=== PATIENT | female | born 1950 | race Caucasian/White ===

== ENCOUNTER 2018-08-01 13:16 | Outpatient (REF) | payer MEDICARE, BC, SELFPAY ==
[2018-08-01 15:28] LABS: Cholesterol 228 mg/dL (50-200); Glucose 85 mg/dL (70-100); HDL Cholesterol 75 mg/dL (40-60); LDL CHOLESTEROL 146 mg/dL (<100); Triglyceride 56 mg/dL (30-150)
== END 2018-08-01 13:36 ==
LOC: NCHCN 13:16
PROVIDERS: Visit Provider Nurse Practitioner
DX: E03.9 Hypothyroidism, unspecified (principal); Z13.1 Encounter for screening for diabetes mellitus
CPT/HCPCS: 80061; 82947; 83721

== ENCOUNTER 2018-08-28 00:16 | Outpatient (CLI) | payer MEDICARE, BC, SELFPAY ==
--- NOTE | 2018-08-28 11:00 | DI.DEXA_ITS ---
SYMPTOM/DIAGNOSIS: OTHER SPECIFIC DISORDER OF BONE DENSITY AND STRUCTURE, M85.89 DEXA SCAN: Routine examination. A single lateral image of the spine shows no compression deformities. Evaluation of the left hip shows a total T score of -2.4 and a Z score of - 1.0. This is consistent with osteopenia and an increased fracture risk. This compares with a total T score of -2.0 from 2015. Evaluation of the lumbar spine shows a total T score of -0.8 and a Z score of 1.2. This is within normal limits. This compares with a total T score of -0.8 from 2015. IMPRESSION: Osteopenia in the left hip.
--- NOTE | 2018-08-28 14:33 | DI.MAMMO_ITS ---
SYMPTOM/DIAGNOSIS: SCREENING, Z12.39 MAMMOGRAMS: Mammograms were interpreted according to the usual protocol including computer analysis with CAD system, tomosynthesis and C view imaging. The breasts are composed of heterogeneously fibroglandular densities. There is no dominant mass. There are no suspicious calcifications. There has been no significant interval change when compared with previous images. SUMMARY: The breast tissue is radiodense which lowers the sensitivity of the study. As noted above, no dominant mass or suspicious calcification is evident. Follow up surveillance with routine annual screening mammography is recommended. Category 1. Breast density, Category D. MQSA ASSESSMENT OF FINDINGS: Negative. Category 1. Patient will receive a letter notifying them of these results. BI-RADS category D. The breasts are extremely dense, which lowers the sensitivity of mammography.
== END 2018-08-28 00:36 ==
PROVIDERS: PCP Nurse Practitioner; Visit Provider Nurse Practitioner
DX: Z12.31 Encounter for screening mammogram for malignant neoplasm of breast (principal); M85.88 Other specified disorders of bone density and structure, other site
CPT/HCPCS: 77063; 77067; 77080

== ENCOUNTER 2018-11-12 12:20 | Outpatient (REF) | payer MEDICARE, BC, SELFPAY ==
[2018-11-12 22:08] LABS: Iron 87 ug/dL (50-175); Total Iron Binding Capacity 300 ug/dL (250-450); Transferrin Sat 29 % (15-50)
[2018-11-12 22:09] LABS: Abs Immature Grans 0.01 k/cumm (0.0-0.09); Absolute Basophil Count 0.13 k/cumm (0.0-0.2); Absolute Eosinophil Count 0.14 k/cumm (0.0-0.7); Absolute Lymphocyte Count 1.91 k/cumm (1.2-3.4); Absolute Monocyte Count 0.29 k/cumm (0.11-0.7); Absolute Neutrophil Count 3.42 k/cumm (1.2-6.7); Basophils % 2.2; Eosinophils % 2.4; HCT 44.5 % (36.0-46.0); HGB 14.8 g/dL (12.0-15.5); Immature Grans % 0.2; Lymphocytes % 32.4; Mean Corp. HGB Concentration 33.3 g/dL (32.0-36.0); Mean Corpuscular Hemoglobin 29.6 pg (27.0-33.0); Mean Platelet Volume 10.5 fL (8.0-11.0); Monocytes % 4.9; Neutrophils % 57.9; Platelet Count 260 x1000/uL (130-400); RBC Distribution Width 13.3 % (11.7-14.6)
[2018-11-12 22:14] LABS: ALT 21 U/L (12-78); AST 17 U/L (15-37); Alkaline Phosphatase 50 U/L (46-116); Amylase 60 U/L (25-115); Anion Gap 9.5 mmol/L (3-11); BUN 13 mg/dL (7-18); Bilirubin, Total 0.4 mg/dL (0.2-1.0); CO2 28.5 mmol/L (21.0-32.0); CREATININE 0.84 mg/dL (0.55-1.02); Calcium 9.9 mg/dL (8.5-10.1); Chloride 104 mmol/L (98-107); Glucose 88 mg/dL (70-100); Lipase 154 U/L (73-393); Sodium 142 mmol/L (136-145); TSH (W/Ref FT4) 2.27 uIU/mL (0.358-3.74); Total Protein 7.2 g/dL (6.4-8.2)
[2018-11-12 22:29] LABS: Hemoglobin A1C 5.4 % (4.5-6.2)
[2018-11-12 22:39] LABS: Ferritin 45 ng/mL (8-388)
== END 2018-11-12 12:40 ==
LOC: NCHCN 12:20
PROVIDERS: PCP Nurse Practitioner; Visit Provider Nurse Practitioner
DX: E78.5 Hyperlipidemia, unspecified (principal); Z13.1 Encounter for screening for diabetes mellitus; Z83.3 Family history of diabetes mellitus; R11.0 Nausea; R10.9 Unspecified abdominal pain; R00.2 Palpitations; Z13.0 Encounter for screening for diseases of the blood and blood-forming organs and certain disorders involving the immune mechanism; M25.50 Pain in unspecified joint
CPT/HCPCS: 80053; 83690; 82150; 82728; 83036; 83540; 83550; 84443; 85025

== ENCOUNTER 2018-11-17 00:41 | Outpatient (CLI) | payer MEDICARE, BC, SELFPAY ==
--- NOTE | 2018-11-17 10:00 | DI.US_ITS ---
SYMPTOMS/DIAGNOSIS: GENERALIZED ABD PAIN, R10.84 ABDOMINAL ULTRASOUND: Comparison CT scan is 09/23/11. The aorta and IVC are unremarkable. The liver is normal in size. There is increased echogenicity of the liver consistent with hepatic steatosis. No hepatic mass is seen. There are a few echogenicity nonshadowing immobile nodules along the wall of the gallbladder likely reflecting polyps. No definite stones are seen. No gallbladder wall thickening or pericholecystic fluid or sludge is present. The common duct is within normal limits at .5 cm. The pancreas, kidneys and spleen are unremarkable. IMPRESSION: 1. Echogenic liver suggesting hepatic steatosis. 2. Gallbladder polyps. No biliary ductal dilatation.
== END 2018-11-17 01:01 ==
PROVIDERS: PCP Nurse Practitioner; Visit Provider Nurse Practitioner
DX: R10.84 Generalized abdominal pain (principal); K76.0 Fatty (change of) liver, not elsewhere classified; K82.4 Cholesterolosis of gallbladder
CPT/HCPCS: 76700

== ENCOUNTER 2018-11-21 01:22 | Outpatient (CLI) | payer MEDICARE, BC, SELFPAY ==
--- NOTE | 2018-11-24 10:42 | HOLTER_ITS ---
DATE OF DICTATION: November 24, 2018 HOLTER MONITOR REPORT 48-HOUR STUDY Baseline rhythm sinus. Occasional single PAC. Six bursts of SVT, longest 5-beat duration, fastest 142 bpm. No atrial fibri llation. Rare single PVC. No VT. Nocturnal heart rates as low as 50-55 bpm, sinus bradycardia. No symptoms. Average one-minute heart rate 70 bpm, range 53-119 bpm.
[2018-11-24 13:05] LABS: HBs Antibody, Qual Negative; HBs Antibody, Quant <3.1 mIU/mL; Hepatitis B Core Antibody Negative (NEGAT); Hepatitis B surface Ag Negative (NEGAT); Hepatitis C Ab w Rflx HCV PCR Negative (NEGAT)
[2018-12-01 09:28] LABS: Misc Referral (MAYO) See Comments
== END 2018-11-21 01:42 ==
PROVIDERS: PCP Nurse Practitioner; Visit Provider Nurse Practitioner
DX: R00.2 Palpitations (principal); R07.89 Other chest pain; I49.3 Ventricular premature depolarization; I47.1 Supraventricular tachycardia
CPT/HCPCS: 36415; 83516; 86038; 86255; 86704; 86706; 86803; 87340; 93225

== ENCOUNTER 2018-11-23 15:46 | Outpatient (CLI) | payer MEDICARE, BC, SELFPAY | END 2018-11-23 16:06 | PROVIDERS: PCP Nurse Practitioner; Visit Provider Nurse Practitioner | DX: R00.2 Palpitations (principal); R07.89 Other chest pain; I49.3 Ventricular premature depolarization; I47.1 Supraventricular tachycardia | CPT/HCPCS: 93226 ==

== ENCOUNTER 2018-11-24 10:07 | Outpatient (CLI) | payer MEDICARE, BC, SELFPAY | END 2018-11-24 10:27 | PROVIDERS: PCP Nurse Practitioner; Referring Provider Nurse Practitioner; Visit Provider Internal Medicine Interventional Cardiology | DX: R00.2 Palpitations (principal); R07.89 Other chest pain; I49.3 Ventricular premature depolarization; I47.1 Supraventricular tachycardia | CPT/HCPCS: 93227 ==

== ENCOUNTER 2019-07-30 14:31 | Inpatient (IN) | payer MEDICARE, BC, SELFPAY ==
[2019-07-30] VITALS (46 sets, daily range): BP systolic 75–123; BP diastolic 34–92; PULSE 63–134; RESP 12–28; TEMP 36.8–37.4; O2SAT 93–97
--- NOTE | 2019-07-30 15:08 | ED.GENADUL_ITS ---
Discharge Plan Disposition Condition: Improving Discharge Details Chief Complaint: GenMedical Admit Date/Time: 07/30/19 18:34 Admit Provider: Ming Simon Attending Provider: Ming Simon Primary Care Provider: Rere Alcocer ED Provider: Chika Layne Discharge Instructions Activity:: Activity as Tolerated Equipment/Supplies:: No Equipment Needed Diet:: As Tolerated Discharge Orders Discharge Orders: Discharge Order (Routine); Ordered 08/01/19 Ordered By: Beulah Roberts Discharge Data Discharge Date/Time-TO BE ENTERED AT DEPARTURE: 07/30/19 19:55 Medical Decision Making <Aries Ch NP - Last Filed: 08/01/19 16:11> Patient presenting to the emergency department for chief complaint of fever chills and not feeling well. Patient states approximately 10 days ago she started developing a breast abscess that opened and drained. Patient saw the [facility] and was placed on Bactrim which she finished approximately 5 days ago. Patient has continued to have significant amount of drainage from the abscess, surrounding erythema, and has not been feeling well. Patient states that she has had fever chills, body aches. Over the last 24 hours is also developed a rash on her chest and abdomen. Physical exam shows a macular papular rash that is very mild on the abdomen but fairly significant on the back, patient has clear lung sounds, normal cardiac sounds, is not hypotensive, afebrile, non-tachycardic, does have a abscess to the left lower breast with surrounding erythema. Exam is otherwise unremarkable nondiagnostic. Plan to check labs, including wound and blood cultures. Pending results patient given IV fluids. Reassess patient after fluids and states no improvement of mild headache, and does state some stiff neck. Review of labs show no loose leukocytosis and very subtle increase of neutrophils, decrease in lymphocytes, and mild increase of monocytes, CMP is otherwise nondiagnostic, CRP is mildly elevated at 4.53 and ESR is within normal limits at 30. Patient's lactate is within normal range. A fter blood cultures were drawn patient was started on clindamycin. Did discuss with patient risk versus benefit of lumbar puncture given vague complaints of headache and neck pain and subjective fever chills with malaise but at this time we decided to hold off on LP and treat obvious source of infection which is breast abscess. Of consideration also is local positive cases of influenza so plan to do flu swab. Give patient further fluids, Zofran and Toradol to treat other symptoms. Plan to reassess patient after all these treatments along with p.o. challenge to see if patient is agreeable for home discharge otherwise given patient still has draining breast abscess with not feeling well and antibiotic failure I do feel that admission can be considered with continued antibiotics. Patient signed out to DAGOBERTO Goodrich for reassessment and further disposition. <DAGOBERTO Patino - Last Filed: 07/30/19 23:51> Accepted signout of patient pending disposition and reevaluation after Toradol and Zofran provided. Reviewed patient previous work-up and history. Reexamined the patient. Patient does have a draining wound on the left breast with no other obvious palpable mass. Patient with mild skin changes beneath the left breast which may be secondary to drainage recently or dressings. Patient noted to have a rash on her torso anteriorly and posteriorly as well as in her groin bilateral legs including feet. Discussed with patient preference for admission to the hospital versus discharge home. Patient would prefer admission to the hospital for further evaluation. Of note patient has been hypotensive during her evaluation in the emergency room although she did present normotensive. Patient was provided IV fluid 2 L prior to signout, 1 of LR and 1 of normal saline. Patient remained persistently hypotensive. Patient however is noted to be hypertensive has no associated hypotensive symptoms specifically is not dizzy, lightheaded, nauseous or feeling weak. This was discussed with my attending who does recommend additional LR. Patient was also provided Benadryl for the rash which was notable on her lower b ack, torso and legs. After Benadryl patient did have some subsequent improvement in her rash and itching. Spoke with the hospitalist who will accept this patient's admission and would prefer chest x-ray and urinalysis obtained to be sure there is no other source of infection besides the left breast lesion which is draining. Patient reexamined serially throughout her ER stay. Patient did began to develop mild rales in the lung bases therefore IV fluid was discontinued. Patient had very minimal urine output after receiving almost 2-1/2 L of fluid therefore urination was encouraged. Patient was able to produce a small amount of urine. Patient ultimately discussed code to the ICU for further monitoring of her hypotension. Patient was eating and drinking, feeling well when transferred up to the ICU HPI <Aries Ch NP - Last Filed: 08/01/19 16:11> General Mode of arrival: ambulatory . Date/Time Provider Initiated Documentation: 07/30/19 14:39 . Limitations to Documentation: no limitations . Information obtained by: patient and RN notes reviewed . History of Present Illness 69 year old F presents to the emergency department with the chief complaint of Fever, rash, described as moderate, with intensity rated at 6. Quality is described as aching (Generalized body), Patient started experiencing this day(s) (10) and it has been constant. Patient did receive the following treatments prior to arrival, other (Bactrim finished 5 days ago) Related Data Home Medications Medication Instructions Recorded Confirmed trazodone 150 mg PO HS tab-cap NS 03/24/13 07/30/19 ibuprofen [Advil] 600 mg PO QAM PRN 05/30/13 07/30/19 levothyroxine 125 mcg PO QAM 02/23/17 07/30/19 Linzess 145 mcg PO QAM 07/30/19 07/30/19 meclizine 25 mg PO PRN PRN 07/30/19 07/30/19 Lactobacillus acidophilus 1,000 mmu cells PO DAILY #30 cap 08/01/19 clindamycin HCl 300 mg PO Q6H #20 cap 08/01/19 magnesium oxide 400 mg PO DAILY #7 tab 08/01/19 Previous Rx's Medication Instructions Recorded Lactobacillus acidophilus 1,000 mmu cells PO DAILY #30 cap 08/01/19 clindamycin HCl 300 mg PO Q6H #20 cap 08/01/19 magnesium oxide 400 mg PO DAILY #7 tab 08/01/19 Allergies Allergy/AdvReac Type Severity Reaction Status Date / Time sulfamethoxazole AdvReac Intermediate delayed Unverified 07/30/19 19:47 [From Bactrim] rash trimethoprim [From Bactrim] AdvReac Intermediate delayed Unverified 07/30/19 19:47 rash General Stated Complaint: GenMedical MIKE: 3 Review of Systems <Aries Ch NP - Last Filed: 08/01/19 16:11> Constitutional Constitutional: Reports body ache(s), Reports chills, Reports fever(s), Denies headache(s), Reports malaise and Reports weakness Eyes Eyes: Denies change in vision ENT Ears, Nose, Mouth, and Throat: Denies headache(s) Cardiovascular Cardiovascular: Denies chest pain Gastrointestinal Gastrointestinal: Denies abdominal pain, Reports nausea and Reports vomiting Integumentary/Breasts Skin/Breast: Reports pruritus (Bilateral feet), Reports rash (On trunk and lower back) and Reports other (Left breast abscess) Neurologic Neurologic: Denies headache(s) and Reports weakness PFSH <Aries Ch NP - Last Filed: 08/01/19 16:11> Medical History (Updated 08/01/19 @ 12:34 by Beulah Roberts MD) Anal fistula (Acute) Hypotension (Chronic) Hypothyroidism (acquired) (Chronic) Irritable bowel (Chronic) Surgical History History of total abdominal hysterectomy (Acute) Social History Smoking/Tobacco Use Status: Never Alcohol Intake: former Drug use: Never Do you feel safe at home: Yes Do you feel safe in your relationship?: Yes History History 2 Para 1 Hx # Term Pregnancies 1 Multiple births Hx # Pregnancies Ectopic pregnancies AB induced Hx Number of Living Children 1 AB spontaneous 1 Exam <Aries Ch NP - Last Filed: 08/01/19 16:11> Const General: cooperative Nutritional Appearance: average body habitus Orientation: alert, awake and oriented x3 Neck Neck: normal visual inspection, full ROM and no meningeal signs Chest Chest: other (Open 3cm draining abscess with surrounding erythema to left breast) Breast palpation: normal palpation of the breasts and no axillary lymphade nopathy Resp Effort & Inspection: normal respiratory effort and able to speak in complete sentences Auscultation: clear to auscultation bilaterally Cardio Rate: regular rate and not tachycardic Rhythm: regular rhythm Heart Sounds: S1 normal and S2 normal Skin Rashes: rashes noted maculopapular rash diffuse multiple locations arrangement clustered, borders indistinct, color blanching and red, distribution (Mostly on lower lumbar and some abdominal) and surface dry; nontender Neuro General: alert, awake, oriented x3, tone normal, moves all extremities, no meningeal signs, no focal motor deficits and not confused Cognition: normal cognition Speech: speech normal Course <Aries Ch NP - Last Filed: 08/01/19 16:11> Vital Signs Vital signs: Vital Signs Temperature 37.1 C 07/30/19 14:35 Pulse 87 07/30/19 14:35 Respiratory Rate 18 07/30/19 14:35 Blood Pressure 123/92 H 07/30/19 14:35 Pulse Oximetry 97 07/30/19 14:35 Temperature 37.1 C 07/30/19 14:35 Temperature Source Temporal Artery Scan 07/30/19 14:35 Pulse 87 07/30/19 14:35 Respiratory Rate 18 07/30/19 14:39 Respiratory Effort Non-Labored 07/30/19 14:41 Respiratory Depth Normal 07/30/19 14:39 Respiratory Pattern Normal 07/30/19 14:39 Blood Pressure 123/92 H 07/30/19 14:35 Blood Pressure Position Supine 07/30/19 14:35 Pulse Oximetry 97 07/30/19 14:35 Oxygen Delivery Method Room Air 07/30/19 14:35 Oxygen Flow Rate 0 07/30/19 14:35 Pain Level 6 07/30/19 14:35 Lab/Test Results Lab/Test Results: 07/30/19 14:58 Blood Blood Culture - Pending 07/30/19 14:58 Blood Blood Culture - Pending
[2019-07-30] MEDS: Normal Saline 1,000 ML 1000 ML IV (15:20)
[2019-07-30 15:30] LABS: Lactate 0.9 mmol/L (0.6-1.4)
[2019-07-30 15:35] LABS: Abs Immature Grans 0.01 k/cumm (0.0-0.09); Absolute Basophil Count 0.05 k/cumm (0.0-0.2); Absolute Eosinophil Count 0.04 k/cumm (0.0-0.7); Absolute Lymphocyte Count 1.01 k/cumm (1.2-3.4); Absolute Monocyte Count 0.75 k/cumm (0.11-0.7); Absolute Neutrophil Count 6.74 k/cumm (1.2-6.7); Basophils % 0.6; Eosinophils % 0.5; HCT 37.4 % (36.0-46.0); Immature Grans % 0.1; Lymphocytes % 11.7; Mean Corp. HGB Concentration 34.8 g/dL (32.0-36.0); Mean Corpuscular Hemoglobin 29.8 pg (27.0-33.0); Mean Corpuscular Volume 85.8 fL (80-95); Mean Platelet Volume 9.7 fL (8.0-11.0); Monocytes % 8.7; Neutrophils % 78.4; Platelet Count 199 x1000/uL (130-400); RBC 4.36 m/cumm (4.00-5.20); RBC Distribution Width 12.7 % (11.7-14.6)
[2019-07-30 15:50] LABS: AST 13 U/L (15-37); Albumin 3.1 g/dL (3.4-5.0); Alkaline Phosphatase 48 U/L (46-116); Anion Gap 9.7 mmol/L (3-11); BUN 10 mg/dL (7-18); Bilirubin, Total 0.6 mg/dL (0.2-1.0); C-Reactive Protein 4.53 mg/dL (0.0-0.3); CO2 25.3 mmol/L (21.0-32.0); CREATININE 0.87 mg/dL (0.55-1.02); Calcium 8.6 mg/dL (8.5-10.1); Chloride 99 mmol/L (98-107); Glucose 116 mg/dL (70-100); Potassium 3.8 mmol/L (3.5-5.1); Sodium 134 mmol/L (136-145); Total Protein 6.7 g/dL (6.4-8.2)
[2019-07-30 16:03] LABS: ALT 15 U/L (14-59)
[2019-07-30 16:18] LABS: ESR 30 mm/hr (0-30)
[2019-07-30] MEDS: CLINDAMYCIN 900 MG/50 ML BAG 50 MG IVPB (16:21)
[2019-07-30] MEDS: Normal Saline Flush 10 ML SYR IVP (16:26)
[2019-07-30] MEDS: Ketorolac 15 MG/ML VIAL IVP (16:41)
[2019-07-30] MEDS: Ondansetron 4 MG/2 ML VIAL IVP (16:42)
[2019-07-30] MEDS: Lactated Ringers 1,000 ML 1000 ML IV (16:45)
[2019-07-30] MEDS: diphenhydrAMINE 50 MG/ML VIAL IVP (17:31)
[2019-07-30] MEDS: Lactated Ringers 1,000 ML 300 ML IV (18:05)
--- NOTE | 2019-07-30 18:05 | NUR.NOTE ---
Nursing Note: Patients BP has continued to drop into the 70's systolic. Patients answers have become vauge but her orientation has maintained adequate. She is PWD, her speech seems slightly slurred. She only has complaints of leg cramps at this time.
[2019-07-30] MEDS: methylPREDNISolone SUCC 125 MG VIAL (18:17)
--- NOTE | 2019-07-30 18:21 | NUR.NOTE ---
1805: pt placed in trandelenburg due to hypotension Nursing Note:
--- NOTE | 2019-07-30 19:05 | DI.RAD_ITS ---
EXAM: XR PORTABLE CHEST AP INDICATION: hypotension; r/o sepsis. COMPARISON: LEFT SHOULDER COMPLETE from 01/03/2016 TECHNIQUE: 2D digital imaging was performed. FINDINGS: The heart is not enlarged. Lungs appear grossly clear and well expanded. IMPRESSION: No evidence of acute process.
--- NOTE | 2019-07-30 19:07 | SCONE_ITS ---
Date of service: 07/30/19 Time of Service: 19:07 Assessment and Plan Assessment and plan (1) Drug allergy, antibiotic: Status: Acute (2) Left breast abscess: Status: Acute Assessment and plan: draining spontaneously. No surrounding cellulitis cont local wound care wet to dry. abx coverage- clinda. cultures- pd clinically looks good. 20% slough 80% granulation tissue does not require debridement at this time adn continue to treat medically. hypotension was drug reaction adn not sepsis. does need to have is clinical breast exam and f/u US to r/o occult malig in 4-6 wks time. History of Present Illness Narrative: pt seen and examined. D/w Dr. Rai pt BP is doing better today. I think the hypotension and other problems was medicaton reaction and not due to the abscess itself. pt had abscess for a week. It has drained on its own. there is no signif erythema or swelling of the breast. no fever/chills. US was done this am and shows no pockets pt does get regular mamms. She does have a mamm scheduled for later this month. She has no hx of breast abscess or problems. She does have a Hx of infected boils. Complete clinical breast exam not done in light of acute infection. However, this should be done to r/o underlying malig- even w/ neg mamm. Today she feels better. No fever/chills. no n/v. She is hungry. no further rash. Consults Consult date: 07/31/19 Requesting physician: Ming Simon Review of Systems Review of Systems ROS Unobtainable: All systems reviewed & are unremarkable except as noted in HPI and below PFSH Medical History Anal fistula (Acute) Hypothyroidism (acquired) (Acute) Irritable bowel (Chronic) Surgical History History of total abdominal hysterectomy (Acute) Social History Smoking/Tobacco Use Status: Never Alcohol Intake: former Drug use: Never Do you feel safe at home: Yes Do you feel safe in your relationship?: Yes History History 2 Para 1 Hx # Term Pregnancies 1 Multiple births Hx # Pregnancies Ectopic pregnancies AB induced Hx Number of Living Children 1 AB spontaneous 1 Exam Const General: cooperative, healthy appearing, comfortable, no acute distress, well developed and well groomed Nutritional Appearance: average body habitus and well nourished Orientation: alert, awake and oriented x3 HENMT Head: normal to inspection, normocephalic and atraumatic Ears: hearing grossly normal bilaterally and external ears normal General nose exam: external nose normal Face and sinus: normal facial exam and sinuses nontender Mouth: oral mucosae normal, lip normal, tongue normal and moist mucous membranes Teeth and gingiva: dentition normal Eyes General: appearance normal, both eyes and all related structures Conjunctivae: conjunctivae normal Sclera: sclerae normal Pupils: PERRL Neck Neck: normal visual inspection and full ROM Chest Chest: normal inspection of the chest Resp Effort & Inspection: normal respiratory effort, able to speak in complete sentences, no cough, no nasal flaring, not tachypneic and no use of accessory muscles Auscultation: clear to auscultation bilaterally, no rales, no rhonchi and no w heezes Cardio Jugular venous pressure: no JVD Rate: regular rate Rhythm: regular rhythm GI Inspection: normal to inspection, no edema and non-distended Palpation: soft, no masses, nontender and No ascites Auscultation: normal bowel sounds Skin Other: 2cm open draining area in 6oclock position. surrounding tissue is int act. minimal serous drainages. 80% granulation. 20% slough. no further abscesss on US. Neuro General: alert, oriented x3, oriented, gait normal, moves all extremities, no focal motor deficits and CN's II-XI intact bilaterally Cognition: normal cognition Speech: speech normal Gait: normal gait Motor: muscle tone normal throughout Extrem General: normal to inspection, full ROM and no clubbing, cyanosis or edema Psych Appearance: grossly normal and well kempt Mental Status: mental status grossly normal Speech and Movement: speech and movement normal Affect: normal affect Results Last Vital Signs Temp 37.4 C 07/30/19 17:32 Pulse 77 07/30/19 18:40 Resp 15 07/30/19 18:41 BP 90/61 L 07/30/19 18:40 Pulse Ox 97 07/30/19 18:41 Labs Result diagrams: 07/31/19 06:30 07/31/19 06:30 Labs: Laboratory Results - last 24 hr 07/30/19 07/30/19 07/30/19 15:15 15:15 15:15 WBC 8.60 RBC 4.36 Hgb 13.0 Hct 37.4 MCV 85.8 MCH 29.8 MCHC 34.8 RDW 12.7 Plt Count 199 MPV 9.7 Immature Gran % 0.1 Neutrophils % 78.4 Lymphocytes % 11.7 Monocytes % 8.7 Eosinophils % 0.5 Basophils % 0.6 Absolute Neutrophils 6.74 H Absolute Lymphocytes 1.01 L Absolute Monocytes 0.75 H Absolute Eosinophils 0.04 Absolute Basophils 0.05 ESR 30 Sodium 134 L Potassium 3.8 Chloride 99 Carbon Dioxide 25.3 Anion Gap 9.7 BUN 10 Creatinine 0.87 Estimated GFR/1.73 m2 >= 60.00 Glucose 116 H Lactate 0.9 Calcium 8.6 Total Bilirubin 0.6 AST 13 L ALT 15 Alkaline Phosphatase 48 C-Reactive Protein 4.53 H Total Protein 6.7 Albumin 3.1 L
--- NOTE | 2019-07-30 19:12 | DI.VRAD_ITS ---
PROCEDURE INFORMATION: Exam: XR Chest, 1 View Exam date and time: 07/30/2019 7:01 PM Clinical history: 69 years old, female; Other: Hypotension, R/O sepsis TECHNIQUE: Imaging protocol: XR of the chest Views: 1 view. COMPARISON: CR CHEST 2 VIEWS PA,LAT 08/08/2012 5:18 PM FINDINGS: Lungs: Unremarkable. No consolidation. Pleural space: Unremarkable. No pleural effusion. No pneumothorax. Heart/Mediastinum: Unremarkable. No cardiomegaly. Bones/joints: Unremarkable. IMPRESSION: No acute findings. Dictated and Authenticated by: Vane Rojo MD. Ordering:[facility] Alfred Lai MD
[2019-07-30 19:13] LABS: Bilirubin Small (Negative); Blood Negative (Negative); Clarity Sl Cloudy (Clear); Glucose Negative (Negative); Ketones 40 mg/dL (Negative); Leukocyte Esterase Small (Negative); Nitrite Negative (Negative); Specific Gravity 1.025 (1.005-1.025)
[2019-07-30 19:24] LABS: Bacteria Negative HPF (Negative); C & S Indicated? C&S Done As Ordered; Casts Negative LPF (Negative); Crystals Negative HPF (Negative); Epithelial Cells Few HPF (Negative); Mucus Negative (Negative); RBC Negative (0-2); WBC >50 HPF (0-5)
[2019-07-30 19:30] LABS: Procalcitonin 0.1 ng/mL
--- NOTE | 2019-07-30 20:28 | HPE_ITS ---
Date of service: 07/30/19 Time of Service: 20:28 Assessment and Plan Assessment and plan (1) Left breast abscess: Status: Acute Assessment and plan: continue w/ iv clindamycin; apply wet to dry dressin gs for tonight; consult w/ surgery for possible incision and drainage; obtain breast ultrasound in the a.m.; patient was scheduled for her mammogram for next month. this will still need to be done but can await resolution of her infection unless malignancy is suspected on the U.S.; I spoke w/ Dr. Mendenhall who agrees w/ current managment and will see the patient in the a.m. (2) Drug allergy, antibiotic: Status: Acute Assessment and plan: continue w/ benadryl; pepcid also added for additio nal H2 coverage for allergic reaction. Her rash is markedly improved per comparison to ER reports and according to the patient and her . Her itching of the soled of her feet have resolved. History of Present Illness History of Present Illness Chief Complaint: left breast abscess, fever, rash Narrative: 69 yr old female w/ PMH of IBS (constipation), hypothyroidism who developed a boil on her left breast about 10 days ago. Started as tender red indurated area in the left inferior breast and she saw her PCP who put her on Bactrim DS x 5 days. When the redness and tenderness worsened she says that she returned to the [facility] requesting this to be lanced. She completed her course of Bactrim last SaturdayJul 24. On Saturday evening and Saturday (07/28 and 07/29) she developed fever and chills and diaphoresis then yesterday 07/29 developed diffuse erythematous rash over her back which then spread to her arms and legs and was accompanied by urticaria with itching of her soles of her feet. By this time the area under her breast had been opening up and draining foul smelling green purulent material. Upon evaluation in the ER she initially was normotensive but developed hypotension w/ BP 70-80 systolic over diastolic readings in the 40's to 50's but no tachycardia. ER workup included blood and wound cultures and routine labs including CBC, CMP, ESR, CRP and lactate. CBC demonstrated normal total WBC of 8600 but w/ increased PMN of 6740 and elevated ESR of 30 and CRP of 4.53. Her CMP was normal. Procalcitonin is 0.1. Although she had no urinary symptoms, UA demonstrated mild proteinuria of 30 mg/dL and ketones of 40 mg/dL and small leukocyte esterase, w/ >50 WBC/HPF, but negative for bacteria. Her influenza A&B antigen were negative. CXR showed no acute findings. After blood and wound cultures were taken, she was treated w/ clindamycin 900 mg IVP for her breast abscess and her urticaria was treated w/ benadryl 50 mg IVP and solumedrol 125 mg IVP. Despite 2 L of LR she continued to have mild hypotension w/ SBP 80-90. She is admitted to ICU for continued iv fluid support, benadryl and clindamycin for her wound infection. Surgical consu lt and breast ultrasound will be obtained in the a.m. Review of Systems Constitutional Constitutional: Reports as per HPI, Reports chills, Reports excessive sweating, Reports fever(s), Reports headache(s), Reports malaise and Reports poor appetite ENT Ears, Nose, Mouth, and Throat: Reports system reviewed and no additional complaints, except as docu and Reports headache(s) Cardiovascular Cardiovascular: Reports system reviewed and no additional complaints, except as docu Respiratory Respiratory: Reports system reviewed and no additional complaints, except as docu Gastrointestinal Gastrointestinal: Reports system reviewed and no additional complaints, except as docu Genitourinary Genitourinary: Reports system reviewed and no additional complaints, except as docu Musculoskeletal Musculoskeletal: Denies arthralgias and Denies joint swelling Integumentary/Breasts Skin/Breast: Reports as per HPI, Reports breast skin changes (only redness and tenderness under left breast in last 10 days), Reports breast pain (patient denied any antecedent breast pain prior to left breast wound) and Denies breast mass Neurologic Neurologic: Reports headache(s) Endocrine Endocrine: Reports excessive sweating Hematologic/Lymphatic Hematologic/Lymphatic: Reports system reviewed and no additional complaints, except as docu Allergic/Immunologic Allergic/Immunologic: Reports system reviewed and no additional complaints, except as docu PFSH Medical History (Updated 07/30/19 @ 21:37 by Ming Simon) Anal fistula (Acute) Hypothyroidism (acquired) (Acute) Irritable bowel (Chronic) Surgical History (Updated 07/30/19 @ 21:29 by Ming Simon) History of total abdominal hysterectomy (Acute) Social History Smoking/Tobacco Use Status: Never Alcohol Intake: former Drug use: Never Do you feel safe at home: Yes Do you feel safe in your relationship?: Yes History History 2 Para 1 Hx # Term Pregnancies 1 Multiple births Hx # Pregnancies Ectopic pregnancies AB induced Hx Number of Living Children 1 AB spontaneous 1 Meds Home Medications and Allergies Home Medications Medication Instructions Recorded Confirmed Type trazodone 150 mg PO HS tab-cap NS 03/24/13 07/30/19 History ibuprofen [Advil] 600 mg PO QAM PRN 05/30/13 07/30/19 History levothyroxine 125 mcg PO QAM 02/23/17 07/30/19 History linaclotide [Linzess] 145 mcg PO QAM 07/30/19 07/30/19 History meclizine 25 mg PO PRN PRN 07/30/19 07/30/19 History Allergies Allergy/AdvReac Type Severity Reaction Status Date / Time sulfamethoxazole AdvReac Intermediate delayed Unverified 07/30/19 19:47 [From Bactrim] rash trimethoprim [From Bactrim] AdvReac Intermediate delayed Unverified 07/30/19 19:47 rash Exam Const General: cooperative, healthy appearing, comfortable, no acute distress, well developed and well groomed Nutritional Appearance: average body habitus Orientation: alert, awake and oriented x3 Neck Neck: normal visual inspection, full ROM, no lymphadenopathy, trachea midline, supple and no JVD Thyroid: thyroid normal Carotids: normal carotid upstroke Lymphatic: no lymphadenopathy noted Chest Breast inspection: normal inspection of the axillae and abnormal inspection of the breast left lower outer other (open draining wound that is approximately 5 cm around and draining purulent yellow material) Breast palpation: normal palpation of the axillae, no axillary lymphadenopathy and abnormal palpation of the breast left lower outer tenderness and induration Resp Effort & Inspection: normal respiratory effort and able to speak in complete sentences Auscultation: clear to auscultation bilaterally Cardio Jugular venous pressure: no JVD Palpation: normal PMI Rate: regular rate Rhythm: regular rhythm Heart Sounds: S1 normal, S2 normal and normal, physiologic split S2 Pulses: normal peripheral pulses GI Inspection: normal to inspection Palpation: soft Percussion: normal to percussion Auscultation: normal bowel sounds Rectal Exam - female: deferred Skin Rashes: rashes noted macules bilateral posterior back color variegated Wounds: wounds noted ulceration left lower breast size (approx 5 cm), drainage purulent, margins indurated and open Neuro General: alert, awake, oriented x3, moves all extremities and no focal motor deficits Cognition: normal cognition Speech: speech normal Motor: muscle tone normal throughout, strength 5/5 throughout and no movement abnormalities noted Sensory Exam: no sensory deficits noted Extrem General: normal to inspection, full ROM, normal capillary refill, no joint enlargement, no clubbing, cyanosis or edema, no pedal edema and no calf tenderness Psych Appearance: grossly normal Mental Status: mental status grossly normal Speech and Movement: speech and movement normal Mood: congruent mood Affect: normal affect Attitude: cooperative Thought Process: normal Thought Content: normal Judgment: judgment good Results Labs Result diagrams: 07/30/19 15:15 07/30/19 15:15 Labs: Laboratory Results - last 24 hr 07/30/19 07/30/19 07/30/19 15:15 15:15 15:15 WBC 8.60 RBC 4.36 Hgb 13.0 Hct 37.4 MCV 85.8 MCH 29.8 MCHC 34.8 RDW 12.7 Plt Count 199 MPV 9.7 Immature Gran % 0.1 Neutrophils % 78.4 Lymphocytes % 11.7 Monocytes % 8.7 Eosinophils % 0.5 Basophils % 0.6 Absolute Neutrophils 6.74 H Absolute Lymphocytes 1.01 L Absolute Monocytes 0.75 H Absolute Eosinophils 0.04 Absolute Basophils 0.05 ESR 30 Sodium 134 L Potassium 3.8 Chloride 99 Carbon Dioxide 25.3 Anion Gap 9.7 BUN 10 Creatinine 0.87 Estimated GFR/1.73 m2 >= 60.00 Glucose 116 H Lactate 0.9 Calcium 8.6 Total Bilirubin 0.6 AST 13 L ALT 15 Alkaline Phosphatase 48 C-Reactive Protein 4.53 H Total Protein 6.7 Albumin 3.1 L Procalcitonin Urine Color Urine Clarity Urine pH Ur Specific [place] Urine Protein Urine Ketones Urine Blood Urine Nitrite Urine Bilirubin Urine Urobilinogen Ur Leukocyte Esterase Urine RBC Urine WBC Ur Epithelial Cells Urine Crystals Urine Bacteria Urine Casts Urine Mucus Ur Culture Indicated? Urine Glucose 07/30/19 07/30/19 18:45 19:05 WBC RBC Hgb Hct MCV MCH MCHC RDW Plt Count MPV Immature Gran % Neutrophils % Lymphocytes % Monocytes % Eosinophils % Basophils % Absolute Neutrophils Absolute Lymphocytes Absolute Monocytes Absolute Eosinophils Absolute Basophils ESR Sodium Potassium Chloride Carbon Dioxide Anion Gap BUN Creatinine Estimated GFR/1.73 m2 Glucose Lactate Calcium Total Bilirubin AST ALT Alkaline Phosphatase C-Reactive Protein Total Protein Albumin Procalcitonin 0.1 Urine Color Yellow Urine Clarity Sl cloudy Urine pH 6.0 Ur Specific [place] 1.025 Urine Protein 30 H Urine Ketones 40 H Urine Blood Negative Urine Nitrite Negative Urine Bilirubin Small H Urine Urobilinogen 1.0 H Ur Leukocyte Esterase Small H Urine RBC Negative Urine WBC >50 Ur Epithelial Cells Few Urine Crystals Negative Urine Bacteria Negative Urine Casts Negative Urine Mucus Negative Ur Culture Indicated? C&s done as ordered Urine Glucose Negative Last Vital Signs Temp 37.4 C 07/30/19 17:32 Pulse 76 07/30/19 19:35 Resp 24 07/30/19 19:35 BP 91/57 L 07/30/19 19:35 Pulse Ox 94 L 07/30/19 19:35
[2019-07-30] MEDS: FAMOTIDINE 20 MG/50 ML BAG 200 MG IVPB (21:21)
[2019-07-30] MEDS: Melatonin 3 MG TAB 9 MG PO (21:22)
[2019-07-30] MEDS: Enoxaparin 40 MG/0.4 ML SYR SC (21:22)
[2019-07-30] MEDS: Normal Saline 1,000 ML 100 ML IV (21:50)
[2019-07-31] VITALS (38 sets, daily range): BP systolic 82–114; BP diastolic 54–69; PULSE 36–72; RESP 9–35; TEMP 35.6–37.1; O2SAT 95–99
[2019-07-31] MEDS: CLINDAMYCIN 900 MG/50 ML BAG 50 MG IVPB ×4 (00:36→23:39)
[2019-07-31] MEDS: diphenhydrAMINE 50 MG/ML VIAL IVP ×2 (00:36→06:28)
[2019-07-31] MEDS: Normal Saline Flush 10 ML SYR IVP (03:37)
[2019-07-31] MEDS: FAMOTIDINE 20 MG/50 ML BAG 200 MG IVPB ×2 (06:28→21:05)
[2019-07-31] MEDS: Levothyroxine 125 MCG TAB PO (06:28)
[2019-07-31 07:10] LABS: Absolute Basophil Count 0.01 k/cumm (0.0-0.2); Absolute Lymphocyte Count 0.74 k/cumm (1.2-3.4); Absolute Neutrophil Count 2.63 k/cumm (1.2-6.7); Basophils % 0.3; HCT 33.7 % (36.0-46.0); HGB 11.6 g/dL (12.0-15.5); Lymphocytes % 21.3; Mean Corp. HGB Concentration 34.4 g/dL (32.0-36.0); Mean Corpuscular Hemoglobin 29.9 pg (27.0-33.0); Mean Corpuscular Volume 86.9 fL (80-95); Mean Platelet Volume 10.3 fL (8.0-11.0); Monocytes % 2.9; Neutrophils % 75.5; Platelet Count 153 x1000/uL (130-400); RBC 3.88 m/cumm (4.00-5.20); RBC Distribution Width 12.6 % (11.7-14.6); White Blood Cell Count 3.48 k/cumm (4.4-10.8)
[2019-07-31 07:22] LABS: Anion Gap 8.7 mmol/L (3-11); BUN 11 mg/dL (7-18); C-Reactive Protein 3.69 mg/dL (0.0-0.3); CO2 24.3 mmol/L (21.0-32.0); CREATININE 0.71 mg/dL (0.55-1.02); Calcium 8.9 mg/dL (8.5-10.1); Chloride 107 mmol/L (98-107); Glucose 150 mg/dL (70-100); Potassium 4.6 mmol/L (3.5-5.1); Sodium 140 mmol/L (136-145)
--- NOTE | 2019-07-31 08:30 | DI.US_ITS ---
EXAM: US BREAST LT COMPLETE CLINICAL HISTORY: breast abscess. TECHNIQUE: Ultrasound performed using standard protocol. COMPARISON: US ABDOMEN from 11/17/2018 FINDINGS: Ultrasound of the left breast was performed to evaluate the possibility of a breast abscess. Scannin g of the entire breast fails to show an abscess or mass. IMPRESSION: No evidence of breast abscess.
--- NOTE | 2019-07-31 09:26 | INITIAL_ITS ---
- If Service Date Differs Date of service: 07/31/19 Time of Service: 09:26 Care Management Initial Assess REASON FOR HOSPITALIZATION:: Breast abscess; r/o sepsis. PAST MEDICAL HISTORY/PAST SURGICAL HISTORY:: Medical History: Anal fistula, hypothyroidism, and irritable bowel. Surgical History: History of total abdominal hysterectomy. PREVIOUS FUNCTIONAL STATUS/SOCIAL/FAMILY SUPPORTS:: Vick resides in [place] with her Krzysztof. 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 She shares that she and her had plans to fly to [place] to visit her sister over the weekend but now that she is in the hospital, those plans have to be rescheduled. The couple spends a lot of time traveling the country. Vick is independent in the community and manages her own needs. CURRENT FUNCTIONAL STATUS:: Vick is lying in bed when meets with her today. Her , Krzysztof, is present in the room. Vick is pleasant and easily engages in conversation. She expresses her disappointment with having to reschedule her trip to [place]. ADVANCE DIRECTIVES:: On file at [facility]; agent is , Krzysztof Jama. Has patient been provided with information about the portal?: Yes Did the patient sign up for the portal?: Yes CODE STATUS:: Full Code INSURANCE COVERAGE / FINANCIAL ISSUES:: [facility] and Medicare. CURRENT HOME/COMMUNITY SERVICES/EQUIPMENT:: No current services. PRIMARY CARE PHYSICIAN:: Rere Alcocer NP, [facility] POTENTIAL DISCHARGE NEEDS:: Follow-up with primary care physician. PATIENT/FAMILY EDUCATION NEEDS:: Discharge plan, limitations, and follow-up plan of care including ask me 3 and self-management. ANTICIPATED BARRIERS TO DISCHARGE:: None. TRANSPORTATION:: will transport Vick home upon discharge. PLAN:: Vick will be discharged home when medically cleared by provider. Anticipate no additional services needed at time of discharge. will transport patient home.
--- NOTE | 2019-07-31 14:11 | W.PM.PROGNOT ---
Date of Service Date of service: 07/31/19 Time of Service: 14:12 Assessment and Plan Assessment and plan (1) Drug allergy, antibiotic: Status: Acute Assessment and plan: Appears vastly improved/resolving. No further Benadryl, but remains on Famotidine. Also received IV Steroids. Monitor. (2) Left breast abscess: Status: Acute Assessment and plan: No evidence of any remaining infection/abscess to drain, per ultrasound. Infection appears to be draining spontaneously. Given purulence and prior abscess need coverage for MRSA. - Continue antibiotics, but with change towards Clindamycin. If patient tolerates, plan on change to oral formulation tomorrow. - Hypotension may be on the basis of drug reaction and not sepsis - continue IVFs for now, monitor blood cultures closely, and continue monitoring. - Does not require debridement. - Plan on outpatient diagnostic mammogram and repeat ultrasound in 1-2 months. (3) Hypothyroidism (acquired): Status: Acute Assessment and plan: Continue replacement therapy. Unsure of utility for TSH given acute illness - last checked and normal in October 2018. (4) DVT prophylaxis: Status: Acute Assessment and plan: SC Lovenox. Subjective Subjective Interval history since last seen: 69 year old woman with a prior history of multiple abscesses, admitted from [facility] Emergency Department with a likely drug reaction to Bactrim. Mrs. Jama has a past Medical History of Hypothyroidism, constipation predominant IBS, and prior abscesses. She reportedly developed an abscess of the left breast approximately 10 days prior to admission, and was initiated on TMP-SMX by her PCP on 07/24. On the night prior to her admission (07/28 & 07/29) she developed fevers, diaphoresis, and a diffuse erythematous rash over her back, arms, and legs that was accompanied by urticaria. The area under her breast had also been draining purulent appearing material. Evaluation in the ED was noteworthy for hypotension, significant erythematous rash that was nearly resolved by the time of admission, lack of leukocytosis, normal Lactate, normal CMP, but with an elevated CRP of 4.53, and a Procalcitonin level of 0.1. Her Urinalysis showed sterile Pyuria, Rapid flu was negative, and CXR did not show any acute pathology. By this morning Mrs. Jama feels well and certainly improved. Her WBC is low this morning, with CRP that is improved. Her Breast Ultrasound does not show evidence of an abscess or mass, and Urine Culture shows <10,000 of Gram + Haylie. The patient remains hypotensive and is also bradycardic, but reports that this is her norm, especially with the bradycardia. No overnight events reported. She remains afebrile. Exam Narrative Exam Narrative: General: Patient appears comfortable, AAOX3, NAD Skin: Left Breast wound with bandage in place Neck: Supple CV: Regular, nontachycardic, S1S2, No rubs, murmurs, or gallops. Pulmonary: Clear to auscultation bilaterally, no crackles, wheezing, or rhonchi Abdomen: + Bowel Sounds, soft, nontender, nondistended Vascular: No lower extremity edema Psych: Normal mood and affect. Objective Objective Clinical Data: Abnormal lab results 07/30/19 07/30/19 07/30/19 Range/Units 15:15 15:15 19:05 WBC (4.4-10.8) k/cumm RBC (4.00-5.20) m/cumm Hgb (12.0-15.5) g/dL Hct (36.0-46.0) % Absolute Neutrophils 6.74 H (1.2-6.7) k/cumm Absolute Lymphocytes 1.01 L (1.2-3.4) k/cumm Absolute Monocytes 0.75 H (0.11-0.7) k/cumm Sodium 134 L (136-145) mmol/L Glucose 116 H (70-100) mg/dL AST 13 L (15-37) U/L C-Reactive Protein 4.53 H (0.0-0.3) mg/dL Albumin 3.1 L (3.4-5.0) g/dL Urine Protein 30 H (Negative) mg/dL Urine Ketones 40 H (Negative) mg/dL Urine Bilirubin Small H (Negative) Urine Urobilinogen 1.0 H (Up TO 0.2) EU/dL Ur Leukocyte Esterase Small H (Negative) 07/31/19 07/31/19 Range/Units 06:30 06:30 WBC 3.48 L D (4.4-10.8) k/cumm RBC 3.88 L (4.00-5.20) m/cumm Hgb 11.6 L (12.0-15.5) g/dL Hct 33.7 L (36.0-46.0) % Absolute Neutrophils (1.2-6.7) k/cumm Absolute Lymphocytes 0.74 L (1.2-3.4) k/cumm Absolute Monocytes 0.10 L (0.11-0.7) k/cumm Sodium (136-145) mmol/L Glucose 150 H (70-100) mg/dL AST (15-37) U/L C-Reactive Protein 3.69 H (0.0-0.3) mg/dL Albumin (3.4-5.0) g/dL Urine Protein (Negative) mg/dL Urine Ketones (Negative) mg/dL Urine Bilirubin (Negative) Urine Urobilinogen (Up TO 0.2) EU/dL Ur Leukocyte Esterase (Negative) Vital Signs Temperature 35.8 C L 07/31/19 12:18 Temperature Source Tympanic 07/31/19 12:51 Pulse 57 L 07/31/19 12:18 Pulse 56 L 07/31/19 09:40 Respiratory Rate 12 07/31/19 12:18 Respiratory Effort Non-Labored 07/31/19 12:51 Respiratory Depth Normal 07/31/19 12:51 Respiratory Pattern Normal 07/31/19 12:51 Blood Pressure 82/60 L 07/31/19 12:18 Blood Pressure Mean 59 07/30/19 22:09 Blood Pressure Position Supine 07/31/19 12:51 Pulse Oximetry 95 07/31/19 12:18 Oxygen Delivery Method Room Air 07/31/19 12:51 Oxygen Flow Rate 0 07/31/19 12:51 Pain Level 0 07/31/19 12:51 Intake & Output 07/30/19 07/31/19 07/31/19 23:59 11:59 23:59 Intake Total 2745 / 2745 190 / 190 Output Total 700 / 700 350 / 350 Balance 2044 / 2044 -160 / -160 Weight 74 kg 74.5 kg Intake: IV 2265 / 2265 50 / 50 Oral 480 / 480 140 / 140 Output: Urine 700 / 700 350 / 350 Other: Urine Color Yellow Dark Raquel Urine Appearance Clear Clear Urine Odor Normal None Comment s/p hysterectomy. Medium raquel urine. Voided 350cc on commode. No further void since this am. Voiding Methods Bedside Commode Laboratory Results WBC 3.48 k/cumm (4.4-10.8) L D 07/31/19 06:30 RBC 3.88 m/cumm (4.00-5.20) L 07/31/19 06:30 Hgb 11.6 g/dL (12.0-15.5) L 07/31/19 06:30 Hct 33.7 % (36.0-46.0) L 07/31/19 06:30 MCV 86.9 fL (80-95) 07/31/19 06:30 MCH 29.9 pg (27.0-33.0) 07/31/19 06:30 MCHC 34.4 g/dL (32.0-36.0) 07/31/19 06:30 RDW 12.6 % (11.7-14.6) 07/31/19 06:30 Plt Count 153 x1000/uL (130-400) 07/31/19 06:30 MPV 10.3 fL (8.0-11.0) 07/31/19 06:30 Immature Gran % 0.0 07/31/19 06:30 Neutrophils % 75.5 07/31/19 06:30 Lymphocytes % 21.3 07/31/19 06:30 Monocytes % 2.9 07/31/19 06:30 Eosinophils % 0.0 07/31/19 06:30 Basophils % 0.3 07/31/19 06:30 Absolute Neutrophils 2.63 k/cumm (1.2-6.7) 07/31/19 06:30 Absolute Lymphocytes 0.74 k/cumm (1.2-3.4) L 07/31/19 06:30 Absolute Monocytes 0.10 k/cumm (0.11-0.7) L 07/31/19 06:30 Absolute Eosinophils 0.00 k/cumm (0.0-0.7) 07/31/19 06:30 Absolute Basophils 0.01 k/cumm (0.0-0.2) 07/31/19 06:30 ESR 30 mm/hr (0-30) 07/30/19 15:15 Sodium 140 mmol/L (136-145) 07/31/19 06:30 Potassium 4.6 mmol/L (3.5-5.1) D 07/31/19 06:30 Chloride 107 mmol/L (98-107) 07/31/19 06:30 Carbon Dioxide 24.3 mmol/L (21.0-32.0) 07/31/19 06:30 Anion Gap 8.7 mmol/L (3-11) 07/31/19 06:30 BUN 11 mg/dL (7-18) 07/31/19 06:30 Creatinine 0.71 mg/dL (0.55-1.02) 07/31/19 06:30 Estimated GFR/1.73 m2 >= 60.00 (mL/min/1.73m2) 07/31/19 06:30 Glucose 150 mg/dL (70-100) H 07/31/19 06:30 Lactate 0.9 mmol/L (0.6-1.4) 07/30/19 15:15 Calcium 8.9 mg/dL (8.5-10.1) 07/31/19 06:30 Total Bilirubin 0.6 mg/dL (0.2-1.0) 07/30/19 15:15 AST 13 U/L (15-37) L 07/30/19 15:15 ALT 15 U/L (14-59) 07/30/19 15:15 Alkaline Phosphatase 48 U/L (46-116) 07/30/19 15:15 C-Reactive Protein 3.69 mg/dL (0.0-0.3) H 07/31/19 06:30 Total Protein 6.7 g/dL (6.4-8.2) 07/30/19 15:15 Albumin 3.1 g/dL (3.4-5.0) L 07/30/19 15:15 Procalcitonin 0.1 ng/mL 07/30/19 18:45 Urine Color Yellow (Yellow) 07/30/19 19:05 Urine Clarity Sl cloudy (Clear) 07/30/19 19:05 Urine pH 6.0 (5-8) 07/30/19 19:05 Ur Specific [place] 1.025 (1.005-1.025) 07/30/19 19:05 Urine Protein 30 mg/dL (Negative) H 07/30/19 19:05 Urine Ketones 40 mg/dL (Negative) H 07/30/19 19:05 Urine Blood Negative (Negative) 07/30/19 19:05 Urine Nitrite Negative (Negative) 07/30/19 19:05 Urine Bilirubin Small (Negative) H 07/30/19 19:05 Urine Urobilinogen 1.0 EU/dL (Up TO 0.2) H 07/30/19 19:05 Ur Leukocyte Esterase Small (Negative) H 07/30/19 19:05 Urine RBC Negative (0-2) 07/30/19 19:05 Urine WBC >50 HPF (0-5) 07/30/19 19:05 Ur Epithelial Cells Few HPF (Negative) 07/30/19 19:05 Urine Crystals Negative HPF (Negative) 07/30/19 19:05 Urine Bacteria Negative HPF (Negative) 07/30/19 19:05 Urine Casts Negative LPF (Negative) 07/30/19 19:05 Urine Mucus Negative (Negative) 07/30/19 19:05 Ur Culture Indicated? C&s done as ordered 07/30/19 19:05 Urine Glucose Negative mg/dL (Negative) 07/30/19 19:05 Objective Narrative Objective Narrative: Exam(s) a US:US breast LT complete EXAM: US BREAST LT COMPLETE CLINICAL HISTORY: breast abscess. TECHNIQUE: Ultrasound performed using standard protocol. COMPARISON: US ABDOMEN from 11/17/2018 FINDINGS: Ultrasound of the left breast was performed to evaluate the possibility of a breast abscess. Scanning of the entire breast fails to show an abscess or mass. IMPRESSION: No evidence of breast abscess. ------- Exam(s) a RAD:XR portable chest AP EXAM: XR PORTABLE CHEST AP INDICATION: hypotension; r/o sepsis. COMPARISON: LEFT SHOULDER COMPLETE from 01/03/2016 TECHNIQUE: 2D digital imaging was performed. FINDINGS: The heart is not enlarged. Lungs appear grossly clear and well expanded. IMPRESSION: No evidence of acute process.
--- NOTE | 2019-07-31 14:47 | PHARADMIT ---
Admission Pharmacy Clinical Review breast abscess; r/o sepsis Code Status Full Code Current Weight 74.5 kg Renally Cleared and Narrow Therapeutic Index Meds Crcl ~74.5 mL/min using adjusted body weight current meds okay QTc Value / Action Taken QTc 416 BP Control, Fever BP 90/64 afebrile Electrolytes reviewed within normal limits DVT Prophylaxis enoxaparin Opiate Usage / Scheduled Bowel Regimen Ordered no/prn Plt/SCr for Heparin / Enoxaparin plt 153 SCr 0.71 INR for Warfarin n/a H/H stable, WBC/Bands h/h 11.6/33.7 wbc 3.84 Antibiotic appropriateness clindamycin Cultures and Sensitivities blood cultures pending urine culture grew gram+ nacho rapid flu negative abscess culture- no growth @24 hours Surgical ABX d/c within 24 hr n/a DM control / Insulin Dosing BG 150 none Heart Failure (Check EF%) (LATASHA's, B-Block, Diuretics) none IV to PO Switch n/a Home Meds Reviewed yes Home Meds Not Ordered ibuprofen, linaclotide, meclizine, trazodone Comments
[2019-07-31] MEDS: Normal Saline 1,000 ML 100 ML IV (14:54)
[2019-07-31] MEDS: Enoxaparin 40 MG/0.4 ML SYR SC (21:06)
[2019-07-31] MEDS: Melatonin 3 MG TAB 9 MG PO (23:41)
[2019-08-01] VITALS (18 sets, daily range): BP systolic 87–115; BP diastolic 55–74; PULSE 50–86; RESP 13–27; TEMP 36.3–36.8; O2SAT 97–98
[2019-08-01] MEDS: Normal Saline 1,000 ML 100 ML IV (01:40)
[2019-08-01] MEDS: FAMOTIDINE 20 MG/50 ML BAG 50 MG IVPB (06:13)
[2019-08-01] MEDS: Levothyroxine 125 MCG TAB PO (06:13)
[2019-08-01 07:07] LABS: Abs Immature Grans 0.02 k/cumm (0.0-0.09); Absolute Basophil Count 0.03 k/cumm (0.0-0.2); Absolute Eosinophil Count 0.04 k/cumm (0.0-0.7); Absolute Lymphocyte Count 2.13 k/cumm (1.2-3.4); Absolute Monocyte Count 0.38 k/cumm (0.11-0.7); Absolute Neutrophil Count 4.49 k/cumm (1.2-6.7); Basophils % 0.4; Eosinophils % 0.6; HGB 10.7 g/dL (12.0-15.5); Immature Grans % 0.3; Mean Corp. HGB Concentration 33.4 g/dL (32.0-36.0); Mean Corpuscular Hemoglobin 29.4 pg (27.0-33.0); Mean Corpuscular Volume 87.9 fL (80-95); Mean Platelet Volume 10.6 fL (8.0-11.0); Monocytes % 5.4; Neutrophils % 63.3; Platelet Count 191 x1000/uL (130-400); RBC 3.64 m/cumm (4.00-5.20); White Blood Cell Count 7.09 k/cumm (4.4-10.8)
[2019-08-01 07:17] LABS: Anion Gap 9.4 mmol/L (3-11); BUN 12 mg/dL (7-18); C-Reactive Protein 0.97 mg/dL (0.0-0.3); CO2 25.6 mmol/L (21.0-32.0); Calcium 8.2 mg/dL (8.5-10.1); Chloride 109 mmol/L (98-107); Glucose 91 mg/dL (70-100); Magnesium 1.7 mg/dL (1.8-2.4); Potassium 3.8 mmol/L (3.5-5.1); Sodium 144 mmol/L (136-145)
[2019-08-01] MEDS: CLINDAMYCIN 900 MG/50 ML BAG 50 MG IVPB (07:58)
[2019-08-01] MEDS: Acetaminophen 325 MG TAB PO (08:03)
--- NOTE | 2019-08-01 08:20 | W.PM.PROGNOT ---
Date of Service Date of service: 08/01/19 Time of Service: 08:20 Subjective Subjective Interval history since last seen: Wants to go home. Afebrile. BP 102/67 this am, asymptomatic. Objective Objective Clinical Data: Abnormal lab results 08/01/19 08/01/19 Range/Units 06:10 06:10 RBC 3.64 L (4.00-5.20) m/cumm Hgb 10.7 L (12.0-15.5) g/dL Hct 32.0 L (36.0-46.0) % Chloride 109 H (98-107) mmol/L Calcium 8.2 L (8.5-10.1) mg/dL Magnesium 1.7 L (1.8-2.4) mg/dL C-Reactive Protein 0.97 H (0.0-0.3) mg/dL Vital Signs Temperature 36.3 C L 08/01/19 07:12 Temperature Source Temporal Artery Scan 08/01/19 07:12 Pulse 53 L 08/01/19 07:12 Pulse 66 08/01/19 07:12 Respiratory Rate 21 08/01/19 07:12 Respiratory Effort Non-Labored 08/01/19 07:12 Respiratory Depth Normal 08/01/19 07:12 Respiratory Pattern Normal 08/01/19 07:12 Blood Pressure 102/67 08/01/19 07:12 Blood Pressure Mean 76 08/01/19 07:12 Blood Pressure Position Supine 08/01/19 07:12 Pulse Oximetry 97 08/01/19 07:12 Oxygen Delivery Method Room Air 08/01/19 07:12 Oxygen Flow Rate 0 08/01/19 07:12 Pain Level 4 08/01/19 08:03 Intake & Output 07/31/19 07/31/19 08/01/19 11:59 23:59 11:59 Intake Total 190 / 8466.304 1088.667 / 1861.667 828.333 / 828.333 Output Total 350 / 1475 1125 / 1475 450 / 450 Balance -160 / 386.667 546.667 / 386.667 378.333 / 378.333 Weight 74.5 kg 75.1 kg Intake: IV 50 / 1001.667 951.667 / 1001.667 348.333 / 348.333 Oral 140 / 860 720 / 860 480 / 480 Output: Urine 350 / 1475 1125 / 1475 450 / 450 Other: Urine Color Dark Raquel Yellow Yellow Urine Appearance Clear Clear Clear Urine Odor None None None Comment Medium raquel urine. Voided 350cc on commode. No further void since this am. voids freely to bsc w/o s/s infection Voiding Methods Bedside Commode Bedside Commode Bedside Commode Laboratory Results WBC 7.09 k/cumm (4.4-10.8) D 08/01/19 06:10 RBC 3.64 m/cumm (4.00-5.20) L 08/01/19 06:10 Hgb 10.7 g/dL (12.0-15.5) L 08/01/19 06:10 Hct 32.0 % (36.0-46.0) L 08/01/19 06:10 MCV 87.9 fL (80-95) 08/01/19 06:10 MCH 29.4 pg (27.0-33.0) 08/01/19 06:10 MCHC 33.4 g/dL (32.0-36.0) 08/01/19 06:10 RDW 13.0 % (11.7-14.6) 08/01/19 06:10 Plt Count 191 x1000/uL (130-400) 08/01/19 06:10 MPV 10.6 fL (8.0-11.0) 08/01/19 06:10 Immature Gran % 0.3 08/01/19 06:10 Neutrophils % 63.3 08/01/19 06:10 Lymphocytes % 30.0 08/01/19 06:10 Monocytes % 5.4 08/01/19 06:10 Eosinophils % 0.6 08/01/19 06:10 Basophils % 0.4 08/01/19 06:10 Absolute Neutrophils 4.49 k/cumm (1.2-6.7) 08/01/19 06:10 Absolute Lymphocytes 2.13 k/cumm (1.2-3.4) 08/01/19 06:10 Absolute Monocytes 0.38 k/cumm (0.11-0.7) 08/01/19 06:10 Absolute Eosinophils 0.04 k/cumm (0.0-0.7) 08/01/19 06:10 Absolute Basophils 0.03 k/cumm (0.0-0.2) 08/01/19 06:10 ESR 30 mm/hr (0-30) 07/30/19 15:15 Sodium 144 mmol/L (136-145) 08/01/19 06:10 Potassium 3.8 mmol/L (3.5-5.1) 08/01/19 06:10 Chloride 109 mmol/L (98-107) H 08/01/19 06:10 Carbon Dioxide 25.6 mmol/L (21.0-32.0) 08/01/19 06:10 Anion Gap 9.4 mmol/L (3-11) 08/01/19 06:10 BUN 12 mg/dL (7-18) 08/01/19 06:10 Creatinine 0.70 mg/dL (0.55-1.02) 08/01/19 06:10 Estimated GFR/1.73 m2 >= 60.00 (mL/min/1.73m2) 08/01/19 06:10 Glucose 91 mg/dL (70-100) D 08/01/19 06:10 Lactate 0.9 mmol/L (0.6-1.4) 07/30/19 15:15 Calcium 8.2 mg/dL (8.5-10.1) L 08/01/19 06:10 Magnesium 1.7 mg/dL (1.8-2.4) L 08/01/19 06:10 Total Bilirubin 0.6 mg/dL (0.2-1.0) 07/30/19 15:15 AST 13 U/L (15-37) L 07/30/19 15:15 ALT 15 U/L (14-59) 07/30/19 15:15 Alkaline Phosphatase 48 U/L (46-116) 07/30/19 15:15 C-Reactive Protein 0.97 mg/dL (0.0-0.3) H 08/01/19 06:10 Total Protein 6.7 g/dL (6.4-8.2) 07/30/19 15:15 Albumin 3.1 g/dL (3.4-5.0) L 07/30/19 15:15 Procalcitonin 0.1 ng/mL 07/30/19 18:45 Urine Color Yellow (Yellow) 07/30/19 19:05 Urine Clarity Sl cloudy (Clear) 07/30/19 19:05 Urine pH 6.0 (5-8) 07/30/19 19:05 Ur Specific [place] 1.025 (1.005-1.025) 07/30/19 19:05 Urine Protein 30 mg/dL (Negative) H 07/30/19 19:05 Urine Ketones 40 mg/dL (Negative) H 07/30/19 19:05 Urine Blood Negative (Negative) 07/30/19 19:05 Urine Nitrite Negative (Negative) 07/30/19 19:05 Urine Bilirubin Small (Negative) H 07/30/19 19:05 Urine Urobilinogen 1.0 EU/dL (Up TO 0.2) H 07/30/19 19:05 Ur Leukocyte Esterase Small (Negative) H 07/30/19 19:05 Urine RBC Negative (0-2) 07/30/19 19:05 Urine WBC >50 HPF (0-5) 07/30/19 19:05 Ur Epithelial Cells Few HPF (Negative) 07/30/19 19:05 Urine Crystals Negative HPF (Negative) 07/30/19 19:05 Urine Bacteria Negative HPF (Negative) 07/30/19 19:05 Urine Casts Negative LPF (Negative) 07/30/19 19: Urine Mucus Negative (Negative) 07/30/19 19:05 Ur Culture Indicated? C&s done as ordered 07/30/19 19:05 Urine Glucose Negative mg/dL (Negative) 07/30/19 19:05
[2019-08-01] MEDS: MAGNESIUM SULFATE 2 GM/50 ML BAG IVPB (08:25)
--- NOTE | 2019-08-01 09:44 | PDOC.CMDIS ---
LACE Index Scoring Tool - Questions: Length of Stay (in days): 2 Acuity (Admit via E.D.?): Yes E.D. Visits: 1 - Answers: Total Score: 6 Risk of Readmission: Low Risk Care Management Discharge Reason for Hospitalization: Breast abscess; r/o sepsis. Discharge Plan: Vick will be discharged home when medically cleared, no additional services at this time. Vick will follow up with her PCP and plan of care. She will transport home via private vehicle with her . Patient/Family Education Needs: Review of discharge instructions, discuss Ask Me Three.
--- NOTE | 2019-08-01 12:19 | W.PM.DS.N ---
Date of service: 08/01/19 Time of Service: 12:19 DS: Diagnosis Discharge Diagnosis (1) Wound of left breast: Status: Acute Asessment and Plan: infected; wound cultures with staph spp; speciation pending. No abscess per US. (2) Drug allergy, antibiotic: Status: Resolved (3) Dehydration: Status: Acute (4) Hypotension: Status: Chronic (5) Hypothyroidism (acquired): Status: Chronic (6) Irritable bowel: Status: Chronic (7) Hypomagnesemia: Status: Acute Discharge Plan Disposition Patient Disposition: HOME Condition: Improving Discharge Details Chief Complaint: GenMedical Reason For Visit: BREAST ABSCESS; R/O SEPSIS Admit Date/Time: 07/30/19 18:34 Admit Provider: Ming Simon Attending Provider: Ming Simon Primary Care Provider: Rere Alcocer ED Provider: Chika Layne Hospital Course Hospital Course: Ms Jama is a 69 year old female with PMHx of hypothyroidism, IBS, chronic hypotension, insomnia, admitted to [facility] ICU on 07/30/19 under the care of hospitalist service for suspected left breast abscess as well as an allergic reaction to bactrim, which the patient was receiving for above as outpatient. For her suspected left breast abscess, the patient was initiated on IV clindamycin, to which she reponded very well. Her wound culture is positive for staph spp, but final cutlure is not yet available. Blood cultures have been negative. Ultrasound of the breast was obtained and, in fact, ruled out an abscess. No surgical intervention was felt to be needed by our general surgeons who evaluated the patient in consult. She will need a repeat left breast ultrasound in 4-6 weeks and she should keep her already scheduled mammogram appointment (in beginning of August). She should follow up with general surgery and her PCP in 1 week. She is being discharged home with 5 more days of clindamycin, is being instructed in how to do her own wound care prior to discharge, and is recommended to take lactobacilli. Her reaction to bactrim consisted of a systemic rash, nausea, vomiting, all of which improved with steroids she has received in ER, as well as pepcid and benadryl she received under our care. It is important that bactrim is added to her allergy list by her PCP and outpatient pharmacy. Her hypotension is chronic, but did improve with IV hydration. The patient admits to not drinking a lot of water and this is something that we spoke about her working on at home. Her SBP's after IV fluids are in 110's. She is medically stable for discharge home today. The care for patient as well as completion of her discharge paperwork took 45 minutes on the day of discharge. Home Meds and New Rx's Prescriptions: New clindamycin HCl 300 mg capsule 300 mg PO Q6H Qty: 20 RF: 0 Lactobacillus acidophilus Capsule 1,000 mmu cells PO DAILY Qty: 30 RF: 0 magnesium oxide 400 mg (241.3 mg magnesium) tablet 400 mg PO DAILY Qty: 7 RF: 0 Continued trazodone 50 MG tablet 150 mg PO HS RF: 0 ibuprofen [Advil] 200 MG tablet 600 mg PO QAM PRNRF: 0 levothyroxine 125 MCG tablet 125 mcg PO QAM RF: 0 Linzess 145 mcg Capsule 145 mcg PO QAM RF: 0 meclizine 25 mg Tablet 25 mg PO PRN PRNRF: 0 Discharge Instructions Instructions: Clindamycin (By mouth), Probiotic (By mouth), Hypomagnesemia (DC) Additional Instructions: Finish your antibiotics as prescribed. Drink plenty of fluids and measure your blood pressure daily at home. Take your blood pressure log to your PCP when you follow up. Bloodwork in 1 week. Apply dry sterile dressing to your left breast wound daily after cleansing with soap and water. Follow up with your PCP and general surgery in 1 week. Return to the hospital with any fever, bleeding, chest pain, or shortness of breath. Referrals: Jeannette Mendenhall DO [OSTEOPATHIC DOCTOR] - Rere Alcocer [Primary Care Provider] - Activity:: Activity as Tolerated Equipment/Supplies:: No Equipment Needed Diet:: As Tolerated Discharge Orders Discharge Orders: Discharge Order (Routine); Ordered 08/01/19 Ordered By: Beulah Roberts Other Ambulatory Orders: Basic Metabolic Panel (Routine) Timeframe: 1 Week Location: Determined by Patient Ordered By: Beulah Roberts Complete Blood Count w/Diff (Routine) Timeframe: 1 Week Location: Determined by Patient Ordered By: Beulah Roberts Magnesium (Routine) Timeframe: 1 Week Location: Determined by Patient Ordered By: Beulah Roberts DS: Summary Status at Discharge Functional status at discharge: independent ambulation Overall status at discharge: patient is back to baseline Mental Status: mental status grossly normal Speech and Movement: speech and movement normal Mood: congruent mood Affect: normal affect Exam Narrative Exam Narrative: General: very pleasant elderly female, A&Ox3, comfortable HEENT: EOMI, MMM Heart: RRR, no m/r/g Lungs: CTAB GI: abdomen is soft, nontender, nondistended Extremities: no e/c/c BLE's Psych Mental Status: mental status grossly normal Speech and Movement: speech and movement normal Mood: congruent mood Affect: normal affect DS: Data Vitals/I&O Vitals and I&O: Vital Signs Temperature 36.3 C L 08/01/19 07:12 Temperature Source Temporal Artery Scan 08/01/19 07:12 Pulse 70 08/01/19 09:18 Pulse 66 08/01/19 07:12 Respiratory Rate 21 08/01/19 07:12 Respiratory Effort Non-Labored 08/01/19 07:12 Respiratory Depth Normal 08/01/19 07:12 Respiratory Pattern Normal 08/01/19 07:12 Blood Pressure 87/56 L 08/01/19 09:18 Blood Pressure Mean 76 08/01/19 07:12 Blood Pressure Position Supine 08/01/19 07:12 Pulse Oximetry 97 08/01/19 07:12 Oxygen Delivery Method Room Air 08/01/19 07:12 Oxygen Flow Rate 0 08/01/19 07:12 Pain Level 4 08/01/19 08:03 Intake & Output 07/31/19 08/01/19 08/01/19 23:59 11:59 23:59 Intake Total 1671.667 / 3344.251 0357.666 / 1921.666 Output Total 1125 / 1475 600 / 600 Balance 546.667 / 529.288 4001.666 / 1321.666 Weight 75.1 kg Intake: IV 951.667 / 9201.111 0265.666 / 1081.666 Oral 720 / 860 840 / 840 Output: Urine 1125 / 1475 600 / 600 Other: Urine Color Yellow Yellow Urine Appearance Clear Clear Urine Odor None None Comment No further void since this am. voids freely to bsc w/o s/s infection Voiding Methods Bedside Commode Bedside Commode Data Completed and Pending Completed studies during hospitalization [Text1]: CXR 07/30/19: No evidence of acute process. US L breast 07/31/19: No evidence of breast abscess. Labs on day of discharge: Labs from last 24 hours 08/01/19 08/01/19 06:10 06:10 WBC 7.09 D RBC 3.64 L Hgb 10.7 L Hct 32.0 L MCV 87.9 MCH 29.4 MCHC 33.4 RDW 13.0 Plt Count 191 MPV 10.6 Immature Gran % 0.3 Neutrophils % 63.3 Lymphocytes % 30.0 Monocytes % 5.4 Eosinophils % 0.6 Basophils % 0.4 Absolute Neutrophils 4.49 Absolute Lymphocytes 2.13 Absolute Monocytes 0.38 Absolute Eosinophils 0.04 Absolute Basophils 0.03 Sodium 144 Potassium 3.8 Chloride 109 H Carbon Dioxide 25.6 Anion Gap 9.4 BUN 12 Creatinine 0.70 Estimated GFR/1.73 m2 >= 60.00 Glucose 91 D Calcium 8.2 L Magnesium 1.7 L C-Reactive Protein 0.97 H Preliminary micro results at discharge 07/30/19 15:00 Abscess Culture - Preliminary Breast - Left Staphylococcus Species 07/30/19 15:30 Blood Culture - Preliminary Blood NO GROWTH 24 HOURS 07/30/19 15:30 Blood Culture - Preliminary Blood NO GROWTH 24 HOURS PFS Medical History Anal fistula (Acute) Hypothyroidism (acquired) (Acute) Irritable bowel (Chronic) Surgical History History of total abdominal hysterectomy (Acute) Social History Smoking/Tobacco Use Status: Never Alcohol Intake: former Drug use: Never Do you feel safe at home: Yes Do you feel safe in your relationship?: Yes History History 2 Para 1 Hx # Term Pregnancies 1 Multiple births Hx # Pregnancies Ectopic pregnancies AB induced Hx Number of Living Children 1 AB spontaneous 1
== END 2019-08-01 13:15 | disposition home or self-care (01) | DRG 601 ==
LOC: ER 18:05 → ICU 20:12
PROVIDERS: Internal Medicine; Nurse Practitioner Family; Admitting Provider Internal Medicine; Emergency Provider Physician Assistant; PCP Nurse Practitioner; Visit Provider Internal Medicine
DX: N61.1 Abscess of the breast and nipple (principal); B95.7 Other staphylococcus as the cause of diseases classified elsewhere; L27.0 Generalized skin eruption due to drugs and medicaments taken internally; L50.0 Allergic urticaria; R11.2 Nausea with vomiting, unspecified; T36.8X5A Adverse effect of other systemic antibiotics, initial encounter; I95.2 Hypotension due to drugs; E03.9 Hypothyroidism, unspecified; K58.1 Irritable bowel syndrome with constipation
CPT/HCPCS: 36410; 36415; 76642; 80048; 80053; 84145; 85652; 87040; 87077; 87449; 96361; 96365; 99221; 99223; 99232; 99239; 99252; 99285; J1650; 71045; 81003; 81015; 83605; 83735; 85025; 86140; 87070; 87086; 87186; 87205; 99284; J1200; J1885; J2405; J2930

== ENCOUNTER 2019-08-07 11:09 | Outpatient (CLI) | payer MEDICARE, BC, SELFPAY ==
[2019-08-07 12:47] LABS: Abs Immature Grans 0.01 k/cumm (0.0-0.09); Absolute Basophil Count 0.22 k/cumm (0.0-0.2); Absolute Eosinophil Count 0.13 k/cumm (0.0-0.7); Absolute Lymphocyte Count 2.47 k/cumm (1.2-3.4); Absolute Monocyte Count 0.64 k/cumm (0.11-0.7); Absolute Neutrophil Count 3.35 k/cumm (1.2-6.7); Basophils % 3.2; Eosinophils % 1.9; HCT 43.8 % (36.0-46.0); HGB 14.5 g/dL (12.0-15.5); Immature Grans % 0.1; Lymphocytes % 36.2; Mean Corp. HGB Concentration 33.1 g/dL (32.0-36.0); Mean Corpuscular Hemoglobin 28.9 pg (27.0-33.0); Mean Corpuscular Volume 87.4 fL (80-95); Mean Platelet Volume 9.1 fL (8.0-11.0); Monocytes % 9.4; Neutrophils % 49.2; Platelet Count 419 x1000/uL (130-400); RBC 5.01 m/cumm (4.00-5.20); RBC Distribution Width 13.1 % (11.7-14.6); White Blood Cell Count 6.82 k/cumm (4.4-10.8)
[2019-08-07 14:28] LABS: Anion Gap 10.1 mmol/L (3-11); BUN 11 mg/dL (7-18); CO2 26.9 mmol/L (21.0-32.0); CREATININE 0.87 mg/dL (0.55-1.02); Calcium 9.6 mg/dL (8.5-10.1); Chloride 100 mmol/L (98-107); Glucose 96 mg/dL (70-100); Magnesium 2.1 mg/dL (1.8-2.4); Potassium 4.7 mmol/L (3.5-5.1); Sodium 137 mmol/L (136-145)
== END 2019-08-07 11:29 ==
PROVIDERS: PCP Internal Medicine; Visit Provider Internal Medicine
DX: E83.42 Hypomagnesemia (principal); E86.0 Dehydration; N61.1 Abscess of the breast and nipple
CPT/HCPCS: 80048; 83735; 85025

== ENCOUNTER 2019-08-28 10:09 | Outpatient (REF) | payer MEDICARE, BC, SELFPAY | END 2019-08-28 10:29 | LOC: NCHCN 10:09 | PROVIDERS: PCP Internal Medicine; Visit Provider Internal Medicine | DX: R53.83 Other fatigue (principal) | CPT/HCPCS: 82533 ==

== ENCOUNTER → 2019-08-28 13:25 | Outpatient (BNVA) | payer MEDICARE, BC, SELFPAY | PROVIDERS: PCP Internal Medicine; Referring Provider Nurse Practitioner; Visit Provider Physical Therapy Assistant | DX: Z12.11 Encounter for screening for malignant neoplasm of colon (principal) ==

== ENCOUNTER 2019-08-31 01:28 | Outpatient (CLI) | payer MEDICARE, BC, SELFPAY ==
--- NOTE | 2019-08-31 13:30 | DI.MAMMO_ITS ---
EXAM: MG MAMMO SCREENING CLINICAL HISTORY: SCREENING Z12.31 TECHNIQUE: Mammograms were interpreted according to the usual protocol including computer analysis w [email or web address] CAD system, tomosynthesis and C-view imaging. COMPARISON: [id number] FINDINGS: The breasts are composed of extremely dense tissue, which lowers the sensitivity of the mammogram, br east density category D. There are no suspicious masses or suspicious microcalcifications. There is no significant interval change when compared with the previous images. IMPRESSION: Category 1, negative mammogram. Yearly screening mammography is recommended. BI-RADS Cat 1 - Negative Breast Density - Category D - Extremely dense
== END 2019-08-31 01:48 ==
PROVIDERS: PCP Internal Medicine; Visit Provider Nurse Practitioner Family
DX: Z12.31 Encounter for screening mammogram for malignant neoplasm of breast (principal)
CPT/HCPCS: 77063; 77067

== ENCOUNTER 2019-09-07 06:42 | Day surgery (SDC) | payer MEDICARE, BC, SELFPAY ==
--- NOTE | 2019-09-07 06:55 | W.COLOREPORT ---
Date of service: 09/07/19 Time of Service: 07:37 Colonoscopy Report Date of procedure: 09/07/19 Pre-op diagnosis general: Colon Cancer Screening Post-op diagnosis procedure note: other (Transverse polyp, mild diverticulosis, rectal mass) Procedure: Colonoscopy with biopsies Surgeon: Yajaira Singh Anesthesia proc note operative: other (General/ ASA 2/Linette Vega, ROXANA) Estimated blood loss (mL): 5 Pathology: other (Transverse polyp and bx of rectal lesion) Complications: None Disposition: same day Indications: Mrs. Jama is a pleasant 69 year old female seen in the office for a screening colonoscopy. Her last Colonoscopy was in 2008 and was normal. She has no family history of colon cancer. Risks, benefits and complications have been reviewed. Complications include but are not limited to bleeding, pain, perforation, missed small lesion/polyp, sore throat, aspiration and adverse reaction to the medications. Questions were entertained and answered to their satisfaction and they wished to proceed. No guarantees were given or implied. Prep: Miralax/Dulcolax Procedure Start Time: :37 Procedure End Time: 08:03 Retraction Time: 19 minutes Findings: Small <10 mm sessile polyp in the transverse colon Rectal lesion at 10 cm \ Mild diverticulosis Procedure Description: After informed consent was obtained the patient was taken to the procedure room and placed in a left decubitous position. Monitors were applied and a time out was done. The patients name, date of , procedure, allergies to medications and metal in their body was reviewed. The patient was then sedated. Once sedated and comfortable a rectal exam was done. External exam was normal. Internal exam revealed a slight decrease in sphincter tone and no palpable masses. The scope was then introduced and retro-flexed. No internal hemorrhoids were identified. The scope was then advanced to the cecum without difficulty. The TI and appendiceal orifice were identified. The prep was good. The scope was then slowly retracted over 19 minutes back into the rectum. Polyps were removed with cold forceps in the transverse colon. Biopsies were done of a rectal lesion at 10 cm that covered 3/4 of the diameter of the rectum. It was hard when trying to take biopsies. The scope was removed and the patient was woken up and taken back to Same day surgery in stable condition. The patient tolerated the procedure well and there were no immediate complications. Follow up: I am concerned that the lesion is rectal cancer. I will call the patient with the results and then come up with a treatment plan. If this is rectal cancer she will need radiation, CT of Chest/ Abdomen/ Pelvis.
--- NOTE | 2019-09-07 06:58 | W.PM.DSUDISC ---
Discharge Plan Disposition Patient Disposition: HOME Condition: Good Discharge Details Reason For Visit: Colon Cancer Screening Attending Provider: Yajaira Singh Primary Care Provider: Reji Lopez Home Meds and New Rx's Prescriptions: Continued trazodone 50 MG tablet 150 mg PO HS RF: 0 ibuprofen [Advil] 200 MG tablet 600 mg PO QAM PRNRF: 0 levothyroxine 125 MCG tablet 75 mcg PO QAM RF: 0 Linzess 145 mcg Capsule 145 mcg PO QAM RF: 0 meclizine 25 mg Tablet 25 mg PO PRN PRNRF: 0 Lactobacillus acidophilus Capsule 1,000 mmu cells PO DAILY Qty: 30 RF: 0 Discontinued polyethylene glycol 3350 17 gram/dose powder 238 g PO ONCE Qty: 238 RF: 0 bisacodyl [Dulcolax (bisacodyl)] 5 mg tablet,delayed release (DR/EC) 5 mg PO ONCE Qty: 4 RF: 0 Discharge Instructions Instructions: Colonoscopy (DC), Colorectal Polyps (DC) Additional Instructions: Findings: One small polyp Mild diverticulosis Rectal mass- suspicious for cancer Follow up: I will call with the results and then figure out a treatment plan if it is cancer Please call if you develop: fevers >101.5 Nausea or Vomiting Abdominal pain that is not transient DAY SURGERY UNIT POST ENDOSCOPY INSTRUCTIONS 1. Because there will be medication in your system for the next 24 hours, you may feel a little sleepy. Your coordination will be affected. Therefore: a. Do not drive or operate dangerous equipment for 24 hours. b. Do not drink alcohol beverages for 24 hours (not even beer). c. Plan to go home and rest for the day. 2. Generally there are no restrictions on your activity after a day or so has gone by, but you may feel a bit fatigued for a few days. 3 After you arrive home you may have a light meal and return to a normal diet as you can tolerate it without feeling sick to your stomach. 4. After surgery, you may feel pain or discomfort. This should be only transient, but if it persists please contact your doctor. 5. If there are any questions regarding the findings of your procedure, please feel free to contact your doctor. 6. If you are unable to contact your doctor with a problem, contact the hospital at [phone]. 7. Continue all your regular medications unless directed otherwise. I understand the above instructions and have no questions. Signature of Patient or Responsible Adult Escort Date/Time Name of Responsible Adult Escort Signature of Nurse Date/Time Activity:: Activity as Tolerated Diet:: As Tolerated Discharge Orders Discharge Orders: Discharge Order (Routine); Ordered 09/07/19 Ordered By: Yajaira Singh DS: Diagnosis Discharge Diagnosis (1) History of colonoscopy: Status: Chronic (2) Colorectal polyps: Status: Acute (3) Rectal mass: Status: Acute
[2019-09-07 07:05] VITALS: BP 99/73; PULSE 102; RESP 18; TEMP 36.2; O2SAT 97
[2019-09-07] MEDS: Lactated Ringers 1,000 ML 80 ML IV (07:19)
--- NOTE | 2019-09-07 07:50 | BOWEL_PTH ---
PATIENT: Vick Jama LOC: [facility] U#:[id number] AGE/SX: 69/F ROOM: RE09/07/[address]: Yajaira Singh MD : 1950 BED: DIS: 09/07/2019 SPEC #: [id number] RECD: 09/07/19 12:23 STATUS: [facility]AN REQ #: [id number] GRIS: 09/07/19 07:[address]: Yajaira Singh DEPT: Surgical Specimen RECD BY: Nicole Mobley ENTERED: 09/07/19 12:25 SP TYPE: Bowel OTHR DR: Reji Lopez Tissues: 1 - BIOPSY BOWEL 2 - BIOPSY BOWEL Procedures: GROSS AND MICRO LEVEL 4 Comments: [id number]
[2019-09-07 08:45] VITALS: BP 102/73; PULSE 65; RESP 16; TEMP 36.2; O2SAT 98
== END 2019-09-07 09:25 | disposition home or self-care (01) ==
PROVIDERS: PCP Internal Medicine; Visit Provider Surgery
PROC: 0DJD8ZZ Inspection of Lower Intestinal Tract, Via Natural or Artificial Opening Endoscopic (ICD-10-PCS; CPT 45378; principal; 2019-09-07 08:00)
DX: Z12.11 Encounter for screening for malignant neoplasm of colon (principal); K63.5 Polyp of colon; K57.30 Diverticulosis of large intestine without perforation or abscess without bleeding
CPT/HCPCS: 45380; 88305

== ENCOUNTER 2019-10-08 15:22 | Outpatient (REF) | payer MEDICARE, BC, SELFPAY ==
[2019-10-08 21:25] LABS: FREE T4 1.27 ng/dL (0.76-1.46); TSH 1.45 uIU/mL (0.36-3.74)
== END 2019-10-08 15:42 ==
LOC: NCHCN 15:22
PROVIDERS: PCP Internal Medicine; Visit Provider Internal Medicine
DX: E03.9 Hypothyroidism, unspecified (principal); L98.9 Disorder of the skin and subcutaneous tissue, unspecified
CPT/HCPCS: 84439; 84443

== ENCOUNTER 2020-04-14 03:38 | Outpatient (CLI) | payer MEDICARE, BC, SELFPAY ==
--- NOTE | 2020-04-14 09:39 | DI.RAD_ITS ---
EXAM: XR CHEST 2V PA LATERAL CLINICAL HISTORY: SHORTNESS OF BREATH, R06.02, CHEST PAIN INTERMITTENT, R07.89 TECHNIQUE: 2D digital imaging was performed. COMPARISON: CR XR PORTABLE CHEST AP from 07/30/2019 FINDINGS: MEDIASTINUM: Normal. HEART: Normal. PULMONARY VASCULATURE: Normal. LUNGS: Clear. PLEURAL SPACE: No pleural effusion or pneumothorax. BONE:Normal. IMPRESSION: No acute pulmonary findings. DATA REPOSITORY: RADIATION DOSE DELIVERED:
== END 2020-04-14 03:58 ==
PROVIDERS: PCP Internal Medicine
DX: R06.02 Shortness of breath (principal); R07.89 Other chest pain
CPT/HCPCS: 71046

== ENCOUNTER 2020-06-03 18:17 | Inpatient (IN) | payer MEDICARE, BC, SELFPAY ==
[2020-06-03] VITALS (33 sets, daily range): BP systolic 90–114; BP diastolic 58–79; PULSE 63–102; RESP 13–24; TEMP 36.3–36.7; O2SAT 92–99
--- NOTE | 2020-06-03 18:15 | RT.EKG_ITS ---
APPROVED REPORT Exam: Resting ECG Patient Location: E HR:91 bpm ECG Measurements Heart Rate 91 AXIS AR 192 P 48 QRSd 74 QRS 54 QT 341 T 57 QTc [address] depression V4-6, appears new compared to previous EKG.
--- NOTE | 2020-06-03 18:20 | ED.GENADUL_ITS ---
Discharge Plan Disposition Patient Disposition: [facility] INPATIENT Condition: Stable Discharge Details Chief Complaint: Chest Pain Clinical Impression: Chest pain Admit Date/Time: 06/03/20 20:48 Admit Provider: Han Castellon Attending Provider: Han Castellon Primary Care Provider: Reji Lopez ED Provider: Nico Bledsoe Discharge Data Discharge Date/Time-TO BE ENTERED AT DEPARTURE: 06/03/20 21:55 Medical Decision Making <Radha Yi DO - Last Filed: 06/04/20 09:39> 1835 -- 70-year-old female with history of irritable bowel syndrome and hypothyroidism presents for substernal chest pressure, nausea, dizziness and shortness of breath that started 1 hour ago while sitting in her car. EKG notes a rate of 91, sinus with less than [address] depression in V4 through V6 but no acute ST elevation. Vitals within normal limits. She appears mildly anxious. She denies any tearing or ripping sensation so doubt dissection. There is no pleuritic component or DVT/PE risk factors so doubt PE. Consider anxiety, ACS, musculoskeletal chest wall pain, GI etiology. Will obtain a cardiac work-up including chest x-ray and nitro. 1950 -- patient reassessed after 1 nitro and admits to relief of pain. Patient had response of chest pain will plan to admit for chest pain rule out ACS. Case discussed with Dr. Castellon who will come to evaluate patient. He is requesting EKG post nitro at this time. Patient to go to chest x-ray now. Case endorsed Dr. Bledsoe to follow-up on repeat ekg, chest x-ray and to speak with Dr. Castellon. Medical Records Medical records reviewed: Yes I reviewed the patient's medical records. Lab Data Lab results reviewed: Yes I reviewed the patient's lab results. ECG Data Attestation: I personally reviewed and interpreted this ECG (s) as follows: Interpretation: Rate of 91, sinus, less than [address] depression in V3 through V6. No acute ST elevation. MD 182. QRS 74. QTc 418. <Nico Bledsoe MD - Last Filed: 06/03/20 20:40> pt remains pain free and the mild st depressions in v2-v3 have resolved xray unremarkable, Dr. Castellon accepts for admission Imaging Data Radiologic Study: Attestation: I personally reviewed and interpreted this imaging study as follows: Imaging: X-Ray Radiologist's impression: IMPRESSION: No acute findings. ECG Data Attestation: I personally reviewed and interpreted this ECG (s) as follows: Prior ECG tracings: available for review Interpretation: sinus rhythm, st depresions resolved in v2 and v3 on 2nd ekg, normal qtc HPI <Radha Yi DO - Last Filed: 06/04/20 09:39> General Mode of arrival: ambulatory . Date/Time Provider Initiated Documentation: 06/03/20 18:18 . Limitations to Documentation: no limitations . Information obtained by: patient . HPI Narrative: Patient is a 70-year-old female with a history of hypothyroidism, irritable bowel syndrome who presents for chest pain that started while sitting in her car waiting for her takeout food 1 hour ago. Patient states the pain feels pressure-like originally was 6/10 and is now currently 4/10. She states it radiates to her jaw. She denies any aggravating or alleviating factors. She has not taken any medication for symptoms. She does admit to some nausea, shortness of breath and dizziness when this occurred but denies any vomiting, cough or fever. She states she had been feeling well prior to onset of the symptoms. She does admit to 3 similar episodes of chest pain over the past few months all occurring randomly without similar factors. She states she lost her son 2 years ago and this has been a traumatic experience for her which has caused difficulty with sleep for which she takes trazodone at night. She denies any recent travel, recent surgery, leg pain or swelling. Related Data Home Medications Medication Instructions Recorded Confirmed trazodone 150 mg PO HS tab-cap NS 03/24/13 06/03/20 levothyroxine 75 mcg PO QAM 02/23/17 06/03/20 Linzess 290 mcg PO QAM 07/30/19 06/03/20 Allergies Allergy/AdvReac Type Severity Reaction Status Date / Time sulfamethoxazole AdvReac Intermediate delayed Unverified 06/03/20 18:27 [From Bactrim] rash trimethoprim [From Bactrim] AdvReac Intermediate delayed Unverified 06/03/20 18:27 rash General MIKE: 3 Review of Systems <DO Celeste Ferrari Last Filed: 06/04/20 09:39> All systems reviewed & are unremarkable except as noted in HPI and below Constitutional Constitutional: Reports as per HPI, Denies chills and Denies fever(s) Eyes Eyes: Denies blurry vision ENT Ears, Nose, Mouth, and Throat: Reports dizziness, Denies sore throat and Denies throat swelling Cardiovascular Cardiovascular: Reports chest pain and Reports dyspnea Respiratory Respiratory: Denies cough and Reports dyspnea Gastrointestinal Gastrointestinal: Denies abdominal pain, Denies diarrhea and Denies vomiting Genitourinary Genitourinary: Denies hematuria and Denies dysuria Musculoskeletal Musculoskeletal: Denies back pain and Denies numbness Integumentary/Breasts Skin/Breast: Denies lesions and Denies rash Neurologic Neurologic: Reports dizziness, Denies localized weakness and Denies numbness Allergic/Immunologic Allergic/Immunologic: Denies throat swelling PFSH <Radha Yi DO - Last Filed: 06/04/20 09:39> Medical History Anal fistula (Acute) Drug allergy, antibiotic (Resolved) DVT prophylaxis (Inactive) Hypotension (Chronic) Hypothyroidism (acquired) (Chronic) Irritable bowel (Chronic) Surgical History History of colonoscopy (Chronic ~09/07/19) 2009-normal History of total abdominal hysterectomy (Acute) Social History Smoking/Tobacco Use Status: Never Alcohol Intake: former Drug use: Never Substance use type: does not use Do you feel safe at home: Yes Do you feel safe in your relationship?: Yes History History 2 Para 1 Hx # Term Pregnancies 1 Multiple births Hx # Pregnancies Ectopic pregnancies AB induced Hx Number of Living Children 1 AB spontaneous 1 Exam <Radha Yi DO - Last Filed: 06/04/20 09:39> Const General: cooperative, healthy appearing and no acute distress HENMT Head: normal to inspection Face and sinus: normal facial exam Eyes General: appearance normal, both eyes and all related structures EOM: EOM intact bilaterally Neck Neck: normal visual inspection and No submandibular swelling Lymphatic: no lymphadenopathy noted Chest Chest: normal inspection of the chest and tenderness (minimal anterior ) Resp Effort & Inspection: normal respiratory effort and able to speak in complete sentences Auscultation: clear to auscultation bilaterally Cardio Rate: regular rate Rhythm: regular rhythm GI Inspection: normal to inspection Palpation: soft, not firm, not rigid and nontender Auscultation: normal bowel sounds Skin General skin exam: no rashes or lesions noted Neuro General: patient alert, patient awake and patient oriented x3 Cognition: normal cognition Speech: speech normal Motor: muscle tone normal throughout Sensory Exam: no sensory deficits noted Extrem General: normal to inspection, full ROM, capillary refill normal, no calf tenderness bilaterally and no edema Psych Appearance: grossly normal Mental Status: mental status grossly normal Speech and Movement: speech and movement normal Affect: normal affect Sign Out <Radha Yi DO - Last Filed: 06/04/20 09:39> Sign Out Data: Sign Out Comment: Follow-up on labs, repeat troponin and EKG and final disposition. Last updated by Radha Yi DO at 06/03/20 19:43
[2020-06-03 18:49] LABS: Abs Immature Grans 0.01 10^3/uL (0.0-0.06); Absolute Basophil Count 0.14 10^3/uL (0.0-0.2); Absolute Eosinophil Count 0.17 10^3/uL (0.0-0.7); Absolute Lymphocyte Count 3.72 10^3/uL (1.2-3.4); Absolute Monocyte Count 0.62 10^3/uL (0.1-0.8); Absolute Neutrophil Count 4.37 10^3/uL (1.2-6.7); Basophils % 1.6; Eosinophils % 1.9; HCT 45.3 % (36.0-46.0); HGB 14.9 g/dL (11.2-15.7); Immature Grans % 0.1; Lymphocytes % 41.2; MCH 29.1 pg (27.0-33.0); MCHC 32.9 % (32.0-36.0); MCV 88.5 fL (80-95); MPV 9.9 fL (8.0-11.0); Monocytes % 6.9; Neutrophils % 48.3; Nucleated RBC 0 %; Platelet Count 270 10^3/uL (130-400); RBC 5.12 10^6/uL (3.93-5.22); RDW 12.4 % (11.7-14.6); RDW-SD 40.6 fL; WBC 9.03 10^3/uL (4.4-10.8)
[2020-06-03 18:52] LABS: INR 0.9 (0.9-1.1); PTT Activated 26.9 sec (21.0-31.4); Prothrombin Time 9.5 sec (9.3-11.0)
[2020-06-03 19:07] LABS: ALT 16 U/L (14-59); AST 17 U/L (15-37); Albumin 4.1 g/dL (3.4-5.0); Alkaline Phosphatase 47 U/L (46-116); Anion Gap 10.7 mmol/L (3-11); BUN 8 mg/dL (7-18); Bilirubin, Total 0.4 mg/dL (0.2-1.0); CO2 25.3 mmol/L (21.0-32.0); CREATININE 0.88 mg/dL (0.55-1.02); Calcium 9.8 mg/dL (8.5-10.1); Chloride 101 mmol/L (98-107); Glucose 108 mg/dL (74-106); Magnesium 1.9 mg/dL (1.8-2.4); Potassium 3.3 mmol/L (3.5-5.1); Sodium 137 mmol/L (136-145); Total Protein 7.5 g/dL (6.4-8.2)
[2020-06-03] MEDS: nitroGLYcerin 0.4 MG TAB SL (19:28)
[2020-06-03] MEDS: Normal Saline 1,000 ML 1000 ML IV (19:29)
[2020-06-03 19:42] LABS: Troponin I < 0.05 ng/mL (<0.06)
--- NOTE | 2020-06-03 19:55 | NUR.NOTE ---
report given to [facility] Parker
--- NOTE | 2020-06-03 20:00 | RT.EKG_ITS ---
APPROVED REPORT Exam: Resting ECG Patient Location: E HR:69 bpm ECG Measurements Heart Rate 69 AXIS OK 223 P 31 QRSd 72 QRS 30 QT 379 T 29 QTc 405 Conclusion Sinus rhythm...normal P axis, V-rate 60- 99 Prolonged OK interval...OK >220, V-rate 50- 90
--- NOTE | 2020-06-03 20:13 | DI.RAD_ITS ---
EXAM: XR CHEST 2V PA LATERAL CLINICAL HISTORY: chest pain, sob, r/o acute disease TECHNIQUE: 2D digital imaging was performed. COMPARISON: CR XR CHEST 2V PA LATERAL from 04/14/2020 FINDINGS: MEDIASTINUM: Normal. HEART: Normal. PULMONARY VASCULATURE: Normal. LUNGS: Scarring or atelectasis in the left lung base. PLEURAL SPACE: No pleural effusion or pneumothorax. BONE:Within normal limits for the patient's age. OTHER FINDINGS:Normal. IMPRESSION: No acute pulmonary findings. DATA REPOSITORY: RADIATION DOSE DELIVERED:
--- NOTE | 2020-06-03 20:30 | DI.VRAD_ITS ---
PROCEDURE INFORMATION: Exam: XR Chest, 2 Views Exam date and time: 06/03/2020 8:09 PM Age: 70 years old Clinical indication: Other: Chest pain, SOB, R/O acute disease TECHNIQUE: Imaging protocol: XR of the chest Views: 2 views. COMPARISON: CR XR CHEST 2V PA LATERAL 04/14/2020 9:37 AM FINDINGS: Lungs: Scarring and/or subsegmental atelectasis in left lung base. No consolidation. Pleural space: Unremarkable. No pleural effusion. No pneumothorax. Heart/Mediastinum: Unremarkable. No cardiomegaly. Bones/joints: Degenerative changes. IMPRESSION: No acute findings. Dictated and Authenticated by: Andrew Dominguez MD. Ordering:RADHA Garcia MD
--- NOTE | 2020-06-03 20:32 | W.PM.HP.N ---
Date of service: 06/03/20 Time of Service: 20:32 Assessment and Plan Assessment and plan (1) Chest pain: Status: Acute Assessment and plan: Chest pain. I would rate this as good probablilty ACS, new onset angina versus NSTEMI at this point. Will trend troponins, give ASA and, given suspicion here, will put on heparin qtt. If enzymes positive would advise direct to cath; if neg would plan on ETT. History of Present Illness History of Present Illness Chief Complaint: CP Narrative: 70 female reports episode CP this afternoon while sitting in car. Pain substernal (pressure) with radiation to jaw, associated with nausea and lightheadedness. Note that she had similar episode in March, was scheduled to see Cardiology later this month. In ER troponin neg, EKG shows less than [address] depression leads V3-6. Received NTG x1 with resolution of pain and f/u EKG shows normalization of ST segments. Admitted for further eval and management. Review of Systems All systems reviewed & are unremarkable except as noted in HPI and below PFSH Medical History Anal fistula (Acute) Drug allergy, antibiotic (Resolved) DVT prophylaxis (Inactive) Hypotension (Chronic) Hypothyroidism (acquired) (Chronic) Irritable bowel (Chronic) Surgical History History of colonoscopy (Chronic ~09/07/19) 2008-normal History of total abdominal hysterectomy (Acute) Social History Smoking/Tobacco Use Status: Never Alcohol Intake: former Drug use: Never Substance use type: does not use Do you feel safe at home: Yes Do you feel safe in your relationship?: Yes History History 2 Para 1 Hx # Term Pregnancies 1 Multiple births Hx # Pregnancies Ectopic pregnancies AB induced Hx Number of Living Children 1 AB spontaneous 1 Meds Home Medications and Allergies Home Medications Medication Instructions Recorded Confirmed Type trazodone 150 mg PO HS tab-cap NS 03/24/13 06/03/20 History levothyroxine 75 mcg PO QAM 02/23/17 06/03/20 History Linzess 290 mcg PO QAM 07/30/19 06/03/20 History Allergies Allergy/AdvReac Type Severity Reaction Status Date / Time sulfamethoxazole AdvReac Intermediate delayed Unverified 06/03/20 18:27 [From Bactrim] rash trimethoprim [From Bactrim] AdvReac Intermediate delayed Unverified 06/03/20 18:27 rash Exam Narrative Exam Narrative: 103/72, 80, 36.3, 16, 94 % RA. HEENT atraumatic; neck supple w/o JVD; lungs clear; heart RRR w/o MRG; abdomen soft and NT; extremities w/o edema, pulser 2+/=; neuro Ox3e, nonfocal Results Labs Result diagrams: 06/03/20 18:30 06/03/20 18:30 Labs: Laboratory Results - last 24 hr 06/03/20 06/03/20 06/03/20 18:30 18:30 18:30 WBC 9.03 RBC 5.12 Hgb 14.9 Hct 45.3 MCV 88.5 MCH 29.1 MCHC 32.9 RDW 12.4 Plt Count 270 MPV 9.9 Immature Gran % 0.1 Neutrophils % 48.3 Lymphocytes % 41.2 Monocytes % 6.9 Eosinophils % 1.9 Basophils % 1.6 Absolute Neutrophils 4.37 Absolute Lymphocytes 3.72 H Absolute Monocytes 0.62 Absolute Eosinophils 0.17 Absolute Basophils 0.14 PT 9.5 INR 0.9 APTT 26.9 Sodium 137 Potassium 3.3 L Chloride 101 Carbon Dioxide 25.3 Anion Gap 10.7 BUN 8 Creatinine 0.88 Estimated GFR/1.73 m2 >= 60.00 Glucose 108 H Calcium 9.8 Magnesium 1.9 Total Bilirubin 0.4 AST 17 ALT 16 Alkaline Phosphatase 47 Troponin I < 0.05 Total Protein 7.5 Albumin 4.1 Last Vital Signs Temp 36.3 C L 06/03/20 18:24 Pulse 80 06/03/20 20:01 Resp 16 06/03/20 20:01 BP 103/72 06/03/20 20:01 Pulse Ox 94 L 06/03/20 20:01 COVID-19 Screening Have you,or household,traveled outside [place] in last 14 days?: No Had IN PERSON contact w/suspected or confirmed C-19 person: No
[2020-06-03 22:09] LABS: Troponin I < 0.05 ng/mL (<0.06)
[2020-06-03] MEDS: Potassium Chloride 10 MEQ TABCR PO (22:28)
[2020-06-03] MEDS: traZODone 50 MG TAB 150 MG PO (22:28)
[2020-06-03] MEDS: Aspirin 325 MG TAB PO (23:31)
[2020-06-04] VITALS (13 sets, daily range): BP systolic 86–106; BP diastolic 49–70; PULSE 54–94; RESP 12–23; TEMP 36–36.9; O2SAT 95–99
--- NOTE | 2020-06-04 | RT.EKG_ITS ---
APPROVED REPORT Exam: Resting ECG Patient Location: I HR:63 bpm ECG Measurements Heart Rate 63 AXIS NM 181 P 23 QRSd 71 QRS 20 QT 397 T 35 QTc 406 Conclusion Sinus rhythm...normal P axis, V-rate 60- 99
[2020-06-04 04:38] LABS: Potassium 3.8 mmol/L (3.5-5.1); Troponin I < 0.05 ng/mL (<0.06)
[2020-06-04] MEDS: Levothyroxine 75 MCG TAB PO (07:00)
[2020-06-04 07:23] LABS: PTT Activated 95.7 sec (21.0-31.4)
--- NOTE | 2020-06-04 08:28 | W.PM.PROGNOT ---
Date of Service Date of service: 06/04/20 Time of Service: 13:17 Assessment and Plan Assessment and plan (1) Chest pain: Status: Acute Assessment and plan: Question of unstable angina. Discussed with [facility] [place] cardiology. Will d/c heparin gtt, transition to aspirin/statin. Plan for stress test on Saturday. (2) Acute electrocardiogram changes: Status: Acute Assessment and plan: As above. No evidence of ACS by troponin, but onset of chest pain at rest and relief with nitroglycerin are suggestive of underlying cardiac etiology. For stress test on Saturday. (3) Hypotension: Status: Chronic Assessment and plan: check orthostatics. (4) Hypothyroidism (acquired): Status: Chronic Assessment and plan: TSH at goal. Continue levothyroxine 75 mg PO daily. (5) DVT prophylaxis: Status: Acute Assessment and plan: Start enoxaparin (6) Discharge planning issues: Status: Acute Assessment and plan: Full code Ok to transfer out of ICU. Admit to inpatient status. Anticipate discharge home vs transfer to tertiary care facility pending results of the MPI on Saturday. Subjective Subjective Interval history since last seen: No CP overnight, no arrhythmias, SR. States she has had a stress test in the last 2 years - thinks it was at [facility] [place]. [facility] [place] [facility] has no record of this, however. She denies dizziness, chest pain, shortness of breath, palpitations, nausea, but does state that during her symptoms yesterday she had palpitations. BP 90s/50s (her normal). HR 50-60s. [facility] [place] [facility] cardiology: does not need an emergent intervention, but would benefit from a stress test early in the week. Per them, ok to d/c heparin gtt and transition the patient to asa/statin. BB are containdicated with her hypotension/orthostasis. Exam Narrative Exam Narrative: General: Very pleasant middle-aged female, A&Ox3, sitting comfortably in bed HEENT: EOMI, MMM Heart: RRR, no m/r/g Lungs: CTAB Abdomen: soft, nontender, nondistended Extremities: no e/c/c BLE's. +1 pedal pulses B Objective Objective Clinical Data: Abnormal lab results 06/03/20 06/03/20 06/04/20 Range/Units 18:30 18:30 06:15 Absolute Lymphocytes 3.72 H (1.2-3.4) 10^3/uL APTT 95.7 H* D (21.0-31.4) sec Potassium 3.3 L (3.5-5.1) mmol/L Glucose 108 H (74-106) mg/dL Vital Signs Temperature 36.6 C 06/04/20 02:00 Temperature Source Temporal Artery Scan 06/04/20 02:00 Pulse 67 06/04/20 06:18 Pulse 67 06/04/20 06:18 Respiratory Rate 18 06/04/20 06:18 Respiratory Effort Non-Labored 06/04/20 02:00 Respiratory Depth Normal 06/04/20 02:00 Respiratory Pattern Normal 06/04/20 02:00 Blood Pressure 98/57 L 06/04/20 06:18 Blood Pressure Mean 66 06/04/20 06:18 Blood Pressure Position Supine 06/03/20 18:24 Pulse Oximetry 97 06/04/20 06:18 Oxygen Delivery Method Room Air 06/04/20 02:00 Oxygen Flow Rate 0 06/04/20 02:00 Pain Level 0 06/04/20 02:00 Intake & Output 06/03/20 06/03/20 06/04/20 11:59 23:59 11:59 Intake Total 1300 / 1300 71.567 / 71.567 Output Total 200 / 200 Balance 1100 / 1100 71.567 / 71.567 Weight 77.4 kg Intake: IV 1000 / 1000 71.567 / 71.567 Oral 300 / 300 Output: Urine 200 / 200 Other: Urine Color Yellow Urine Appearance Clear Laboratory Results WBC 9.03 10^3/uL (4.4-10.8) 06/03/20 18:30 RBC 5.12 10^6/uL (3.93-5.22) 06/03/20 18:30 Hgb 14.9 g/dL (11.2-15.7) 06/03/20 18:30 Hct 45.3 % (36.0-46.0) 06/03/20 18:30 MCV 88.5 fL (80-95) 06/03/20 18:30 MCH 29.1 pg (27.0-33.0) 06/03/20 18:30 MCHC 32.9 % (32.0-36.0) 06/03/20 18:30 RDW 12.4 % (11.7-14.6) 06/03/20 18:30 Plt Count 270 10^3/uL (130-400) 06/03/20 18:30 MPV 9.9 fL (8.0-11.0) 06/03/20 18:30 Immature Gran % 0.1 06/03/20 18:30 Neutrophils % 48.3 06/03/20 18:30 Lymphocytes % 41.2 06/03/20 18:30 Monocytes % 6.9 06/03/20 18:30 Eosinophils % 1.9 06/03/20 18:30 Basophils % 1.6 06/03/20 18:30 Absolute Neutrophils 4.37 10^3/uL (1.2-6.7) 06/03/20 18:30 Absolute Lymphocytes 3.72 10^3/uL (1.2-3.4) H 06/03/20 18:30 Absolute Monocytes 0.62 10^3/uL (0.1-0.8) 06/03/20 18:30 Absolute Eosinophils 0.17 10^3/uL (0.0-0.7) 06/03/20 18:30 Absolute Basophils 0.14 10^3/uL (0.0-0.2) 06/03/20 18:30 PT 9.5 sec (9.3-11.0) 06/03/20 18:30 INR 0.9 (0.9-1.1) 06/03/20 18:30 APTT 95.7 sec (21.0-31.4) H* D 06/04/20 06:15 Sodium 137 mmol/L (136-145) 06/03/20 18:30 Potassium 3.8 mmol/L (3.5-5.1) 06/04/20 04:10 Chloride 101 mmol/L (98-107) 06/03/20 18:30 Carbon Dioxide 25.3 mmol/L (21.0-32.0) 06/03/20 18:30 Anion Gap 10.7 mmol/L (3-11) 06/03/20 18:30 BUN 8 mg/dL (7-18) 06/03/20 18:30 Creatinine 0.88 mg/dL (0.55-1.02) 06/03/20 18:30 Estimated GFR/1.73 m2 >= 60.00 (mL/min/1.73m2) 06/03/20 18:30 Glucose 108 mg/dL (74-106) H 06/03/20 18:30 Calcium 9.8 mg/dL (8.5-10.1) 06/03/20 18:30 Magnesium 1.9 mg/dL (1.8-2.4) 06/03/20 18:30 Total Bilirubin 0.4 mg/dL (0.2-1.0) 06/03/20 18:30 AST 17 U/L (15-37) 06/03/20 18:30 ALT 16 U/L (14-59) 06/03/20 18:30 Alkaline Phosphatase 47 U/L (46-116) 06/03/20 18:30 Troponin I < 0.05 ng/mL (<0.06) 06/04/20 04:10 Total Protein 7.5 g/dL (6.4-8.2) 06/03/20 18:30 Albumin 4.1 g/dL (3.4-5.0) 06/03/20 18:30
[2020-06-04 09:44] LABS: FREE T4 1.23 ng/dL (0.76-1.46); Magnesium 1.9 mg/dL (1.8-2.4); TSH 1.71 uIU/mL (0.36-3.74)
[2020-06-04 09:56] LABS: Calculated LDL 142 mg/dL (<100); Cholesterol 216 mg/dL (<200); HDL Cholesterol 68 mg/dL (40-60); Triglyceride 32 mg/dL (<150)
--- NOTE | 2020-06-04 10:55 | PDOC.CMIN ---
- If Service Date Differs Date of service: 06/04/20 Time of Service: 11:33 Care Management Initial Assess REASON FOR HOSPITALIZATION:: Chest Pain PAST MEDICAL HISTORY/PAST SURGICAL HISTORY:: Medical History: Anal fistula, hypothyroidism, and irritable bowel. Surgical History: History of total abdominal hysterectomy. PREVIOUS FUNCTIONAL STATUS/SOCIAL/FAMILY SUPPORTS:: Vick resides in [place] with her Krzysztof. 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 She shares that she and her had plans to fly to [place] to visit her sister over the weekend but now that she is in the hospital, those plans have to be rescheduled. The couple spends a lot of time traveling the country. Vick is independent in the community and manages her own needs. ADVANCE DIRECTIVES:: On file at [facility]; agent is , Krzysztof Jama. Has patient been provided with info about the portal/API?: Yes Did the patient sign up for the portal?: Yes (Previously) CODE STATUS:: Full Code INSURANCE COVERAGE / FINANCIAL ISSUES:: [facility] and Medicare CURRENT HOME/COMMUNITY SERVICES/EQUIPMENT:: No current services or equipment. PRIMARY CARE PHYSICIAN:: Reji Lopez POTENTIAL DISCHARGE NEEDS:: EKG, MPI-Stress anticipated for Saturday. [facility] consult, transfer consideration per MD. PATIENT/FAMILY EDUCATION NEEDS:: Review of discharge instructions, discuss [employer] Me [employer]. ANTICIPATED BARRIERS TO DISCHARGE:: None identified. TRANSPORTATION:: Via private vehicle with her , Krzysztof. PLAN:: Vick will discharge home when medically ready per provider. No additional services anticipated at this time. Vick will follow up with her PCP and plan of care as prescribed; including outpatient follow up. Krzysztof, her will transport via private vehicle.
[2020-06-04 12:28] LABS: COVID-19 RT-PCR UVMMC Result Negative (Negative)
[2020-06-04] MEDS: Aspirin E.C. 81 MG TABEC PO (13:26)
[2020-06-04] MEDS: nitroGLYcerin 0.4 MG TAB SL (13:45)
--- NOTE | 2020-06-04 13:45 | RT.EKG_ITS ---
APPROVED REPORT Exam: Resting ECG Patient Location: I HR:79 bpm ECG Measurements Heart Rate 79 AXIS WA 176 P 39 QRSd 80 QRS 11 QT 383 T 40 QTc 438 Conclusion Sinus rhythm...normal P axis, V-rate 60- 99
[2020-06-04 14:38] LABS: Troponin I < 0.05 ng/mL (<0.06)
[2020-06-04 18:43] LABS: Troponin I < 0.05 ng/mL (<0.06)
[2020-06-04] MEDS: Atorvastatin 40 MG TAB PO (20:49)
[2020-06-04] MEDS: traZODone 50 MG TAB 150 MG PO (23:03)
[2020-06-05] VITALS (7 sets, daily range): BP systolic 92–111; BP diastolic 59–75; PULSE 57–80; RESP 17–18; TEMP 36.2–37.5; O2SAT 94–98
[2020-06-05] MEDS: Levothyroxine 75 MCG TAB PO (06:03)
[2020-06-05 08:03] LABS: Anion Gap 6.1 mmol/L (3-11); BUN 9 mg/dL (7-18); CO2 26.9 mmol/L (21.0-32.0); CREATININE 0.71 mg/dL (0.55-1.02); Calcium 9.1 mg/dL (8.5-10.1); Chloride 107 mmol/L (98-107); Glucose 87 mg/dL (74-106); Magnesium 1.9 mg/dL (1.8-2.4); Potassium 3.6 mmol/L (3.5-5.1); Sodium 140 mmol/L (136-145)
[2020-06-05 08:06] LABS: Troponin I < 0.05 ng/mL (<0.06)
[2020-06-05 08:14] LABS: Hemoglobin A1C 5.3 % (3.8-5.6)
--- NOTE | 2020-06-05 08:30 | CMPROGNOTE_ITS ---
Care Management Progress Note S/O: Vick was lying in bed, her at her bedside. She verbalized understanding her treatment plan and possible scenarios per results of MPI- Stress Test-anticipated for tomorrow. She reported being pleased with her care and stay thus far at [facility] and shared no concerns at this time. CM continues to follow. A: 70 year old female admitted to [facility] 06/03/20 for Chest Pain P: Per MPI-Stress test. Anticipate [id number]. If home, Vick will discharge home when medically ready per provider. No additional services anticip ated at this time. Vick will follow up with her PCP and plan of care as prescribed; including outpatient follow up. Krzysztof, her will transport via private vehicle.
--- NOTE | 2020-06-05 08:30 | PDOC.CMPRO ---
Care Management Progress Note S/O: Vick was lying in bed, her at her bedside. She verbalized understanding her treatment plan and possible scenarios per results of MPI-Stress Test-anticipated for tomorrow. She reported being pleased with her care and stay thus far at [facility] and shared no concerns at this time. CM continues to follow. A: 70 year old female admitted to [facility] 06/03/20 for Chest Pain P: Per MPI-Stress test. Anticipate [id number]. If home, Vick will discharge home when medically ready per provider. No additional services anticipated at this time. Vick will follow up with her PCP and plan of care as prescribed; including outpatient follow up. Krzysztof, her will transport via private vehicle.
[2020-06-05] MEDS: Enoxaparin 40 MG/0.4 ML SYR SC (09:24)
[2020-06-05] MEDS: Aspirin E.C. 81 MG TABEC PO (09:24)
--- NOTE | 2020-06-05 09:40 | W.PM.PROGNOT ---
Date of Service Date of service: 06/05/20 Time of Service: 09:40 Assessment and Plan Assessment and plan (1) Chest pain: Status: Acute Assessment and plan: Question of unstable angina. Discussed with [facility] cardiology. Will d/c heparin gtt, transition to aspirin/statin. Plan for stress test on Saturday. (2) Acute electrocardiogram changes: Status: Acute Assessment and plan: As above. No evidence of ACS by troponin, but onset of chest pain at rest and relief with nitroglycerin are suggestive of underlying cardiac etiology. For stress test on Saturday. (3) Hypotension: Status: Chronic Assessment and plan: check orthostatics. (4) Hypothyroidism (acquired): Status: Chronic Assessment and plan: TSH at goal. Continue levothyroxine 75 mg PO daily. (5) DVT prophylaxis: Status: Acute Assessment and plan: Start enoxaparin (6) Discharge planning issues: Status: Acute Assessment and plan: Full code Ok to transfer out of ICU. Admit to inpatient status. Anticipate discharge home vs transfer to tertiary care facility pending results of the MPI on Saturday. discussed with Dr Roberts who is in agreement Subjective Subjective Patient reports: no new complaints, feels better, tolerating liquids well, tolerating a regular diet and voiding w/o difficulty; denies shortness of breath Interval history since last seen: no dizziness or lightheadedness Exam Const General: cooperative, healthy appearing, comfortable and no acute distress Nutritional Appearance: average body habitus Orientation: alert, awake and oriented x3 HENMT Head: normal to inspection, normocephalic and atraumatic Mouth: oral mucosae normal Chest Chest: normal inspection of the chest Resp Effort & Inspection: normal respiratory effort Auscultation: clear to auscultation bilaterally Cardio Rate: regular rate Rhythm: regular rhythm GI Inspection: normal to inspection Palpation: soft Auscultation: normal bowel sounds Skin General skin exam: no rashes or lesions noted Neuro General: patient alert, patient awake and patient oriented x3 Cranial Nerves: CN's II-XI intact bilaterally Cognition: normal cognition Speech: speech normal Gait: normal gait Extrem General: normal to inspection, full ROM and no pedal edema Psych Appearance: grossly normal Mental Status: mental status grossly normal Speech and Movement: speech and movement normal Mood: congruent mood Affect: normal affect Attitude: cooperative Thought Process: normal Thought Content: normal Insight: insight good Judgment: judgment good Objective Objective Clinical Data: Abnormal lab results 06/04/20 Range/Units 06:15 Total Cholesterol 216 H (<200) mg/dL LDL Cholesterol, Calc 142 H (<100) mg/dL Vital Signs Temperature 36.5 C 06/05/20 08:04 Temperature Source Tympanic 06/05/20 08:04 Pulse 65 06/05/20 08:04 Pulse Rhythm Regular 06/05/20 04:36 Pulse 79 06/04/20 14:01 Respiratory Rate 18 06/05/20 08:04 Respiratory Effort 06/04/20 21:31 Respiratory Depth Normal 06/04/20 21:31 Respiratory Pattern Normal 06/04/20 21:31 Blood Pressure 92/59 L 06/05/20 08:04 Blood Pressure Mean 57 06/04/20 14:01 Blood Pressure Position Supine 06/03/20 18:24 Pulse Oximetry 94 L 06/05/20 08:04 Oxygen Delivery Method Room Air 06/05/20 08:04 Oxygen Flow Rate 0 06/05/20 08:04 Pain Level 0 06/05/20 08:04 Intake & Output 06/04/20 06/04/20 06/05/20 11:59 23:59 11:59 Intake Total 371.567 / 1071.567 700 / 1071.567 Output Total 1100 / 1700 600 / 1700 Balance -728.433 / -628.433 100 / -628.433 Weight 76.9 kg Intake: IV 71.567 / 71.567 Oral 300 / 1000 700 / 1000 Output: Urine 1100 / 1700 600 / 1700 Other: Urine Color Yellow Yellow Urine Appearance Clear Clear Urine Odor None None Voiding Methods Bedside Commode Bedside Commode Laboratory Results WBC 9.03 10^3/uL (4.4-10.8) 06/03/20 18:30 RBC 5.12 10^6/uL (3.93-5.22) 06/03/20 18:30 Hgb 14.9 g/dL (11.2-15.7) 06/03/20 18:30 Hct 45.3 % (36.0-46.0) 06/03/20 18:30 MCV 88.5 fL (80-95) 06/03/20 18:30 MCH 29.1 pg (27.0-33.0) 06/03/20 18:30 MCHC 32.9 % (32.0-36.0) 06/03/20 18:30 RDW 12.4 % (11.7-14.6) 06/03/20 18:30 Plt Count 270 10^3/uL (130-400) 06/03/20 18:30 MPV 9.9 fL (8.0-11.0) 06/03/20 18:30 Immature Gran % 0.1 06/03/20 18:30 Neutrophils % 48.3 06/03/20 18:30 Lymphocytes % 41.2 06/03/20 18:30 Monocytes % 6.9 06/03/20 18:30 Eosinophils % 1.9 06/03/20 18:30 Basophils % 1.6 06/03/20 18:30 Absolute Neutrophils 4.37 10^3/uL (1.2-6.7) 06/03/20 18:30 Absolute Lymphocytes 3.72 10^3/uL (1.2-3.4) H 06/03/20 18:30 Absolute Monocytes 0.62 10^3/uL (0.1-0.8) 06/03/20 18:30 Absolute Eosinophils 0.17 10^3/uL (0.0-0.7) 06/03/20 18:30 Absolute Basophils 0.14 10^3/uL (0.0-0.2) 06/03/20 18:30 PT 9.5 sec (9.3-11.0) 06/03/20 18:30 INR 0.9 (0.9-1.1) 06/03/20 18:30 APTT Cancelled 06/04/20 13:30 Sodium 140 mmol/L (136-145) 06/05/20 06:45 Potassium 3.6 mmol/L (3.5-5.1) 06/05/20 06:45 Chloride 107 mmol/L (98-107) 06/05/20 06:45 Carbon Dioxide 26.9 mmol/L (21.0-32.0) 06/05/20 06:45 Anion Gap 6.1 mmol/L (3-11) 06/05/20 06:45 BUN 9 mg/dL (7-18) 06/05/20 06:45 Creatinine 0.71 mg/dL (0.55-1.02) 06/05/20 06:45 Estimated GFR/1.73 m2 >= 60.00 (mL/min/1.73m2) 06/05/20 06:45 Glucose 87 mg/dL (74-106) 06/05/20 06:45 Hemoglobin A1c 5.3 % (3.8-5.6) 06/05/20 06:45 Calcium 9.1 mg/dL (8.5-10.1) 06/05/20 06:45 Magnesium 1.9 mg/dL (1.8-2.4) 06/05/20 06:45 Total Bilirubin 0.4 mg/dL (0.2-1.0) 06/03/20 18:30 AST 17 U/L (15-37) 06/03/20 18:30 ALT 16 U/L (14-59) 06/03/20 18:30 Alkaline Phosphatase 47 U/L (46-116) 06/03/20 18:30 Troponin I < 0.05 ng/mL (<0.06) 06/05/20 06:45 Total Protein 7.5 g/dL (6.4-8.2) 06/03/20 18:30 Albumin 4.1 g/dL (3.4-5.0) 06/03/20 18:30 Triglycerides 32 mg/dL (<150) 06/04/20 06:15 Total Cholesterol 216 mg/dL (<200) H 06/04/20 06:15 LDL Cholesterol, Calc 142 mg/dL (<100) H 06/04/20 06:15 HDL Cholesterol 68 mg/dL (40-60) 06/04/20 06:15 TSH 1.71 uIU/mL (0.36-3.74) 06/04/20 06:15 Free T4 1.23 ng/dL (0.76-1.46) 06/04/20 06:15 COVID-19 PCR Negative (Negative) 06/03/20 21:27 Nasopharyn COVID-19 PCR Not Applicable 06/03/20 21:27 Ref Test Perform Site [facility] lab 06/03/20 21:27
[2020-06-05] MEDS: Atorvastatin 40 MG TAB PO (19:40)
[2020-06-05] MEDS: nitroGLYcerin 0.4 MG TAB SL (22:02)
[2020-06-05] MEDS: traZODone 50 MG TAB 150 MG PO (22:53)
[2020-06-05] MEDS: Normal Saline Flush 10 ML SYR (23:28)
[2020-06-06 03:37] VITALS: BP 91/59; PULSE 62; RESP 16; TEMP 36.7; O2SAT 97
[2020-06-06] MEDS: Levothyroxine 75 MCG TAB PO (06:43)
[2020-06-06 06:59] LABS: Abs Immature Grans 0.01 10^3/uL (0.0-0.06); Absolute Basophil Count 0.09 10^3/uL (0.0-0.2); Absolute Eosinophil Count 0.21 10^3/uL (0.0-0.7); Absolute Lymphocyte Count 2.19 10^3/uL (1.2-3.4); Absolute Neutrophil Count 2.19 10^3/uL (1.2-6.7); Basophils % 1.7; HCT 37.5 % (36.0-46.0); HGB 12.6 g/dL (11.2-15.7); Immature Grans % 0.2; Lymphocytes % 42.2; MCH 29.3 pg (27.0-33.0); MCHC 33.6 % (32.0-36.0); MCV 87.2 fL (80-95); MPV 10.3 fL (8.0-11.0); Monocytes % 9.6; Neutrophils % 42.3; Nucleated RBC 0 %; Platelet Count 199 10^3/uL (130-400); RDW 12.5 % (11.7-14.6); RDW-SD 39.8 fL; WBC 5.19 10^3/uL (4.4-10.8)
[2020-06-06 07:31] VITALS: BP 90/59; PULSE 63; RESP 17; TEMP 36.7; O2SAT 95
[2020-06-06] MEDS: Aspirin E.C. 81 MG TABEC PO (07:44)
[2020-06-06] MEDS: Enoxaparin 40 MG/0.4 ML SYR SC (07:44)
--- NOTE | 2020-06-06 08:00 | DI.NM_ITS ---
APPROVED REPORT Exam: Pharmacologic Patient Location: In-Patient Room/Bed: 207 Stress Nurse: Lakshmi Lindsay RN BMI: 27.78 Baseline Rhythm: Sinus Rhythm Indications: Chest Pain Medical History Medical History: hypotension,, Hyperlipidemia Allergies: bactrim Cardiac Risk Factors: Hyperlipidemia Pretest Chest Pain Characteristics: No chest pain Exercise History: Physically active Lung Sounds: Clear to auscultation Heart Sounds: Regular Stress Test Details Test: Pharmacologic stress testing performed using 0.4 mg of regadenoson per 5 mL given IV over 10 s econds. Nuclear Acquisition: Rest Tc-99m/Stress Tc-99m 1 day Rest Isotope: Tc-99m Sestamibi. Dose: 10.4 Date: 06/06/2020 Injection Time: 1200 Stress Isotope: Tc-99m Sestamibi. Dose: 33.3 Date: 06/06/2020 Injection Time: 1420 HR Resting HR Supine: 63 bpm Max Heart Rate (APMHR): 149 bpm Target HR (85% APMHR): 126 bpm Max HR Achieved: 104 bpm % of APMHR: 69 Recovery HR: 79 bpm HR response to stress: Normal HR response to stress BP Resting BP Supine: 114/70 mmHg Max BP: 114/74 mmHg Recovery BP: 110/68/ mmHg BP response to stress: Normal blood pressure response to stress. ECG Resting ECG: Sinus Rhythm Stress ECG: Sinus Tachycardia ST Change: Normal Maximum ST Deviation: 0.3 mm Arrhythmia: None Recovery ECG: Sinus Rhythm Recovery ST Change: Normal Recovery Arrhythmia: None Clinical Reason for Termination: vs returned to baseline Exercise duration: 06 min00 sec Exercise capacity: 1 METs Stress ECG Conclusion 1. There is a pharmacological stress test. 2. The patient no symptoms suggestive of ischemia 3. The EKG portion of this exam is nondiagnostic. Critical Notification Critical Value: No MPI Conclusion Patient's ejection fraction was 76% with stress. There were no wall motion abnormalities. There was a small, mostly fixed perfusion defect of the lateral wall. This represents an abnormal SPECT stress test. Radiologist Interpretation Radiologist Interpretation by: Keny Mathias MD Interpretation Date/Time: 06/07/2020 08:25:44
--- NOTE | 2020-06-06 08:29 | DI.US_ITS ---
APPROVED REPORT EXAM: Comprehensive 2D, Doppler, and color-flow Echocardiogram Patient Location: In-Patient Room/Bed: [facility] Making Line Worker: Deborah Cerda RDCS (AE) Indications: Unstable angina Other Information Study Quality: Good Conclusion Left Ventricle : The left ventricle is normal size. The left ventricular systolic function is normal. The left ventricular ejection fraction is within the normal range. There is normal left ventricular wall thickness. There is normal LV segmental wall motion. The left ventricular diastolic function is normal. LVEF is 55-60%. Right Ventricle : The right ventricular systolic function is normal. The RVSP is 20 mmHg. Atria : The left atrium size is normal. Right Ventricle : The right ventricle is normal size. Mitral Valve : Mild mitral annular calcification. No evidence of mitral valve stenosis. Trace to mild mitral regurgitation. Great Vessels : Aortic root is mildly dilated. Ascending aorta is not well visualized. IVC is normal in size and collapses >50% with inspiration. Pericardium : Small circumferential pericardial effusion. There is no evidence of tamponade. There is no prior study available for comparison. Wall motion Left Ventricle The left ventricle is normal size. The left ventricular systolic function is normal. The left ventric ular ejection fraction is within the normal range. There is normal left ventricular wall thickness. T here is normal LV segmental wall motion. The left ventricular diastolic function is normal. There is no ventricular septal defect visualized. LVEF is 55-60%. Right Ventricle The right ventricle is normal size. The right ventricular systolic function is normal. The RVSP is 20 mmHg. Atria The left atrium size is normal. The right atrium size is normal. The interatrial septum is intact wit h no evidence for an atrial septal defect. Aortic Valve The Aortic valve is sclerotic. Aortic valve is trileaflet. There is no aortic valvular stenosis. No a ortic regurgitation is present. Mitral Valve Mild mitral annular calcification. No evidence of mitral valve stenosis. Trace to mild mitral regurgi tation. Tricuspid Valve The tricuspid valve is normal in structure. There is no tricuspid valve stenosis. Mild tricuspid regu rgitation. Pulmonic Valve The pulmonary valve is normal in structure. There is no pulmonic valvular stenosis. Mild pulmonic reg urgitation. Great Vessels Aortic root is mildly dilated. Ascending aorta is not well visualized. IVC is normal in size and jenny apses >50% with inspiration. Pericardium Small circumferential pericardial effusion. There is invagination of the right atrium but no evidence of tamponade. 2D Dimensions IVSD d PLAX 0.83 cm F: 0.6-1.0 LV Vol A2C d MOD 51.6 mL LVPW d PLAX 0.85 cm F: 0.6 - 1.0 LV Vol A4C d MOD 67.8 mL LVID d PLAX 4.03 cm F: 3.8 - 5.2 LA vol/ BSA A2C s A-L 14.2 mL/m2 LVDs 2.70 cm F: 2.2 - 3.5 LA vol/ BSA A4C s A-L 18.0 mL/m2 Ao Root d 3.64 cm F: 2.7 - 3.3 LA Vol/ BSA Biplane s A-L 16.7 mL/m2 RA Area A4C 12.79 cm2 LA Area A4C s MOD 14.29 cm2 RA Vol/ BSA A4C s A-L 15.0 mL/m2 LA Area A2C s MOD 12.14 cm2 LV EF Teichholz 61.2 % LV EF A4C MOD 56.8 % LVEF (Kapoor's) 56.88 % F: 54 - 74 LV EF A2C MOD 59.2 % LV Volume 45.67 mL F: 46 - 106 LV EF Biplane MOD 56.9 % LV Volume Index 24.82 mL/m2 F: 29 - 61 SV 33.67 mL LV Vol Biplane MOD 59.2 mL SV Index 18.28 mL/m2 FS 32.35 % M-Mode TAPSE 1.86 cm (M/F) >1.7 LV Diastology MV E' medial 0.074 (>0.07 m/s) E/A Ratio 0.7 LV E/e MED 7.35 (<14) MV E Vmax 0.55 (0.4-1.3 m/s) MV E' lateral 0.047 (>0.1 m/s) MV A Vmax 0.75 (0.4-1.3 m/s) LV E/e LAT 11.65 (<14) MV E/A Ratio 0.71 MV E/E' medial 7.37 MV E/E' lateral 11.67 Aortic Valve LVOT Area 3.74 cm2 AoV Area Vmax 3.06 cm2 LVOT Vmax 0.97 m/s AoV Area/ BSA (Vmax) 1.66 cm2/m2 LVOT Mean Sundeep. 0.60 m/s DYLAN Mean Sundeep. 3.29 cm2 LVOT Peak Grad 3.7 mmHg DYLAN Mean Sundeep. Index 1.79 cm2/m2 LVOT Mean Grad 1.7 mmHg LVOT VTI 0.189 m LVOT Diam s 2.15 cm AoV Vmax 1.18 m/s Velocity Ratio 0.82 AoV Mean Sundeep. 0.68 m/s AoV Peak Grad 5.6 mmHg LVOT SV 70.75 mL AoV Mean Grad 2.3 mmHg AoV VTI 0.201 m AoV Area VTI 3.52 cm2 AoV Area/ BSA (VTI) 1.91 cm/m2 Mitral Valve MV DT 338 (160-240 msec) MV PHT 98 msec MV Area PHT 2.24 cm2 MV VTI 0.231 m MV Area VTI 3.06 (4.0-6.0 cm2) Pulmonary Valve PV Vmax 0.86 (0.5-1.5 m/s) RVOT Peak Gr. 1.31 mmHg PV Peak Grad 3.0 mmHg RVOT Mean Gr. 0.65 mmHg PV Mean Grad 1.3 mmHg RVOT VTI 0.121 m PV VTI 0.444 m RVOT Vmax 0.57 m/s Tricuspid Valve TR Peak Grad 17.8 mmHg TR Vmax 2.11 m/s RA Pressure 3.00 mmHg RVSP (TR) 20.8 mmHg
--- NOTE | 2020-06-06 09:52 | CMPROGNOTE_ITS ---
- If Service Date Differs Date of service: 06/06/20 Time of Service: 09:52 Care Management Progress Note S/O: Vick was sitting up in bed when CM met with her. She was pleasant and agreeable to conversation. Vick shared that she is feeling much better. Her last reported episode of chest pain was last evening about 10 pm, she noted. Vick stated that if her Echocardiogram is negative, that she will likely be discharged home later today. She denied the need for any services at home at this time. A: 70 year old female admitted to [facility] 06/03/20 for Chest Pain P: Vick will be discharged home with no new services. She will follow up with her PCP and discharge plan of care. Vick will transport via private vehicle with her Krzysztof. CM will continue to support patient, family and discharge planning concerns.
[2020-06-06 11:00] VITALS: BP 94/65; PULSE 75; RESP 17; TEMP 37.2; O2SAT 97
[2020-06-06] MEDS: Regadenoson 0.4 MG/5 ML SYR IVP (13:52)
--- NOTE | 2020-06-06 14:45 | W.PM.DS.N ---
Date of service: 06/06/20 Time of Service: 14:55 DS: Diagnosis Discharge Diagnosis (1) Chest pain: Status: Acute (2) Acute electrocardiogram changes: Status: Acute (3) Hypotension: Status: Chronic (4) Hypothyroidism (acquired): Status: Chronic Discharge Plan Disposition Patient Disposition: [facility] Condition: Stable Discharge Details Chief Complaint: Chest Pain Clinical Impression: Chest pain Reason For Visit: CP Admit Date/Time: 06/04/20 13:20 Admit Provider: Han Castellon Attending Provider: Han Castellon Primary Care Provider: Reji Lopez ED Provider: Nico Bledsoe [facility] Course Hospital Course: This is a 70-year-old female patient who reports having chest pain at rest while sitting in her car. She described it as substernal pressure that radiated to her jaw she also reports nausea and lightheadedness. She had one similar episode in March and was seen by cardiology. Her initial work-up in the emergency department showed negative troponin EKG with less than [address] depression in V3 to 6. She received 1 SL nitro with resolution of her pain. Her EKG showed normalization of her ST segments. She was admitted to the medical surgical unit for telemetry monitoring, serial troponins and stress test. Her serial troponins remained negative she remained in normal sinus rhythm on telemetry with no dysrhythmias. She received 2 additional doses of nitroglycerin throughout her hospitalization with immediate relief of her chest discomfort. Both her episodes occurred while at rest and resolved with 1 nitro. Echo showed no wall motion abnormalities and her LVEF is 55-60%. Her stress ECG conclusion showed no symptoms suggestive of ischemia the EKG portion is nondiagnostic the MPI conclusion showed an ejection fraction of 76% with stress no wall motion abnormalities but a small mostly fixed perfusion defect was noted on the lateral wall. Her case was discussed with Dr. Francisco from cardiology who performed the stress test and his recommendation is for transfer to [facility] for further work-up. She was started on heparin and case discussed with Rusty Giron APRN [place] [facility] [place] who accepts patient for transfer under Dr Conde. case discussed with Dr Roberts who is in agreement Home Meds and New Rx's Prescriptions: New atorvastatin [Lipitor] 40 mg Tablet 40 mg PO QPM Qty: 30 RF: 0 aspirin 81 mg Tablet,Delayed Release (Dr/Ec) 81 mg PO DAILY Qty: 0 RF: 0 Continued trazodone 50 MG tablet 150 mg PO HS RF: 0 levothyroxine 125 MCG tablet 75 mcg PO QAM RF: 0 Linzess 145 mcg Capsule 290 mcg PO QAM RF: 0 Discharge Instructions Instructions: Chest Pain (DC) Additional Instructions: ground transport to [facility] [place] drip. cashiers supervisor level, ACLS protocol, cardiac monitoring. Referrals: Reji Lopez MD [Primary Care Provider] - Activity:: Activity as Tolerated Diet:: As Tolerated DS: Summary Status at Discharge Functional status at discharge: independent ambulation Overall status at discharge: patient is not back to baseline Mental Status: mental status grossly normal Speech and Movement: speech and movement normal Mood: congruent mood Affect: normal affect Exam Const General: cooperative, healthy appearing, comfortable and no acute distress Nutritional Appearance: average body habitus Orientation: alert, awake and oriented x3 HENMT Head: normal to inspection, normocephalic and atraumatic Mouth: oral mucosae normal Chest Chest: normal inspection of the chest Resp Effort & Inspection: normal respiratory effort Auscultation: clear to auscultation bilaterally Cardio Rate: regular rate Rhythm: regular rhythm GI Inspection: normal to inspection Palpation: soft Auscultation: normal bowel sounds Skin General skin exam: no rashes or lesions noted Neuro General: patient alert, patient awake and patient oriented x3 Cranial Nerves: CN's II-XI intact bilaterally Cognition: normal cognition Speech: speech normal Gait: normal gait Extrem General: normal to inspection, full ROM and no pedal edema Psych Appearance: grossly normal Mental Status: mental status grossly normal Speech and Movement: speech and movement normal Mood: congruent mood Affect: normal affect Attitude: cooperative Thought Process: normal Thought Content: normal Insight: insight good Judgment: judgment good DS: Data Vitals/I&O Vitals and I&O: Vital Signs Temperature 37.2 C 06/06/20 11:00 Temperature Source Temporal Artery Scan 06/06/20 11:00 Pulse 75 06/06/20 11:00 Pulse Rhythm Regular 06/06/20 09:07 Pulse 79 06/04/20 14:01 Respiratory Rate 17 06/06/20 11:00 Respiratory Effort Non-Labored 06/06/20 09:07 Respiratory Depth Normal 06/06/20 09:07 Respiratory Pattern Normal 06/06/20 09:07 Blood Pressure 94/65 L 06/06/20 11:00 Blood Pressure Mean 57 06/04/20 14:01 Blood Pressure Position Supine 06/03/20 18:24 Pulse Oximetry 97 06/06/20 11:00 Oxygen Delivery Method Room Air 06/06/20 11:00 Oxygen Flow Rate 0 06/06/20 11:00 Pain Level 0 06/06/20 11:00 Intake & Output 06/05/20 06/06/20 06/06/20 23:59 11:59 23:59 Intake Total 600 / 600 Balance 600 / 600 Weight 76.2 kg Intake: Oral 600 / 600 Other: Urine Color Yellow Yellow Comment independant Voiding Methods Toilet Data Completed and Pending Labs on day of discharge: Labs from last 24 hours 06/06/20 06:05 WBC 5.19 RBC 4.30 Hgb 12.6 D Hct 37.5 MCV 87.2 MCH 29.3 MCHC 33.6 RDW 12.5 Plt Count 199 MPV 10.3 Immature Gran % 0.2 Neutrophils % 42.3 Lymphocytes % 42.2 Monocytes % 9.6 Eosinophils % 4.0 Basophils % 1.7 Absolute Neutrophils 2.19 Absolute Lymphocytes 2.19 Absolute Monocytes 0.50 Absolute Eosinophils 0.21 Absolute Basophils 0.09 PFSH Medical History Anal fistula (Acute) Drug allergy, antibiotic (Resolved) DVT prophylaxis (Inactive) Hypotension (Chronic) Hypothyroidism (acquired) (Chronic) Irritable bowel (Chronic) Surgical History History of colonoscopy (Chronic ~09/07/19) 2009-normal History of total abdominal hysterectomy (Acute) Social History Smoking/Tobacco Use Status: Never Alcohol Intake: former Drug use: Never Substance use type: does not use Do you feel safe at home: Yes Do you feel safe in your relationship?: Yes History History 2 Para 1 Hx # Term Pregnancies 1 Multiple births Hx # Pregnancies Ectopic pregnancies AB induced Hx Number of Living Children 1 AB spontaneous 1
[2020-06-06 16:05] VITALS: BP 105/70; PULSE 70; RESP 17; TEMP 36.7; O2SAT 99
[2020-06-06 18:55] VITALS: BP 92/66; PULSE 62; RESP 17; TEMP 36.9; O2SAT 97
[2020-06-06] MEDS: Atorvastatin 40 MG TAB PO (19:51)
[2020-06-06 22:55] VITALS: BP 94/63; PULSE 65; RESP 17; TEMP 36.7; O2SAT 97
[2020-06-06] MEDS: traZODone 50 MG TAB 150 MG PO (23:04)
[2020-06-06 23:31] LABS: PTT Activated 54.4 sec (21.0-31.4)
[2020-06-07 03:58] VITALS: BP 94/67; PULSE 75; RESP 17; TEMP 36.7; O2SAT 97
[2020-06-07] MEDS: Levothyroxine 75 MCG TAB PO (06:12)
[2020-06-07 07:02] LABS: PTT Activated 60.6 sec (21.0-31.4)
[2020-06-07 07:30] VITALS: BP 90/57; PULSE 76; RESP 17; TEMP 36.5; O2SAT 97
[2020-06-07] MEDS: Aspirin E.C. 81 MG TABEC PO (08:18)
[2020-06-07 11:20] VITALS: BP 89/56; PULSE 69; RESP 17; TEMP 36.7; O2SAT 95
[2020-06-07 13:38] VITALS: BP 97/65; PULSE 81; RESP 18; TEMP 36.7; O2SAT 100
--- NOTE | 2020-06-07 14:17 | NUR.NOTE ---
pt report called to [facility]E to nurse Chavis, Awaiting EMS transport Nursing Note:
[2020-06-07 15:12] VITALS: PULSE 77
--- NOTE | 2020-06-07 16:37 | PDOC.CMDIS ---
- If Service Date Differs Date of service: 06/07/20 Time of Service: 16:37 LACE Index Scoring Tool - Questions: Length of Stay (in days): 3 Acuity (Admit via E.D.?): Yes E.D. Visits: 2 - Answers: Total Score: 8 Risk of Readmission: Low Risk Care Management Discharge Reason for Hospitalization: Chest Pain Discharge Plan: Vick will be transfeerred to [facility] for further cardiac workup Patient/Family Education Needs: Expectations, limitations, follow up plan
== END 2020-06-07 14:37 | disposition short-term general hospital (02) | DRG 313 ==
LOC: ER 21:31 → ICU 22:11 → MS 06-04 20:14
PROVIDERS: Internal Medicine; Nurse Practitioner Acute Care; Physician Assistant; Admitting Provider General Practice; Emergency Provider Emergency Medicine; PCP Internal Medicine; Visit Provider General Practice
DX: R07.89 Other chest pain (principal); E03.9 Hypothyroidism, unspecified; I95.89 Other hypotension; K58.9 Irritable bowel syndrome, unspecified; Z88.1 Allergy status to other antibiotic agents; R94.31 Abnormal electrocardiogram [ECG] [EKG]
CPT/HCPCS: 36415; 78452; 80048; 80053; 80061; 93005; 93016; 93018; 93306; 96360; 99222; 99233; 99239; 99285; J1650; U0003; 71046; 83036; 83735; 84132; 84439; 84443; 84484; 85025; 85610; 85730; 93010; 93017; J2785

== ENCOUNTER 2020-09-20 12:53 | Outpatient (REF) | payer MEDICARE, BC, SELFPAY ==
[2020-09-20 23:18] LABS: Calculated LDL 92 mg/dL (<100); Cholesterol 185 mg/dL (<200); HDL Cholesterol 84 mg/dL (40-60); Triglyceride 47 mg/dL (<150)
== END 2020-09-20 13:13 ==
LOC: NCHCN 12:53
PROVIDERS: PCP Internal Medicine; Visit Provider Internal Medicine
DX: E78.5 Hyperlipidemia, unspecified (principal)
CPT/HCPCS: 80061

== ENCOUNTER 2020-10-31 02:19 | Outpatient (CLI) | payer MEDICARE, BC, SELFPAY ==
--- NOTE | 2020-10-31 12:52 | DI.MAMMO_ITS ---
EXAM: MG MAMMO SCREENING CLINICAL HISTORY: SCREENING,Z12.39. TECHNIQUE: Bilateral full field digital CC and MLO mammographic images were obtained with 3D tomosyn thesis and utilizing computer aided detection (CAD). COMPARISON: Prior mammograms dating back to 2012, the most recent being August 2019. Breast ultra sound performed July 2019 was reviewed. It was apparently a negative breast ultrasound. FINDINGS: Fibroglandular pattern is again dense, this decreasing the sensitivity of the mammogram for finding i n underlying lesions. There are no CAD designations. There are no new obvious spiculated masses nor malignant appearing microcalcification groups. There is no significant architectural distortion nor skin thickening-retraction. IMPRESSION: Dense bilateral fibroglandular tissue. No obvious radiographic evidence of malignancy. BI-RADS Category 2 - Benign Findings Breast Density - Category C - Heterogeneously dense Breast density Category C or D implies that the patient has dense breast tissue. Dense breast tissue can make it harder to find cancer on a mammogram. Dense breast tissue is also associated with an incr eased risk of breast cancer. This information about the result of the mammogram report was provided to the patient to raise their awareness. Use this report when you speak with the patient about their risks for breast cancer, which includes their family history. At that time, you may recommend additional screening tests (Ultrasoun d or MRI) as these tests may add significant information. A negative radiographic report should not delay biopsy if a dominant or clinically suspicious mass is present. Up to ten percent of cancers are not identified on mammography. A negative report may reinforce clinical impression. Adenosis and dense breasts may obscure an underlying neoplasm. False positive reports average 6 to 10%. Patient will receive a letter notifying them of these results.
== END 2020-10-31 02:39 ==
PROVIDERS: PCP Internal Medicine; Visit Provider Internal Medicine
DX: Z12.31 Encounter for screening mammogram for malignant neoplasm of breast (principal)
CPT/HCPCS: 77063; 77067

== ENCOUNTER 2021-07-18 14:07 | Outpatient (REF) | payer MEDICARE, BC, SELFPAY ==
[2021-07-18 22:14] LABS: FREE T4 1.21 ng/dL (0.76-1.46); TSH 1.69 uIU/mL (0.36-3.74)
== END 2021-07-18 14:08 | disposition home or self-care (01) ==
LOC: NCHCN 14:07
PROVIDERS: PCP Internal Medicine; Visit Provider Internal Medicine
DX: E03.9 Hypothyroidism, unspecified (principal)
CPT/HCPCS: 84439; 84443

== ENCOUNTER 2021-07-20 00:25 | Outpatient (CLI) | payer MEDICARE, BC, SELFPAY ==
--- NOTE | 2021-07-20 | DI.DEXA_ITS ---
Exam(s) XR DEXA BONE DENSITY W/WO SAMIR EXAM: XR DEXA BONE DENSITY W/WO SAMIR CLINICAL HISTORY: DISORDER OB BONE DENSITY, M85.88 TECHNIQUE: Routine DEXA evaluation of the lumbar spine, hip, or forearm. COMPARISON: Prior DEXA scan performed August 2018 FINDINGS: Performed on a [id number] unit. Lateral image: No compression fracture evident. Lumbar Spine total T-score: -0.8. Prior 2018 was similar score, -0.8. Hip total T-score:-2.3. Prior 2018 reading was -2.4. Independent reading at the level of the femoral neck yields at T-score of -2.4. Forearm total T-score: -3.6 IMPRESSION: Bone mineral density measures in the osteoporosis range. Fracture risk is high. Note: Any spine fracture indicates 5x risk for subsequent spine fracture and 2x risk for subsequent h ip fracture. World Health Organization criteria for BMD interpretation classify patients: Normal...... T- Score at or above -1.0 Osteopenic... T- Score between -1.0 and -2.5 Osteoporosis... T-Score at or below -2.5
--- NOTE | 2021-07-20 14:00 | DI.US_ITS ---
APPROVED REPORT EXAM: Comprehensive 2D, Doppler, and color-flow Echocardiogram Patient Location: Out-Patient Revenue Investigator: Deborah Cerda RDCS (AE) Indications: Aortic root dilation Other Information Study Quality: Good Conclusion Normal left ventricular wall thickness and chamber size. Estimated ejection fraction is 60%. Wall m otion is normal Normal right ventricular size and systolic function Both atria are normal in size Trileaflet sclerotic aortic valve without stenosis or regurgitation Mildly thickened mitral leaflets. Trace regurgitation Normal tricuspid valve with mild regurgitation. Estimated right ventricular systolic pressure is nor mal Mildly dilated aortic root and ascending aorta Compared to study from 2020, no significant change Wall motion Left Ventricle The left ventricle is normal size. The left ventricular systolic function is normal. The left ventric ular ejection fraction is within the normal range. There is normal left ventricular wall thickness. T here is normal LV segmental wall motion. There is no ventricular septal defect visualized. LVEF is 59 %. Right Ventricle The right ventricle is normal size. The right ventricular systolic function is normal. The RVSP is 18 .6 mmHg. Atria The left atrium size is normal. The right atrium size is normal. The interatrial septum is intact wit h no evidence for an atrial septal defect. Aortic Valve The Aortic valve is sclerotic. Aortic valve is trileaflet. There is no aortic valvular stenosis. No a ortic regurgitation is present. Mitral Valve Mitral valve leaflets are mildly thickened. No evidence of mitral valve stenosis. Trace mitral regurg itation. Tricuspid Valve The tricuspid valve is normal in structure. There is no tricuspid valve stenosis. Trace tricuspid reg urgitation. Pulmonic Valve The pulmonary valve is normal in structure. There is no pulmonic valvular stenosis. Trace pulmonic re gurgitation. Great Vessels Aortic root is mildly dilated. 3.57 cm The ascending aorta is mildly dilated.size.3.39 cm Aortic arch is normal in caliber. IVC is normal in size and collapses >50% with inspiration. Pericardium There is no significant pericardial effusion. 2D Dimensions IVSD d PLAX 0.79 cm F: 0.6-1.0 LV Vol A2C d MOD 79.0 mL LVPW d PLAX 0.77 cm F: 0.6 - 1.0 LV Vol A4C d MOD 77.0 mL LVID d PLAX 4.19 cm F: 3.8 - 5.2 LA vol/ BSA A2C s A-L 22.2 mL/m2 LVDs 2.95 cm F: 2.2 - 3.5 LA vol/ BSA A4C s A-L 19.9 mL/m2 Ao Root d 3.57 cm F: 2.7 - 3.3 LA Vol/ BSA Biplane s A-L 22.3 mL/m2 RA Area A4C 10.48 cm2 LA Area A4C s MOD 15.89 cm2 RA Vol/ BSA A4C s A-L 10.3 mL/m2 LA Area A2C s MOD 15.79 cm2 Ao Asc Diam d 3.39 cm F: 2.3 - 3.1 LV EF A4C MOD 59.7 % LV EF Teichholz 56.1 % LV EF A2C MOD 58.7 % LVEF (Kapoor's) 59.59 % F: 54 - 74 LV EF Biplane MOD 59.6 % LV Volume 60.78 mL F: 46 - 106 SV 46.91 mL LV Volume Index 33.21 mL/m2 F: 29 - 61 SV Index 25.54 mL/m2 LV Vol Biplane MOD 78.7 mL FS 28.95 % M-Mode TAPSE 1.40 cm (M/F) >1.7 LV Diastology MV E' medial 0.054 (>0.07 m/s) E/A Ratio 0.7 LV E/e MED 9.95 (<14) MV E Vmax 0.54 (0.4-1.3 m/s) MV E' lateral 0.045 (>0.1 m/s) MV A Vmax 0.80 (0.4-1.3 m/s) LV E/e LAT 11.85 (<14) MV E/A Ratio 0.65 MV E/E' medial 9.98 MV E/E' lateral 11.87 Aortic Valve LVOT Area 3.36 cm2 AoV Area Vmax 2.45 cm2 LVOT Vmax 0.74 m/s AoV Area/ BSA (Vmax) 1.34 cm2/m2 LVOT Mean Sundeep. 0.47 m/s DYLAN Mean Sundeep. 2.23 cm2 LVOT Peak Grad 2.2 mmHg DYLAN Mean Sundeep. Index 1.21 cm2/m2 LVOT Mean Grad 1.0 mmHg LVOT VTI 0.147 m LVOT Diam s 2.05 cm AoV Vmax 1.01 m/s Velocity Ratio 0.73 AoV Mean Sundeep. 0.70 m/s AoV Peak Grad 4.1 mmHg LVOT SV 49.54 mL AoV Mean Grad 2.2 mmHg AoV VTI 0.169 m AoV Area VTI 2.93 cm2 AoV Area/ BSA (VTI) 1.60 cm/m2 Mitral Valve MV DT 296 (160-240 msec) MR Vmax 4.40 m/s MV PHT 86 msec MR VTI 1.491 m MV Area PHT 2.57 cm2 MR Peak Grad 77.4 mmHg MV VTI 0.302 m MR Mean Grad 67.3 mmHg MV Area VTI 1.64 (4.0-6.0 cm2) Pulmonary Valve PV Vmax 0.63 (0.5-1.5 m/s) RVOT Peak Gr. 0.77 mmHg PV Peak Grad 1.6 mmHg RVOT Mean Gr. 0.45 mmHg PV Mean Grad 0.9 mmHg RVOT VTI 0.096 m PV VTI 0.121 m RVOT Vmax 0.44 m/s Tricuspid Valve TR Peak Grad 15.6 mmHg TR Vmax 1.98 m/s RA Pressure 3.00 mmHg RVSP (TR) 18.6 mmHg
== END 2021-07-20 00:45 ==
PROVIDERS: PCP Internal Medicine; Visit Provider Internal Medicine
DX: M85.88 Other specified disorders of bone density and structure, other site (principal); I77.812 Thoracoabdominal aortic ectasia; M81.8 Other osteoporosis without current pathological fracture; I36.1 Nonrheumatic tricuspid (valve) insufficiency
CPT/HCPCS: 77080; 93306

== ENCOUNTER 2021-11-28 21:43 | Outpatient (REF) | payer MEDICARE, SELFPAY ==
[2021-11-28 20:29] LABS: Abs Immature Grans 0.01 10^3/uL (0.0-0.06); Absolute Basophil Count 0.12 10^3/uL (0.0-0.2); Absolute Lymphocyte Count 1.95 10^3/uL (1.2-3.4); Absolute Monocyte Count 0.37 10^3/uL (0.1-0.8); Absolute Neutrophil Count 3.19 10^3/uL (1.2-6.7); Basophils % 2.1; Eosinophils % 3.4; HCT 43.3 % (36.0-46.0); HGB 14.2 g/dL (11.2-15.7); Immature Grans % 0.2; Lymphocytes % 33.4; MCH 29.5 pg (27.0-33.0); MCHC 32.8 % (32.0-36.0); MCV 89.8 fL (80-95); MPV 10.9 fL (8.0-11.0); Monocytes % 6.3; Neutrophils % 54.6; Nucleated RBC 0 %; Platelet Count 254 10^3/uL (130-400); RBC 4.82 10^6/uL (3.93-5.22); RDW 12.7 % (11.7-14.6); RDW-SD 41.8 fL; WBC 5.84 10^3/uL (4.4-10.8)
[2021-11-28 21:25] LABS: Iron 104 ug/dL (50-170); Total Iron Binding Capacity 311 ug/dL (250-450); Transferrin Sat 33 % (15-50)
[2021-11-28 22:33] LABS: ALT 29 U/L (14-59); AST 20 U/L (15-37); Albumin 3.7 g/dL (3.4-5.0); Alkaline Phosphatase 66 U/L (46-116); Anion Gap 7.7 mmol/L (3-11); BUN 12 mg/dL (7-18); Bilirubin, Total 0.5 mg/dL (0.2-1.0); CO2 27.3 mmol/L (21.0-32.0); CREATININE 0.8 mg/dL (0.55-1.02); Calcium 9.5 mg/dL (8.5-10.1); Chloride 105 mmol/L (98-107); Ferritin 24 ng/mL (8-252); Glucose 94 mg/dL (74-106); Magnesium 1.8 mg/dL (1.8-2.4); Potassium 4.2 mmol/L (3.5-5.1); Sodium 140 mmol/L (136-145); TSH (W/Ref FT4) 2.33 uIU/mL (0.36-3.74); Total Protein 6.6 g/dL (6.4-8.2); Vitamin B12 407 pg/mL (193-986)
== END 2021-11-28 21:44 | disposition home or self-care (01) ==
LOC: NCHCN 21:43
PROVIDERS: PCP Internal Medicine; Visit Provider Nurse Practitioner Family
DX: R51.9 Headache, unspecified (principal); R53.83 Other fatigue; R42 Dizziness and giddiness; Z13.0 Encounter for screening for diseases of the blood and blood-forming organs and certain disorders involving the immune mechanism
CPT/HCPCS: 80053; 82607; 82728; 83540; 83550; 83735; 84443; 85025

== ENCOUNTER → 2022-01-29 14:04 | Outpatient (CLI) | payer MEDICARE, SELFPAY ==
--- NOTE | 2022-01-29 13:19 | DI.RAD_ITS ---
Exam(s) XR ANKLE RT COMPLETE EXAM: XR ANKLE RT COMPLETE CLINICAL HISTORY: RT ANKLE PAIN M25.571. TECHNIQUE: 2D digital imaging was performed. COMPARISON: No exams were available for comparison FINDINGS: Four views There is no evidence of fracture of the malleoli n or widening of mortise. Talar dome appears unrema rkable. However, there is a nondisplaced transverse fracture of base of the 5th metatarsal. Calcifications are noted posteriorly at the insertional aspect the Achilles on the posterior calcaneu s. There is also a moderate size inferior calcaneal spur noted. There is no osseous tarsal coalition. IMPRESSION: There is a nondisplaced transverse fracture at the base of the 5th metatarsal. Sent as stat read DATA REPOSITORY: RADIATION DOSE DELIVERED:
== END ==
PROVIDERS: PCP Internal Medicine; Visit Provider Family Medicine
DX: M25.571 Pain in right ankle and joints of right foot (principal); S92.354A Nondisplaced fracture of fifth metatarsal bone, right foot, initial encounter for closed fracture; M77.31 Calcaneal spur, right foot
CPT/HCPCS: 73610

== ENCOUNTER 2022-02-12 13:23 | Outpatient (CLI) | payer MEDICARE, SELFPAY ==
--- NOTE | 2022-02-12 11:00 | DI.RAD_ITS ---
Exam(s) XR FOOT RT COMPLETE EXAM: XR FOOT RT COMPLETE INDICATION: right foot fracture. COMPARISON: CR XR ANKLE RT COMPLETE from 01/29/2022 TECHNIQUE: 2D digital imaging was performed. Three views. FINDINGS: There has been no change in the alignment of the nondisplaced fracture at the base of the 5th metatar kortney. No new abnormalities. DATA REPOSITORY: RADIATION DOSE DELIVERED:
== END 2022-02-12 13:24 | disposition home or self-care (01) ==
LOC: DIORS 13:23
PROVIDERS: PCP Internal Medicine; Referring Provider Internal Medicine; Visit Provider Physician Assistant
DX: S92.351A Displaced fracture of fifth metatarsal bone, right foot, initial encounter for closed fracture; X58.XXXA Exposure to other specified factors, initial encounter
CPT/HCPCS: 99214; 73630

== ENCOUNTER 2022-03-12 15:10 | Outpatient (CLI) | payer MEDICARE, SELFPAY ==
--- NOTE | 2022-03-12 14:45 | DI.RAD_ITS ---
Exam(s) XR FOOT RT COMPLETE EXAM: XR FOOT RT COMPLETE CLINICAL HISTORY: f/u 5th metatarsal fracture, R foot. TECHNIQUE: 2D digital imaging was performed of the right foot. Three images were obtained. AP, obl ique and lateral views were obtained. COMPARISON: CR XR FOOT RT COMPLETE from 02/12/2022 FINDINGS: BONES: There is no change in alignment of the nondisplaced fracture of the right 5th metatarsal. No new fracture is seen. No bony destructive lesion is seen. JOINTS: No dislocation present. SOFT TISSUE: Normal. IMPRESSION: Stable right 5th metatarsal fracture. DATA REPOSITORY: RADIATION DOSE DELIVERED:
== END 2022-03-12 15:11 | disposition home or self-care (01) ==
LOC: DIORS 15:10
PROVIDERS: PCP Internal Medicine; Referring Provider Internal Medicine; Visit Provider Student in an Organized Health Care Education/Training Program
DX: S92.353A Displaced fracture of fifth metatarsal bone, unspecified foot, initial encounter for closed fracture (principal); X58.XXXA Exposure to other specified factors, initial encounter
CPT/HCPCS: 99212; 73630

== ENCOUNTER 2022-04-23 11:43 | Outpatient (CLI) | payer MEDICARE, SELFPAY ==
--- NOTE | 2022-04-23 10:45 | DI.RAD_ITS ---
Exam(s) XR FOOT RT COMPLETE EXAM: XR FOOT RT COMPLETE CLINICAL HISTORY: f/u fracture. TECHNIQUE: 2D digital imaging was performed. COMPARISON: CR XR FOOT RT COMPLETE from 03/12/2022 FINDINGS: 3 views There has been further healing of the fracture site at the base of the 5th metatarsal. Fracture line still visible but barely so, when compared to the 03/12/2022 study. No new additional fractures. No diastasis of the Lali ana joint. Bone density is age-appropriate. Large inferior calcaneal spur is again noted as is calcification at the Achilles insertion on the po sterior aspect of the calcaneus. IMPRESSION: Further healing at the nondisplaced transverse fracture site at the base of the 5th metatarsal. DATA REPOSITORY: RADIATION DOSE DELIVERED:
--- OUTSIDE RECORDS SUMMARY | 2022-04-23 11:45 | XMS_ITS | Encounter Summary ---
:1950 Author Organization [facility] [place] [address] Care Team Providers Name Role Phone Reji Lopez MD Primary Care Provider Encounter Details Date Type Department Care Team Description 02/01/2021 TH Visit Cardiology at [facility] Roger Cyr MD Palpitations (TeleHealth) [facility]ly [facility] [place] [address] CARDIOLOGY DEPT [phone] [place] [address] (Wo rk) Social History Tobacco Use Types Packs/Day Years Used Date Never Smoker Smokeless Tobacco: Never Used Alcohol Use Standard Drinks/Week Comments Never 0 (1 standard drink = 0.6 oz pure alcoho l) Alcohol Habits Answer Date Recorded How often do you have a drink containing alcohol? Never 10/19/2019 How many drinks containing alcohol do you have on a typical Not asked day when you are drinking? How often do you have six or more drinks on one occasion? No t asked Comment: Not asked Sex Assigned at Date Recorded Not on file documented as of this encounter Progress Notes Rogre Cyr MD - 02/01/2021 2:40 PM EDT HPI: Vick Jama is a 70 y.o. year old coming for evaluation of palpitations and chest pain. Shee also has chronic back pain and is seen in the pain clinic for this. No recent testing. Has a history ofpvc's. She wants to have her arrhythmia evaluated. She notes occasional chest pain and indigestion. She notes depression and anxiety. 48 hour holter monitors have been negative for arrhythmia. She notes one episode (not on monitor), reminiscent of SVT. She has no typical chest pain. She notes some trouble with breathing. But she is able to walk 3 miles. PMHX Patient Active Problem List Diagnosis Code ??? Lower back pain M54.5 ??? 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 Left lumbar radiculitis M54.16 ??? Chest pain R07.9 ??? Palpitations R00.2 ??? Unstable angina I20.0 MEDS: Current Outpatient Medications on File Prior to Visit Medication Sig Dispense Refill ??? pantoprazole EC (Protonix) 20 mg Tablet, Delayed Release (E.C.) TAKE 1 TABLET BY MOUTH DAILY ??? atorvastatin (Lipitor) 20 mg Tablet Take 1 tablet by mouth every evening. 90 tablet 3 ??? aspirin EC 81 mg Tablet, Delayed Release (E.C.) Take 1 tablet by mouth daily. 30 tablet 3 ??? linaclotide (LINZESS) 145 mcg Capsule Take 290 mcg by mouth daily. ??? levothyroxine (SYNTHROID) 75 mcg Tablet Take 75 mcg by mouth daily. 0 ??? traZODone (DESYREL) 100 mg Tablet Take 150 mg by mouth nightly. 0 No current facility-administered medications on file prior to visit. reviewed [facility] Social History Socioeconomic History ??? Marital status: Spouse name: Not on file ??? Number of children: Not on file ??? Years of education: Not on file ??? Highest education level: Not on file Occupational History ??? Not on file Tobacco Use ??? Smoking status: Never Smoker ??? Smokeless tobacco: Never Used Substance and Sexual Activity ??? Alcohol use: Never ??? Drug use: Never ??? Sexual activity: Not on file Other Topics Concern ??? Not on file Social History Narrative ??? Not on file Social Determinants of Health Financial Resource Strain: ??? Difficulty of Paying Living Expenses: Food Insecurity: ??? Worried About Running Out of Food in the Last Year: ??? Ran Out of Food in the Last Year: Transportation Needs: ??? Lack of Transportation (Medical): ??? Lack of Transportation (Non-Medical): Physical Activity: ??? Days of Exercise per Week: ??? Minutes of Exercise per Session: Stress: ??? Feeling of Stress : Social Connections: ??? Frequency of Communication with Friends and Family: ??? Frequency of Social Gatherings with Friends and Family: ??? Attends [employer] Services: ??? Active Member of Clubs or Organizations: ??? Attends Club or Organization Meetings: ??? Marital Status: Intimate Partner Violence: ??? Fear of Current or Ex-Partner: ??? Emotionally Abused: ??? Physically Abused: ??? Sexually Abused: FAMHX Family History Problem Relation Age of Onset ??? Diabetes Mother ??? Diabetes Father ROS Negative for blood in stool or urine. No fevers or chills. No recent syncope. Otherwise all other systems were reviewed and found to be negative. Physical Examination No data found. LABS: Labs reviewed by myself No results found for this or any previous visit (from the past 24 hour(s)). Assessement and Plan: 70 year old female with chest pain and palpitations. 1. Palpitations -- resolved, doing well. 2. Follow up as needed. documented in this encounter Plan of Treatment Not on filedocumented as of this encounter Visit Diagnoses Diagnosis Palpitations documented in this encounter Care Teams School Supervisor Relationship Specialty Start Date End Date Reji Lopez MD PCP - General Internal Medicine 08/05/19 [address] [place] [address] documented as of this encounter
--- OUTSIDE RECORDS SUMMARY | 2022-04-23 11:45 | XMS_ITS | Clinical Summary ---
:1950 Author Organization [facility] [place] [address] Care Team Providers Name Role Phone Reji Lopez MD Primary Care Provider Allergies Active Allergy Reactions Severity Noted Date Comments Sulfamethoxazole-Trimethoprim 08/05/2019 Sulfa (Sulfonamide Antibiotics) 9 Medications Medication Sig Dispensed Refills Start Date End Date Status traZODone (DESYREL) 100 Take 150 mg by 0 07/10/2017 Active mg Tablet mouth nightly. levothyroxine Take 75 mcg by 0 10/15/2018 Active (SYNTHROID) 75 mcg mouth daily. Tablet linaclotide (LINZESS) Take 290 mcg by 0 Active 145 mcg Capsule mouth daily. atorvastatin (Lipitor) Take 1 tablet by 90 tablet 3 06/08/2020 Active 20 mg Tablet mouth every evening. aspirin EC 81 mg Tablet, Take 1 tablet by 30 tablet 3 06/09/20 20 Active Delayed Release (E.C.) mouth daily. pantoprazole EC TAKE 1 TABLET BY 0 11/08/2020 Active (Protonix) 20 mg Tablet, MOUTH DAILY Delayed Release (E.C.) Active Problems Problem Noted Date Unstable angina 06/07/2020 Overview: Only mild non-obstructive coronary disea se. Chest pain 12/01/2018 Palpitations 12/01/2018 Left lumbar radiculitis 01/08/2014 Lumbosacral spondylosis without myelopathy 02/18/2012 Lower back pain 02/14/2012 DJD (degenerative joint disease) of lumbar spine 02/13 Family History Medical History Relation Comments Diabetes Father Diabetes Mother Relation Status Comments Father (Age 69) Mother Alive Social History Tobacco Use Types Packs/Day Years [...] Assigned at Date Recorded Not on file Last Filed Vital Signs Vital Sign Reading Time Taken Comments Blood Pressure 101/59 06/08/2020 11:52 AM EDT Pulse 57 06/08/2020 11:52 AM EDT Temperature 36.4 ??C (97.5 ??F) 06/08/2020 11:52 AM EDT Respiratory Rate 14 06/08/2020 11:52 AM EDT Oxygen Saturation 100% 06/08/2020 11:52 AM EDT Inhaled Oxygen Concentration - - Weight 74.8 kg (164 lb 14.5 oz) 06/08/2020 9:55 AM EDT Height 165.1 cm (5' 5) 06/07/2020 4:03 PM EDT Body Mass Index 27.44 06/07/2020 4:03 PM EDT Plan of Treatment Health Maintenance Due Date Last Done Comments Covid-19 Vaccine (#1) 1954 Hepatitis C Screening 1967 Tdap adult 1968 Tetanus vaccine 1968 Breast Cancer Share Decision Needed 1989 Colonoscopy 1994 Breast Cancer screening 1999 Zoster vaccine (1 of 2) 1999 Bone Density Scan 2014 Pneumoccocal Vaccine: 65+ (1 of 1 - PPSV23) 2014 Influenza (Flu) vaccine (1 of 1 - Influenza standard 06/28/2021 series) Insurance Payer Benefit Plan / Subscriber ID Effective Phone Address T ype Group Dates MEDICARE MEDICARE PART [id number] 2014-Prese [phone] [place] [address] [place] [id number] 2018-Prese [address] [place] [address] [place] [address] Advance Directives Documents on File Type Date Recorded Patient Male Model Explanati on Advance Directives and Living 06/10/2020 11:50 AM Will Latest Code Status on File Code Status Date Activated Date Inactivated Comments Attempt Cardiopulmonary Resuscitation - 06/07/2020 4:45 PM 020 6:05 PM Inpatient Code Status decision made by: Patient Care Teams Route Sales Person Relationship Specialty Start Date End Date Reji Lopez MD PCP - General Internal Medicine 08/05/19 [address] [place] [address]
--- OUTSIDE RECORDS SUMMARY | 2022-04-23 11:45 | XMS_ITS | Encounter Summary ---
:1950 [place] [address] Care Team Providers Name Role Phone Reji Lopez MD Primary Care Provider Reason for Visit Auth/Cert Specialty Diagnoses / Procedures Referred By Contact Refer red To Contact Diagnoses Failed Stress Test Procedures EMERGENCY IPI Referral ID Status Reason Start Date Expiration Date Visits Requ ested Visits Authorized [id number] 1 1 Encounter Details Date Type Department Care Team Description 06/08/2020 Surgery Practicing Md Anesthesiologist Roger Hung , CARDIAC CATHETERIZATION [facility] [place] [address] CARDIOLOGY [phone] [place], [place] [address] (Wo rk) Social History Tobacco Use Types [...] on file documented as of this encounter Last Filed Vital Signs Vital Sign Reading Time Taken Comments Blood Pressure 103/66 06/08/2020 9:55 AM EDT Pulse 68 06/08/2020 9:55 AM EDT Temperature 36.8 ??C (98.2 ??F) 06/08/2020 8:40 AM EDT Respiratory Rate 15 06/08/2020 8:40 AM EDT Oxygen Saturation 99% 06/08/2020 9:55 AM EDT Inhaled Oxygen Concentration - - Weight 74.8 kg (164 lb 14.5 oz) 06/08/2020 9:55 AM EDT Height 165.1 cm (5' 5) 06/07/2020 4:03 PM EDT Body Mass Index 27.44 06/07/2020 4:03 PM EDT documented in this encounter Discharge Summaries Fausto Cuenca MD - 06/08/2020 3:30 PM EDT Discharge Summary Patient Name: Vick Jama Patient Age: 70 y.o. Language: [place] Race: White Ethnicity: Not nor Admit date: 06/07/2020 Discharge date and time: 06/08/2020 3:30 PM Attending Physician: No att. providers found Discharge Physician: Leonila De Paz MD Follow-up Recommendations for Providers: -Ms. Jama was admitted to the cardiology service for workup of chest pain. Cardiac catheterization revealed mild non-obstructive coronary disease. -Please follow up to ensure resolution of symptoms. Inpatient Provider Contact Information: For questions regarding this document or issues relating to this hospitalization on the Cardiology Service, please contact your inpatient physician through the [facility] [employer] [facility] [employer] . Issues after hours and on weekends will be handled by the Ca on-call. Discharge Diagnoses (Hospital Problems) and Secondary Diagnoses (Chronic Problems): Active Hospital Problems Diagnosis ??? Unstable angina Resolved Hospital Problems No resolved problems to display. Active Non-Hospital Problems Diagnosis ??? Chest pain ??? Palpitations ??? Left lumbar radiculitis ??? Lumbosacral spondylosis without myelopathy ??? Lower back pain ??? DJD (degenerative joint disease) of lumbar spine Operations/Major Procedures: Operations: Procedure(s): CARDIAC CATHETERIZATION 06/08/2020 History of Presentation (Per Admission H&P): Saturday evening, patient was in her car when she had the sudden onset of chest pressure, jaw pain, shortness of breath. She endorses palpitations but no diaphoresis or nausea. The following evening she had another similar episode so presented to [facility]. There she was found to have negative trops and EKG had <1mm depressions in V3-6. She received 1 SL NTG with resolution of her pain and normalization of her EKG. Echo with EF 55-60% and no WMAs. She underwent nuclear stress test which was significant for a small, mostly fixed perfusion defect on the lateral wall. ?? OSH Labs: Total Cholesterol: 216 LDL: 142 WBC: 9.03 RBC: 5.12 Hgb: 14.9 Hct: 45% PT: 9.5 INR: 0.9 ?? Na: 140 K: 3.6 Cl: 3.6 BUN: 9 Cr: 0.71 A1C: 5.3 Ca: 9.1 Ma.9 Tot bili: 0.4 AST: 17 ALT: 16 Alk phos: 47 Trop I: <0.05 Alb: 4.1 TSH: 1.71 COVID: Neg Hospital Course: #Chest Pain, likely non-cardiac in etiology #False Positive Stress Test On admission heparin drip was discontinued due to low clinical suspicion for plaque rupture. Patientwas continued on aspirin 81 mg daily and atorvastatin. TTE 06/08 was significant for EF 64% with no WMAs. Patient was taken to the petroleum refinery laborer on 06/08, and found to have mild, non-obstructive CAD. She was discharged on baby aspirin and atorvastatin 20 mg daily and was recommended to follow up with her PCP. Consider alternative causes of chest pain. Vital Signs at Discharge: BP: 101/59, Heart Rate: 57, Temp: 36.4 ??C (97.5 ??F), Resp: 14, BMI (Calculated): 27.62 Height: 165.1 cm (5' 5) (06/07/20 1603) Weight: 74.8 kg (164 lb 14.5 oz) (06/08/20 0955) Functional and Cognitive Status: baseline Important Studies and Lab Data: Labs: Last 3 wbc, hgb, hct plt Recent Labs 06/08/20 0407 06/07/20 1702 WBC 6.2 5.9 HGB 13.2 13.8 HCT 39.0 41.4 PLATELET 194 204 Last 3 Lytes Recent Labs 06/08/20 0407 06/07/20 1702 NA 141 141 K 4.2 3.7 CL 103 104 CO2 26 27 BUN 13 11 CREATININE 0.68* 0.67* Last 3 LFTs Recent Labs 06/07/20 1702 AST 12 ALT 10 ALKPHOS 45 BILITOT 0.6 BILIDIR 0.1 Last Ca, Mg, Phos Recent Labs 06/08/20 040 CALCIUM 9.6 PHOS 3.8 MAGNESIUM 0.78 Last 3 Coags Recent Labs 06/07/20 170 PT 12.0 INR 1.0 PTT 92* Last 3 ProBNP, Trop, CK No results for input(s): CK, TROPONINT, PROBNP in the last 168 hours. Last 3 TFT Recent Labs 06/07/20 170 TSH 1.87 Last 3 Lipids Recent Labs 06/08/20 0407 CHLPL 171 HDL 67 LDLDIRECT 106 TRIG 58 Last 3 HgbA1C Recent Labs 06/08/20 0407 HA1C 5.0 Last CRP, SEDRATENo results for input(s): CRP, SEDRATE in the last 7068 hours. Studies: TTE 06/08: 1. The left ventricular chamber size, wall thickness and systolic function are normal. The quantitative left ventricular ejection fraction by biplane Kapoor's method is 64%. There are no left ventricular segmental wall motion abnormalities. 2. Right ventricular chamber size, wall thickness, and systolic function are within normal limits. 3. The left and right atria are normal in size. 4. There is no significant valvular disease. 5. There is mild dilatation of the aortic root (3.9 cm) and ascending aorta (3.9 cm). 6. There is no prior study available for comparison. Pending Studies and Lab Data: none Discharge Conditions/Prognosis: stable Discharge to: home Updated Allergies/ADRs: Allergies Allergen Reactions ??? Bactrim [Sulfamethoxazole-Trimethoprim] ??? Sulfa (Sulfonamide Antibiotics) Immunizations Given this Hospitalization: There is no immunization history on file for this patient. Discharge Medications: Your Medications New Medications Dose Details aspirin EC 81 mg Tbec Take 1 tablet by mouth daily. 81 mg Quantity: 30 tablet Refills: 3 atorvastatin 20 mg Tab Commonly known as: Lipitor Take 1 tablet by mouth every evening. 20 mg Quantity: 90 tablet Refills: 3 Continued medications, unchanged Dose Details Acidophilus Cap Take 30 mg by mouth daily. After meal Generic drug: lactobacillus 30 mg Refills: 0 levothyroxine 75 mcg Tab Commonly known as: Synthroid Take 75 mcg by mouth daily. 75 mcg Refills: 0 linaclotide 145 mcg Cap Commonly known as: Linzess Take 145 mcg by mouth daily. 145 mcg Refills: 0 traZODone 100 mg Tab Commonly known as: Desyrel Take 150 mg by mouth nightly. 150 mg Refills: 0 STOPPED Medications ibuprofen 200 mg Tab Commonly known as: Advil;Motrin Smoking Status at Discharge: Social History Tobacco Use Smoking Status Never Smoker Smokeless Tobacco Never Used Instructions Given to Patient at Discharge: Patient Instructions Instructions on Discharge to Home Why you were hospitalized - You were hospitalized for chest pain. You received a cardiac catheterization which did not show any significant blockages to account for your pain. There was some mild coronary artery disease, so we recommend you take a baby aspirin daily and a statin. Call your doctor or seek medical attention if you develop the following - chest pain, shortness of breath, feeling dizzy upon standing, passing out, diarrhea, constipation lasting longer than 2 days, fevers (temperature over 100.3), chills, abdominal pain, vomiting, difficulty or discomfort when urinating, bloody or black bowel movements, or any other acute or concerning symptom. Activity level - No restrictions Diet - No change in previous diet Driving - As before hospitalization Shower/Bath - Permitted Wound Care - None Home Oxygen therapy - Not necessary Your Discharge Medication List Your Medications New Medications Dose Details aspirin EC 81 mg Tbec Take 1 tablet by mouth daily. Start taking on: June 09, 2020 81 mg Quantity: 30 tablet Refills: 3 atorvastatin 20 mg Tab Commonly known as: Lipitor Take 1 tablet by mouth every evening. 20 mg Quantity: 90 tablet Refills: 3 Continued medications, unchanged Dose Details Acidophilus Cap Take 30 mg by mouth daily. After meal Generic drug: lactobacillus 30 mg Refills: 0 levothyroxine 75 mcg Tab Commonly known as: Synthroid Take 75 mcg by mouth daily. 75 mcg Refills: 0 linaclotide 145 mcg Cap Commonly known as: Linzess Take 145 mcg by mouth daily. 145 mcg Refills: 0 traZODone 100 mg Tab Commonly known as: Desyrel Take 150 mg by mouth nightly. 150 mg Refills: 0 STOPPED Medications ibuprofen 200 mg Tab Commonly known as: Advil;Motrin Follow-up: Future Appointments Date Time Provider Department Center 06/15/2020 10:00 AM Roger Cyr MD [facility]A [facility] Your Inpatient Medical Team at [facility] Name(s) of your inpatient provider(s): Landscape Architecture Professor: Fausto Cuenca MD Tariff Counsel: Esteban Juárez MD Internal Medicine Residents: Leonila De Paz MD & Michelle Alcaraz MD Your Primary Care Provider: Reji Lopez MD [phone] For questions regarding this document or issues relating to this hospitalization on the Medical Service, please contact your inpatient physician through the [facility] [employer] . Issues after hours and on weekends will be handled by the Hospitalist staff on-call. General Instructions None Discharge References/Attachments Coronary Angiogram: Post-op ([place]) documented in this encounter Discharge Instructions Patient InstructionsGrLeonila seaman MD - 06/08/2020 2:51 PM EDT Instructions on Discharge to Home Why you were hospitalized - You were hospitalized for chest pain. You received a cardiac catheterization which did not show any significant blockages to account for your pain. There was some mild coronary artery disease, so we recommend you take a baby aspirin daily and a statin. Call your doctor or seek medical attention if you develop the following - chest pain, shortness of breath, feeling dizzy upon standing, passing out, diarrhea, constipation lasting longer than 2 days, fevers (temperature over 100.3), chills, abdominal pain, vomiting, difficulty or discomfort when urinating, bloody or black bowel movements, or any other acute or concerning symptom. Activity level - No restrictions Diet - No change in previous diet Driving - As before hospitalization Shower/Bath - Permitted Wound Care - None Home Oxygen therapy - Not necessary Your Discharge Medication List Your Medications New Medications Dose Details aspirin EC 81 mg Tbec Take 1 tablet by mouth daily. Start taking on: June 09, 2020 81 mg Quantity: 30 tablet Refills: 3 atorvastatin 20 mg Tab Commonly known as: Lipitor Take 1 tablet by mouth every evening. 20 mg Quantity: 90 tablet Refills: 3 Continued medications, unchanged Dose Details Acidophilus Cap Take 30 mg by mouth daily. After meal Generic drug: lactobacillus 30 mg Refills: 0 levothyroxine 75 mcg Tab Commonly known as: Synthroid Take 75 mcg by mouth daily. 75 mcg Refills: 0 linaclotide 145 mcg Cap Commonly known as: Linzess Take 145 mcg by mouth daily. 145 mcg Refills: 0 traZODone 100 mg Tab Commonly known as: Desyrel Take 150 mg by mouth nightly. 150 mg Refills: 0 STOPPED Medications ibuprofen 200 mg Tab Commonly known as: Advil;Motrin Follow-up: Future Appointments Date Time Provider Department Center 06/15/2020 10:00 AM Roger Cyr MD [facility] C[facility] 4A [facility] Your Inpatient Medical Team at [facility] Name(s) of your inpatient provider(s): Landscape Architecture Professor: Fausto Cuenca MD Tariff Counsel: Esteban Juárez MD Internal Medicine Residents: Leonila De Paz MD & Michelle Alcaraz MD Your Primary Care Provider: Reji Lopez MD [phone] For questions regarding this document or issues relating to this hospitalization on the Medical Service, please contact your inpatient physician through the [facility] [employer] . Issues after hours and on weekends will be handled by the Hospitalist staff on-call. AttachmentsThe following attachments cannot be sent through Care Everywhere. Coronary Angiogram: Post-op ([place])documented in this encounter Medications at Time of Discharge Medication Sig Dispensed Refills Start Date End Date atorvastatin (Lipitor) 20 Take 1 tablet by 90 tablet 3 05/28 mg Tablet mouth every evening. aspirin EC 81 mg Tablet, Take 1 tablet by 30 tablet 3 06/09 Delayed Release (E.C.) mouth daily. linaclotide (LINZESS) 145 Take 290 mcg by 0 mcg Capsule mouth daily. levothyroxine (SYNTHROID) Take 75 mcg by 0 2017 75 mcg Tablet mouth daily. traZODone (DESYREL) 100 mg Take 150 mg by 0 07/10 Tablet mouth nightly. ACIDOPHILUS Capsule Take 30 mg by mouth 0 019 01/25/2021 daily. After meal documented as of this encounter Progress Notes Ivone Piper RN - 06/08/2020 3:22 PM EDT Pt A&O. VSS. No CP or SOB. No other complaints of pain or discomfort. D/c education performed. Rradial cath site, TR band removed, no signs of bleeding or hematoma. IV and Tele D/c. to wheel patient out. Home with out services. Fausto Cuenca MD - 06/08/2020 8:18 AM EDT Inpatient Cardiology Progress Note Patient Name: Vick Jama Date of Admission: 06/07/2020 ( Hospital Day 1 day ) Service: S1 ID: Vick Jama is a 70 y.o. female with a history of spinal stenosis, hypothyroidism presents in transfer from [facility] to [facility] with chest pain 2/2 unstable angina. Active Problems: Unstable angina 24 hr events: - Admitted yesterday - Getting Echocardiogram during interview - Denied chest pain, shortness of breath, no acute complaints this morning ROS: Denies CP, SOB, palpitations, PND, Orthopnea, dizziness/LH, LE swelling or pain, n/v, abd pain. Telemetry: sinus bradycardia rates 48-83, rare PACs Meds: Continuous Infusions: Scheduled Meds: ??? magnesium sulfate 2 g Intravenous Once ??? sodium chloride 0.9 % (flush) 5 mL Intravenous BID ??? levothyroxine 75 mcg Oral QAM ??? atorvastatin 80 mg Oral QPM ??? metoprolol tartrate 12.5 mg Oral Q12H TIM ??? enoxaparin 40 mg Subcutaneous Nightly ??? aspirin EC 81 mg Oral Daily PRN Meds:.sodium chloride 0.9 % (flush), lidocaine, nitroGLYcerin, traZODone Physical Exam: Last value Range last 24 hrs Temperature Temp: 36.9 ??C (98.4 ??F) Temp: [36.9 ??C (98.4 ??F)-37.4 ??C (99.3 ??F)] Heart Rate Heart Rate: 60 Heart Rate: [60-71] Blood Pressure BP: 101/60 BP: (100-139)/(49-66) Respiratory Rate Resp: 16 Resp: [16] SpO2 SpO2: 97 % SpO2: [97 %-100 %] Intake/Output Summary (Last 24 hours) at 06/08/2020 0818 Last data filed at 06/08/2020 0436 Gross per 24 hour Intake 480 ml Output 1200 ml Net -720 ml cumulative I/O's since admission: Patient Vitals for the past 168 hrs: Weight 06/08/20 0436 74.8 kg (164 lb 14.5 oz) 06/07/20 1603 75.3 kg (166 lb 0.1 oz) Admit wt: 75.3 kg Gen: Well appearing. No acute distress. HEENT: Mucous membranes moist. EOMI CV: Normal rate and regular rhythm. Normal S1 and S2. No murmurs, rubs, or gallops. Pulm: Normal respiratory effort. Clear to auscultation bilaterally. No wheezes, rhonchi, or crackles. Abd: Soft, nontender, nondistended. Ext: No cyanosis or edema. Skin: Warm & well perfused. No rashes or lesions. Neuro: Alert & oriented. CN and motor function grossly intact. Labs Recent Labs 06/08/20 04006/07/20 170 WBC 6.2 5.9 HGB 13.2 13.8 HCT 39.0 41.4 PLATELET 194 204 Recent Labs 06/08/20 0407 06/07/20 1702 NA 141 141 K 4.2 3.7 CL 103 104 CO2 26 27 BUN 13 11 CREATININE 0.68* 0.67* Recent Labs 06/07/20 1702 AST 12 ALT 10 ALKPHOS 45 BILITOT 0.6 BILIDIR 0.1 Recent Labs 06/08/20 04006/07/20 1702 CALCIUM 9.6 9.9 MAGNESIUM 0.78 0.77 PHOS 3.8 3.1 Recent Labs 06/07/20 170 INR 1.0 PT 12.0 PTT 92* No results for input(s): CK, TROPONINT in the last 168 hours. No results for input(s): POCGLU in the last 168 hours. Imaging/Studies: TTE 06/08 SUMMARY: ?? 1. The left ventricular chamber size, wall thickness and systolic function are normal. The quantitative left ventricular ejection fraction by biplane Kapoor's method is 64%. There are no left ventricular segmental wall motion abnormalities. 2. Right ventricular chamber size, wall thickness, and systolic function are within normal limits. 3. The left and right atria are normal in size. 4. There is no significant valvular disease. 5. There is mild dilatation of the aortic root (3.9 cm) and ascending aorta (3.9 cm). 6. There is no prior study available for comparison. Cardiac Catheterization: 06/08: Final results pending Artery Lesion Intervention LM LAD LCx RCA Assessment: 70 y.o. female with PMH spinal stenosis, hypothyroidism presents in transfer from [facility] to [facility] with chest pain after positive stress test for cardiac catheterization. ?? Final result of cardiac cath pending. Patient started on metoprolol, aspirin, atorvastatin for unstable angina. Metoprolol had to be held this morning for systolic bp < 90. May discontinue metoprolol pending cardiac cath results. ?? Plan: #Angina #Positive stress test -Continue aspirin 81 mg daily -Atorvastatin 80 mg nightly -Metoprolol 12.5 mg BID -Hold off on plavix and heparin for now -F/u cardiac cath results ?? #Chronic meds -Continue home levothyroxine -Continue home trazodone-- if more ectopy will discontinue ?? #Routine Diet: Cardiac DVT ppx: lovenox Dispo: ICCU Code Status: FULL CODE - code status: Attempt Cardiopulmonary Resuscitation - Inpatient Michelle Alcaraz MD, PGY-1 06/08/2020 Cardiology S2 Team Pager [phone] CARDIOLOGY ATTENDING NOTE Please see my H&P dated 06/07/2020 for the addendum. Fausto Cuenca MD, MPH, RPVI, FACC Rachel Hurley RN - 06/07/2020 4:13 PM EDT Vick arrived to around 1600. Tele placed, vitals as documented. Heparin infusing upon arrival. Denies pain and SOB. Team notified of Vick's arrival, in to interview her. documented in this encounter H&P Notes Fausto Cuenca MD - 06/07/2020 4:00 PM EDT Inpatient Cardiology- Admission Note Problem List: There are no hospital problems to display for this patient. Active Non-Hospital Problems Diagnosis ??? Chest pain ??? Palpitations ??? Left lumbar radiculitis ??? Lumbosacral spondylosis without myelopathy ??? Lower back pain ??? DJD (degenerative joint disease) of lumbar spine ID: 70 y.o. Female with PMH spinal stenosis, hypothyroidism presents in transfer from [facility] to [facility] with chest pain. History of Present Illness: Saturday evening, patient was in her car when she had the sudden onset of chest pressure, jaw pain, shortness of breath. She endorses palpitations but no diaphoresis or nausea. The following evening she had another similar episode so presented to [facility]. There she was found to have negative trops and EKG had <1mm depressions in V3-6. She received 1 SL NTG with resolution of her pain and normalization of her EKG. Echo with EF 55-60% and no WMAs. She underwent nuclear stress test which was significant for a small, mostly fixed perfusion defect on the lateral wall. OSH Labs: Total Cholesterol: 216 LDL: 142 WBC: 9.03 RBC: 5.12 Hgb: 14.9 Hct: 45% PT: 9.5 INR: 0.9 Na: 140 K: 3.6 Cl: 3.6 BUN: 9 Cr: 0.71 A1C: 5.3 Ca: 9.1 Ma.9 Tot bili: 0.4 AST: 17 ALT: 16 Alk phos: 47 Trop I: <0.05 Alb: 4.1 TSH: 1.71 COVID: Neg Review of Systems: Review of Systems Respiratory: Positive for shortness of breath. Cardiovascular: Positive for chest pain and palpitations. Gastrointestinal: Negative for nausea and vomiting. Neurological: Positive for dizziness and light-headedness. Negative for headaches. Past Medical and Surgical History: Past Medical History: Diagnosis Date ??? Anxiety ??? Arthritis ??? Dysrhythmia, cardiac ??? Tennis elbow Past Surgical History: Procedure Laterality Date ??? ABDOMEN SURGERY indigo-rectal abscess ??? HYSTERECTOMY ??? PRO SIGMOIDOSCOPY, DIAGNOSTIC N/A 10/19/2019 FLEXIBLE SIGMOIDOSCOPY performed by Jesse Al MD at [facility] ??? PRO UNLISTED PX RECTUM N/A 10/19/2019 LOWER EUS- ENDOSCOPIC ULTRASOUND performed by Jesse Al MD at [facility] Prior To Admission Medications: Medications Prior to Admission Medication Sig Dispense Refill Last Dose ??? ACIDOPHILUS Capsule Take 30 mg by mouth daily. After meal 0 ??? linaclotide (LINZESS) 145 mcg Capsule Take 145 mcg by mouth daily. ??? levothyroxine (SYNTHROID) 75 mcg Tablet Take 75 mcg by mouth daily. 0 ??? traZODone (DESYREL) 100 mg Tablet Take 150 mg by mouth nightly. 0 ??? ibuprofen (ADVIL;MOTRIN) 200 mg tablet Take 400-600 mg by mouth every 6 hours as needed. Allergies: Allergies Allergen Reactions ??? Bactrim [Sulfamethoxazole-Trimethoprim] ??? Sulfa (Sulfonamide Antibiotics) Family History: Family History Problem Relation Age of Onset ??? Diabetes Mother ??? Diabetes Father Social History and Habits: Social History Socioeconomic History ??? Marital status: Spouse name: Not on file ??? Number of children: Not on file ??? Years of education: Not on file ??? Highest education level: Not on file Occupational History ??? Not on file Social Needs ??? Financial resource strain: Not on file ??? Food insecurity Worry: Not on file Inability: Not on file ??? Transportation needs Medical: Not on file Non-medical: Not on file Tobacco Use ??? Smoking status: Never Smoker ??? Smokeless tobacco: Never Used Substance and Sexual Activity ??? Alcohol use: Never Frequency: Never ??? Drug use: Never ??? Sexual activity: Not on file Lifestyle ??? Physical activity Days per week: Not on file Minutes per session: Not on file ??? Stress: Not on file Relationships ??? Social connections Talks on phone: Not on file Gets together: Not on file Attends congregational service: Not on file Active member of club or organization: Not on file Attends meetings of clubs or organizations: Not on file Relationship status: Not on file ??? Intimate partner violence Fear of current or ex partner: Not on file Emotionally abused: Not on file Physically abused: Not on file Forced sexual activity: Not on file Other Topics Concern ??? Not on file Social History Narrative ??? Not on file Immunizations: There is no immunization history on file for this patient. Physical Exam: Last Set of Vitals and range of vitals over past 24 hours: Last value Range last 24 hrs Temperature Temp: -- Heart Rate Heart Rate: -- Blood Pressure BP: ()/() Respiratory Rate Resp: -- SpO2 SpO2: -- There is no height or weight on file to calculate BMI. Gen: Well appearing. No acute distress. HEENT: Normocephalic, atraumatic. Sclera non-icteric. Oropharynx clear with no exudate. Mucous membranes moist. CV: Normal rate and regular rhythm. Normal S1 and S2. No murmurs, rubs, or gallops. Pulm: Normal respiratory effort. Clear to auscultation bilaterally. No wheezes, rhonchi, or crackles. Abd: Soft, nontender, nondistended. Ext: No cyanosis or edema. Msk: No joint swelling. Skin: Warm & well perfused. No rashes or lesions. Neuro: Alert & oriented. CN and motor function grossly intact. Psych: normal affect and thought content, good judgement and reasoning, no abnormal behavior during exam Laboratory (Last 24 Hours): No results found for this or any previous visit (from the past 24 hour(s)). Radiology: none Other Studies: EKG - pending Echocardiogram - pending Assessment: 70 y.o. Female with PMH spinal stenosis, hypothyroidism presents in transfer from [facility] to [facility] with chest pain. Given positive stress test, will plan for cath tomorrow. Patient is currently asymptomatic and hemodynamically stable so will hold off on heparin drip for now. Plan: #Angina #Positive stress test -Continue aspirin 81 mg daily -Atorvastatin 80 mg nightly -Metoprolol 12.5 mg BID -Hold off on plavix and heparin for now -Cath tomorrow #Chronic meds -Continue home levothyroxine -Continue home trazodone-- if more ectopy will discontinue #Routine Diet: Cardiac DVT ppx: lovenox Dispo: Admit to cardiology Code Status: FULL CODE Leonila De Paz MD Internal Medicine PGY2 Cardiology S2 #[id number] 06/07/2020 CARDIOLOGY ATTENDING NOTE Patient: Vick Jama Date of Service: 06/08/2020 Date of Admission: 06/07/2020 Length of Stay Hospital Day 1 day Please see the above note by Dr. De Paz for details. I have interviewed and examined the patient independently and I concur with the assessment and plan. The case was discussed on cardiology rounds and we reviewed the plan of care with the team and patient. Mrs. Jama is a 70 year old woman with no known coronary disease who presented to outside hospital with chest pressure at rest a/w SOB. She reports LOPEZ in the past year. She ruled out for ACS. Underwent MPI, which per report, showed small fixed perfusion defect in lateral wall. TTE with normal LVEF w/o WMA/ She underwent coronary angiography today, which showed no evidence of obstructive CAD. Plan for discharge today. Rest per Dr. De Paz. 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 Source of Information: patient Introduced self/reviewed role; services accepted. Reason for Hospitalization: chest pain. Past Medical History: Diagnosis Date ??? Anxiety ??? Arthritis ??? Dysrhythmia, cardiac ??? Tennis elbow Hospitalizations Within the Past 30 Days: none Anticipated Length Of Stay (If known): 1-2 days Current Decision-Making Capacity: patient is A and O x 3 Advance Care Planning: none on file, she has at home and will bring it in. Current Coping/Education/Information Needs: denies needs. Current Functional Ability: independent Functional Status Prior to Admission: independent Home Environment: Live in a 2 story home with 1 set of 12 stairs. Social & Family Supports/Community Resources: her spouse Behavioral Health History: denies Substance Use/Abuse: denies Health/Prescription Coverage: Primary Insurance: MEDICARE Secondary Insurance: [employer] [place] Prescription Coverage: yes [facility]acy[facility] Primary Care Provider: Reji Lopez MD [phone] Patient/Caregiver Goals of Treatment: to return home Potential Needs for Transition of Care: Rehab/SNF: na Home Health: n/a DME: none Dialysis: n/a Community Resources: n/a Transportation: her Anticipated Barriers to Discharge/Special Considerations: none Assessment: Plan: cath today if negative discharge home. No current needs, patient is independant A member of the Care Management team will continue to monitor progress, follow for continuity of care and assist with transition of care planning. Alessandro Kellogg RN Pager: [phone] Plan of Care - Eb Anders RN - 06/08/2020 5:41 AM EDT Problem: Patient Care Overview Goal: Plan of Care Review 06/07/20172906/07/201999 Coping/Psychosocial Plan Of Care Reviewed With -- patient;spouse Plan of Care Review Progress progress towards functional goals is fair -- Goal: Fall Prevention-Safe Patient Handling 06/07/20172906/07/20199906/08/20 0400 Restraint Interventions Safety Promotion/Fall Prevention -- -- safety round/check completed Activity Activity Type -- activity adjusted per tolerance -- Activity Assistance Provided -- assistance, stand-by -- Assistive Device Utilized -- none -- Positioning Body Position -- -- independent Daily Care Interventions Self-Care Promotion independence encouraged;BADL personal objects within reach;BADL personal routines maintained -- -- Subramanian Fall Risk History of Falling -- 0 -- Secondary Diagnosis -- 15 -- Ambulatory Aids -- 0 -- Intravenous Therapy/Heparin/Saline Lock -- 20 -- Gait/Transferring -- 0 -- Mental Status -- 0 -- Score -- 35 -- OTHER Subramanian Fall Risk -- Med -- Goal: Infection Control 06/07/201999 Coping Strategies Supportive Measures active listening utilized;relaxation techniques promoted;self-care encouraged;self-reflection promoted;self-responsibility promoted;verbalization of feelings encouraged Safety Interventions Isolation Precautions standard precautions maintained Infection Prevention single patient room provided OUTCOME EVALUATION NOTE: OUTCOME SUMMARY: Pt. Is A/O x 4. SB - SR on tele with rates in the 50's to 90's. No complaints throughout the night. Ambulated to bathroom. Rested comfortably between care. PLAN MOVING FORWARD: Echo and Cath INDIVIDUALIZED FALL PREVENTION INTERVENTIONS: Patient-specific fall risk factors per assessment: [current deficits]: Bradycardia Assistance [level of assistance required for transfers and ambulation]: Independent Supervision [direct monitoring required during toileting and ADLs]: Independent Surveillance [continuous indirect monitoring]: Call lopez within reach, rounding, telemetry CPG GOAL OUTCOME EVALUATION: Plan of Care - Rachel Hurley RN - 06/07/2020 5:33 PM EDT Problem: Patient Care Overview Goal: Plan of Care Review Outcome: Ongoing (Interventions Implemented as Appropriate) 06/07/201729 Coping/Psychosocial Plan Of Care Reviewed With patient;spouse Plan of Care Review Progress progress towards functional goals is fair OUTCOME EVALUATION NOTE: OUTCOME SUMMARY: Vcik arrived to this afternoon. Heparin gtt stopped per team. Vick denies CP or SOB. Krzysztof at bedside. Labs obtained. SR on tele, see tele report. PLAN MOVING FORWARD: NPO at midnight for possible cath. Needs TTE. INDIVIDUALIZED FALL PREVENTION INTERVENTIONS: Patient-specific fall risk factors per assessment: [current deficits]: Unfamiliar environment. Assistance [level of assistance required for transfers and ambulation]: SBA Supervision [direct monitoring required during toileting and ADLs]: Arms reach. Surveillance [continuous indirect monitoring]: Telemetry. Patient-specific fall prevention interventions for sensory deficits provided, if applicable: Call lopez in reach, room near RN station, door open, purposeful rounding, nonskid socks when OOB. CPG GOAL OUTCOME EVALUATION: Goal: Fall Prevention-Safe Patient Handling Outcome: Ongoing (Interventions Implemented as Appropriate) 06/07/20 1730 Restraint Interventions Safety Promotion/Fall Prevention activity supervised;fall prevention program maintained;nonskid shoes/slippers when out of bed;safety round/check completed Activity Activity Type activity adjusted per tolerance Activity Assistance Provided assistance, stand-by Assistive Device Utilized none Positioning Body Position independent Daily Care Interventions Self-Care Promotion independence encouraged;BADL personal objects within reach;BADL personal routines maintained Subramanian Fall Risk History of Falling 0 Secondary Diagnosis 15 Ambulatory Aids 0 Intravenous Therapy/Heparin/Saline Lock 20 Gait/Transferring 0 Mental Status 0 Score 35 OTHER Subramanian Fall Risk Med Goal: Infection Control Outcome: Ongoing (Interventions Implemented as Appropriate) 06/07/20 1603 06/07/20 173 Coping Strategies Supportive Measures -- active listening utilized;positive reinforcement provided;self-care encouraged;verbalization of feelings encouraged Safety Interventions Isolation Precautions standard precautions maintained -- Infection Prevention environmental surveillance performed -- Goal: Discharge Needs Assessment Outcome: Ongoing (Interventions Implemented as Appropriate) 06/07/20 1730 Discharge Needs Assessment Concerns To Be Addressed no discharge needs identified Readmission Within The Last 30 Days no previous admission in last 30 days Discharge Disposition still a patient Current Health Anticipated Changes Related to Illness none Living Environment Transportation Available family or friend will provide Goal: Interdisciplinary Rounds/Family Conf Outcome: Ongoing (Interventions Implemented as Appropriate) 06/07/20 1730 Interdisciplinary Rounds/Family Conf Participants case aide;family;nursing;patient;physician documented in this encounter Plan of Treatment Not on filedocumented as of this encounter Procedures Procedure Name Priority Date/Time Associated Comments Diagnosis CARDIAC CATHETERIZATION Routine 06/08/2020 10:32 Results for this AM EDT procedure are i n the results section. ECHOCARDIOGRAM COMPLETE Routine 06/08/2020 8:40 Other chest pa in Results for this AM EDT procedure are i n the results section. BMP W/FASTING GLUCOSE Routine 06/08/2020 4:07 Res ults for this AM EDT procedure are i n the results section. HEMOGRAM Routine 06/08/2020 4:07 Results for this AM EDT procedure are i n the results section. DIFFERENTIAL, AUTOMATED Routine 06/08/2020 4:07 R esults for this AM EDT procedure are i n the results section. HC CBC,PLT & AUTO DIFF Routine 06/08/2020 4:07 AM EDT TRIGLYCERIDE Routine 06/08/2020 4:07 Results for this AM EDT procedure are i n the results section. HC PHOSPHORUS, SERUM Routine 06/08/2020 4:07 Resu lts for this AM EDT procedure are i n the results section. HC MAGNESIUM, SERUM Routine 06/08/2020 4:07 Resul ts for this AM EDT procedure are i n the results section. LDL CHOLESTEROL, DIRECT Routine 06/08/2020 4:07 R esults for this AM EDT procedure are i n the results section. HC LIPID PROFILE Routine 06/08/2020 4:07 Results for this AM EDT procedure are i n the results section. HC VENIPUNCTURE Routine 06/08/2020 4:07 Results f or this AM EDT procedure are i n the results section. RAPID COVID-19 PCR Routine 06/07/2020 7:24 Result s for this ([facility]) PM EDT procedure are in the results section. EKG 12-LEAD Routine 06/07/2020 6:17 Other chest pain Results for this PM EDT procedure are i n the results section. HEMOGRAM Routine 06/07/2020 5:02 Results for this PM EDT procedure are i n the results section. DIFFERENTIAL, AUTOMATED Routine 06/07/2020 5:02 R esults for this PM EDT procedure are i n the results section. HC PARTIAL Routine 06/07/2020 5:02 Results for this THROMBOPLASTIN TIME PM EDT procedur e are in the results section. HC PROTHROMBIN TIME Routine 06/07/2020 5:02 Resul ts for this PM EDT procedure are i n the results section. HC VENIPUNCTURE Routine 06/07/2020 5:02 PM EDT HC THYROID STIMULATING Routine 06/07/2020 5:02 Re sults for this HORMONE, SERUM PM EDT procedure are in the results section. HC PHOSPHORUS, SERUM Routine 06/07/2020 5:02 Resu lts for this PM EDT procedure are i n the results section. HC MAGNESIUM, SERUM Routine 06/07/2020 5:02 Resul ts for this PM EDT procedure are i n the results section. HEPATIC FUNCTION PANEL Routine 06/07/2020 5:02 Re sults for this PM EDT procedure are i n the results section. BASIC METABOLIC PANEL Routine 06/07/2020 5:02 Res ults for this (NON-FASTING) PM EDT procedure are in the results section. documented in this encounter Results CARDIAC CATHETERIZATION (06/08/2020 10:32 AM EDT) Specimen (Source) Anatomical Location Collection Method / Collectio n Time Received Time / Laterality Volume Narrative CARDIOMAC SYSTEM - 06/09/2020 7:59 AM ED T ?[facility] ? Cardiac Cathete rization/Intervention Report ? Patient Name: Vick Jama. ? Procedure Date: 06/08/2020 ? A #: [id number] ? Primary Physician: Roger José ? Case #: [id number] ? File Name: [id number] ? Catheterization Order Number: [id number] ? [facility] ? Final Report [place], [place] ? Patient Name: ? Vick Dupree vimal ?ID#: ?[id number] ? : ?1950 ? Procedure Date: ? June 08, 2020 ?Case #: ? [id number] ? Room: ? 5 ? Case Physician: ? Roger montoya, M.D. ? Start: ?10:10 ?Fellow: ? Erickson celis, M.D. ?Admission: ??06/07/2020 ?Eleuterio Avery M.D. ? Referring ? Rafaela T Danielle ston ? Physicians: ?Reji Lopez M.D. ? Procedures: ?* Coronary Angiography ?* Left Heart Catheterization ? History ?Vick Jama is a 70 year old woman. The patient's smoking status is ?Never. The patient also has hyp ercholesterolemia. Prior to the initiation ?of this procedure, the patient was designated as ASA Class II. The CSHA ?clinical frailty scale is 2: We ll. ? Diagnostic Tests: ?Prior Coronary Angiography: ? LV ejection fraction wit hin 6 months is 64%. ?Electrocardiography: ? EKG was assessed by ECG. EKG was Normal. ?Stress or Imaging Studies: ? A stress test with SPECT imaging was performed on 06/06/2020 and was ? Positive with Unavailabl e results. ?Medications Prior to Procedure: ? Aspirin, Beta Mayo an d Statin. ? Indications for Diagnostic Cath: ?The priority of the diagnostic procedure was Urgent. 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 Chest pain ?symptom assessment was: Typical Angina. ? Technique: ?A 6 SLFr sheath was inserted in the right radial artery utilizing the ?Seldinger technique. The left c oronary artery was injected utilizing a ?5Fr TIG 4.0 catheter. A TIG 4.0 catheter was used to inject the right ?coronary artery. Left ventricul ar pressure was performed with a 5Fr TIG ?4.0 catheter. 4,000 units of he mary were administered. A total of 100cc ?of Omnipaque were opened, 42cc of Omnipaque were administered and 58cc of ?Omnipaque were wasted. Radiatio n: Fluoro time was 3.2 minutes, dose area ?product was 24,082 mGYcm2 and a ir kerma was 491 mGY. See the case log for ?additional details. ?The patient received the follow ing medications prior to and during the ?procedure: ? Unfractionated Heparin. ? Hemodynamics: ?Left Heart Pressures ? Resting: ? Syst D iast ? EDP ?a ?v ? m ?Ao 79 ?50 ?64 ?LV 90 ?7 ?Comments: ??LV pullback: ??LV 9 1, EDP 7. ??Ao 89/51 (69). ? Coronary Angiography: ?Dominance: Right ?Left Main ? The left main was normal , free of disease. ?Left Anterior Descending ? There was a 20% calcifie d single discrete stenosis of the mid ? segment of the left ante rior descending artery (LAD). ?Left Circumflex ?Right Coronary Artery ? The right coronary arter y (RCA) was normal, free of disease. ? There was mild diffuse ( <=25% stenosis) disease of the mid segment ? of the right coronary ar saida (RCA). ? Vascular Access: ?Vascular Access Management: ? Mechanical Compression o f the right radial artery access site was ? performed. ? Conclusions: ?* Nonobstructive coronary arter y disease ? Complications/Events: ?The patient had no complication s during these procedures. ?The attending physician was presen t for the entire procedure. ?Dr. Roger José M.D. was pre sent during the moderate sedation ?intraservice time as documented by the sedation nurse. ??Case time = 00:12. ?Dr. Roger José M.D. perform ed the coronary angiography and left ?heart catheterization. ? Roger S Estefanía, M.D. ? Electronically Signed by: Roger Munoz in, M.D. ? Report Finalized: 06/09/2020 ??07:52 ? Procedure Note Roger José MD - 06/09/2020Format ting of this note might be different from the original. [facility] Cardiac Catheterization/Intervention Re port Patient Name: Vick Jama Procedure Date: 06/08/2020 A #: [id number] Primary Physician: Roger José Case #: [id number] File Name: [id number] Catheterization Order Number: [id number] [facility] Final Report [place], [place] Patient Name: Vick Jama ID#: [id number] : 1950 Procedure Date: June 08, 2020 Case #: Room: 5 Case Physician: Roger José M.D. S tart: 10:10 Fellow: Erickson Phillip M.D. Admission: 06/07/2020 Eleuterio Avery M.D. Referring Rafaela Betancur Physicians: Reji Lopez M.D. Procedures: * Coronary Angiography * Left Heart Catheterization History Vick Jama is a 70 year old woma n. The patient's smoking status is Never. The patient also has hypercholes terolemia. Prior to the initiation of this procedure, the patient was devora gnated as ASA Class II. The CS clinical frailty scale is 2: Well. Diagnostic Tests: Prior Coronary Angiography: LV ejection fraction within 6 months is 64%. Electrocardiography: EKG was assessed by ECG. EKG was Normal . Stress or Imaging Studies: A stress test with SPECT imaging was pe rformed on 06/06/2020 and was Positive with Unavailable results. Medications Prior to Procedure: Aspirin, Beta Mayo and Statin. Indications for Diagnostic Cath: The priority of the diagnostic procedur e was Urgent. 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 Chest pain symptom assessment was: Typical Angina. Technique: A 6 SLFr sheath was inserted in the [facility] radial artery utilizing the Seldinger technique. The left coronary artery was injected utilizing a 5Fr TIG 4.0 catheter. A TIG 4.0 cathete r was used to inject the right coronary artery. Left ventricular press ure was performed with a 5Fr TIG 4.0 catheter. 4,000 units of heparin we re administered. A total of 100cc of Omnipaque were opened, 42cc of Omnip aque were administered and 58cc of Omnipaque were wasted. Radiation: Fluor o time was 3.2 minutes, dose area product was 24,082 mGYcm2 and air kerma was 491 mGY. See the case log for additional details. The patient received the following medi cations prior to and during the procedure: Unfractionated Heparin. Hemodynamics: Left Heart Pressures Resting: Syst Diast EDP a v m Ao 79 50 64 LV 90 7 Comments: LV pullback: LV 91, EDP 7. Ao 89/51 (69). Coronary Angiography: Dominance: Right Left Main The left main was normal, free of disea se. Left Anterior Descending There was a 20% calcified single discre te stenosis of the mid segment of the left anterior descending artery (LAD). Left Circumflex Right Coronary Artery The right coronary artery (RCA) was nor mal, free of disease. There was mild diffuse (<=25% stenosis) disease of the mid segment of the right coronary artery (RCA). Vascular Access: Vascular Access Management: Mechanical Compression of the right rad ial artery access site was performed. Conclusions: * Nonobstructive coronary artery diseas e Complications/Events: The patient had no complications during these procedures. The attending physician was present for the entire procedure. Dr. Roger S Estefanía, M.D. was present during the moderate sedation intraservice time as documented by the sedation nurse. Case time = 00:12. Dr. Roger José M.D. performed th e coronary angiography and left heart catheterization. Roger José M.D. Electronically Signed by: Roger soriano M.D. Report Finalized: 06/09/2020 07:52 Roger José MD CARDIAC CATH ORDERABLES Performing Organization Address City/State/ZIP Code Phon e Number CARDIOMAC SYSTEM ECHOCARDIOGRAM COMPLETE (06/08/2020 8:40 AM EDT) Specimen (Source) Anatomical Location Collection Method / Collectio n Time Received Time / Laterality Volume 06/08/2020 Narrative HEARTLAB SYSTEM - 06/08/2020 8:58 AM EDT Procedure: ?Transthoracic Echocardiogram Patient: ?SINAI Raymundo ?(Age): 1950(70y) Med Rec#: ? [id number] ?Sex: ?F ? Site Loc: ? [facility] [place] ?Ht / Wt: ??165(cm)/75(kg) Pt. Loc: ?Adult Floor ? BSA: ?1.82 Study Date: ?? 06/08/2020 ?Pt. Type: Inpatient Tape: ? Referring: RAFAELA BETANCUR T Reading: Han Vega ([id number]) Proofer Apprentice: Josh Pinto KATHY Interpreting Fellow: Ziyad Roy ([id number]) Diagnosis: *Other chest pain (R07.89) BP: ? 101/60 SUMMARY: 1. The left ventricular chamber size, wa ll thickness and systolic function are normal. ??The quantitative left ventricular ejection fraction by biplane Kapoor's method is 64%. ??There are no left ventricular segmental wall motion abnorm alities. 2. Right ventricular chamber size, wall thickness, and systolic function are within normal limits. 3. The left and right atria are normal i n size. 4. There is no significant valvular dise ase. 5. There is mild dilatation of the aorti c root (3.9 cm) and ascending aorta (3.9 cm). 6. There is no prior study available for comparison. Findings ? : Left Ventricle: ? The left ventricul ar chamber size is normal. ?Left ventricular wall thickness is normal. ?No ventricular septal defect is vi sualized. ?There is normal global left ventri cular systolic function. ?The quantitative left ventricular ejection fraction by biplane Kapoor's method is 64%. ?There are no left ventricular segm ental wall motion abnormalities. ?Left sided filling pressure could not be assessed by Doppler. Left Atrium: ? The left atrium is no rmal in size.23 ml/m2 Right Ventricle: ? Right ventricular chamber size, wall thickness, and systolic function are within normal limi ts. ?Pulmonary artery hypertension coul d not be assessed due to inadequate tricuspid regurgitation jet. Right Atrium: ? The right atrium rafi ears normal. Aortic Valve: ? The aortic valve is trileaflet. The leaflets are thin with normal excursion. There is no aorti c stenosis or regurgitation present. Mitral Valve: ? The mitral valve rafi ears normal in structure and function. ?There is posterior mitral annular calcification. ?There is trace mitral regurgitatio n present. Tricuspid Valve: ? The tricuspid ajay ve appears normal in structure and function. ?There is trace tricuspid regurgita tion present. Pulmonic Valve: ? The pulmonic valve is not well visualized. ?There is trace pulmonic regurgitat ion present. Pericardium: ? The pericardium appea rs normal and there is no evidence of a pericardial effusion. Aorta: ? There is mild dilatation of the aortic root.3.9 cm ?There is mild dilatation of the as cending aorta.3.9 cm Pulmonary Artery: ? The main pulmona ry artery appears normal. Venous: ? The inferior vena cava rafi ears normal in size. ?There is a greater than 50% respir atory change in the inferior vena cava dimension. Misc: ? See remainder of report for additional findings. ?Two-dimensional echo, spectral Dop pler and color Doppler performed. Chambers 2D ?Value ?Units (Range) ? IVSd (2D) ? 0.88 ? cm ? LVPWd (2D) ?0.92 ? cm ? IVS:LVPW ratio (2D) 0.96 ? ratio ? RWT (2D) ?0.44 ? ratio ? RWT PW (2D) ? 0.45 ? ratio ? LVIDd (2D) ?4.07 ? cm ? LVIDs (2D) ?2.57 ? cm ? LVIDd (2D) index ?2.23 ? cm/m2 ? LVIDs (2D) index ?1.41 ? cm/m2 ? LV FS (2D) ?36.86 ?% ? EF Teichholz (2D) ?? 67.22 ?% ? Ao root diameter (2D3.9 ?cm (2.1 - 3.6) ? Ascending Ao ?3.9 ?cm (2 - 3.5) ? Volumes/Mass ?Value ?Units (Range) ? LA Area 4 CH ?15 ? cm2 (<21) ? RA AREA 4CH ? 15 ? cm2 ? LA ESV BP (MOD) inde23.03 ? ml/m2 ? LV ESV SP 4CH (MOD) 25 ? ml ? LV ESV SP 2CH (MOD) 26 ? ml ? LV EDV BP ? 69 ? ml ? LV ESV BP ? 25 ? ml ? LV EDV BP index ? 37.84 ?ml/m2 ? LV ESV BP index ? 13.71 ?ml/m2 ? BP EF (MOD) ? 63.77 ?% ? LV mass (2D) ?112.88 ? g ? LV mass (2D) index ??61.9 ? g/m2 ? Diastolic/Systolic Function ?Value ?Units (Range) ? MV E-wave Vmax ?0.63 ? m/sec ? MV deceleration [id number] ?msec ? MV A-wave Vmax ?0.67 ? m/sec ? MV E:A ratio ?0.94 ? ratio ? LV septal e' Vmax ?? 0.06 ? m/sec ? LV lateral e' Vmax ??0.07 ? m/sec ? LV average e' Vmax ??0.06 ? m/sec ? LV E:e' septal ratio11.18 ? ratio ? LV E:e' lateral rati9.04 ? ratio ? LV average E:e' rati10 ? ratio ? Tricuspid Valve ?Value ?Units (Range) ? RAP ? 3 ?mmHg ? Wall Motion: Segment Name ?Rest ? Base-Anteroseptal ?? Normal ? Base-Anterior ? Normal ? Base-Anterolateral ??Normal ? Base-Posterolateral Normal ? Base-Inferior ? Normal ? Base-Inferoseptal ?? Normal ? Mid-Anteroseptal ?Normal ? Mid-Anterior ?Normal ? Mid-Anterolateral ?? Normal ? Mid-Posterolateral ??Normal ? Mid-Inferior ?Normal ? Mid-Inferoseptal ?Normal ? [place]-Septal ? Normal ? [place]-Anterior ? Normal ? [place]-Lateral ?Normal ? [place]-Inferior ? Normal ? [place]-Tip ?Normal ? This report has been electronically sign ed by: _ Han Vega MD ? 06/08/2020 08: 57:31 Images reviewed and interpretation verif ied [facility] Cardiac [facility]trasound [facility] Procedure Note Han Vega MD - 06/08/2020Formatti ng of this note might be different from the original. Procedure: Transthoracic Echocardiogram Patient: SINAI Raymundo (Age): 03/1950(70y) Med Rec#: [id number] Sex: F [place] [facility] [place]t / Wt: 165(cm)/75(kg) Pt. Loc: Adult Floor BSA: 1.82 Study Date: 06/08/2020 Pt. Type: Inpatie nt Tape: Referring: RAFAELA BETANCUR T Reading: Han Vega ([id number]) Proofer Apprentice: Josh Pinto [facility] Interpreting Fellow: Ziyad Roy ([id number]) Diagnosis: *Other chest pain (R07.89) BP: 101/60 SUMMARY: 1. The left ventricular chamber size, wa ll thickness and systolic function are normal. The quantitative le ft ventricular ejection fraction by biplane Kapoor's method is 64%. There are no left ventricular segmental wall motion abnorm alities. 2. Right ventricular chamber size, wall thickness, and systolic function are within normal limits. 3. The left and right atria are normal i n size. 4. There is no significant valvular dise ase. 5. There is mild dilatation of the aorti c root (3.9 cm) and ascending aorta (3.9 cm). 6. There is no prior study available for comparison. Findings : Left Ventricle: The left ventricular jose mber size is normal. Left ventricular wall thickness is norm al. No ventricular septal defect is visuali zed. There is normal global left ventricular systolic function. The quantitative left ventricular eject ion fraction by biplane Kapoor's method is 64%. There are no left ventricular segmental wall motion abnormalities. Left sided filling pressure could not b e assessed by Doppler. Left Atrium: The left atrium is normal i n size.23 ml/m2 Right Ventricle: Right ventricular chamb er size, wall thickness, and systolic function are within normal limi ts. Pulmonary artery hypertension could not be assessed due to inadequate tricuspid regurgitation jet. Right Atrium: The right atrium appears n ormal. Aortic Valve: The aortic valve is trilea flet. The leaflets are thin with normal excursion. There is no aorti c stenosis or regurgitation present. Mitral Valve: The mitral valve appears n ormal in structure and function. There is posterior mitral annular calci fication. There is trace mitral regurgitation pre sent. Tricuspid Valve: The tricuspid valve rafi ears normal in structure and function. There is trace tricuspid regurgitation present. Pulmonic Valve: The pulmonic valve is no t well visualized. There is trace pulmonic regurgitation p resent. Pericardium: The pericardium appears nor mal and there is no evidence of a pericardial effusion. Aorta: There is mild dilatation of the a ortic root.3.9 cm There is mild dilatation of the ascendi ng aorta.3.9 cm Pulmonary Artery: The main pulmonary art abhinav appears normal. Venous: The inferior vena cava appears n ormal in size. There is a greater than 50% respiratory change in the inferior vena cava dimension. Misc: See remainder of report for additi onal findings. Two-dimensional echo, spectral Doppler and color Doppler performed. Chambers 2D Value Units (Range) IVSd (2D) 0.88 cm LVPWd (2D) 0.92 cm IVS:LVPW ratio (2D) 0.96 ratio RWT (2D) 0.44 ratio RWT PW (2D) 0.45 ratio LVIDd (2D) 4.07 cm LVIDs (2D) 2.57 cm LVIDd (2D) index 2.23 cm/m2 LVIDs (2D) index 1.41 cm/m2 LV FS (2D) 36.86 % EF Teichholz (2D) 67.22 % Ao root diameter (2D3.9 cm (2.1 - 3.6) Ascending Ao 3.9 cm (2 - 3.5) Volumes/Mass Value Units (Range) LA Area 4 CH 15 cm2 (<21) RA AREA 4CH 15 cm2 LA ESV BP (MOD) inde23.03 ml/m2 LV ESV SP 4CH (MOD) 25 ml LV ESV SP 2CH (MOD) 26 ml LV EDV BP 69 ml LV ESV BP 25 ml LV EDV BP index 37.84 ml/m2 LV ESV BP index 13.71 ml/m2 BP EF (MOD) 63.77 % LV mass (2D) 112.88 g LV mass (2D) index 61.9 g/m2 Diastolic/Systolic Function Value Units (Range) MV E-wave Vmax 0.63 m/sec MV deceleration [id number] msec MV A-wave Vmax 0.67 m/sec MV E:A ratio 0.94 ratio LV septal e' Vmax 0.06 m/sec LV lateral e' Vmax 0.07 m/sec LV average e' Vmax 0.06 m/sec LV E:e' septal ratio11.18 ratio LV E:e' lateral rati9.04 ratio LV average E:e' rati10 ratio Tricuspid Valve Value Units (Range) RAP 3 mmHg Wall Motion: Segment Name Rest Base-Anteroseptal Normal Base-Anterior Normal Base-Anterolateral Normal Base-Posterolateral Normal Base-Inferior Normal Base-Inferoseptal Normal Mid-Anteroseptal Normal Mid-Anterior Normal Mid-Anterolateral Normal Mid-Posterolateral Normal Mid-Inferior Normal Mid-Inferoseptal Normal [place]-Septal Normal [place]-Anterior Normal [place]-Lateral Normal [place]-Inferior Normal [place]-Tip Normal This report has been electronically sign ed by: _ Han Vega MD 06/08/2020 08:57:31 Images reviewed and interpretation [facility] Cardiac Ultrasound Laboratory Fausto Cuenca MD ECHO ORDERABLES Performing Organization Address City/State/ZIP Code Phon e Number [facility]ART[facility] (ABNORMAL) BMP w/fasting Glucose (06/08/2020 4:07 AM EDT) P athologist Signature Glucose 94 65 - 99 [facility] Fasting mg/dL [facility] Comment: ?Fasting* Glucose Interpretive C riteria Normal ?65-99 mg/dL Impaired Fasting glucose ?100-125 mg/dL Consistent with Diabetes Mellitus ? >or= 126 mg/dL *Fasting is defined as no caloric intake for at least 8 hours In the absence of unequivocal hypergly cemia a plasma glucose value of >or= 126 mg/dL should be repeated on a subseq uent day. Diagnosis and Classification of Diabetes Mellitus, Position Statement from the [place] [employer]. ??Diabete s Care, Volume 33, Supplement 1, Oct 2009 BUN 13 8 - 18 mg/dL [facility] Creatinine 0.68 (L) 0.70 - 1.20 mg/dL [facility] Sodium 141 135 - 145 mmol/L [facility] Potassium 4.2 3.5 - 5.0 mmol/L [facility] Comment: Please note: ??Patients with WBC >100,00 0 may have falsely elevated Potassium levels. ??For accurate Potassium quantif ication in these patients send serum separator tube (gold top) for subsequent determinations. ??Contact the Clinical Chemistry Laboratory if there are any qu estions. Chloride 103 98 - 107 mmol/L [facility] CO2 26 22 - 31 mmol/L [facility] Anion Gap 12 5 - 15 mmol/L [facility] Calcium 9.6 8.5 - 10.5 mg/dL [facility] Estimated GFR 88 >=60 mL/min/1.73 m?? [facility] Comment: The eGFR was calculated using the CKD-EP I equation. As with all creatinine based estimates of kidney function, eGFR values calculated with the CKD-EPI equation are not accurate in patients wi th acute kidney failure, extremes of body mass or the acutely ill. [email or web address] eGFR 102 >=60 mL/min/1.73 m?? [facility] Comment: The eGFR was calculated using the CKD-EP I equation. As with all creatinine based estimates of kidney function, eGFR values calculated with the CKD-EPI equation are not accurate in patients wi th acute kidney failure, extremes of body mass or the acutely ill. [email or web address] Specimen Anatomical Collection Method Collection Time Receive d Time (Source) Location / / Volume Laterality Blood specimen 06/08/2020 4:07 AM 020 4:13 (specimen) EDT AM EDT Resulting Agency Comment Spec In Lab Michelle Alcaraz MD CHEMISTRY ORDERABLES Performing Organization Address City/State/[place] [address] Differential, Automated (06/08/2020 4:07 AM EDT) P athologist Signature Neutrophils % 47.0 % [facility] Neutr Abs (ANC) 2.92 1.70 - [facility] 6.10 [facility] x10(3)/[facility] LABORATORY Lymphocytes % 37.7 % [facility] Lymphocytes Abs 2.3 0.9 - 3.2 [facility] x10(3)/[facility] LABORATORY Monocytes % 9.0 % [facility] Monocyte Abs 0.6 0.3 - 0.9 [facility] x10(3)/[facility] LABORATORY Eosinophils % 4.5 % [facility] Eosinophils Abs 0.3 0.0 - 0.4 [facility] x10(3)/[facility] LABORATORY Basophils % 1.6 % [facility] Basophils Abs 0.1 0.0 - 0.1 [facility] JUNITO x10(3)/[facility] LABORATORY Immature Gran % 0.20 % [facility] Comment: Immature granulocytes(IG's)percentage an d absolute count will include metamyelocytes, myelocytes, and promyelo cytes. Blood smears from CBCs yielding IG's will be scanned manually for concor dance. If this scan disagrees with the automated IG or if promyelocytes are not ed, a manual differential will be performed. Yamila Gran Abs 0.01 0.00 - 0.04 x10(3)/[facility] MAR Y [facility]ORY Specimen Anatomical Collection Method Collection Time Receive d Time (Source) Location / / Volume Laterality Blood specimen 06/08/2020 4:07 AM 020 4:13 (specimen) EDT AM EDT Resulting Agency Comment Spec In Lab Michelle Alcaraz MD HEMATOLOGY ORDERABLES Performing Organization Address City/State/[place] [address] Hemogram (06/08/2020 4:07 AM EDT) P athologist Signature WBC 6.2 4.0 - 9.5 [facility] x10(3)/[facility] LABORATORY RBC 4.45 4.00 - [place] [facility] 5.21 [facility] x10(6)/[facility] Hemoglobin 13.2 11.7 - [facility] 15.5 gm/dL [facility] Hematocrit 39.0 35.7 - [facility] JUNITO 45.8 % [facility] MCV 87.6 82.6 - [facility] 94.4 [facility] LABORATORY MCH 29.7 27.1 - [facility] 32.0 pg [facility] MCHC 33.8 31.7 - [facility]O 35.0 gm/dL [facility] Platelets 194 145 - 357 [facility] x10(3)/[facility] RDWSD 39.8 37.0 - [place] 46.0 [facility] RDWCV 12.5 11.5 - [facility] JUNITO 14.1 % [facility] MPV 9.9 7.6 - 12.9 [facility] LABORATORY nRBC % Auto 0.0 % [facility] nRBC Abs Auto 0.000 0.000 - [facility] 0.000 [facility] x10(3)/[facility] LABORATORY Specimen Anatomical Collection Method Collection Time Receive d Time (Source) Location / / Volume Laterality Blood specimen 06/08/2020 4:07 AM 020 4:13 (specimen) EDT AM EDT Resulting Agency Comment Spec In Lab Michelle Alcaraz MD HEMATOLOGY ORDERABLES Performing Organization Address City/State/ZIP Code Phon e Number [address] Phosphorus (06/08/2020 4:07 AM EDT) P athologist Signature Phosphorus 3.8 2.5 - 4.5 [facility] mg/dL [facility] Specimen Anatomical Collection Method Collection Time Receive d Time (Source) Location / / Volume Laterality Blood specimen 06/08/2020 4:07 AM 020 4:13 (specimen) EDT AM EDT Resulting Agency Comment Spec In Lab Fausto Cuenca MD CHEMISTRY ORDERABLES Performing Organization Address City/State/ZIP Code Phon e Number [address] Magnesium (06/08/2020 4:07 AM EDT) P athologist Signature Magnesium 0.78 0.69 - 1.07 [facility] mmol/L [facility] Specimen Anatomical Collection Method Collection Time Receive d Time (Source) Location / / Volume Laterality Blood specimen 06/08/2020 4:07 AM 020 4:13 (specimen) EDT AM EDT Resulting Agency Comment Spec In Lab Fausto Cuenca MD CHEMISTRY ORDERABLES Performing Organization Address City/State/ZIP Code Phon e Number [address] Triglyceride (06/08/2020 4:07 AM EDT) P athologist Signature Triglycerides 58 mg/dL [facility] Comment: Average Risk/Lower Risk: <150 mg/dL Borderline High Risk: 150-199 mg/dL High Risk: 200-499 mg/dL Very High Risk: >oz=252 mg/dL Specimen Anatomical Collection Method Collection Time Receive d Time (Source) Location / / Volume Laterality Blood specimen 06/08/2020 4:07 AM 020 4:13 (specimen) EDT AM EDT Resulting Agency Comment Spec In Lab Fausto Cuenca MD CHEMISTRY ORDERABLES Performing Organization Address City/State/[place] [address] HDL/Cholesterol Profile (06/08/2020 4:07 AM EDT) athologist Signature Chol, Total 171 mg/dL [facility] Comment: Lower Risk: <200 mg/dL Average Risk: 200-239 mg/dL Higher Risk: >jk=085 mg/dL HDL 67 mg/dL [facility] Comment: Males: ?? Higher Risk: <40 mg/dL Females: ?? HIgher Risk: <50 mg/dL Chol/HDL Ratio 2.6 ratio [facility] Chol/HDL Interpretation See Note [facility] Comment: Lipid management should be guided by a p atient? s ASCVD risk, goals and preferences. ACC/AHA Guidelines recommend high intens ity statin if clinical ASCVD or LDL greater than or equal to 190 mg/dL. [email or web address] Measure LDL if Total Cholesterol minus H DL Cholesterol is greater than 220 mg/dL. Adults aged 40-75 with LDL 70-189 mg/dL should have their 10 year ASCVD risk estimated with the ACC/AHA ASCVD risk es timator http://tools.acc.org/WEVEC-Yggh-Mrmzfxid r/ Statin should be discussed if risk great er than or equal to 7.5% in non-diabetics. With diabetes, moderate i ntensity statin is recommended if risk less than 7.5%, high intensity if risk g reater than or equal to 7.5%. Annual lipid monitoring on statins is no t necessary. Lifestyle modification is a critical com ponent of ASCVD risk reduction. Specimen Anatomical Collection Method Collection Time Receive d Time (Source) Location / / Volume Laterality Blood specimen 06/08/2020 4:07 AM 020 4:13 (specimen) EDT AM EDT Resulting Agency Comment Spec In Lab Fausto Cuenca MD CHEMISTRY ORDERABLES Performing Organization Address City/[facility]/ZIP Code Phon e Number [address] LDL Cholesterol, Direct (06/08/2020 4:07 AM EDT) athologist Signature LDL Chol 106 mg/dL [facility] LABORATORY Comment: Lowest Risk: <100 mg/dL Lower Risk: 100-129 mg/dL Borderline High Risk: 130-159 mg/dL High Risk: 160-189 mg/dL Very High Risk: >yk=981 mg/dL Specimen Anatomical Collection Method Collection Time Receive d Time (Source) Location / / Volume Laterality Blood specimen 06/08/2020 4:07 AM 020 4:13 (specimen) EDT AM EDT Resulting Agency Comment Spec In Lab Fausto Cuenca MD CHEMISTRY ORDERABLES Performing Organization Address City/[facility]/ZIP Code Phon e Number [address] Hemoglobin A1c (06/08/2020 4:07 AM EDT) athologist Signature Hemoglobin A1C 5.0 4.3 - 5.6 [facility] Comment: Reference Range: 4.3 - 5.6% 5.7 - 6.4% - Increased Risk of Developin g Diabetes Mellitus >= 6.5% - Consistent with diagnosis of D iabetes Mellitus In the absence of hyperglycemia (i.e. pl asma glucose > 200 mg/dL) or classic symptoms of hyperglycemia a repeat measu rement of HbA1c should be performed on a separate sample to confirm the diagnos is. Diagnosis and Classification of Diabetes Mellitus, Diabetes Care 2013; 36: Suppl. 1, S67-74 Est Avg Gluc See note mg/dL [facility] Comment: Estimated Average Glucose not appropriat e for patients over 70 years of age. eAG equivalents for HbA1c percentages: HbA1c(%) ?eAG(mg/dL) 6.0 ?126 6.5 ?140 7.0 ?154 7.5 ?169 8.0 ?183 8.5 ?197 9.0 ?212 9.5 ?226 10.0 ? 240 Limitations: The eAG calculation has not been validated on women, individuals below 18 years old and above 70 years old, and individuals with hemoglobinopathies. Additional resources are available on [facility] ADA website. Kayden PEREZ, Elena J, Aristeo R, et al. ??Tr anslating the A1C assay into estimated average glucose values. ??Diabetes Care 2008:31(8):8045-5917. Specimen Anatomical Collection Method Collection Time Receive d Time (Source) Location / / Volume Laterality Blood specimen 06/08/2020 4:07 AM 020 4:13 (specimen) EDT AM EDT Resulting Agency Comment Spec In Lab Fausto Cuenca MD CHEMISTRY ORDERABLES Performing Organization Address City/State/ZIP Code [place] [address] COVID-19 PCR (06/07/2020 7:24 PM EDT) [facility] Method Time Signature SARS-CoV-2 Not Detected Not Detected [facility] RNA PCR [facility] Comment: This result should be interpreted in com bination with the clinical observations, patient history and epidem iological information. For testing of asymptomatic individuals, assay performa nce characteristics and clinical utility have not been evaluated. Testing for SARS-CoV-2 (Severe acute respiratory syndrome coronavirus 2, form erly known as 2019 novel coronavirus or 2019-nCoV) to aid in the diagnosis of CO VID-19 is performed using the @Paya COVID-19 Direct Assay by HerBabyShowervincent cisneros as authorized by the FDA issued Emergency Use Authorization (EUA). This assay is intended for In-vitro Diagnostic (IVD) use with nasopharyngeal swabs collected from individuals meeting the CDC criteria for testing. assay is performed based on the instructions for use and additional guid ance provided by the FDA. Testing is performed in the Microbiology Laboratory within the Department of Pathology and Laboratory Medicine at [facility], certified under the Clinical Laboratory Improvement Amendmen ts of 1988 (CLIA), 42 U.S.C. section 263a, to perform high complexity tests. Assay performance has been verified according to clinical laboratory regulat ory requirements. Test results are provided above. A resul t of Not Detected indicates that the viral RNA target is not present but does not preclude SARS-CoV-2 infection. False negative results may occur if a sp ecimen is improperly collected, transported or handled; if amplification inhibitors are present; or if inadequate numbers of viral particles ar e present in the specimen. A result of Detected suggests a current or recent infection and the patient is presumed to be infected. Positive and negative pr edictive values for this test are highly dependent on disease prevalence. A result of Invalid indicates the inability to conclusively determine the presence or absence of SARS-CoV-2 RNA in the sample which can be due to a vari ety of factors. Recollection is recommended in the case of an invalid re sult. CDC COVID-19 criteria for testing on hum an specimens and clinical management guidance information are available at [facility] CDC Coronavirus Disease 2019 (COVID-19) webpage under Information fo r Healthcare Professionals (https://www.cdc.gov/coronavirus/2019-nc ov/hcp/index.html). SARS-CoV-2 Source [employer] [facility] Specimen (Source) Anatomical Collection Method Collection Time Re ceived Time Location / / Volume Laterality Nasopharyngeal swab 06/07/2020 7:24 06/07 (specimen) PM EDT 9:33 PM EDT Comment: Symptoms->Surveillance Resulting Agency Comment Spec In Lab Fausto Cuenca MD MICROBIOLOGY - GENERAL ORDER CHRISTINA Performing Organization Address City/State/[place] [address] EKG 12 Lead (06/07/2020 6:17 PM EDT) Component Value Ref Range Test Analysis Performed Pathologis t Method Time At Signature Ventricular rate 65 BPM MUSE SYSTEM Atrial Rate 65 BPM MUSE SYSTEM P-R Interval 180 ms MUSE SYSTEM QRS Duration 80 ms MUSE SYSTEM Q-T Interval 400 ms MUSE SYSTEM QTC Calculated 416 ms MUSE SYSTEM (Bezet) Calculated P Bolton 15 degrees MUSE SYSTEM Calculated R Bolton 33 degrees MUSE SYSTEM Calculated T Bolton 37 degrees MUSE SYSTEM INTERPRETATION Normal sinus rhythm MUSE SYSTEM Normal ECG When compared with ECG of 02-DEC-2018 15:58, No significant change was found Confirmed by MD Meenakshi, Miles ([id number]) on 06/08/2020 8:20:00 AM Specimen Anatomical Collection Method Collection Time Receive d Time (Source) Location / / Volume Laterality 06/07/2020 6:17 PM 0 8:20 EDT AM EDT Fausto Cuenca MD ECG ORDERABLES Performing Organization Address City/State/ZIP Code Phon e Number MUSE SYSTEM Differential, Automated (06/07/2020 5:02 PM EDT) P athologist Signature Neutrophils % 55.1 % [facility] Neutr Abs (ANC) 3.23 1.70 - [facility] 6.10 [facility] x10(3)[facility] LABORATORY Lymphocytes % 32.6 % [facility] Lymphocytes Abs 1.9 0.9 - 3.2 [facility] x10(3)/[facility] LABORATORY Monocytes % 7.0 % [facility] Monocyte Abs 0.4 0.3 - 0.9 [facility] x10(3)/[facility] LABORATORY Eosinophils % 3.6 % [facility] Eosinophils Abs 0.2 0.0 - 0.4 [facility] x10(3)/[facility] LABORATORY Basophils % 1.5 % [facility] Basophils Abs 0.1 0.0 - 0.1 [facility] x10(3)/[facility] LABORATORY Immature Gran % 0.20 % [facility] Comment: Immature granulocytes(IG's)percentage an d absolute count will include metamyelocytes, myelocytes, and promyelo cytes. Blood smears from CBCs yielding IG's will be scanned manually for conchector sandoval. If this scan disagrees with the automated IG or if promyelocytes are not ed, a manual differential will be performed. Yamila Gran Abs 0.01 0.00 - 0.04 x10(3)/[facility] MAR Y [facility] LABORATORY Specimen Anatomical Collection Method Collection Time Receive d Time (Source) Location / / Volume Laterality Blood specimen 06/07/2020 5:02 PM 020 5:11 (specimen) EDT PM EDT Resulting Agency Comment Spec In Lab Michelle Alcaraz MD HEMATOLOGY ORDERABLES Performing Organization Address City/State/[place] [address] Hemogram (06/07/2020 5:02 PM EDT) P athologist Signature WBC 5.9 4.0 - 9.5 [facility] x10(3)/[facility] LABORATORY RBC 4.62 4.00 - [facility] 5.21 [facility] x10(6)/[facility] LABORATORY Hemoglobin 13.8 11.7 - [facility] 15.5 gm/dL [facility] Hematocrit 41.4 35.7 - [facility] % [facility] MCV 89.6 82.6 - [facility] 94[facility]4 [facility] LABORATORY MCH 29.9 27.1 - [facility] 32.0 pg [facility] MCHC 33.3 31.7 - [facility] 35.0 gm/dL [facility] Platelets 204 145 - 357 [facility] x10(3)/[facility] LABORATORY RDWSD 41.2 37.0 - [facility] 46.0 [facility] LABORATORY RDWCV 12.6 11.5 - [facility] 14.1 % [facility] MPV 10.0 7.6 - 12.9 [facility] LABORATORY nRBC % Auto 0.0 % [facility] nRBC Abs Auto 0.000 0.000 - [facility] 0.000 [facility] x10(3)/[facility] LABORATORY Specimen Anatomical Collection Method Collection Time Receive d Time (Source) Location / / Volume Laterality Blood specimen 06/07/2020 5:02 PM 020 5:11 (specimen) EDT PM EDT Resulting Agency Comment Spec In Lab Michelle Alcaraz MD HEMATOLOGY ORDERABLES Performing Organization Address City/[facility]/[place] [address] (ABNORMAL) APTT (06/07/2020 5:02 PM EDT) athologist Signature PTT 92 (H) 25 - 37 sec [facility] Comment: The PTT is NOT appropriate for heparin m onitoring. Use the Anti-Xa level for heparin monitoring (HEP UFH) or LMWH mon itoring (HEP LMW). A PTT less than 37 seconds generally indicates adequate hem ostasis. Specimen Anatomical Collection Method Collection Time Receive d Time (Source) Location / / Volume Laterality Blood specimen 06/07/2020 5:02 PM 020 5:11 (specimen) EDT PM EDT Resulting Agency Comment Spec In Lab Fausto Cuenca MD HEMATOLOGY ORDERABLES Performing Organization Address City/[facility]/[place] [address] Prothrombin Time (06/07/2020 5:02 PM EDT) P athologist Signature PT 12.0 9.4 - 12.5 [facility] LABORATORY INR 1.0 [facility] LABORATORY Comment: An INR <2.0 indicates adequate procoagul ant activity for hemostasis in most patients without underlying bleeding dis orders, though the INR may not adequately reflect hemostatic capacity i n patients with liver disease and synthetic impairment. The recommended ta rget INR range for therapeutic anticoagulation is 2.0 ? 3.0 for most applications, though lower and higher ranges may be appropriate depending on c linical circumstances. Specimen Anatomical Collection Method Collection Time Receive d Time (Source) Location / / Volume Laterality Blood specimen 06/07/2020 5:02 PM 020 5:11 (specimen) EDT PM EDT Resulting Agency Comment Spec In Lab Fausto Cuenca MD HEMATOLOGY ORDERABLES Performing Organization Address City/State/[place] [address] Hepatic Function Panel (06/07/2020 5:02 PM EDT) athologist Signature Total Protein 6.6 6.1 - 8.0 [facility] gm/dL [facility] Albumin 4.1 3.2 - 5.2 [facility] gm/dL [facility] AST 12 0 - 30 D[facility] J[facility]O unit/L [facility] ALT 10 0 - 30 DARLENE JUNITO unit/L [facility] Alk Phos 45 35 - 105 [facility] JUNITO unit/L [facility] Total 0.6 0.2 - 1.3 [facility] [employer] Bilirubin mg/dL [facility] Bili, Direct 0.1 0.0 - 0.3 [facility] JUNITO mg/dL [facility] Specimen Anatomical Collection Method Collection Time Receive d Time (Source) Location / / Volume Laterality Blood specimen 06/07/2020 5:02 PM 020 5:11 (specimen) EDT PM EDT Resulting Agency Comment Spec In Lab Fausto Cuenca MD CHEMISTRY ORDERABLES Performing Organization Address City/State/ZIP Code Phon e Number [address] TSH (06/07/2020 5:02 PM EDT) athologist Signature TSH 1.87 0.27 - 4.20 DARLENE BENITEZJUNITO mcIU/mL [facility] Specimen Anatomical Collection Method Collection Time Receive d Time (Source) Location / / Volume Laterality Blood specimen 06/07/2020 5:02 PM 020 5:11 (specimen) EDT PM EDT Resulting Agency Comment Spec In Lab Fausto Cuenca MD CHEMISTRY ORDERABLES Performing Organization Address City/State/ZIP Code Phon e Number [address] Phosphorus (06/07/2020 5:02 PM EDT) athologist Signature Phosphorus 3.1 2.5 - 4.5 DARLENE JUNITO mg/dL [facility] Specimen Anatomical Collection Method Collection Time Receive d Time (Source) Location / / Volume Laterality Blood specimen 06/07/2020 5:02 PM 020 5:11 (specimen) EDT PM EDT Resulting Agency Comment Spec In Lab Fausto Cuenca MD CHEMISTRY ORDERABLES Performing Organization Address City/State/ZIP Code Phon e Number [address] Magnesium (06/07/2020 5:02 PM EDT) athologist Signature Magnesium 0.77 0.69 - 1.07 [facility] mmol/L [facility] Specimen Anatomical Collection Method Collection Time Receive d Time (Source) Location / / Volume Laterality Blood specimen 06/07/2020 5:02 PM 020 5:11 (specimen) EDT PM EDT Resulting Agency Comment Spec In Lab Fausto Cuenca MD CHEMISTRY ORDERABLES Performing Organization Address City/[facility]/[place] [address] (ABNORMAL) Basic Metabolic Panel (non-fasting) (06/07/2020 5:02 PM EDT) athologist Signature Glucose Lvl 99 65 - 199 [facility] mg/dL [facility] Comment: Diabetes: >=200 mg/dL plus symp toms BUN 11 8 - 18 mg/dL [facility] Creatinine 0.67 (L) 0.70 - 1.20 mg/dL [facility]OR[facility] Sodium 141 135 - 145 mmol/L [facility]OR[facility]ORY Potassium 3.7 3.5 - 5.0 mmol/L [facility] Comment: Please note: ??Patients with WBC >100,00 0 may have falsely elevated Potassium levels. ??For accurate Potassium quantif ication in these patients send serum separator tube (gold top) for subsequent determinations. ??Contact the Clinical Chemistry Laboratory if there are any qu estions. Chloride 104 98 - 107 mmol/L [facility] CO2 27 22 - 31 mmol/L [facility] Anion Gap 10 5 - 15 mmol/L [facility]OR[facility]ORY Calcium 9.9 8.5 - 10.5 mg/dL [facility] LABOR[facility]ORY Estimated GFR 88 >=60 mL/min/1.73 m?? [facility] Comment: The eGFR was calculated using the CKD-EP I equation. As with all creatinine based estimates of kidney function, eGFR values calculated with the CKD-EPI equation are not accurate in patients wi th acute kidney failure, extremes of body mass or the acutely ill. http://bidu.com.br/[facility] eGFR 102 >=60 mL/min/1.73 m?? [facility] Comment: The eGFR was calculated using the CKD-EP I equation. As with all creatinine based estimates of kidney function, eGFR values calculated with the CKD-EPI equation are not accurate in patients wi th acute kidney failure, extremes of body mass or the acutely ill. [email or web address]/[email or web address] Specimen Anatomical Collection Method Collection Time Receive d Time (Source) Location / / Volume Laterality Blood specimen 06/07/2020 5:02 PM 020 5:11 (specimen) EDT PM EDT Resulting Agency Comment Spec In Lab Fausto Cuenca MD CHEMISTRY ORDERABLES Performing Organization Address City/State/[place] [address] documented in this encounter Visit Diagnoses Not on filedocumented in this encounter Admitting Diagnoses Diagnosis Unstable angina Intermediate coronary syndrome documented in this encounter Administered Medications Inactive Administered Medications - up to 3 most recent administrations Medication Order MAR Action Action Date Dose Rate Site aspirin EC tablet 81 mg Given 06/08/2020 8:44 AM EDT 81 mg 81 mg, Oral, DAILY, First dose on Sat06/07/20 at 1900, Until Discontinued, Routine Given 06/07/2020 6:20 PM EDT 81 mg atorvastatin (Lipitor) tablet 20 mg 20 mg, Oral, EVERY EVENING, First dose ( after last modification) on Sat06/08/20 at 1700, Until Discontinued, Routine atorvastatin (Lipitor) tablet 80 mg Given 06/07/2020 5:15 PM EDT 80 mg 80 mg, Oral, EVERY EVENING, First dose on Sat06/07/20 at 1745, Until Discontinued, Routine enoxaparin (LOVENOX) injection 40 mg Given 06/07/2020 8:23 PM EDT 40 mg 40 mg, Subcutaneous, NIGHTLY, First dose on Sat06/07/20 at 2100, Until Discontinued, Routine fentaNYL 50 mcg/mL multi-dose injection Given 06/08/2020 10:02 AM EDT 25 mcg ONCE PRN, Starting on Sat06/08/20 at 1002, Until Sat06/08/20 at 1028, Intra-Operative (Intra-Procedure), Routine heparin (porcine) 1,000 unit/mL Given 06/08/2020 10:15 AM EDT 4, 000 Units Right Arm injection ONCE PRN, Starting on Sat06/08/20 at 1015, Until Sat06/08/20 at 1028, Cath (Intra-Procedure), Routine iohexoL (OMNIPAQUE) 350 mg/mL solution Given 06/08/2020 10:26 AM EDT 42 mLs ONCE PRN, Starting on Sat06/08/20 at 1026, Until Sat06/08/20 at 1028, Cath (Intra-Procedure), Routine levothyroxine (Synthroid) tablet 75 mcg Given 06/08/2020 5:37 AM EDT 75 mcg 75 mcg, Oral, EVERY MORNING, First dose on Sat06/08/20 at 0600, Until Discontinued, Routine lidocaine (XYLOCAINE) 10 mg/mL (1 %) Given 06/08/2020 10:06 AM E DT 3 mLs Right Arm injection ONCE PRN, Starting on Sat06/08/20 at 1006, Until Sat06/08/20 at 1028, Cath (Intra-Procedure), Routine magnesium sulfate 2 g in sterile water New Bag 06/08/2020 8:44 AM EDT 2 g 25 mL/hr 50 mL 2 g, Intravenous, ONCE, 1 dose, On Sat06/08/20 at 0700, Administer over 120 Minutes metoprolol tartrate (Lopressor) tablet 12.5 Given 05/28 8:22 PM EDT 12.5 mg mg 12.5 mg, Oral, EVERY 12 HOURS SCHEDULED, First dose on Sat06/07/20 at 2100, Until Discontinued, Hold for HR < 60 Hold for SBP < 90, Routine midazolam (PF) (VERSED) multi-dose Given 06/08/2020 10:02 AM EDT 1 mg Right Arm injection ONCE PRN, Starting on Sat06/08/20 at 1002, Until Sat06/08/20 at 1028, Cath (Intra-Procedure), Routine nitroGLYcerin (Nitrostat) disintegrating tablet 0.4 mg 0.4 mg, Sublingual, EVERY 5 MIN PRN, Starting on Sat at 1039, Until Sat06/08/20 at 1805, Chest pain, May repeat every 5 minutes for a total of three doses. Notify provider if chest pain not reliev ed with nitroglycerin. Do not administer nitroglycerin if the patient has received or taken ghassan sphodiesterase (PDE-5) inhibitors such as sildenafil, tadalafil or vardenafil within the last 24 to 72 hours., Recovery (Recovery-Hospital Unit), Routine nitroGLYcerin 100 mcg/mL intracoronary Given 06/08/2020 10:11 AM EDT 75 mcg dilution ONCE PRN, Starting on Sat06/08/20 at 1011, Until Sat06/08/20 at 1028, Cath (Intra-Procedure), Routine sodium chloride 0.9 % (flush) flush 5 mL Given 06/08/2020 8:44 AM EDT 5 mLs 5 mL, Intravenous, 2 TIMES DAILY, First dose on Sat06/07/20 at 2100, Until Discontinued, Routine Given 06/07/2020 9:00 PM EDT 5 mLs sodium chloride 0.9% infusion Continued Bag 06/08/2020 11:00 AM 200 mL/hr 200 mL/hr 200 mL/hr, Intravenous, EDT CONTINUOUS, Starting on Sat06/08/20 at 1100, Until Sat06/08/20 at 1359, Recovery (Recovery-Hospital Unit) traZODone (Desyrel) tablet 150 mg Given 06/07/2020 10:54 PM EDT 150 mg 150 mg, Oral, NIGHTLY PRN, Starting on Sat06/07/20 at 1649, Until Sat06/08/20 at 1805, Sleep, Routine verapamiL (ISOPTIN) injection Given 06/08/2020 10:11 AM EDT 1 mg ONCE PRN, Starting on Sat06/08/20 at 1011, Until Sat06/08/20 at 1028, Administer over 2 Minutes, Cath (Intra-Procedure) documented in this encounter Active and Recently Administered Medications Times are shown in EDT. Scheduled Medication Order 06/06/2020 06/07/2020 06/08/2020 aspirin EC tablet 81 mg 1820 (Given - Provider: Rachel Hurley, DOT) 0844 (Given - Provider: Ivone Piper, DOT)0953 ([facility] Hold - Provider: Admin Adt - Reason: Transfer to a Procedural area)1201 ([facility] Unhold - Provider: Admin Adt) 81 mg, Oral, DAILY, First dose on 09/16 at 1900, Until Discontinued, Routine atorvastatin (Lipitor) tablet 20 mg 20 mg, Oral, EVERY EVENING, First dose ( after last modification) on Sat06/08/20 at 1700, Until Discontinued, Routine atorvastatin (Lipitor) tablet 80 mg (CANCELED) 1715 (Given - Provider: Rachel Hurley RN) 0953 ([facility] Hold - Provider: Admin Adt - R matti: Transfer to a Procedural area)1201 ([facility] Unhold - Provider: Admin Adt) 80 mg, Oral, EVERY EVENING, First dose o n Sat06/07/20 at 1745, Until Discontinued, Routine enoxaparin (LOVENOX) injection 40 mg 202 3 (Given - Provider: Eb Anders RN) 0953 ([facility] Hold - Provider: Admin Adt - R matti: Transfer to a Procedural area)1201 ([facility] Unhold - Provider: Admin Adt) 40 mg, Subcutaneous, NIGHTLY, First dose on Sat06/07/20 at 2100, Until Discontinued, Routine levothyroxine (Synthroid) tablet 75 mcg 0537 (Given - Provider: Eb Anders RN)0953 ([facility] Hold - Provider: Admin Adt - Reason: Transfer to a Procedural area)1201 ([facility] Unhold - Provider: Admin Adt) 75 mcg, Oral, EVERY MORNING, First dose on Sat06/08/20 at 0600, Until Discontinued, Routine magnesium sulfate 2 g in sterile water 50 mL (COMPLETED) 0844 (New Bag - Provider: Ivone Piper, DOT)1044 (Stopped - Provider: Ivone Piper, DOT) 2 g, Intravenous, ONCE, 1 dose, 06/08 at 0700, Administer over 120 Minutes metoprolol tartrate (Lopressor) tablet 12.5 mg (CANCELED) 2021 (Given - Provider: Eb Anders RN) 0900 (Not Given - Provider: Ivone etienne RN - Reason: Order parameters not met)0953 ([facility] Hold - Provider: Admin Adt - Reason: Transfer to a Procedural area)1048 ([facility] Unhold - Provider: Leonila De Paz MD) 12.5 mg, Oral, EVERY 12 HOURS SCHEDULED, First dose on Sat06/07/20 at 2100, Until Discontinued, Hold for HR < 60 Hold for SBP < 90, Routine sodium chloride 0.9 % (flush) flush 5 mL 2100 (Given - Provider: Eb Anders RN) 0844 (Given - Provider: Ivone Piper, DOT)0953 ([facility] Hold - Provider: Admin Adt - Reason: Transfer to a Procedural area)1201 ([facility] Unhold - Provider: Admin Adt) 5 mL, Intravenous, 2 TIMES DAILY, First dose on Sat06/07/20 at 2100, Until Discontinued, Routine Continuous Medication Order 06/06/2020 06/07/2020 06/08/2020 sodium chloride 0.9% infusion 11 (Continued Bag - Provider: Ivone Piper RN) 200 mL/hr, at 200 mL/hr, Intravenous, CO NTINUOUS, Starting Sat06/08/20 at 1100, Until Sat06/08/20 at 1359, Recovery (Recovery-Hospital Unit) PRN Medication Order 06/06/2020 06/07/2020 06/08/2020 fentaNYL 50 mcg/mL multi-dose injection (CANCELED) 1002 (Given - Provider: Nico Arambula RN) ONCE PRN, Starting Sat06/08/20 at 1002, Until Sat06/08/20 at 1028, Intra- Operative (Intra-Procedure), Routine heparin (porcine) 1,000 unit/mL injection (CANCELED) 1015 (Given - Provider: Nico Arambula RN) ONCE PRN, Starting Sat06/08/20 at 1015, Until Sat06/08/20 at 1028, Cath (Intra- Procedure), Routine iohexoL (OMNIPAQUE) 350 mg/mL solution (CANCELED) 1026 (Given - Provider: Roger José MD) ONCE PRN, Starting Sat06/08/20 at 1026, Until Sat06/08/20 at 1028, Cath (Intra- Procedure), Routine lidocaine (XYLOCAINE) 10 mg/mL (1 %) injection (CANCELED) 1006 (Given - Provider: Roger José MD) ONCE PRN, Starting Sat06/08/20 at 1006, Until Sat06/08/20 at 1028, Cath (Intra- Procedure), Routine midazolam (PF) (VERSED) multi-dose injection (CANCELED) 1002 (Given - Provider: Nico Arambula RN) ONCE PRN, Starting Sat06/08/20 at 1002, Until Sat06/08/20 at 1028, Cath (Intra- Procedure), Routine nitroGLYcerin (Nitrostat) disintegrating tablet 0.4 mg 0.4 mg, Sublingual, EVERY 5 MIN PRN, Sta rting Sat06/08/20 at 1039, Until Sat06/08/20 at 1805, Chest pain, May repeat every 5 minutes for a total of three doses. Notify provider if chest pain not relieve d with nitroglycerin. Do not administer nitroglycerin if the patient has received or taken phosphodiesterase (PDE-5) inhibitors such as sildenafil, tadalafil or vardenafil within the last 24 to 72 hours., Recovery (Recovery- Hospital Unit), Routine nitroGLYcerin 100 mcg/mL intracoronary dilution (CANCELED) 1011 (Given - Provider: Roger José MD) ONCE PRN, Starting Sat06/08/20 at 1011, Until Sat06/08/20 at 1028, Cath (Intra- Procedure), Routine sodium chloride 0.9 % (flush) flush 5-20 mL 0953 ([facility] Hold - Provider: Admin Adt - Reason: Transfer to a Procedural area)1201 ([facility] Unhold - Provider: Admin Adt) 5-20 mL, Intravenous, EVERY 1 MIN PRN, S tarting Sat06/07/20 at 1649, Until Sat06/08/20 at 1805, flush, Flush pertains to all indwelling lines. Flush per protocol found in the job aid using the link provided on this medication record., Routine traZODone (Desyrel) tablet 150 mg 2254 (Given - Provider: Eb Anders RN) 0953 ([facility] Hold - Provider: Admin Adt - Reason: Transfer to a Procedural area)1201 ([facility] Unhold - Provider: Admin Adt) 150 mg, Oral, NIGHTLY PRN, Starting Sat06/07/20 at 1649, Until Sat06/08/20 at 1805, Sleep, Routine verapamiL (ISOPTIN) injection (CANCELED) 1011 (Given - Provider: Roger José MD) ONCE PRN, Starting Sat06/08/20 at 1011, Until Sat06/08/20 at 1028, Administer over 2 Minutes, Cath (Intra-Procedure) documented in this encounter Care Teams Substation Operator Automatic Relationship Specialty Start Date End Date Reji Lopez MD PCP - General Internal Medicine 08/05/19 [address] [place] [address] documented as of this encounter
--- OUTSIDE RECORDS SUMMARY | 2022-04-23 11:45 | XMS_ITS | Encounter Summary ---
:1950 Author Organization [facility] [place] [address] Care Team Providers Name Role Phone Reji Lopez MD Primary Care Provider Encounter Details Date Type Department Care Team Description 01/24/2021 Telephone Cardiology at [facility] [place] [address] Social History Tobacco Use Types Packs/Day Years [...] on file documented as of this encounter Miscellaneous Notes Telephone Encounter - Olive Delaney LNA - 01/25/2021 9:57 AM EDT I spoke with Ms. Jama regarding her upcoming Visit with Dr. Cyr. She stated she will obtain a current WT & BP the day of the Visit. No recent hospitalizations/ED Visits. No recent Covid exposure/sickness. All medications and allergies have been completed by me today. *She has had both Covid Vaccinations, 2nd was completed on 01/20/21. documented in this encounter Plan of Treatment Not on filedocumented as of this encounter Visit Diagnoses Not on filedocumented in this encounter Care Teams Hearing Impaired Itinerant Teacher Relationship Specialty Start Date End Date Reji Lopez MD PCP - General Internal Medicine 08/05/19 [address] [place] [address] documented as of this encounter
--- OUTSIDE RECORDS SUMMARY | 2022-04-23 11:46 | XMS_ITS | Encounter Summary ---
:1950 Author Organization [facility] [place] [address] Care Team Providers Name Role Phone Taty River MD Primary Care Provider Encounter Details Date Type Department Care Team Description 06/20/2017 Hospital Encounter [place] [facility] [place] Kiley Landers Lumbar spondylosis [address] [place] [address] Dr Clancy, EVERARDO [facility] [id number] [place] [phone] [place] [address] Social History Tobacco Use Types Packs/Day Years Used Date Never Smoker Smokeless Tobacco: Never Used Alcohol Habits Answer Date Recorded How often [...] on file documented as of this encounter Medications at Time of Discharge Medication Sig Dispensed Refills Start Date End Date gabapentin (NEURONTIN) TAKE 1 TABLET BY MOUTH 0 0 05/29/2017 07/25/2017 300 mg Capsule NIGHTLY FOR 1 WEEK THEN 1 TABLET TWICE GUZMAN... (REFER TO PRESCRIPTION NOTES). levothyroxine Take 50 mcg by mouth 0 0 12/02/2018 (SYNTHROID) 50 mcg daily. Tablet traZODone (DESYREL) 50 Take 50 mg by mouth 0 08/15/2017 mg tablet nightly. 2 nightly ibuprofen Take 400-600 mg by 0 2019 (ADVIL;MOTRIN) 200 mg mouth every 6 hours as tablet needed. documented as of this encounter Plan of Treatment Not on filedocumented as of this encounter Procedures Procedure Name Priority Date/Time Associated Diagnosis Comme nts XR LUMBAR SPINE 2 Routine 06/20/2017 10:47 AM Lumbar spondylos is Results for this OR 3 VIEWS EDT procedure are i n the results section. documented in this encounter Results XR Lumbar Spine 2 Or 3 Views (Generic) (06/20/2017 10:47 AM EDT) Anatomical Region Laterality Modality L-spine N/A Digital Radiography Specimen (Source) Anatomical Location Collection Method / Collectio n Time Received Time / Laterality Volume Impressions 06/20/2017 10:50 AM EDT Degenerative disc disease and degenerative facet arthropathy L to 3 through L4-5, most pronounced at L2-3. Scoliosis convex right centered at L2-3. No evidence for fracture or acute injury Narrative 06/20/2017 10:50 AM EDT EXAMINATION: XR LUMBAR SPINE 2 OR 3 VIEWS (GENERIC) CLINICAL HISTORY: Chronic low back pain, worsening TECHNIQUE: Lumbar spine 2 views COMPARISON: MRI 01/01/2012 FINDINGS: Standing AP and lateral views of the lum bar spine were obtained. There is a moderate scoliosis of the lumbar spine c onvex to the right centered at L2-3. There is asymmetric disc space narrowing L2-3, L3-4, L4-5 consistent with degenerative disc disease. There are fac et joint sclerotic degenerative changes on the left side at L to 3 and L3-4. Ped icles do appear intact with no focal osteolytic or blastic changes noted. Emory tebral body heights are maintained, no fracture is seen. The lower thoracic emory tebra also appear intact. Sacroiliac joints are symmetrical and unremarkable on the AP view. A considerable amount stool seen through out the large bowel Procedure Note Lino Foster MD - 06/20/2017Format ting of this note might be different from the original. EXAMINATION: XR LUMBAR SPINE 2 OR 3 VIEW S (GENERIC) CLINICAL HISTORY: Chronic low back pain, worsening TECHNIQUE: Lumbar spine 2 views COMPARISON: MRI 01/01/2012 FINDINGS: Standing AP and lateral views of the lum bar spine were obtained. There is a moderate scoliosis of the lumbar spine c onvex to the right centered at L2-3. There is asymmetric disc space narrowing L2-3, L3-4, L4-5 consistent with degenerative disc disease. There are fac et joint sclerotic degenerative changes on the left side at L to 3 and L3-4. Ped icles do appear intact with no focal osteolytic or blastic changes noted. Emory tebral body heights are maintained, no fracture is seen. The lower thoracic emory tebra also appear intact. Sacroiliac joints are symmetrical and unremarkable on the AP view. A considerable amount stool seen through out the large bowel IMPRESSION Degenerative disc disease and degenerati ve facet arthropathy L to 3 through L4-5, most pronounced at L2-3. Scoliosis convex right centered at L2-3. 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
--- OUTSIDE RECORDS SUMMARY | 2022-04-23 11:46 | XMS_ITS | Encounter Summary ---
:1950 Author Organization [facility] [place] [address] Care Team Providers Name Role Phone Rere Alcocer APRN Primary Care Provider [phone] Encounter Details Date Type Department Care Team Description 12/01/2018 Orders Only Cardiology at [facility] Roger Cyr, Chest pain, [facility] unspecified type Drive [facility] (Primary Dx) [place] [address] [place] [address] Social History Tobacco Use Types Packs/Day Years [...] on file documented as of this encounter Plan of Treatment Not on filedocumented as of this encounter Results EKG 12 Lead (12/02/2018 3:58 PM EST) [facility] Method Time Signature Ventricular rate 66 BPM MUSE SYSTEM Atrial Rate 66 BPM MUSE SYSTEM P-R Interval 162 ms MUSE SYSTEM QRS Duration 80 ms MUSE SYSTEM Q-T Interval 398 ms MUSE SYSTEM QTC Calculated 417 ms MUSE SYSTEM (Bezet) Calculated P [place] 37 degrees MUSE SYSTEM Calculated R [place] 46 degrees MUSE SYSTEM Calculated T [place] 61 degrees MUSE SYSTEM INTERPRETATION Normal sinus rhythm MUSE SYSTEM Normal ECG No previous ECGs available Confirmed by MD Jaleel, Wander Gramajo ([id number]) on 12/04/2018 8: 30:48 AM Specimen Anatomical Collection Method Collection Time Receive d Time (Source) Location / / Volume Laterality 12/02/2018 3:58 PM 8:30 EST AM EST Roger Cyr MD ECG ORDERABLES Performing Organization Address City/State/ZIP Code Phon e Number MUSE SYSTEM documented in this encounter Visit Diagnoses Diagnosis Chest pain, unspecified type - Primary documented in this encounter Care Teams Director Of Business Services Relationship Specialty Start Date End Date Rere Alcocer APRN PCP - General Family Medicine 11/13/18 07/08/19 [address] [place] [address] documented as of this encounter
--- OUTSIDE RECORDS SUMMARY | 2022-04-23 11:46 | XMS_ITS | Encounter Summary ---
:1950 Author Organization [facility] [place] [address] Care Team Providers Name Role Phone Reji Lopez MD Primary Care Provider Reason for Visit Reason Comments Backache Encounter Details Date Type Department Care Team Description 04/23/2012 Procedure visit [facility] Management [place] [facility] [place] [facility] ([facility]inoza) [place], [place] [facility] [id number] [address] [phone] Social History Tobacco Use Types Packs/Day Years Used Date Never Smoker Alcohol Habits Answer Date Recorded How often [...] Sign Reading Time Taken Comments Blood Pressure 129/72 04/23/2012 11:16 AM EDT Pulse 37 04/23/2012 11:16 AM EDT Temperature - - Respiratory Rate 16 04/23/2012 11:16 AM EDT Oxygen Saturation 98% 04/23/2012 11:16 AM EDT Inhaled Oxygen Concentration - - Weight 82.6 kg (182 lb) 04/23/2012 10:59 AM EDT Height 165.1 cm (5' 5) 04/23/2012 10:59 AM EDT Body Mass Index 30.29 04/23/2012 10:59 AM EDT documented in this encounter Patient Instructions Patient InstructionsBlanca Guardado LPN - 04/23/2012 11:07 AM EDT Pain Management Center Discharge Instructions: You were seen by Dr. Coby Manuel MD who performed transforaminal injection. [x] You may resume your normal activities: tomorrow. You may shower today. DO NOT tub bathe, use whirlpools, hot tubs or pool therapy for 2 days. Remove Band-Aid(s) later today/tomorrow. Do not drive until tomorrow. Use caution walking/climbing stairs as you may be unsteady on your feet. You may use your usual medications, including pain medications, as directed, unless otherwise instructed. You may use an ice pack as needed for the first 24 hours, on for 20 minutes then off for 20 minutes.Do not apply heat today. Attempt to empty your bladder 4-6 hours after your procedure. You received the following medications: Depo-Medrol 60 mg, Lidocaine and Omnipaque (contrast dye). During regular business hours, please phone the Pain Management Center at for appointments or with any questions or if the following or other troubling symptoms develop: 1) Prolonged dizziness or weakness (more than 1 day). 2) Localized swelling, redness or drainage at the injection site(s). 3) Temperature of 101 degrees that lasts for more than 4 hours. After 5 PM or on weekends, call and ask for Pain Clinic provider on-call. If you are unable to reach the Pain Management Center and have a complication, please call your Primary Care Provider or proceed to your local emergency department. Blanca Guardado LPN Special instructions documented in this encounter Progress Notes Blanca Guardado LPN - 04/23/2012 11:01 AM EDT Pre-Procedure Screening Questions: 1. Status: No 2. 3. Patient states they have a livery car driver to transport after procedure? Yes 4. Patient taking antibiotics at present? No 5. NPO per Pain Management Center protocol? No 6. 7. Patient diabetic: No __ borderline (not treated with medications) __ managed with oral medications __ managed with injected medications 8. Patient routinely taking anticoagulants ? No Date stopped Current INR Patient Vital Signs documented in Doc Flowsheets associated with this encounter. Patient Discharge Instructions were reviewed with patient and copy provided to patient. documented in this encounter Procedure Notes Coby Manuel MD - 04/23/2012 11:25 AM EDTAssociated Order(s): TRANSFORAMINAL INJECTION Pre-Procedure Diagnose(s): Lumbosacral spondylosis without myelopathy LUMBAR / SACRAL TRANSFORAMINAL INJECTION Date of Service: 04/23/2012 Patient: Vick Jama Provider: COBY MANUEL MD Vick Jama has been referred to the Pain Management Center for a transforaminal nerve root blockand steroid injection. COMMENTS: The pt had good relief from the previous MIKE for her LBP and LLE pain. Ms. Jama was interviewed and the medical record reviewed. There were no medical, pharmacologic,radiographic or other structural contraindications to attempting fluoroscopically guided transforaminal nerve root block and epidural steroid injection. Risks and expected side effects as well as potential benefit of the procedure were reviewed withMs. Jama , and her voiced concerns addressed. The printed consent form was signed and witnessed. Standard time-out procedure was performed. Ms. Jama was placed in the prone position on the fluoroscopy table and automated blood pressurecuff and pulse oximeter applied. Fluoroscopy was utilized to identify the left neural foramen between L3 and L4 . A skin scar was made for the needle insertion site. A Chlorhexadine prep was carried out, and sterile drapes were applied. Local anesthesia was achieved in the skin and subcutaneous tissues. A 22 gauge curved tip spinal needle was then inserted, advanced with fluoroscopic guidance into the neural foramen, confirmed on the lateral view. After negative aspiration, 1 ml of Omnipaque 240 was injected confirming position in A/P and lateral views. This showed a good spread of dye transforaminally into the epidural space. There was no vascular update with contrast injection under continuous fluoroscopy. 60 mg of Depo-Medrol was injected, followed by 1 ml of 1% Xylocaineflush for the nerve root block, as well. There was no unusual discomfort expressed by Ms. Jama . The needle was withdrawn. The patient tolerated the procedure well. A Band-Aid was applied. Ms. Jama's vital signs were stable throughout the procedure and were as recorded in nursing records. If given, dosages of intravenous drugs for anxiolysis and analgesia were documented in nursing records. Follow up plans and appointments were discussed with Ms. Jama. Post procedure instruction was given as documented in nursing records and she was discharged in the care of an identified livery car driver. COMMENTS: She will f/u prn. I gave her a prescription for hydrocodone 5/500 # 30 for her upcoming trip in case of emergency. CC: REJI LOPEZ MD @PCPADD@ documented in this encounter Miscellaneous Notes Miscellaneous - Tereso, Rn Psychiatric - 04/29/2012 7:23 PM EDT documented in this encounter Plan of Treatment Not on filedocumented as of this encounter Procedures Procedure Name Priority Date/Time Associated Comments Diagnosis TRANSFORAMINAL Routine 04/23/2012 11:25 Lumbosacral Results f or this INJECTION AM EDT spondylosis without procedur e are in myelopathy the results section. documented in this encounter Results TRANSFORAMINAL INJECTION (04/23/2012 11:25 AM EDT) Narrative Coby Manuel MD - 04/23/2012 11:25 A M EDT LUMBAR / SACRAL TRANSFORAMINAL INJECTION Date of Service: ??04/23/2012 Patient: ??Vick Jama ?? [id number] Provider: ??MD Vick PARIS ??has been referred to [facility] for a transforaminal nerve root block and ster oid injection. ?? COMMENTS: The pt had good relief from th e previous MIKE for her LBP and LLE pain. Ms. Jama was interviewed and the dc dical record reviewed. ??There were no medical, pharmacologic, radiographic or other structural contraindications to attempting fluorosc opically guided transforaminal nerve root block and epidural steroid in jection. ??Risks and expected side effects as well as potential benefit of the procedure were reviewed withMs. Jama , and her voiced pooja rns addressed. ??The printed consent form was signed and witnessed. ? ?Standard time-out procedure was performed. Ms. Jama was placed in the prone po sition on the fluoroscopy table and automated blood pressure cuff and pu lse oximeter applied. ??Fluoroscopy was utilized to identify the left neural foramen between L3 and L4 . ??A s kin scar was made for the needle insertion site. ??A Chlorhexadine prep w as carried out, and sterile drapes were applied. ??Local anesthesia was ach ieved in the skin and subcutaneous tissues. ??A 22 gauge curved tip spinal needle was then inserted, advanced with fluoroscopic guidance into the neur al foramen, confirmed on the lateral view. ??After negative aspiratio n, 1 ml of Omnipaque 240 was injected confirming position in A/P and lateral views. ??This showed a good spread of dye transforaminally into the epidural space. ??There was no vascular update with contrast injection under continuous fluoroscopy. 60 mg of Depo-Medrol was injected, followed by 1 ml of 1% Xylocaine flush for the nerve root block, as well. ??There w as no unusual discomfort expressed by Ms. Jama . ??The needle was with drawn. The patient tolerated the procedure well. ??A Band-Aid was applied . Ms. Jama's vital signs were stable throughout the procedure and were as recorded in nursing records. ??If giv en, dosages of intravenous drugs for anxiolysis and analgesia were docume nted in nursing records. Follow up plans and appointments were di scussed with Ms. Jama. ??Post procedure instruction was given as docum ented in nursing records and she was discharged in the care of an identif ied livery car driver. COMMENTS: She will f/u prn. I gave her a prescription for hydrocodone 5/500 # 30 for her upcoming trip in case of emergency. CC: REJI LOPEZ MD @PCPADD@ Procedure Note Coby Manuel MD - 04/23/2012 11:25 A M EDT LUMBAR / SACRAL TRANSFORAMINAL INJECTION Date of Service: 04/23/2012 Patient: Vick Jama Provider: COBY AMNUEL MD Vick Jama has been referred to the Pain Management Center for a transforaminal nerve root block and steroid injection. COMMENTS: The pt had good relief from th e previous MIKE for her LBP and LLE pain. Ms. Jama was interviewed and the dc dical record reviewed. There were no medical, pharmacologic, radiographic or other structural contraindications to attempting fluoroscopically guided transforaminal nerve root block and epidural steroid in jection. Risks and expected side effects as well as potential benefit of the procedure were reviewed withMs. Jama , and her voiced concerns addressed. The printed consent form was signed and witnessed. S tandard time-out procedure was performed. Ms. Jama was placed in the prone po sition on the fluoroscopy table and automated blood pressure cuff and pulse oximeter applied. Fluoroscopy was utilized to identify the left neural foramen between L3 and L4 . A ski n scar was made for the needle insertion site. A Chlorhexadine prep was carried out, and sterile drapes were applied. Local anesthesia was achieved in the skin and subcutaneous tissues. A 22 gauge curved tip spinal ne edle was then inserted, advanced with fluoroscopic guidance into the neural foramen, confirmed on the lateral view. After negative aspiration, 1 ml of Omnipaque 240 was injected confirming position in A/P and lateral views. This showed a good spread of dye transforaminally into the epidural space. There was no vascular update with contrast injection under continuous fluoroscopy. 60 mg of Depo-Medrol was injected, followed by 1 ml of 1% Xylocaine flush for the nerve root block, as well. There was no unusual discomfort expressed by Ms. Jama . The needle was withdrawn. The patient tolerated the procedure well. A Band-Aid was applied. Ms. Whiteheads vital signs were stable throughout the procedure and were as recorded in nursing records. If given, dosages of intravenous drugs for anxiolysis and analgesia were documented in nursing records. Follow up plans and appointments were di scussed with Ms. Dupreeard. Post procedure instruction was given as documented in nursing records and she was discharged in the care of an identified livery car driver. COMMENTS: She will f/u prn. I gave her a prescription for hydrocodone 5/500 # 30 for her upcoming trip in case of emergency. CC: REJI LOPEZ MD @PCPADD@ Coby Manuel MD PROCEDURE/MINOR SURGICAL ORD ERABLES documented in this encounter Visit Diagnoses Diagnosis Lumbosacral spondylosis without myelopat hy - Primary documented in this encounter Administered Medications Inactive Administered Medications - up to 3 most recent administrations Medication Order MAR Action Action Date Dose Rate Site iohexol (OMNIPAQUE) injection 1 mL Given 04/23/2012 11:15 AM EDT 1 mL 1 mL, Epidural, ONCE, 1 dose, On Sat04/23/12 at 1115, Wasted 49 ml, Routine methylPREDNISolone acetate (depo-MEDROL) Given 04/23/2012 11:15 AM EDT 60 mg injection 40 mg 40 mg, Intramuscular, ONCE, 1 dose, On Sat04/23/12 at 1115, Routine documented in this encounter Care Teams Business Strategist Relationship Specialty Start Date End Date Reji Lopez MD PCP - General 01/14/12 11/16/13 [address] [place] [address] documented as of this encounter
--- OUTSIDE RECORDS SUMMARY | 2022-04-23 11:46 | XMS_ITS | Encounter Summary ---
:1950 Author Organization [facility] [place] [address] Care Team Providers Name Role Phone Reji Lopez MD Primary Care Provider Reason for Referral Diagnostic Test (Routine) - Closed Specialty Diagnoses / Procedures Referred By Contact Refer red To Contact Radiology Diagnoses Chronic bilateral low back pain with left-sided sciatica Left lumbar radiculitis Lumbosacral spondylosis without myelopathy Kati Crouch APRN [facility] Rad Mri Procedures MRI Lumbar Spine wo Contrast (Generic) [facility] [address] [place], [place] [id number] [place] [id number] Referral ID Status Reason Start Date Expiration Date Visits V isits Requested Authorized [id number] Closed Specialty 08/05/2019 10/03/2019 1 1 Service Requested Reason for Visit Diagnostic Test (Routine) - Closed Specialty Diagnoses / Procedures Referred By Contact Refer red To Contact Radiology Diagnoses Chronic bilateral low back pain with left-sided sciatica Left lumbar radiculitis Lumbosacral spondylosis without myelopathy Kati Crouch APRN [facility] Rad Mri Procedures MRI Lumbar Spine wo Contrast (Generic) 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 levothyroxine (SYNTHROID) Take 75 mcg by 0 2017 75 mcg Tablet mouth daily. traZODone (DESYREL) 100 mg Take 150 mg by 0 07/10 Tablet mouth nightly. clindamycin (CLEOCIN) 300 Take 300 mg by 0 201810/19/2019 mg Capsule mouth every 6 hours. ACIDOPHILUS Capsule Take 30 mg by 0 08/01/2019 mouth daily. After meal magnesium oxide (MAG-OX) Take 400 mg by 0 019 10/19/2019 400 mg (241.3 mg magnesium) mouth daily. Tablet ibuprofen (ADVIL;MOTRIN) Take 400-600 mg by 0 06/08/2020 200 mg tablet mouth every 6 hours as needed. documented as of this encounter Plan of Treatment Not on filedocumented as of this encounter Procedures Procedure Name Priority Date/Time Associated Diagnosis Comme nts MRI LUMBAR SPINE Routine 08/12/2019 7:33 AM Chronic bilateral Results for this WITHOUT CONTRAST EDT low back pain with proce dure are in left-sided sciat ica the results Left lumbar section. radiculitis Lumbosacral spondylosis without myelopathy documented in this encounter Results MRI Lumbar Spine wo Contrast (Generic) (08/12/2019 7:33 AM EDT) Anatomical Region Laterality Modality L-spine Magnetic Resonance Specimen (Source) Anatomical Location Collection Method / Collectio n Time Received Time / Laterality Volume Impressions 08/12/2019 9:20 AM EDT Multilevel lumbar spine degenerative changes. Foraminal narrowing is most pronounced at L3-L4 as above. Compared t o the previous study of 2011, the degenerative changes have progressed. Comment: The Following Findings Are So C ommon In People Without Low Back Pain That While We Report Their Presence, The y Must Be Interpreted With Caution And In Context Of The Clinical Situation (Re eliseo- Mitch Et Al, Spine 2001). Findings: (Prevalence In Patients Withou t Low Back Pain), Disc Degeneration (Decreased T2 Signal, Height Loss, Bulge ) (91%), Disc T2-Signal Loss (83%), Disc Height Loss (56%), Disc Bulge (64%), Dis c Protrusion (32%), Annular Fissure (38%). Thank you for letting us participate in the care of this patient. For questions regarding this report, please contact e number below. ? Narrative 08/12/2019 9:20 AM EDT EXAMINATION: MRI LUMBAR SPINE WO CONTRAST (GENERIC) CLINICAL HISTORY: Low back pain for more than 6 months with left lower extremity radicular symptoms TECHNIQUE: MRI of the lumbar spine performed withou t intravenous contrast administration. COMPARISON: Plain films 06/20/2017, MR 01/01/2012 FINDINGS: Levoconvex rotatory curvature is centere d at L2-L3. Irregular osseous lesion in the S2 segment on the left is unchanged and probably represents abnormality. There is no focal, aggressive appearing marrow lesion. The normal appearing conus terminates at L2. Visualized retro peritoneal structures are unremarkable. Findings at specific levels: L1-L2: There is mild disc bulging and fa cet arthropathy with mild bilateral foraminal narrowing. Mild overall centra l canal narrowing. Findings are similar to the previous study. L2-L3: There is loss of disc height with endplate irregularity, worse on the left than on the right. Disc bulge, endp late osteophyte, and facet arthropathy contribute to moderate left and mild rig ht foraminal narrowing. There is narrowing of the subarticular recess, wo rse on the left on the right with disc degenerative contacting the traversing l eft L3 root. Mild to moderate overall central canal narrowing. Compared to the previous study, the degenerative changes at this level of progress. L3-L4: There is loss of disc height, wor se on the left than on the right with endplate irregularity. Disc bulge with s uperimposed left protrusion, endplate S to I, and facet arthropathy produce barbara re left and mild to moderate right foraminal narrowing. There is moderate c entral canal stenosis with narrowing of the bilateral subarticular recess. Mayank red to the previous study, findings have progressed. L4-L5: Disc bulge, redundancy of ligamen jailyn flavum, and facet arthropathy produce mild to moderate central canal n arrowing. There is moderate to severe right and mild left foraminal narrowing. Findings are similar to the prior study. L5-S1: Is bilateral facet arthropathy wi th facet effusions. Facet arthropathy contribute to moderate right foraminal n arrowing. Mild overall central canal narrowing. Procedure Note Kristopher Lee MD - 08/12/2019Format ting of this note might be different from the original. EXAMINATION: MRI LUMBAR SPINE WO CONTRAS T (GENERIC) CLINICAL HISTORY: Low back pain for more than 6 months with left lower extremity radicular symptoms TECHNIQUE: MRI of the lumbar spine performed withou t intravenous contrast administration. COMPARISON: Plain films 06/20/2017, MR 01/01/2012 FINDINGS: Levoconvex rotatory curvature is centere d at L2-L3. Irregular osseous lesion in the S2 segment on the left is unchanged and probably represents abnormality. There is no focal, aggressive appearing marrow lesion. The normal appearing conus terminates at L2. Visualized retro peritoneal structures are unremarkable. Findings at specific levels: L1-L2: There is mild disc bulging and fa cet arthropathy with mild bilateral foraminal narrowing. Mild overall centra l canal narrowing. Findings are similar to the previous study. L2-L3: There is loss of disc height with endplate irregularity, worse on the left than on the right. Disc bulge, endp late osteophyte, and facet arthropathy contribute to moderate left and mild rig ht foraminal narrowing. There is narrowing of the subarticular recess, wo rse on the left on the right with disc degenerative contacting the traversing l eft L3 root. Mild to moderate overall central canal narrowing. Compared to the previous study, the degenerative changes at this level of progress. L3-L4: There is loss of disc height, wor se on the left than on the right with endplate irregularity. Disc bulge with s uperimposed left protrusion, endplate S to I, and facet arthropathy produce barbara re left and mild to moderate right foraminal narrowing. There is moderate c entral canal stenosis with narrowing of the bilateral subarticular recess. Mayank red to the previous study, findings have progressed. L4-L5: Disc bulge, redundancy of ligamen jailyn flavum, and facet arthropathy produce mild to moderate central canal n arrowing. There is moderate to severe right and mild left foraminal narrowing. Findings are similar to the prior study. L5-S1: Is bilateral facet arthropathy wi th facet effusions. Facet arthropathy contribute to moderate right foraminal n arrowing. Mild overall central canal narrowing. IMPRESSION Multilevel lumbar spine degenerative jose nges. Foraminal narrowing is most pronounced at L3-L4 as above. Compared t o the previous study of 2011, the degenerative changes have progressed. Comment: The Following Findings Are So C ommon In People Without Low Back Pain That While We Report Their Presence, The y Must Be Interpreted With Caution And In Context Of The Clinical Situation (Re eliseo- Mitch Et Al, Spine 2001). Findings: (Prevalence In Patients Withou t Low Back Pain), Disc Degeneration (Decreased T2 Signal, Height Loss, Bulge ) (91%), Disc T2-Signal Loss (83%), Disc Height Loss (56%), Disc Bulge (64%), Dis c Protrusion (32%), Annular Fissure (38%). Thank you for letting us participate in the care of this patient. For questions regarding this report, please contact e number below. Electronically signed by: ROHAN Steven Replaced By [facility] ([phone]), at 08/12/2019 9:20 AM Kati Crouch EXCHANGE ENGINEER IMG MRI ORDERABLES documented in this encounter Visit Diagnoses Diagnosis Chronic bilateral low back pain with lef t-sided sciatica Left lumbar radiculitis Thoracic or lumbosacral neuritis or radi culitis, unspecified Lumbosacral spondylosis without myelopat hy documented in this encounter Care Teams Train Examiner Relationship Specialty Start Date End Date Reji Lopez MD PCP - General Internal Medicine 08/05/[address] [place] [phone] documented as of this encounter
--- OUTSIDE RECORDS SUMMARY | 2022-04-23 11:46 | XMS_ITS | Encounter Summary ---
:1950 [place] [address] Care Team Providers Name Role Phone Taty River MD Primary Care Provider Reason for Visit Reason Onset Date Comments Pre Procedure Call 09/13/2017 Encounter Details Date Type Department Care Team Description 09/13/2017 Telephone Pain Management at Herminia Martinez [place] [address] Social History Tobacco Use Types Packs/Day [...] this encounter Miscellaneous Notes Telephone Encounter - Herminia Martinez RN - 09/13/2017 2:52 PM EST Vick Jama :1950 Contact made with patient: I spoke to Ms. Jama at 2:52 PM regarding her upcoming Bilateral lumbar radiofrequency scheduledon 09/17/17 (date) scheduled at 0730 (time) with Dr. Jesús Matthews MD. Medication and Allergy reconciliation: 1. Changes were made in the telephone encounter per patient; marked as reviewed, and closed. 2. Patient confirmed no IVP dye allergy. 3. Have you had any steroid injections anywhere in your body within the last two weeks? no Arrival time: The patient was instructed to arrive at 0700 (30 minutes prior to procedure start time - 60 minutes prior for RF patients with a pacemaker) on 09/17/17 (date of procedure). Tar And Ammonia Pump Operator: The patient was reminded that they need to have a route relief driver accompany them to her procedure who will remain onsite. Antibiotics/Skin assessment/Illness symptoms/Pain level assessment : 1. The patient confirmed that she is not taking antibiotics at this time. 2. The patient confirmed that she does not have any rashes, blisters, or skin breakdown on their body. 3. The patient confirmed that she does not have any active infections. 4. The patient confirmed that she does not have any symptoms of illness: fever, chills, cold, flu, nausea, vomiting. 5. The patient confirmed that she isstill experiencing significant pain. (Significant pain is defined as interfering with performing ADL.) Pain and Anti-anxiety Medications: 1. Nerve Block Procedure Patients: Patient was instructed NOT to take their pain medications on the day of the procedure and anti-anxiety medications are part of their daily medication regiment; they can and should continue taking that medication. 2. All Other Procedure Patients: The patient was instructed that if they take daily pain or anti-anxiety medications, they can and should continue taking on the day of the procedure. Does patient have history of any diagnosed bleeding disorders: No Anticoagulants: No NPO instructions NOT given to patient. Patient prefers to decline IV anxiolysis. Implant: Patient has pacemaker/defibrillator: No Prior to checking in at [employer] [facility] [employer], please be sure to empty your bladder. Patient confirmed understanding that if they do not follow the above their instructions, their procedure is likely to be cancelled. Herminia Martinez RN documented in this encounter Plan of Treatment Not on filedocumented as of this encounter Visit Diagnoses Not on filedocumented in this encounter Care Teams Ob Nurse Relationship Specialty Start Date End Date Taty River MD PCP - General 11/17/13 11/12/[address] [place] [id number] documented as of this encounter
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
--- OUTSIDE RECORDS SUMMARY | 2022-04-23 11:46 | XMS_ITS | Encounter Summary ---
:1950 Author Organization [facility] [place] [address] Care Team Providers Name Role Phone Reji Lopez MD Primary Care Provider Encounter Details Date Type Department Care Team Description 10/07/2019 Telephone Gastroenterology at [facility] [place] [address] Social History Tobacco Use Types Packs/Day Years [...] this encounter Miscellaneous Notes Telephone Encounter - Nikole Salcedo - 10/07/2019 12:51 PM EST Vick Jama [id number] Diagnosis: Flex Sig 1. Have you ever had a Flex Sig before? [] YES [x] NO If Yes, Date of Last Flex sig: If yes, did you have any problems with the procedure? [] YES [x] NO Explain: What type of sedation was used: 2. Do you take any Blood Thinners? [] YES [x] NO If Yes, type: 3. Do you have a Pacemaker or Defibrillator device? [] YES [x] NO If Yes send [facility] message to [facility] ENDO DEVICE CHECK 4. Are you a diabetic? [] YES [x] NO If yes, controlled by meds or diet? 5. Do you have any Allergies to Eggs, Latex or Medications? [x] YES [] NO If Yes, what:___SEE ED 6. Do you take any Oral Iron Supplements (Including multi vitamins)? [] YES [x] NO 7. Do you have a history of three or more abdominal surgeries? [] YES [x] NO 8. Have you had a problem with sedation or anesthesia? [] YES [x] NO 9. Do you have a c-pap machine or oxygen tank? [] C-PAP [] Oxygen [x] NO 10. Do you take prescription narcotic pain medications? [] YES [x] NO 11. You must have a responsible green party stay at the facility during your procedure and drive you home? [x] YES 12. Is there any other information you would like to give us to aid in scheduling? Height: 5'5 24.8___ Age:69 y.o. documented in this encounter Plan of Treatment Not on filedocumented as of this encounter Visit Diagnoses Not on filedocumented in this encounter Care Teams Photographic Restorer Relationship Specialty Start Date End Date Reji Lopez MD PCP - General Internal Medicine 08/05/19 [address] [place] [address] documented as of this encounter
--- OUTSIDE RECORDS SUMMARY | 2022-04-23 11:46 | XMS_ITS | Encounter Summary ---
:1950 [place] [address] Care Team Providers Name Role Phone Reji Lopez MD Primary Care Provider Reason for Visit Auth/Cert Specialty Diagnoses / Procedures Referred By Contact Refer red To Contact Diagnoses Left lower extremity radicular pain Procedures PRO DSTR PARAVERTEBRAL FCT JNT NRVES LUMBAR OR SACRAL SINGLE PRO DSTR PARAVERTEBRAL FCT JNT NRVES LUMBAR OR SACRAL ADDL RADIOFREQUENCY ABLATION,SINGLE FACET JOINT,LUMBAR (WRVU 3.78) RADIOFREQUENCY ABLATION,EACH ADD'L FACET JOINT,L UMBAR/SACRAL (WRVU 1.16) Referral ID Status Reason Start Date Expiration Date Visits Requ ested Visits Authorized [id number] 1 1 Encounter Details Date Type Department Care Team Description 09/28/2019 Ancillary Procedure Pain Management Ken Hallman, Pain [facility] [address] [place] [address] [place] [address] [phone] (Wo rk) Social History Tobacco Use Types [...] Name Priority Date/Time Associated Diagnosis Comme nts FILM LIBRARY Routine 09/28/2019 3:44 PM Pain Results f or this STORAGE ONLY PAIN EST procedure are in CLINIC [facility] the results section. documented in this encounter Results Film Library- Storage Only pain Clinic [facility] (09/28/2019 3:44 PM EST) Specimen (Source) Anatomical Location Collection Method / Collectio n Time Received Time / Laterality Volume Narrative RAD - 09/28/2019 3:44 PM EST See PACS for result report. Alexus Smith MD [facility] FILM LIBRARY ORDERABLES Performing Organization Address City/State/ZIP Code Phon e Number [place], [place] documented in this encounter Visit Diagnoses Diagnosis Pain Generalized pain documented in this encounter Care Teams Functional Consultant Relationship Specialty Start Date End Date Reji Lopez MD PCP - General Internal Medicine 08/05/19 [address] [place] [address] documented as of this encounter
--- OUTSIDE RECORDS SUMMARY | 2022-04-23 11:46 | XMS_ITS | Encounter Summary ---
:1950 [place] [address] Care Team Providers Name Role Phone Taty River MD Primary Care Provider Reason for Referral Surgical (Routine) - Specialty Diagnoses / Procedures Referred By Contact Refer red To Contact Diagnoses Spondylosis of lumbar region without myelopathy or radiculopathy Jeanie Middleton, DO Procedures RADIOFREQUENCY-LUMBAR/SACRAL [facility] [place] [address] Referral ID Status Reason Start Date Expiration Date Visits V isits Requested Authorized [id number] Consult, 09/17/2017 09/17/2018 1 1 Test & Treat Reason for Visit Reason Comments Back Pain Surgical (Routine) - Closed Specialty Diagnoses / Procedures Referred By Contact Refer red To Contact Pain Management Diagnoses Bilateral RFA (NPO) Taty River MD Vrooman, Bruce M, MD Procedures PRO DSTR PARAVERTEBRAL FCT JNT NRVES LUMBAR OR SACRAL SINGLE PRO DSTR PARAVERTEBRAL FCT JNT NRVES LUMBAR OR SACRAL ADDL PRO DSTR PARAVERTEBRAL FCT JNT NRVES LUMBAR OR SACRAL ADDL PROCEDURE [address] [place] [address] [place] [address] Phone: Fax: Referral ID Status Reason Start Date Expiration Date Visits Requ ested Visits Authorized [id number] Closed 09/17/2017 09/17/2018 1 1 Encounter Details Date Type Department Care Team Description 09/17/2017 Procedure visit Pain Management at [facility] of lumbar [facility] MD [place] region without [facility] myelopath y or [address] chavis (Primary [place], [place] PAIN MANAGEMENT Dx) [id number] [place], [place] [phone] Social History Tobacco Use Types Packs/Day Years [...] Sign Reading Time Taken Comments Blood Pressure 105/74 09/17/2017 8:00 AM EST Pulse 64 09/17/2017 8:00 AM EST Temperature - - Respiratory Rate 16 09/17/2017 8:00 AM EST Oxygen Saturation 97% 09/17/2017 8:00 AM EST Inhaled Oxygen Concentration - - Weight 64.9 kg (143 lb) 09/17/2017 7:31 AM EST Height 165.1 cm (5' 5) 09/17/2017 7:31 AM EST Body Mass Index 23.8 09/17/2017 7:31 AM EST documented in this encounter Patient Instructions Patient InstructionsBlanca Guardado LPN - 09/17/2017 7:30 AM EST [facility] Discharge Instructions: You were seen by Dr. Jesús Matthews MD and Jeanie Middleton DO who performed Batr. lumbar radiofrequency. It is normal that the injection site will be sore for up to 48 hours. You may also experience mild stiffness in the joint near the injection site. [x] You may resume your normal activities: [...] your procedure. You received the following medications: Lidocaine and Bupivacaine. During regular business hours, please phone the Pain Management Center at with any questions or if the following [...] encounter Progress Notes Blanca Guardado LPN - 09/17/2017 7:30 AM EST Pre-Procedure Screening Questions: 1. Status: No 2. 3. Patient states they have a driver starting gate to transport after procedure? Yes 4. Patient [...] with patient and copy provided to patient. Jesús Matthews MD - 09/17/2017 7:30 AM EST I have seen and examined the patient and reviewed the fellow's above history and I agree with the details as written. I was the attending physician supervising the fellow in the above care and I was present with the fellow for the entire procedure. Jesús Matthews MD, MS Floor Representative of Anesthesiology [facility] [employer] [address] [phone] / [facility] documented in this encounter Procedure Notes Jeanie Middleton DO - 09/17/2017 7:30 AM ESTAssociated Order(s): RADIOFREQUENCY-LUMBAR/SACRAL Procedure(s): RADIOFREQUENCY-LUMBAR/SACRAL Pre-Procedure Diagnose(s): Spondylosis of lumbar region without myelopathy or radiculopathy LUMBAR/SACRAL MEDIAL BRANCH RADIOFREQUENCY Date of Service: 09/17/2017 Patient: Vick Jama Provider: Jeanie Middleton DO Vick Jama has been referred to the Pain Management Center for radiofrequency treatment of chronic axial back pain. Ms. Jama has had long standing back pain which is facet joint generated and which has been refractory to other therapies. Local anesthetic medial branch blocks resulted in Ms. Jama reporting a significant reduction of the usual axial component of pain for at least the duration of the local anesthetic effect. COMMENTS: Patient received excellent relief from lumbar medial branch blocks. Ms. Jama was interviewed and the medical record reviewed. There were no medical, pharmacologic,radiographic or other structural contraindications to attempting fluoroscopically guided radiofrequency treatment. Risks and expected side effects as well as potential benefit of the procedure were reviewed with Ms. Jama, and she voiced concerns addressed. The printed consent form was signed and witnessed. Standard time-out procedure was performed. Ms. Jama was placed in the prone position on the fluoroscopy table and automated blood pressurecuff and pulse oximeter applied. The skin entry points for approaching the anatomic target points ofthe segmental medial branches of bilaterally L3, L4 and L5-DR were identified with fluoroscopy and marked. Following thorough Chlorhexadine preparation of the skin and draping and 1% lidocaine infiltration of the skin entry points and subcutaneous tissues, a single 10 cm 18 guage curved needle with a 10mm active tip radiofrequency cannula was placed under fluoroscopic guidance along or across the anatomic course of each respective segmental medial branch. Each placement was stimulated at 2Hz withoutany evidence of distal myotomal stimulation. Prior to ablation, 1 cc of 2% lidocaine was injected ateach level. At each placement a continuous mode radiofrequency treatment was done at 80 degrees C for 90 secs and then rotated 180degrees and then repeated. Once the radiofrequency treatment was completed, 1 cc of 0.25% bupivacaine was injected at each level. This radiofrequency treatment should result in the denervation of the bilaterally L4-L5 and L5-S1. Atotal of 4 facets were expected to be denervated from today's treatment. Ms. Jama'howard vital signs were stable throughout the procedure and were as recorded in the docflowsheet by the nursing staff. If given, dosages of intravenous drugs for anxiolysis and analgesia were documented in the Medication Administration Record (MAR). Follow up plans and appointments were discussed with Vick Hernandeztchard. Post procedure instruction was given as documented in the nursing documentation and having met discharge criteria, she was discharged from the Pain Management Center. COMMENTS: No complications. Jeanie Middleton DO [facility] Pain Medicine Fellow CC: Taty River MD [address] [place] [phone] documented in this encounter Plan of Treatment Not on filedocumented as of this encounter Procedures Procedure Name Priority Date/Time Associated Diagnosis Comme nts RADIOFREQUENCY-LUM Routine 09/17/2017 8:50 AM Spondylosis of l umbar Results for this BAR/SACRAL EST region without procedure are in myelopathy or the results radiculopathy section. documented in this encounter Results RADIOFREQUENCY-LUMBAR/SACRAL (09/17/2017 8:50 AM EST) Narrative Jeanie Middleton DO - 09/17/2017 8:5 0 AM EST Jeanie Middleton, DO ? 09/17/2017 ??8:50 AM LUMBAR/SACRAL MEDIAL BRANCH RADIOFREQUEN CY Date of Service: ??09/17/2017 Patient: ??Vick Jama ?? MRN: ??[id number] Provider: ??Jeanie Middleton, DO Vick Jama has been referred to [facility] for radiofrequency treatment of chronic axial back pain. ??Ms. Jama has had long standing back shanelle n which is facet joint generated and which has been refractory to other therapies. ?? Local anesthetic medial branch blocks re sulted in Ms. Jama reporting a significant reduction of the usual axial component of pain for at least the duration of the lo isabela anesthetic effect. ?? COMMENTS: Patient received excellent rel ief from lumbar medial branch blocks. Ms. Jama was interviewed and the il dical record reviewed. ?? There were no medical, pharmacologic, ra diographic or other structural contraindications to attempti ng fluoroscopically guided radiofrequency treatment. ??Risks and expected side effects as well as potential benefit of the proc edure were reviewed with Ms. Jama, and she voiced concerns a ddressed. ??The printed consent form was signed and witnessed. ? ?Standard time-out procedure was performed. Ms. Jama was placed in the prone po sition on the fluoroscopy table and automated blood pressure cuff and pulse oximeter applied. ??The skin entry points for rafi roaching the anatomic target points of the segmental medial br anches of bilaterally L3, L4 and L5-DR were identified with ??fluo roscopy and marked. ?? Following thorough Chlorhexadine prepara tion of the skin and draping and 1% lidocaine infiltration of the skin entry points and subcutaneous tissues, a single 10 cm 18 guage curved needle with a 10mm active tip radiofrequency ca nnula was placed under fluoroscopic guidance along or across [facility] anatomic course of each respective segmental medial branch. ??Ea ch placement was stimulated at 2Hz ??without any evidence of distal myotomal stimulation. ??Prior to ablation, 1 cc o f 2% lidocaine was injected at each level. ??At each placem ent a continuous mode radiofrequency treatment was done at 80 degrees C for 90 secs and then rotated 180degrees and then repeate d. ??Once the radiofrequency treatment was completed, 1 cc of 0.25% bupivacaine was injected at each level. This radiofrequency treatment should res ult in the denervation of the bilaterally L4-L5 and L5-S1. ??A tot al of 4 facets were expected to be denervated from today's t reatment. Ms. Jama's vital signs were stable throughout the procedure and were as recorded in the docflowsheet by the nursing staff. ?? If given, dosages of intravenous drugs f or anxiolysis and analgesia were documented in the Medicat ion Administration Record (MAR). Follow up plans and appointments were di scussed with Vick Jama. ??Post procedure instruction was given as documented in the nursing documentation and having met discharge criteria, she was discharged from the Pain Management Center. COMMENTS: No complications. Jeanie Middleton DO [facility] Pain Medicine Fellow CC: Taty River MD [address] [place] [address] Jesús Matthews MD PROCEDURE/MINOR SURGICAL ORD ERABLES documented in this encounter Visit Diagnoses Diagnosis Spondylosis of lumbar region without mye lopathy or radiculopathy - Primary Lumbosacral spondylosis without myelopat hy documented in this encounter Administered Medications Inactive Administered Medications - up to 3 most recent administrations Medication Order MAR Action Action Date Dose Rate Site BUpivacaine (PF) (MARCAINE) 0.25 % Given 09/17/2017 8:30 AM EST 15 mg (2.5 mg/mL) injection 15 mg 15 mg, Subcutaneous, ONCE, 1 dose, On Sat09/17/17 at 0915, Routine lidocaine (XYLOCAINE) 20 mg/mL (2 %) Given 09/17/2017 8:30 AM ES T 120 mg injection 120 mg 120 mg (6 mL), Subcutaneous, ONCE, 1 dose, On Sat09/17/17 at 0915, Routine documented in this encounter Care Teams Operating Room Orderly Relationship Specialty Start Date End Date Taty River MD PCP - General 11/17/13 11/12/18 [address] [place], [place] [id number] documented as of this encounter
--- OUTSIDE RECORDS SUMMARY | 2022-04-23 11:46 | XMS_ITS | Encounter Summary ---
:1950 Author Organization [facility] [place] [address] Care Team Providers Name Role Phone Reji [...] Expiration Date Visits Requ ested Visits Authorized [id number] 1 1 Encounter Details Date Type Department Care Team Description 09/28/2019 Surgery Pain Management [facility] JOINT,LUMBAR (WRVU 3.78) [facility] [place] [address] [place] [address] [phone] (Wo rk) Social History Tobacco Use Types [...] Sign Reading Time Taken Comments Blood Pressure 103/73 09/28/2019 1:50 PM EST Pulse - - Temperature - - Respiratory Rate - - Oxygen Saturation 98% 09/28/2019 1:50 PM EST Inhaled Oxygen Concentration - - Weight - - Height - - Body Mass Index - - documented in this encounter Discharge Instructions Discharge InstructionsElina Rawls RN - 09/28/2019 2:14 PM EST Pain Management [facility] Discharge Instructions: You were seen today by Surgeon(s): Alexus Smith MD Kim, Jung H, MD The following was performed: Procedure(s) (LRB): RADIOFREQUENCY ABLATION,SINGLE FACET JOINT,LUMBAR (WRVU 3.78) (Bilateral) RADIOFREQUENCY ABLATION,EACH ADD'L FACET JOINT,LUMBAR/SACRAL (WRVU 1.16) (Bilateral) It is normal that the injection site will be sore for up to 48 hours. [x] You may also experience mild stiffness in the joint near the injection site. You may resume your normal activities: tomorrow. [...] for 20 minutes.Do not apply heat today. [x] You received medication through an intravenous line to lessen the anxiety/pain of your procedure. DO NOT operate heavy or dangerous equipment/tools, or sign important papers today. Attempt to empty your bladder 4-6 hours after your procedure. You received the following medications: Medications Given During Procedure Date/Time Order Dose Route Action 09/28/2019 1400 BUpivacaine (PF) (MARCAINE) 0.5 % (5 mg/mL) injection 13 mL Other Given 09/28/2019 1400 lidocaine (PF) (XYLOCAINE) 10 mg/mL (1 %) injection 13 mL Subcutaneous Given 09/28/2019 1326 midazolam (PF) (VERSED) injection 1 mg Intravenous Given During regular business hours, please phone the [...] or proceed to your local emergency department. Elina Rawls RN documented in this encounter Medications at Time of [...] as needed. documented as of this encounter H&P Notes Te Oropeza MD - 09/28/2019 12:56 PM EST Patient Name: Vick Jama Patient Age: 69 y.o. Birthdate: 1950 Admit date: 09/28/2019 Attending Physician: Alexus Smith MD PREPROCEDURE HISTORY AND PHYSICAL Date of Visit: September 28, 2019 Chief Complaint: LOCATION: across the lower back. HPI: Subjective Vick Jama is a 69 y.o. female who presents today for PROCEDURE: Bilateral L3,4,5 RFA . The history is obtained from the patient, and I have reviewed medical records provided by the referring physician and located in the electronic medical record to fill in gaps in the patient's recollection of events, treatments and outcomes. The patient denies any recent NSAID or anticoagulation. PAIN LEVEL AT REST 4/10 PAST MEDICAL HISTORY: Past Medical History: Diagnosis Date ??? Anxiety ??? Arthritis ??? Dysrhythmia, cardiac ??? Tennis elbow PAST SURGICAL HISTORY: Past Surgical History: Procedure Laterality Date ??? ABDOMEN SURGERY indigo-rectal abscess ??? HYSTERECTOMY ALLERGIES: Bactrim [sulfamethoxazole-trimethoprim] and Sulfa (sulfonamide antibiotics) MEDICATIONS: No current facility-administered medications on file prior to encounter. Current Outpatient Medications on File Prior to Encounter Medication Sig Dispense Refill ??? clindamycin (CLEOCIN) 300 mg Capsule Take 300 mg by mouth every 6 hours. 0 ??? ACIDOPHILUS Capsule Take 30 mg by mouth daily. After meal 0 ??? magnesium oxide (MAG-OX) 400 mg (241.3 mg magnesium) Tablet Take 400 mg by mouth daily. 0 ??? linaclotide (LINZESS) 145 mcg Capsule Take 145 mcg by mouth daily. ??? levothyroxine (SYNTHROID) 75 mcg Tablet Take 75 mcg by mouth daily. 0 ??? traZODone (DESYREL) 100 mg Tablet Take 150 mg by mouth nightly. 0 ??? ibuprofen (ADVIL;MOTRIN) 200 mg tablet Take 400-600 mg by mouth every 6 hours as needed. FAMILY HISTORY: Family History Problem Relation Age of Onset ??? Diabetes Mother ??? Diabetes Father SOCIAL HISTORY: Social History Socioeconomic History ??? Marital status: [...] file Gets together: Not on file Attends yazdanism service: Not on file Active member of [...] Social History Narrative ??? Not on file ROS: Pt denies recent fever, chills, infection, wounds, hospitalizations, ED visits, use of antibiotics. Otherwise, as described above. PHYSICAL EXAM: There were no vitals taken for this visit. Physical Exam Constitutional: He is oriented to person, place, and time. He appears well- developed and well-nourished. No distress. HENT: Head: Normocephalic and atraumatic. Pulmonary/Chest: Effort normal. Neurological: He is alert and oriented to person, place, and time. No cranial nerve deficit. Skin: Skin is warm and dry. No rash noted. He is not diaphoretic. Psychiatric: He has a normal mood and affect. His behavior is normal. RADIOLOGIC DATA: MRI reviewed LABS/DX RESULTS: Labs reviewed and no new labs pertinent to today's procedure ASSESSMENT: Assessment 1. Lumbosacral spondylosis without myelopathy PLAN: Proceed with Bilateral L3,4,5 RFA Te Oropeza M.D. Pain Management Fellow [address] [phone] / [facility] documented in this encounter Miscellaneous Notes Op Note - Alexus Smith MD - 09/28/2019 2:08 PM EST Pain Management Operative Note Patient Name: Vick Jama : [id number] MR#: [id number] Case Date: 09/28/2019 Surgeon: Surgeon(s) and Role: * Alexus Smith MD - Primary Present on Admission: ??? Lumbosacral spondylosis without myelopathy Postoperative diagnosis: same Procedure(s) (LRB): RADIOFREQUENCY ABLATION,SINGLE FACET JOINT,LUMBAR (WRVU 3.78) (Bilateral) RADIOFREQUENCY ABLATION,EACH ADD'L FACET JOINT,LUMBAR/SACRAL (WRVU 1.16) (Bilateral) PROCEDURE NOTE: Conventional Radiofrequency Neurolysis of Lumbar Medial Branch Nerves bilateral L-3,L-4 and L-5. (L4-L5 and L5-S1 ) Chief Complaint: back pain Diagnosis: 1. Lumbosacral spondylosis without myelopathy Preoperative Note Medial branch block testing results: Date: 09/01/19 Bupivacaine 0.5% Results: 90 % reduction in pain. Change in function: improved Significant improvement in provocative testing documented. Combined amount of pain relief was less than 6 weeks from both medial branch blocks. Vick Jama has been referred to the Pain Management Center for Conventional Radiofrequency Neurolysis of Medial Branch Nerve Blocks bilateral L-3, L-4 and L-5. (L4-L5 and L5-S1) Ms. Jama has had long standing back pain thought to be facet joint generated and which has beenrefractory to other therapies. Ms. Jama was interviewed and the medical record reviewed. There were no medical, pharmacologic,radiographic or other structural contraindications to attempting fluoroscopically guided interventional pain procedure. Risks and expected side effects as well as potential benefit of the procedure were reviewed with Ms. Jama, and her voiced concerns were addressed. (The procedure, risks, and benefits of Lumbar Medial Branch Nerve Radiofrequency Neurolysis were reviewed with the patient, including but not limited to: nerve injury, allergic reaction, infection, possible transient numbness from spread of local anesthesia to nerve roots, post radiofrequency neuritis. It was also discussed that itmay take up to 8 weeks for the full effect of the procedure. The patient appeared to understand, questions were answered and the patient agreed to proceed. ) The printed consent form was signed and witnessed. Standard time-out procedure was performed. Vick Jama was greeted by the nurse who verified patients name and . Patient was then takento the fluoroscopy suite. TECHNIQUE: After informed written consent was obtained, the patient was placed in the prone position. The lumbar spine was prepped with chloraprep and draped. Sterile technique was used, vital signs were monitored, time out was done and the bilateral side was marked. Cap, glove, mask were worn. The skin and subcutaneous structure were anesthetized with l , Lidocaine 1% mixed 50:50 with 0.5% Bupivacaine to a total volume of 5 ml at each level. Medial Branch Nerves bilateral L-3 and L-4. In the bilaterally AP view with steep caudad tilt, 18 g, 10 cm, radiofrequency cannulae with 10 mm curved active tip were advanced to the junction of the L-4 and L-5 transverse processes and superior articulating processes. AP and lateral views were obtained. The needle tip was outside of the neural foramen. Motor (2 Hz) testing were performed. The patient had no motor response. ([employer], RF generator) Lidocaine 1% mixed 50:50 with 0.5% Bupivacaine 0.5 ml was administered at each level after negative aspiration. The patient then received Heat RF 80 degrees for 90 seconds at each level without symptoms. L5 Dorsal ramus bilateral In AP view 18 g, 10 cm, , radiofrequency cannula with 10mm curved active tip was advanced to the junction of the sacral ala and superior articulating. AP and lateral views were obtained. The needle tip was outside of the neural foramen. Motor (2 Hz) testing were performed. The patient had no motor response. Lidocaine 1% mixed 50:50 with 0.5% Bupivacaine 0.5 ml was administered at each level after negative aspiration. The patient then received Heat RF 80 degrees for 90 seconds at each level without symptoms. For all of the above placements, the needle tip was withdrawn slightly, the curve placed in the opposite direction of original placement and readvanced. Oblique, AP and lateral views were obtained. Theneedle tip was outside of the neural foramen. Motor testing was repeated at 2 Hz and there was no motor response. The patient then received heat RF, 80 degrees for 90 seconds. OUTCOME: The patient tolerated the procedure well and had stable vital signs. Follow up plans and appointments were discussed with Vick Jama. The patient was observed in the pain clinic and thendischarged after having met discharge criteria to the care of a lift driver. The patient received written instructions as documented in nursing records. This radiofrequency treatment should result in the denervation of thebilateral L4-L5 and L5-S1 facetjoint levels?? A total of 4 facets were expected to be denervated from today's treatment. Preprocedure pain level: 10 COMMENTS: Repeat prn if symptoms similar in quality, no new neurologic symptoms and it has been greater than 6months since previous radiofrequency procedure. The patient received midazolam 1 mg IV. Te Oropeza MD Pain Fellow I was the attending physician supervising the fellow or resident in the above care and I was presentwith the resident for the entire procedure. Alexus Smith MD [facility]est[facility] Pain [facility] [address] [phone] / [facility] CC: Reji Lopez MD @[email or web address]@ documented in this encounter Plan of Treatment Not on filedocumented as of this encounter Visit Diagnoses Diagnosis Lumbosacral spondylosis without myelopat hy Left lumbar radiculitis Thoracic or lumbosacral neuritis or radi culitis, unspecified documented in this encounter Administered Medications Inactive Administered Medications - up to 3 most recent administrations Medication Order MAR Action Action Date Dose Rate Site BUpivacaine (PF) (MARCAINE) 0.5 % Given 09/28/2019 2:00 PM EST 1 3 mLs (5 mg/mL) injection ONCE PRN, Starting on Sat09/28/19 at 1400, Until Sat09/28/19 at 1621, Intra-Operative (Intra-Procedure), Routine lidocaine (PF) (XYLOCAINE) 10 mg/mL (1 %) Given 09/28/2019 2:00 PM EST 13 mLs injection ONCE PRN, Starting on Sat09/28/19 at 1400, Until Sat09/28/19 at 1621, Intra-Operative (Intra-Procedure), Routine midazolam (PF) (VERSED) injection Given 09/28/2019 1:26 PM EST 1 mg ONCE PRN, Starting on Sat09/28/19 at 1326, Until Sat09/28/19 at 1621, Intra-Operative (Intra-Procedure), Routine documented in this encounter Active and Recently Administered Medications Times are shown in EST. PRN Medication Order 09/26/2019 09/27/2019 09/28/2019 BUpivacaine (PF) (MARCAINE) 0.5 % (5 mg/mL) injection (CANCELED) 1400 (Given - Provider: Te Oropeza MD) ONCE PRN, Starting Sat09/28/19 at 1400, Until Sat09/28/19 at 1621, Intra- Operative (Intra-Procedure), Routine lidocaine (PF) (XYLOCAINE) 10 mg/mL (1 %) injection (CANCELED) 1400 (Given - Provider: Te Oropeza MD) ONCE PRN, Starting Sat09/28/19 at 1400, Until Sat09/28/19 at 1621, Intra- Operative (Intra-Procedure), Routine midazolam (PF) (VERSED) injection (CANCELED) 1326 (Given - Provider: Elina Rawls RN) ONCE PRN, Starting Sat09/28/19 at 1326, Until Sat09/28/19 at 1621, Intra- Operative (Intra-Procedure), Routine documented in this encounter Care Teams Certified Coding Specialist Relationship Specialty Start Date End Date Reji Lopez MD PCP - General Internal Medicine 08/05/19 [address] [place] [address] documented as of this encounter
--- OUTSIDE RECORDS SUMMARY | 2022-04-23 11:46 | XMS_ITS | Encounter Summary ---
:1950 Author Organization [facility] [place] [address] Care Team Providers Name Role Phone Taty River MD Primary Care Provider Reason for Visit Reason Comments Back Pain lower back Surgical (Routine) - Closed Specialty Diagnoses / Procedures Referred By Contact Refer red To Contact Pain Management Diagnoses Bilateral LMBB Taty River MD Vrooman, Bruce M, MD Procedures PRO INJ, PARAVERTEBRAL FACET JT W/IMAGE GUID, LUMBAR/SACRAL, SINGLE LEVEL PRO INJ, PARAVERTEBRAL FACET JT, W/IMAGE GUID, LUMBAR/SACRAL, SECOND LEVEL PRO INJ PARAVERTEBRAL FACET JT W/IMAGE GUID, LUMBAR/SACRAL, 3RD OR ADDL LEVEL [address] [facility] [address] [place] [address] [place] [address] Phone: Fax: Referral ID Status Reason Start Date Expiration Date Visits Requ ested Visits Authorized [id number] Closed 08/15/2017 08/15/2018 1 1 Encounter Details Date Type Department Care Team Description 08/19/2017 Procedure [facility] MD spondylosis without [facility] myelopath y ([facility] [address]) [place], [place]IN [place] [address] [place] [address] [phone] Social History Tobacco Use Types Packs/Day Years [...] Sign Reading Time Taken Comments Blood Pressure 118/63 08/19/2017 4:52 PM EDT Pulse 75 08/19/2017 4:52 PM EDT Temperature - - Respiratory Rate - - Oxygen Saturation 98% 08/19/2017 4:52 PM EDT Inhaled Oxygen Concentration - - Weight 65.3 kg (144 lb) 08/19/2017 4:30 PM EDT Height 165.1 cm (5' 5) 08/19/2017 4:30 PM EDT Body Mass Index 23.96 08/19/2017 4:30 PM EDT documented in this encounter Patient Instructions Patient InstructionsGaMikaela albarado RN - 08/19/2017 4:15 PM EDT Pain Management Center Discharge Instructions: You were seen by Dr. Jesús Matthews MD and Que Boo MD who performed Bilateral lumbar medial branch block. It is normal that the injection site will be sore for up to 48 hours. You may also experience mild stiffness in the joint near the injection site. [x] You may resume your normal activities: today. You may shower today. DO NOT tub [...] your procedure. You received the following medications: Lidocaine. During regular business hours, please phone the [...] or proceed to your local emergency department. Salty Simental RN. Special instructions Pain Management Center Post -Procedure Pain Log Patient: Vick Jama [id number] It is important for you to keep track of your pain after your procedure that took place 08/19/2017. This information will help your Provider to determine how to help reduce your pain. Today you had a procedure for pain in your lower back Your pain level before the procedure in this area was 7 /10. Your pain level immediately after your procedure was 0 /10. Time Pain Score # Comments % of pain relief 1 hour 6:00 2 hours 7:00 3 hours 8:00 4 hours 9:00 Please call the nurse in the Pain Management Center a day or two after your procedureand report the information above. She will assess your response to the procedure, and will recommendappropriate follow-up. documented in this encounter Progress Notes Mikaela Simental RN - 08/19/2017 4:15 PM EDT Pre-Procedure Screening Questions: 1. Status: No 2. Patient states they have a driver lifter of sanitation truck to transport after procedure? Yes 3. Patient taking antibiotics at present? No 4. NPO per Pain Management Center protocol? No 5. Patient diabetic: No Patient routinely taking anticoagulants ? No Patient Vital Signs documented in Doc Flowsheets associated with this encounter. Patient Discharge Instructions were reviewed with patient and copy provided to patient. documented in this encounter Procedure Notes Jesús Matthews MD - 08/19/2017 4:15 PM EDTAssociated Order(s): NERVE BLOCK - LUMBOSACRAL Procedure(s): NERVE BLOCK - LUMBOSACRAL Pre-Procedure Diagnose(s): Lumbosacral spondylosis without myelopathy PROCEDURE NOTE LUMBAR MEDIAL BRANCH DIAGNOSTIC BLOCKS Date of Service: 08/19/2017 Patient: Vick Jama Referring Physician: Taty River Md [address] [place] [id number] Diagnosis: 1. Lumbosacral spondylosis without myelopathy Pre-procedure Note History and Exam: Patient demonstrates today moderate to severe non- radicular back pain without neurologic deficit aggravated by hyperextension Yes Back pain greater than leg pain Yes Patient today has tenderness over the suspected joint(s) Yes History of post-traumatic injury No Hypertrophic arthropathy Yes Back pain associated with suspected motion segment instability or Hypermobility or pseudoarthrosis No Pre-testing pain score (VAS): 7 Previous medial branch block testing?: Yes She obtained 100% relief for 5 hours from her bilateral L3, L4, and DR L5 Medial Branch Blocks Today's Operative Note Vick Jmaa was greeted by the nurse who verified the patients name and . Patient was then taken to the fluoroscopy suite. Ms. Jama was interviewed and the medical record was reviewed. There were no medical contraindications to performing the bilateral lumbar medial branch nerve blocks. I first had a talk with the patient and discussed the potential risks, benefits, side effects, and alternatives of this procedure including but not limited to increased pain from the procedure, no pain relief, nerve damage, infection, and bleeding. she comprehended my conversation and accepts the risks and understands the goals of this diagnostic procedure. All questions and concerns from the patient were addressed. After I was comfortable that the patient was fully informed about this procedure, the printed consent form was signed. Standard time-out procedure was performed Ms. Jama was placed in the prone position on the fluoroscopy table and automated blood pressurecuff and pulse oximeter were applied. The anatomic target points of the segmental medial branches ofbilaterally L3, L4 and L5-DR were identified with fluoroscopy. Following thorough Chlorhexadine preparation of the skin and draping, a 25 gauge 3.5 spinal needle was placed under fluoroscopic guidancedown on to the target point for each respective segmental medial branch. Position was confirmed in A/P, oblique and lateral views. At each level we injected 0.5ml of Lidocaine 2%. Ms. Jama's vital signs were stable throughout the procedure and were as recorded in the docflowsheet by the nursing staff. Postoperatively, today patient demonstrates the following changes with hyperextension and with tenderness over the suspected joint(s). Provacative testing using the Obnilla's facet loading test Right side Left side Directly before the block VAS (0-10) = 7 VAS (0-10) = 7 5 minutes after the block VAS (0-10) = 0 VAS (0-10) = 0 Percentage relief obtained with this diagnostic block 100% 100% Any improved physical functioning directly after the blocks? Yes Next, she was asked to recordher percent pain relief and any changes in provocative maneuvers for the next 4 hours. She will report this information at the next business day to one of our nurses. Based on the medial branches blocked today, if the patient meets insurance criteria for radiofrequency, the treatment should result in the denervation of the bilaterally L4-L5 and L5-S1 facet joint nerves. We would expect to denervate a total of 4 facets during the radiofrequency ablation. Discharge plan: She will call back with her 0-4 hour post-procedure pain scores and she will schedule for bilateral lumbar L3-5 RFA procedure once pain relief meets insurance criteria. Que Boo Pain Fellow I was the attending physician supervising the resident in the above care and I was present with the resident for the entire procedure. Jesús Matthews MD, MS Clinical Information Tech of Anesthesiology [address] [phone] / [facility] CC: Taty River MD [address] [place] [address] documented in this encounter Plan of Treatment Not on filedocumented as of this encounter Procedures Procedure Name Priority Date/Time Associated Diagnosis Comme nts NERVE BLOCK - Routine 08/22/2017 8:17 AM Lumbosacral Results for this LUMBOSACRAL EDT spondylosis without procedur e are in myelopathy the results section. documented in this encounter Results NERVE BLOCK - LUMBOSACRAL (08/22/2017 8:17 AM EDT) Narrative Jesús Matthews MD - 08/22/2017 8:17 A M EDT Jesús Matthews MD ? 08/22/2017 ??8:17 AM PROCEDURE NOTE LUMBAR MEDIAL BRANCH DIAGNOSTIC BLOCKS Date of Service: 08/19/2017 Patient: ??Vick Jama ?? Referring Physician: Taty River Md [address] [place] [address] Diagnosis: 1. Lumbosacral spondylosis without myelo lory ?? Pre-procedure Note History and Exam: Patient demonstrates today moderate to s evere non- radicular back pain without neurologic deficit aggravat ed by hyperextension ??Yes Back pain greater than leg pain ??Yes Patient today has tenderness over the keating spected joint(s) Yes History of post-traumatic injury ??No Hypertrophic arthropathy Yes Back pain associated with suspected tara on segment instability or Hypermobility or pseudoarthrosis No Pre-testing pain score (VAS): 7 Previous medial branch block testing?: Y es ??She obtained 100% relief for 5 hours from her bilateral L3 , L4, and DR L5 Medial Branch Blocks Today's Operative Note Vick Jama was greeted by the nurs e who verified the patients name and . ??Patient was the n taken to the fluoroscopy suite. Ms. Jama was interviewed and the hi dical record was reviewed. ??There were no medical contra indications to performing the bilateral lumbar medial branch nerve blocks. I first had a talk with the patient and discussed the potential risks, benefits, side effects, and alter natives of this procedure including but not limited to increased p ain from the procedure, no pain relief, nerve damage, infection, and bleeding. ??she comprehended my conversation and accepts the risks and understands the goals of this diagnostic procedure. All questions and concerns from the patient were addre ssed. After I was comfortable that the patient was fully i nformed about this procedure, the printed consent form was signed. ??Standard time-out procedure was performed Ms. Jama was placed in the prone po sition on the fluoroscopy table and automated blood pressure cuff and pulse oximeter were applied. The anatomic target points of t he segmental medial branches of bilaterally L3, L4 and L5-DR were identified with fluoroscopy. Following thorough Chlorhex adine preparation of the skin and draping, a 25 gauge 3.5 spinal needle was placed under fluoroscopic guidance down on to the tar get point for each respective segmental medial branch. ??Po sition was confirmed in A/P, oblique and lateral views. At each level we injected 0.5ml of Lidocaine 2%. Ms. Jama'howard vital signs were stable throughout the procedure and were as recorded in the docflowsheet by the nursing staff. Postoperatively, today patient demonstra liberty the following changes with hyperextension and with tenderness over the suspected joint(s). Provacative testing using the Bonilla's fac et loading test Right side Left side Directly before the block ??VAS (0-10) = 7 VAS (0-10) = 7 5 minutes after the block VAS (0-10) = 0 VAS (0-10) = 0 Percentage relief obtained with this adelfo gnostic block 100% 100% Any improved physical functioning direct ly after the blocks? Yes Next, she was asked to recordher percent pain relief and any changes in provocative maneuvers for the next 4 hours. She will report this information at the next day to one of our nurses. Based on the medial branches blocked topey[place] reyes, if the patient meets insurance criteria for radiofrequency, t he treatment should result in the denervation of the bilater ally L4-L5 and L5-S1 facet joint nerves. We would expect to denervate a total of 4 facets during the radiofrequency ablation. Discharge plan: She will call back with her 0-4 hour post-procedure pain scores and she will schedule for bilateral lumbar L3-5 RFA procedure once pain reli ef meets insurance criteria. Que Boo Pain Fellow I was the attending physician supervisin g the resident in the above care and I was present with the re sident for the entire procedure. Jesús Matthews MD, MS Clinical Information Tech of Anesthes iology [employer] [address] [phone] / Fax: [facility]org CC: Taty River MD [address] [place] [address] Jesús Matthews MD NEUROLOGY ORDERABLES documented in this encounter Visit Diagnoses Diagnosis Lumbosacral spondylosis without myelopat hy - Primary documented in this encounter Administered Medications Inactive Administered Medications - up to 3 most recent administrations Medication Order MAR Action Action Date Dose Rate Site lidocaine (XYLOCAINE) 20 mg/mL (2 Given 08/19/2017 4:45 PM EDT 6 0 mg %) injection 60 mg 60 mg, Subcutaneous, ONCE, 1 dose, On 08/19/17 at 1645, Routine documented in this encounter Care Teams Hand Drawer In Helper Relationship Specialty Start Date End Date Taty River MD PCP - General 11/17/13 11/12/18 [address] [place] [address] documented as of this encounter
--- OUTSIDE RECORDS SUMMARY | 2022-04-23 11:46 | XMS_ITS | Encounter Summary ---
:1950 [place] [address] Care Team Providers Name Role Phone Reji Lopez MD Primary Care Provider Encounter Details Date Type Department Care Team Description 02/18/2012 Orders Only Pain Management at [facility] Gregory Manuel MD [facility] [place] [address] PAIN CLINIC [phone] [place] [address] (Wo rk) Social History Tobacco Use Types [...] Associated Diagnosis Comme nts FILM LIBRARY Routine 02/18/2012 3:05 PM Results f or this STORAGE ONLY PAIN EDT procedure are in CLINIC C ARM the results section. documented in this encounter Results FILM LIBRARY-STORAGE ONLY PAIN CLINIC C-ARM (02/18/2012 3:05 PM EDT) Specimen (Source) Anatomical Collection Method Collection Time Re ceived Time Location / / Volume Laterality 02/18/2012 3:05 PM EDT Narrative [facility] - 04/23/2014 1:29 AM EDT This is a non-reportable exam. Procedure Note Kyle Jaramillo - 04/23/2014Formatting of t his note might be different from the original. This is a non-reportable exam. Gregory Manuel MD [facility] FILM LIBRARY ORDERABLES Performing Organization Address City/State/ZIP Code Phon e Number [facility] [address] [facility] [place] [address] documented in this encounter Visit Diagnoses Not on filedocumented in this encounter Care Teams Spread Cutter Relationship Specialty Start Date End Date Reji Lopez MD PCP - General 01/14/12 11/16/13 [address] [place] [address] documented as of this encounter
--- OUTSIDE RECORDS SUMMARY | 2022-04-23 11:46 | XMS_ITS | Encounter Summary ---
:1950 Author Organization [facility] [place] [address] Care Team Providers Name Role Phone Reji Lopez MD Primary Care Provider Reason for Visit Reason Comments Backache Encounter Details Date Type Department Care Team Description 02/18/2012 Procedure visit Pain Management at Coby Manuel Lu mbosacral [facility] spondylosis without [facility] myelopath y ([facility] [address]) [place], [place] PAIN CLINIC [address] [address] [phone] Social History Tobacco Use Types Packs/Day Years [...] Sign Reading Time Taken Comments Blood Pressure 107/37 02/18/2012 3:23 PM EDT Pulse 39 02/18/2012 3:23 PM EDT Temperature - - Respiratory Rate 16 02/18/2012 3:23 PM EDT Oxygen Saturation 99% 02/18/2012 3:23 PM EDT Inhaled Oxygen Concentration - - Weight 82.6 kg (182 lb) 02/18/2012 3:08 PM EDT Height 165.1 cm (5' 5) 02/18/2012 3:08 PM EDT Body Mass Index 30.29 02/18/2012 3:08 PM EDT documented in this encounter Patient Instructions Patient InstructionsBlanca Guardado LPN - 02/18/2012 3:20 PM EDT Pain Management Center Discharge Instructions: You were seen by Dr. Coby Manuel MD who performed lumbar epidural steroid injection. [x] You may resume your normal [...] procedure. You received the following medications: Depo-Medrol 120 mg, Lidocaine and Omnipaque (contrast dye). During [...] encounter Progress Notes Blanca Guardado LPN - 02/18/2012 3:10 PM EDT Pre-Procedure Screening Questions: 1. Status: No 2. 3. Patient states they have a otr hazmat company driver to transport after procedure? Yes 4. [...] encounter Procedure Notes Coby Manuel MD - 02/18/2012 3:34 PM EDTAssociated Order(s): TRANSFORAMINAL INJECTION Pre-Procedure Diagnose(s): Lumbosacral spondylosis without myelopathy LUMBAR / SACRAL TRANSFORAMINAL INJECTION Date of Service: 02/18/2012 Patient: Vick Jama Provider: COBY MANUEL MD Vick Jama has been referred to the Pain Management Center for a transforaminal nerve root blockand steroid injection. COMMENTS: The pt has a Left L3 foraminal stenosis and symptoms in that distribution. Ms. Jama was interviewed and the medical [...] discharged in the care of an identified otr hazmat company driver. COMMENTS: She will f/u prn. CC: REJI LOPEZ MD @PCPADD@ documented in this encounter Miscellaneous Notes Miscellaneous - Tereso, Kraft Digester Operator - 02/21/2012 7:02 PM EDT documented in this encounter Plan of Treatment Not on filedocumented as of this encounter Procedures Procedure Name Priority Date/Time Associated Comments Diagnosis TRANSFORAMINAL Routine 02/18/2012 3:36 Lumbosacral Results fo r this INJECTION PM EDT spondylosis without procedur e are in myelopathy the results section. documented in this encounter Results TRANSFORAMINAL INJECTION (02/18/2012 3:36 PM EDT) Narrative Coby Manuel MD - 02/18/2012 3:36 PM EDT LUMBAR / SACRAL TRANSFORAMINAL INJECTION Date of Service: ??02/18/2012 Patient: ??Vick Jama ?? [id number] Provider: ??MD Vick PARIS ??has been referred to [facility] for a transforaminal nerve root block and ster oid injection. ?? COMMENTS: The pt has a Left L3 foraminal stenosis and symptoms in that distribution. Ms. Jama was interviewed and the tn dical record reviewed. ??There were no medical, [...] in the care of an identif ied otr hazmat company driver. COMMENTS: She will f/u prn. CC: REJI LOPEZ MD @PCPADD@ Procedure Note Coby Manuel MD - 02/18/2012 3:34 PM EDT LUMBAR / SACRAL TRANSFORAMINAL INJECTION Date of Service: 02/18/2012 Patient: Vick Jama Provider: COBY MANUEL MD Vick Jama has been referred to the Pain Management Center for a transforaminal nerve root block and steroid injection. COMMENTS: The pt has a Left L3 foraminal stenosis and symptoms in that distribution. Ms. Jama was interviewed and the tn dical record reviewed. There were no medical, [...] appointments were di scussed with Ms. Jama. Post procedure instruction was given as documented in nursing records and she was discharged in the care of an identified otr hazmat company driver. COMMENTS: She will f/u prn. CC: REJI LOPEZ MD @PCPADD@ Coby Manuel MD PROCEDURE/MINOR SURGICAL ORD ERABLES documented in this encounter Visit Diagnoses Diagnosis Lumbosacral spondylosis without myelopat hy - Primary documented in this encounter Administered Medications Inactive Administered Medications - up to 3 most recent administrations Medication Order MAR Action Action Date Dose Rate Site iohexol (OMNIPAQUE) injection 50 mL Given 02/18/2012 3:35 PM EDT 1 mL 50 mL, Intravenous, ONCE PRN, 1 dose, Starting on Sat02/18/12 at 1530, Until Sat02/18/12 at 1535, Per Protocol, Routine methylPREDNISolone acetate (depo-MEDROL) Given 02/18/2012 4:00 P M EDT 60 mg injection 40 mg 40 mg, Intramuscular, ONCE, 1 dose, On Sat02/18/12 at 1600, Routine documented in this encounter Care Teams Ergonomics Technician Relationship Specialty Start Date End Date Reji Lopez MD PCP - General 01/14/12 11/16/13 [address] [place] [address] documented as of this encounter
--- OUTSIDE RECORDS SUMMARY | 2022-04-23 11:46 | XMS_ITS | Encounter Summary ---
:1950 Author Organization [facility] [address] Care Team Providers Name Role Phone Taty River MD Primary Care Provider Reason for Visit Reason Comments Back Pain Surgical (Routine) - Closed Specialty Diagnoses / Procedures Referred By Contact Refer red To Contact Pain Management Diagnoses Spondylosis without myelopathy or radiculopathy, lumbar region bilateral L4-5, 5-S1 (L3, 4, 5) LMBB Taty River MD Vrooman, Bruce M, MD Procedures PRO INJ, PARAVERTEBRAL FACET JT W/IMAGE GUID, LUMBAR/SACRAL, SINGLE LEVEL PRO INJ, PARAVERTEBRAL FACET JT, W/IMAGE GUID, LUMBAR/SACRAL, SECOND LEVEL PRO INJ PARAVERTEBRAL FACET JT W/IMAGE GUID, LUMBAR/SACRAL, 3RD OR ADDL LEVEL [address] [facility] [address] [place] [address] [place] [address] Phone: Fax: Referral ID Status Reason Start Date Expiration Date Visits Requ ested Visits Authorized [id number] Closed 07/25/2017 07/25/2018 1 1 Encounter Details Date Type Department Care Team Description 07/25/2017 Procedure visit Pain Management at Jesús Matthews L umbosacral [facility]ondyl[facility] without [facility] myelopath y (Primary [facility] Dx) [place], [place] PAIN [place]NAGEMENT [address] [place] [address] [phone] Social History Tobacco Use Types Packs/Day Years [...] Sign Reading Time Taken Comments Blood Pressure 108/78 07/25/2017 8:59 AM EDT Pulse 55 07/25/2017 8:59 AM EDT Temperature - - Respiratory Rate 16 07/25/2017 8:59 AM EDT Oxygen Saturation 98% 07/25/2017 8:59 AM EDT Inhaled Oxygen Concentration - - Weight 68 kg (150 lb) 07/25/2017 8:44 AM EDT Height 165.1 cm (5' 5) 07/25/2017 8:44 AM EDT Body Mass Index 24.96 07/25/2017 8:44 AM EDT documented in this encounter Patient Instructions Patient InstructionsJoBalnca pretty, EQUIPMENT MANAGER - 07/25/2017 8:45 AM EDT Pain Management Center Discharge Instructions: You were seen by Dr. Jesús Matthews MD who performed Bart. lumbar medial branch block. It is normal [...] emergency department. Blanca Guardado LPN Special instructions Pain Management Center Post -Procedure Pain Log Patient: Vick Jama [id number] It is important for you to keep track of your pain after your procedure that took place 07/25/2017. This information will help your Provider to determine how to help reduce your pain. Today you had a procedure for pain in your Back. Your pain level before the procedure in this area was 5/10. Your pain level immediately after your procedure was 0 /10. Time Pain Score Comments %% 1 hour 10:15 2 hours 11:15 3 hours 12:15 4 hours 1:15 Please call the nurse in the Pain Management Center a day or two after your procedureand report the information above. She will assess your response to the procedure, and will recommendappropriate follow-up. documented in this encounter Progress Notes Blanca Guardado LPN - 07/25/2017 8:45 AM EDT Pre-Procedure Screening Questions: 1. Status: No 2. 3. Patient states they have a helper/driver to transport after procedure? Yes 4. Patient [...] patient. documented in this encounter Procedure Notes Mitch Wilcox MD - 07/25/2017 8:45 AM EDTAssociated Order(s): NERVE BLOCK - LUMBOSACRAL Procedure(s): NERVE BLOCK - LUMBOSACRAL Pre-Procedure Diagnose(s): Lumbosacral spondylosis without myelopathy Post-Procedure Diagnose(s): Lumbosacral spondylosis without myelopathy PROCEDURE NOTE LUMBAR MEDIAL BRANCH DIAGNOSTIC BLOCKS Date of Service: 07/25/2017 Patient: Vick Jama Referring Physician: [place] [address] Diagnosis: 1. Lumbosacral spondylosis without myelopathy Pre-procedure Note History and Exam: Patient demonstrates today moderate to severe non- radicular back pain without neurologic deficit aggravated by hyperextension Yes Back pain greater than leg pain Yes Patient today has tenderness over the suspected joint(s) Yes History of post-traumatic injury Yes Hypertrophic arthropathy Yes Back pain associated with suspected motion segment instability or Hypermobility or pseudoarthrosis No Pre-testing pain score (VAS): Previous medial branch block testing?: No Today's Operative Note Vick Jama was greeted by the nurse who verified the patients name and . Patient was then taken to the fluoroscopy suite. Ms. Jama was interviewed and the medical record was reviewed. There were no medical contraindications to performing lumbar medial branch nerve blocks. I first [...] target points of the segmental medial branches ofbilateral L3, L4, L5 were identified with fluoroscopy. Following thorough Chlorhexadine preparation of the skin and draping, a 25 gauge 3.5 spinal needle was placed under fluoroscopic guidance down onto the target point for each respective segmental medial branch.Position was confirmed in A/P, oblique and lateral views. At each level we injected 0.5ml of Bupivacaine 0.5%. Ms. Jama's vital signs were stable throughout the procedure and were as recorded in the docflowsheet by the nursing staff. Postoperatively, today patient demonstrates the following changes with hyperextension and with tenderness over the suspected joint(s). Provacative testing using the Bonilla's facet loading test Right side Left side Directly before the block 5 5 5 minutes after the block 0 0 Percentage relief obtained with this diagnostic block 100% 100% Any improved physical functioning directly after the blocks? she reports no pain on forward flexion at the waist as well as arching of the lumbar spine with rotation right and left. Next, she was asked to recordher percent pain relief and any changes in provocative maneuvers for the next 4 hours. She will report this information at the next business day to one of our nurses. Based on the bilateral L3, L4, L5 medial branches blocked today, if the patient meets insurance criteria we will proceed with radiofrequency denervation of the bilateral L3, L4, L5 facet joint nerves. We would expect to denervate a total of 2 facets bilaterally during the radiofrequency ablation. Discharge plan:: She will call back with her 0-4 hour post-procedure pain scores. MITCH WILCOX MD CA-2 Resident Department of Anesthesiology I have seen and examined the patient and reviewed the fellow's above history and I agree with the details as written. I was the attending physician supervising the resident in the above care and I was present with the fellow for the entire procedure. Jesús Matthews MD, MS Compound Coating Machine Offbearer of Anesthesiology [facility] [address] [phone] / [facility] CC: Taty River MD [address] [place] [phone] documented in this encounter Plan of Treatment Not on filedocumented as of this encounter Procedures Procedure Name Priority Date/Time Associated Diagnosis Comme nts NERVE BLOCK - Routine 07/25/2017 2:16 PM Lumbosacral Results for this LUMBOSACRAL EDT spondylosis without procedur e are in myelopathy the results section. documented in this encounter Results NERVE BLOCK - LUMBOSACRAL (07/25/2017 2:16 PM EDT) Narrative Jesús Matthews MD - 07/25/2017 2:16 P M EDT Jesús Matthews MD ? 07/25/2017 ??2:16 PM PROCEDURE NOTE LUMBAR MEDIAL BRANCH DIAGNOSTIC BLOCKS Date of Service: 07/25/2017 Patient: ??Vick Jama ?? Referring Physician: Taty River Md [address] [place] [address] Diagnosis: 1. Lumbosacral spondylosis without myelo lory ?? Pre-procedure Note History and Exam: Patient demonstrates today moderate to s evere non- radicular back pain without neurologic deficit aggravat ed by hyperextension ??Yes Back pain greater than leg pain ??Yes Patient today has tenderness over the keating spected joint(s) Yes History of post-traumatic injury ??Yes Hypertrophic arthropathy Yes Back pain associated with suspected tara on segment instability or Hypermobility or pseudoarthrosis No Pre-testing pain score (VAS): ?? Previous medial branch block testing?: N o Today's Operative Note Vick Jama was greeted by the nurs e who verified the patients name and . ??Patient was the n taken to the fluoroscopy suite. Ms. Jama was interviewed and the ny dical record was reviewed. ??There were no medical contra indications to performing lumbar medial branch nerve blocks. I first [...] of t he segmental medial branches of bilateral L3, L4, L5 were id entified with fluoroscopy. Following thorough Chlorhex adine preparation of the skin and draping, a 25 gauge 3.5 spinal needle was placed under fluoroscopic guidance down on to the tar get point for each respective segmental medial branch.Posit ion was confirmed in A/P, oblique and lateral views. At each level we injected 0.5ml of Bupivacaine 0.5%. Ms. Jama's vital signs were stable throughout the procedure and were as recorded in the docflowsheet by the nursing staff. Postoperatively, today patient demonstra liberty the following changes with hyperextension and with tenderness over the suspected joint(s). Provacative testing using the Bonilla's fac et loading test Right side Left side Directly before the block ??5 ??5 5 minutes after the block ??0 ??0 Percentage relief obtained with this adelfo gnostic block ??100% 100% Any improved physical functioning direct ly after the blocks? she reports no pain on forward flexion at th e waist as well as arching of the lumbar spine with rotatio n right and left. Next, she was asked to recordher percent pain relief and any changes in provocative maneuvers for the next 4 hours. She will report this information at the next day to one of our nurses. Based on the bilateral L3, L4, L5 ??medi al branches blocked today, if the patient meets insurance criteria we will proceed with radiofrequency denervation of the bilate ral L3, L4, L5 ??facet joint nerves. We would expect to denervate a total of 2 facets bilaterally during the radiofrequency ablation. Discharge plan:: She will call back with her 0-4 hour post-procedure pain scores. MITCH WILCOX MD CA-2 Resident Department of Anesthesiolo gy I have seen and examined the patient and reviewed the fellow's above history and I agree with the [facility] as written. ?? I was the attending physician supervising the resident in the above care and I was present with the fellow f or the entire procedure. Jesús Matthews MD, MS Compound Coating Machine Offbearer of Anesthesiology [facility] [address] [phone] / Fax: [facility] CC: Taty River MD [address] [place] [address] Jesús Matthews MD NEUROLOGY ORDERABLES documented in this encounter Visit Diagnoses Diagnosis Lumbosacral spondylosis without myelopat hy - Primary documented in this encounter Administered Medications Inactive Administered Medications - up to 3 most recent administrations Medication Order MAR Action Action Date Dose Rate Site BUpivacaine (PF) (MARCAINE) 0.5 % Given 07/25/2017 9:00 AM EDT 1 5 mg (5 mg/mL) injection 50 mg 50 mg (10 mL), Subcutaneous, ONCE, 1 dose, On Rosa 07/25/17 at 0900, Wasted 20ml, Routine documented in this encounter Care Teams Calculus Teacher Relationship Specialty Start Date End Date Taty River MD PCP - General 11/17/13 11/12/18 [address] [place], [place] [id number] documented as of this encounter
--- OUTSIDE RECORDS SUMMARY | 2022-04-23 11:46 | XMS_ITS | Encounter Summary ---
:1950 Author Organization [facility] [place] [address] Care Team Providers Name Role Phone Reji Lopez MD Primary Care Provider Encounter Details Date Type Department Care Team Description 02/13/2012 Office Visit Physical Therapy at Elton Marvin PT PHYSICAL MEDICINE & REHABILITAT DJD (degenerative joint disease) of lumb ar spine; [facility] Reji Lopez MD [address] [place], [place] [id number] [place] [id number] Social History Tobacco Use Types Packs/Day Years [...] documented as of this encounter Progress Notes Andrew Marvin PT - 02/14/2012 2:39 PM EDT PHYSICAL THERAPY INITIAL EXAMINATION Date of Exam/First Treatment: 02/13/2012 Date of onset: chronic with recent worsening Referring Provider: Reji Lopez Diagnosis: 1. DJD (degenerative joint disease) of lumbar spine (721.3K) 2. Lower back pain (724.2U) Medicare Certification period: 02/13/2012 - 04/12/12 CURRENT HISTORY: Vick Jama is a 61 y.o. female referred to physical therapy for treatment of back pain. Patient reports a long history of lower back pain with recent worsening of the pain earlier this year. She has great difficulty with walking and standing and is now greatly limiting her activities to avoid the pain. 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 Cause: no known injury Pain: best 10; worst /10; to the left thigh aggravating factors: walking for 10 minutes and standing for 5 minutes relieving factors: sitting for short periods of time denies numbness and tingling Radiology: outside hospital MRI performed on 01/01/12, refer to scan doc for details, multi-level degenerative changes with canal and foraminal stenosis. 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 Functional Limitations: walking, standing CLINICAL FINDINGS: Posture: Lordosis decreased Gait: minimal deviation Range of motion: Range of motion (%) lumbar flexion 100% extension 75% SB right 75% SB left 75% rotation right 75% rotation left 75% hip (degrees) flexion 125 abduction 40 IR/ER 30/70 Repeated Movements: Repeated flexion in standing: deferred at this time symptoms Repeated extension in standing: deferred at this time symptoms Strength ( /5) Hip flexion (L2) Knee Ext (L3) Knee Flexion (S2) Ankle DF (L4) Hallux Ext (L5) Ankle Ev. (L5) Ankle PF (S1) Right 4+ 4+ 4+ 4+ 4+ 4+ 4+ Left 4+ 4+ 4+ 4+ 4+ 4+ 4+ Patient is able to: Heel Walk: yes Toe Walk: yes Single Leg Squat: RIGHT: yes LEFT: yes Single Leg Heel Raise: RIGHT: yes LEFT: yes Flexibility: decreased: iliopsoas Special Tests: Slump not performed SLR - Prone instability test not performed FRANCOIS - SI compression - SI distraction - Sacral thrust - Thigh thrust - Mookie - Andrew + Lumbar spring + Joint mobility: segmental mobility at lumbar spine: Hypomobile; segmental mobility at the thoracic spine: Hypomobile Palpation: Tenderness with palpation at left lumbar paraspinals, gluteals Sensation: Touch: normal Reflexes: Right Left Patella 2/4 1/4 Achilles 2/4 2/4 Oswestry: 26/50 correlating to a 46 % disability per self report secondary to back pain. CLINICAL EVALUATION AND DIAGNOSIS: These findings are consistent with low back pain associated with lumbar spinal stenosis. Expect with skilled physical therapy interventions patient will be able to return to prior level of function. GOALS: Therapy Short Term Goals (3 weeks) 1. Patient to be indep with home exercise program. 2. Decrease pain 4/10 or less with most activities 3. Independent in TENS unit application INITIAL TREATMENT INCLUDED: Examination and instruction in a home exercise program (refer to chart copy or to scan doc in chart review for details), patient education regarding physical therapy plan of care, anatomy and diagnosis. Therex included single knee to chest, lower trunk rotation, pelvic tilt, and pelvic tilt with marching. Instruction and application of TENS unit on the left lumbosacral region. PLAN: Frequency and duration: prn Treatment plan: Joint mobilization, Therapeutic exercise, Patient/Family education, Body Mechanics, Posture and HomeExercise Program Total Treatment time: 45 min Total Timed Coded Treatment: 15 min The plan has been discussed with the patient and Vick Jama has agreed with the planned treatment. ANDREW MARVIN, PT documented in this encounter Plan of Treatment Not on filedocumented as of this encounter Visit Diagnoses Diagnosis DJD (degenerative joint disease) of lumb ar spine Lumbosacral spondylosis without myelopat hy Lower back pain Lumbago documented in this encounter Care Teams Helium Arc Welder Relationship Specialty Start Date End Date Reji Lopez MD PCP - General 01/14/12 11/16/13 [address] [place] [address] documented as of this encounter
--- OUTSIDE RECORDS SUMMARY | 2022-04-23 11:46 | XMS_ITS | Encounter Summary ---
:1950 Author Organization [facility] [place] [address] Care Team Providers Name Role Phone Taty River MD Primary Care Provider Encounter Details Date Type Department Care Team Description 08/20/2017 Telephone Pain Management [place] [address] Social History Tobacco Use Types Packs/Day [...] this encounter Miscellaneous Notes Telephone Encounter - Marcelle Quinteros RN - 08/20/2017 11:08 AM EDT Pain Management Center Post-Procedure Phone Note Patient: Vick Jama [id number] Post-procedure phone call from patient to report her response to the lumbar medial branch block procedure performed on 08/19/17 in the Pain Management Center by Jesús Matthews MD. This is patient's : second medial branch block Patient reports that after the procedure she experienced: _x_ Patient reported post-block numeric pain scale: 0 /10 (average pain since procedure) _x_ Post-procedure pain has been reduced by 95%. (> 80% Medicare/MVP/Medicaid) _x_ Pain relief: complete If pain is reduced, it lasted: Yes 4 hours or greater Based on the information provided above and after discussion with the patient, the following actionswill be taken: _x_ Patient meets criteria for radiofrequency treatment and would like to proceed with a bilateral lumbar spine at L3, L4 and L5-DR Radiofrequency procedure with Jesús Matthews MD. Patient on anticoagulant medication: No Patient has pacemaker/defibrillator: No Patient has an appointment on 09/17/17 for Bilateral RF with Dr. Matthews. Patient has the appropriate phone number and understands that she may contact the Pain Management Center at any time with questions or concerns. Marcelle Quinteros RN documented in this encounter Plan of Treatment Not on filedocumented as of this encounter Visit Diagnoses Not on filedocumented in this encounter Care Teams Farm Field Manager Relationship Specialty Start Date End Date Taty River MD PCP - General 11/17/13 11/12/18 [address] [place] [address] documented as of this encounter
--- OUTSIDE RECORDS SUMMARY | 2022-04-23 11:46 | XMS_ITS | Encounter Summary ---
:1950 Author Organization [facility] [place] [address] Care Team Providers Name Role Phone Taty River MD Primary Care Provider Encounter Details Date Type Department Care Team Description 01/07/2014 Telephone Pain Management at [place], [place] [address] Social History Tobacco Use Types Packs/Day Years [...] this encounter Miscellaneous Notes Telephone Encounter - Blanca Fitch RN - 01/07/2014 11:58 AM EDT Vick Jama :1950 Message left: I left a message on answering machine Ms. Jama at 11:58 AM regarding his upcoming Left transforaminal injection with Dr. Gregory Manuel MD. Message included the followin. Patient instructed to arrive at 1300 (30 minutes prior to procedure start time) on 01/08/14 (date of procedure) with their food mobile driver. 2. Following instructions left in the message: - Bring Updated list of medications including dosage and reason for taking. - Call the Pain Clinic Nurse at for: ~Procedure instructions. ~If you are taking antibiotics. ~If you have any signs or symptoms of infection, cold or flu. ~If you have any skin breakdown (rashes, cysts, or abscess.) ~If you are taking anticoagulants / blood thinners (Plavix, Pletal, Lovenox, Coumadin, etc). ~If you had any steroid injections anywhere in your body within the last two weeks? Blanca Fitch RN documented in this encounter Plan of Treatment Not on filedocumented as of this encounter Visit Diagnoses Not on filedocumented in this encounter Care Teams Campground Caretaker Relationship Specialty Start Date End Date Taty River MD PCP - General 11/17/13 11/12/18 [address] [place] [address] documented as of this encounter
--- OUTSIDE RECORDS SUMMARY | 2022-04-23 11:46 | XMS_ITS | Encounter Summary ---
:1950 [place] [address] Care Team Providers Name Role Phone Reji Lopez MD Primary Care Provider Encounter Details Date Type Department Care Team Description 04/23/2012 Orders Only Pain Management at [facility] Gregory Manuel MD [facility] [place] [address] PAIN CLINIC [phone] [place] [address] (Wo rk) Social History Tobacco Use Types [...] Associated Diagnosis Comme nts FILM LIBRARY Routine 04/23/2012 10:30 AM Results for this STORAGE ONLY PAIN EDT procedure are in CLINIC C ARM the results section. documented in this encounter Results FILM LIBRARY-STORAGE ONLY PAIN CLINIC C-ARM (04/23/2012 10:30 AM EDT) Specimen (Source) Anatomical Collection Method Collection Time Re ceived Time Location / / Volume Laterality 04/23/2012 10:30 AM EDT Narrative [facility] - 04/23/2014 1:29 AM EDT This is a non-reportable exam. Procedure Note Kyle Jaramillo - 04/23/2014Formatting of t his note might be different from the original. This is a non-reportable exam. Gregory Manuel MD [facility] FILM LIBRARY ORDERABLES Performing Organization Address City/State/ZIP Code Phon e Number [facility] [address] [facility] [place] [address] documented in this encounter Visit Diagnoses Not on filedocumented in this encounter Care Teams Slag Production Worker Relationship Specialty Start Date End Date Reji Lopez MD PCP - General 01/14/12 11/16/13 [address] [place] [address] documented as of this encounter
--- OUTSIDE RECORDS SUMMARY | 2022-04-23 11:46 | XMS_ITS | Encounter Summary ---
:1950 Author Organization [facility] [place] [address] Care Team Providers Name Role Phone Reji Lopez MD Primary Care Provider Reason for Visit Reason Comments Back Pain Encounter Details Date Type Department Care Team Description 04/14/2013 Procedure visit Pain Management at [facility] diculopathy (Primary [facility]) [facility] [id number] [place], [place] [phone] [facility] Social History Tobacco Use Types Packs/Day Years [...] Sign Reading Time Taken Comments Blood Pressure 130/72 04/14/2013 1:57 PM EDT Pulse 43 04/14/2013 1:57 PM EDT Temperature - - Respiratory Rate - - Oxygen Saturation 100% 04/14/2013 1:57 PM EDT Inhaled Oxygen Concentration - - Weight 82.1 kg (181 lb) 04/14/2013 1:46 PM EDT Height 167.6 cm (5' 6) 04/14/2013 1:46 PM EDT Body Mass Index 29.21 04/14/2013 1:46 PM EDT documented in this encounter Patient Instructions Patient InstructionsAloBlanca patel RN - 04/14/2013 1:54 PM EDT Pain Management Center Discharge Instructions: [...] for 20 minutes.Do not apply heat today. y. Attempt to empty your bladder 4-6 hours after your procedure. You received the following medications: Depo-Medrol 40 mg, Lidocaine and Omnipaque (contrast dye). During [...] proceed to your local emergency department. Blanca Fitch RN Special instructions documented in this encounter Progress Notes Blanca Fitch RN - 04/14/2013 1:47 PM EDT Pre-Procedure Screening Questions: 1. Status: No 2. 3. Patient states they have a experienced truck driver to transport after procedure? Yes 4. [...] patient. documented in this encounter Procedure Notes Teressa Vera MD - 04/14/2013 1:44 PM EDTAssociated Order(s): TRANSFORAMINAL INJECTION Procedure(s): TRANSFORAMINAL INJECTION Pre-Procedure Diagnose(s): Radiculopathy LUMBAR / SACRAL TRANSFORAMINAL INJECTION Date of Service: 04/14/2013 Patient: Vick Jama Provider: TERESSA VERA MD Vick Jama has been referred to the [facility] for a transforaminal nerve root block and steroid injection. COMMENTS: Pain in lower back down left leg. Pain scale 5/10. Ms. Jama was interviewed and the medical [...] mg of Depo-Medrol was injected, followed by 0.5 ml of 1% Xylocaine flush for the [...] discharged in the care of an identified experienced truck driver. COMMENTS: Patient tolerated procedure well. Will follow-up prn. Teressa Vera MD Fellow, Pain Medicine Pager [phone] I was the attending physician supervising the resident in the above care and I was present with the resident for the entire procedure. COBY MANUEL MD CC: REJI LOPEZ MD documented in this encounter Plan of Treatment Not on filedocumented as of this encounter Procedures Procedure Name Priority Date/Time Associated Diagnosis Comme nts TRANSFORAMINAL Routine 04/17/2013 1:50 Radiculopathy Results f or this INJECTION AM EDT procedure are i n the results section. documented in this encounter Results TRANSFORAMINAL INJECTION (04/17/2013 1:50 AM EDT) Narrative [facility]y Manuel MD - 04/17/2013 1:50 AM EDT [facility]y [facility] MD ? 04/17/2013 ??1:50 AM LUMBAR / SACRAL TRANSFORAMINAL INJECTION Date of Service: ??04/14/2013 Patient: ??Vick Jama ?? MRN: ??[id number] Provider: ??TERESSA VERA MD Vick Jama ??has been referred to the [facility] for a transforaminal nerve root block an d steroid injection. ?? COMMENTS: Pain in lower back down left l eg. ??Pain scale 5/10. Ms. Jama was interviewed and the ut dical record reviewed. ?? There were no medical, pharmacologic, ra diographic or other structural contraindications to attempti ng fluoroscopically guided transforaminal nerve root block a nd epidural steroid injection. ??Risks and expected side eff ects as well as potential benefit of the procedure were reviewed w ithMs. Jama , and her voiced concerns addressed. ??The [facility] consent form was signed and witnessed. ??Standard time-ou t procedure was performed. Ms. Jama was placed in the prone po sition on the fluoroscopy table and automated blood pressure cuff and pulse oximeter applied. ??Fluoroscopy was utilized to i dentify the left neural foramen between L3 and L4 . ??A s kin scar was made for the needle insertion site. ??A Chlorhexadine prep was carried out, and sterile drapes were applied. ??Local ane sthesia was achieved in the skin and subcutaneous tissues. ??A 2 2 gauge curved tip spinal needle was then inserted, advanced with fluoroscopic guidance into the neural foramen, confirmed on th e lateral view. ??After negative aspiration, 1 ml of Omnipaque 2 40 was injected confirming position in A/P and lateral v iews. ??This showed a good spread of dye transforaminally into the epidural space. ??There was no vascular update with contrast inj ection under continuous fluoroscopy. 60 mg of Depo-Medrol was in jected, followed by 0.5 ml of 1% Xylocaine flush for the nerve r oot block, as well. ?? There was no unusual discomfort expresse d by Ms. Jama . ??The needle was withdrawn. The patient tolera darrius the procedure well. ?? A Band-Aid was applied. Ms. Jama's vital signs were stable throughout the procedure and were as recorded in nursing records. ??If given, dosages of intravenous drugs for anxiolysis and duong lgesia were documented in nursing records. Follow up plans and appointments were di scussed with Ms. Jama. ??Post procedure instruction was given as documented in nursing records and she was discharged i n the care of an identified experienced truck driver. COMMENTS: Patient tolerated procedure we ll. ??Will follow-up prn. Teressa Vera MD Fellow, Pain Medicine Pager [phone] I was the attending physician supervisin g the resident in the above care and I was present with the re sident for the entire procedure. COBY MANUEL MD CC: REJI LOPEZ MD Procedure Note Teressa Vera MD - 04/14/2013 1:44 PM EDT LUMBAR / SACRAL TRANSFORAMINAL INJECTION Date of Service: 04/14/2013 Patient: Vick Jama 8 Provider: TERESSA VERA MD Vick Jama has been referred to [facility] for a transforaminal nerve root block and steroid injection. COMMENTS: Pain in lower back down left l eg. Pain scale 5/10. Ms. Jama was interviewed and the ut dical record reviewed. There were no medical, [...] mg of Depo-Medrol was injected, followed by 0.5 ml of 1% Xylocaine flush for the [...] discharged in the care of an identified experienced truck driver. COMMENTS: Patient tolerated procedure we ll. Will follow-up prn. Teressa Vera MD Fellow, Pain Medicine Pager [phone] I was the attending physician supervisin g the resident in the above care and I was present with the resident for the entire procedure. COBY MANUEL MD CC: REJI LOPEZ MD [facility]y Manuel MD PROCEDURE/MINOR SURGICAL ORD ERABLES documented in this encounter Visit Diagnoses Diagnosis Radiculopathy - Primary Neuralgia, neuritis, and radiculitis, un specified documented in this encounter Administered Medications Inactive Administered Medications - up to 3 most recent administrations Medication Order MAR Action Action Date Dose Rate Site iohexol (OMNIPAQUE) injection 1 mL Given 04/14/2013 2:00 PM EDT 1 mL 1 mL, Epidural, ONCE, 1 dose, On Sat04/14/13 at 1400, Wasted 49 ml, Routine methylPREDNISolone acetate (depo-MEDROL) Given 04/14/2013 2:00 P M EDT 60 mg injection 60 mg 60 mg, Epidural, ONCE, 1 dose, On Sat04/14/13 at 1400, Routine documented in this encounter Care Teams Chicken 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
--- OUTSIDE RECORDS SUMMARY | 2022-04-23 11:46 | XMS_ITS | Encounter Summary ---
:1950 Author Organization [facility] [place] [address] Care Team Providers Name Role Phone Taty River MD Primary Care Provider Reason for Visit Reason Onset Date Comments Pre Procedure Call 08/15/2017 Encounter Details Date Type Department Care Team Description 08/15/2017 Telephone [facility] Management at [facility] [place] [phone] Social History Tobacco Use Types Packs/Day [...] Telephone Encounter - [facility] - 08/15/2017 1:29 PM EDT Vick Jama :1950 Contact made with patient: I spoke to Ms. Jama at 1:29 PM regarding her upcoming Bilateral lumbar medial branch block scheduled on 08/19/2017 scheduled at 4:15PM with Dr. Jesús Matthews MD. Medication and Allergy reconciliation: 1. Changes were made in the telephone encounter per patient; marked as reviewed, and closed. 2. Patient confirmed no IVP dye allergy. 3. Have you had any steroid injections anywhere in your body within the last two weeks? no Arrival time: The patient was instructed to arrive at 3:45PM on 08/19/2017. Sales Promotion Officer: The patient was reminded that they need to have a city driver accompany them to her procedure who [...] vomiting. 5. The patient confirmed that she is still experiencing significant pain. Pain and Anti-anxiety Medications: 1. Nerve Block [...] any diagnosed bleeding disorders: No Anticoagulants: No NSAIDs: Does the patient take Aspirin/ASA? No Does the patient take an NSAID? Yes The patient confirmed that she discontinued taking ibuprofen (Motrin) on 08/18/2017. Implant: Patient has pacemaker/defibrillator: No Prior to checking in at [employer], please be sure to empty your bladder. Patient confirmed understanding that if they do not follow the above their instructions, their procedure is likely to be cancelled. MIKO Zendejas documented in this encounter Plan of Treatment Not on filedocumented as of this encounter Visit Diagnoses Not on filedocumented in this encounter Care Teams Ore Dryer Relationship Specialty Start Date End Date Taty River MD PCP - General 11/17/13 11/12/18 [address] [place] [address] documented as of this encounter
--- OUTSIDE RECORDS SUMMARY | 2022-04-23 11:46 | XMS_ITS | Encounter Summary ---
:1950 Author Organization [facility] [place] [address] Care Team Providers Name Role Phone Reji Lopez MD Primary Care Provider Reason for Visit Auth/Cert Specialty Diagnoses / Procedures Referred By Contact Refer red To Contact Diagnoses Rectal lesion Flex Sig Sedation: Per Questionnaire TImeframe: within 6 Weeks -- C. Indication: reassessment and possible resection of rectal lesion @10c m This procedure should be p erformed with: Advanced Endoscopist (Brandon Al or Greyson) Procedures PRO SIGMOIDOSCOPY, DIAGNOSTIC FLEXIBLE SIGMOIDOSCOPY Referral ID Status Reason Start Date Expiration Date Visits Requ ested Visits Authorized [id number] 1 1 Encounter Details Date Type Department Care Team Description 10/19/2019 Surgery Gastroenterology at [facility] Jesse Al, FLEXIBLE SIGMOIDOSCOPY [facility] [place] [address] [facility] [phone] [facility] [place], [place] [address] Social History Tobacco Use Types Packs/Day Years [...] Sign Reading Time Taken Comments Blood Pressure 95/60 10/19/2019 8:30 AM EST Pulse 64 10/19/2019 8:30 AM EST Temperature 36.4 ??C (97.5 ??F) 10/19/2019 7:20 AM EST Respiratory Rate 14 10/19/2019 8:30 AM EST Oxygen Saturation 98% 10/19/2019 8:30 AM EST Inhaled Oxygen Concentration - - Weight - - Height - - Body Mass Index - - documented in this encounter Discharge Instructions Discharge InstructionsTrudi Shipley RN - 10/19/2019 8:57 AM EST Colonoscopy What to expect after the procedure You may feel a little more gassy or bloated than usual. This is normal. You should expect the return of normal bowel function in the 2 to 3 days. Activity Because of the sedation that you received your judgement and reaction time are effected ?? Go home and rest quietly for the remainder of the day. You may resume your normal activities tomorrow. ?? Change from one position to the next slowly. You may lose your balance unexpectedly ?? Be careful on stairs, as you may be unsteady on your feet FOR THE NEXT 24 HRS ?? DO NOT DRIVE OR OPERATE ANY MACHINERY ?? DO NOT DRINK ALCOHOLIC BEVERAGES ?? DO NOT SIGN LEGAL DOCUMENTS ?? If you are a smoker: DO NOT SMOKE WHILE YOU ARE ALONE Diet ?? Start by eating small portions of foods that ordinarily will not upset your stomach . Avoid gas producing foods for the next few days ?? Be gentle with what you choose to start with ?? Drink plenty of fluids ( unless your doctor has told you not to). IV SITE-- slight redness, or tenderness is normal. You can use warm compresses if you become concerned. If the tenderness +/or redness increases or foul drainage and a red streak occurs, please contact your PCP immediately When shoud you call for help? Call 911 anytime you think you may need emergency care. For example If you pass out ( loss of consciousness) If you pass maroon or bloody stools If you have severe belly pain Call your doctor now or seek immediate medical care If your stools are black and tarlike If your stools have streaks of blood, but you did not have a biopsy or any polyps removed If you have belly pain, or your belly is swollen and firm If you vomit If you have a fever If you are very dizzy Watch closely for changes in your health, and be sure to contact your doctor if you have any problems Your doctor will let you know when you will need your next colonoscopy. The results of your test andyour risk for colorectal cancer will help your doctor decide how often you need to be checked. Saturday-Saturday Same Day Endo [phone]-8p Otherwise contact [phone] and ask to speak to the miner helper satellite television installer Follow up care is a hess part of your treatment and safety. Be sure to make and go to all appointments, and call your doctor if you are having problems. Discharge instructions reviewed with patient who expresses understanding Patient InstructionsGoJesse chand MD - 10/19/2019 9:02 AM EST Please see Recommendations in the Provation procedure report which is documented in the procedural note in [facility]. documented in this encounter Medications at Time of Discharge Medication Sig Dispensed Refills Start Date End Date linaclotide (LINZESS) 145 Take 290 mcg by 0 mcg Capsule mouth daily. levothyroxine (SYNTHROID) Take 75 mcg by 0 2017 75 mcg Tablet mouth daily. traZODone (DESYREL) 100 mg Take 150 mg by 0 07/10 Tablet mouth nightly. ACIDOPHILUS Capsule Take 30 mg by 0 08/01/2019 mouth daily. After meal ibuprofen (ADVIL;MOTRIN) Take 400-600 mg by 0 06/08/2020 200 mg tablet mouth every 6 hours as needed. documented as of this encounter H&P Notes Alonso Cardenas PA - 10/19/2019 7:30 AM EST Patient Name: Vick Jama Patient Age: 69 y.o. Birthdate: 1950 Admit date: 10/19/2019 Attending Physician: Jesse Al MD Gastroenterology and Hepatology Pre-Procedure History and Physical Exam Procedure: Flexible sigmoidoscopy Indication: Rectal lesion on colonoscopy 09/07/19 @ [facility] Patient Active Problem List Diagnosis Code ??? Lower back pain M54.5 ??? 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 Left lumbar radiculitis M54.16 ??? Chest pain R07.9 ??? Palpitations R00.2 EXAM: HEENT: Airway examined, oropharynx clear Mallampati Score: II (soft palate, uvula, fauces visible) LUNGS: Clear to auscultation HEART: Regular rate and rhythm, normal S1, S2 ABDOMEN: Normal bowel sounds, soft, non tender, non distended, A/P Proceed with the planned endoscopic procedure. ASA 2 - Patient with mild systemic disease with no functional limitations Sedation Plan: moderate (conscious sedation) Risks and benefits of the procedure explained to the patient. Consent signed. DAGOBERTO Murillo-C Section of Gastroenterology [place] [address] documented in this encounter Miscellaneous Notes Op Note - Jesse Al MD - 10/19/2019 9:02 AM EST [facility] Operative Note Patient Name: Vick Jama : [id number] MR#: [id number] Case Date: 10/19/2019 Surgeon: Surgeon(s) and Role: * Jesse Al MD - Primary Preoperative diagnosis: Flex Sig Sedation: Per Questionnaire TImeframe: within 6 Weeks -- C. Indication: reassessment and possible resection of rectal lesion @10cm This procedure should be performed with: Advanced Endoscopist (Brandon Al or Greyson) Postoperative diagnosis: * No post-op diagnosis entered * Procedure(s) (LRB): FLEXIBLE SIGMOIDOSCOPY (N/A) LOWER EUS- ENDOSCOPIC ULTRASOUND (N/A) Full procedure note is documented under the Procedure section of [facility]. documented in this encounter Plan of Treatment Not on filedocumented as of this encounter Procedures Procedure Name Priority Date/Time Associated Diagnosis Comme nts SPECIMEN TO PATHOLOGY Routine 10/19/2019 8:49 Res ults for this AM EST procedure are i n the results section. SURGICAL PATHOLOGY Routine 10/19/2019 8:31 Result s for this REPORT AM EST procedure are i n the results section. LOWER EUS- ENDOSCOPIC 10/19/2019 8:06 Flex Sig ULTRASOUND AM EST Sedation: Per Questionnaire TImeframe: within 6 Weeks -- C. Indication: reassessment and possible resection of rectal lesion @10cm This procedure should be performed with: Advanced Endoscopist (Brandon Al or Greyson) FLEXIBLE 10/19/2019 8:06 Flex Sig SIGMOIDOSCOPY AM EST Sedation: Per Questionnaire TImeframe: within 6 Weeks -- C. Indication: reassessment and possible resection of rectal lesion @10cm This procedure should be performed with: Advanced Endoscopist (Brandon Al or Greyson) LOWER EUS-ENDOSCOPIC Routine 10/19/2019 7:30 Resu lts for this ULTRASOUND AM EST procedure are i n the results section. documented in this encounter Results Specimen to Pathology (10/19/2019 8:49 AM EST) Specimen Anatomical Collection Method Collection Time Receive d Time (Source) Location / / Volume Laterality AP Specimen 10/19/2019 8:49 AM 9 8:49 EST AM EST Narrative [facility] - 10/19/2019 8:49 AM EST Specimen requisition ordered. ??Separate Pathology report to follow Jesse Al MD PATHOLOGY/CYTOLOGY ORDERABLE S Performing Organization Address City/State/[place] [address] Surgical Pathology Report (10/19/2019 8:31 AM EST) Component Value Ref Test Analysis Performed At [facility] gist Range Method Time Signature Surgical [id number] ? Location: 4T; EA11; A [facility] Report The signing pathologist has (i) examined the relevant preparation(s) for the [facility] specimen(s) and (ii) rendered or confirmed the diagnosis(es) . HOSPITAL LABORATORY . ?Surgic al Pathology DIAGNOSIS Mid rectum, biopsy: Fragments of rectal mucosa w ith ulceration, fibrinopurulent exudate and fibrosis. No malignancy and dysplasia are seen. Electronically signed by: ??Kali JACOBS, Cindy Verified: ??10/20/2019 ?Pathologist Performed at: ??-[facility] Dept. of Pathology, [place], [place] CLINICAL INFORMATION Specimen Submitted: A - Mid rectum Clinical History and Diagnosis: Rectal ulcer rule out neoplasm rule out mucosal prolapse SPECIMEN PROCESSING A - Labeled/Fixative: Mid rectum, formalin. Quantity/Size: Multiple, ranging 0.1-0.2 cm. Tissue Description: Soft, pink-red tissues. Sections/Processing: Submitted en toto ??in 1 cassette labeled A1. ??MLL Specimen (Source) Anatomical Collection Method Collection Time Re ceived Time Location / / Volume Laterality 10/19/2019 8:31 AM EST Jesse Al MD PATHOLOGY/CYTOLOGY ORDERABLE S Performing Organization Address City/State/[place] [address] LOWER EUS-ENDOSCOPIC ULTRASOUND (10/19/2019 7:30 AM EST) [facility] gist Method Time Signature LOWER EUS [facility] Endoscopy Procedure Date: 10/19/2019 7:30 AM ? Patient Name: Vick Jama ? Date of : 1950 ? Age: 69 ? Order #: [id number] ? Instrument Name: [id number] ? Procedure: ? Lower EUS Indications: ? Abnormal wall thickening found in t he ? rectum on flex sig/colonoscop y Providers: ? Jesse Al MD, Ning Paul, ? Rajinder Fisher MD: ?Reji Lopez MD, Marge ? Singh Medicines: ? Fentanyl 150 micrograms IV, Midazo owens ? 4 mg IV Complications: ? No immediate complications. Procedure: ? Pre-Anesthesia Assessment: ? - Prior to the procedure, a H istory ? and Physical was performed, a nd ? patient medications, allergie s and ? sensitivities were reviewed. The ? patient's tolerance of previo us ? anesthesia was reviewed. ? - The risks and benefits of t he ? procedure and the sedation op tions ? and risks were discussed with the ? patient. All questions were a nswered ? and informed consent was obta ined. ? - ASA Grade Assessment: II - A ? patient with mild systemic di sease. ? The procedure, indications, b enefits, ? risks and alternatives were e xplained ? to the patient. Specifically ? discussed were potential ? complications including, but not ? limited to, bleeding, perfora tion, ? infection, missing a cancer, and ? adverse medication reactions. The ? Colonoscope was inserted in t he anus ? and under direct visualizatio n, ? advanced to the splenic flexu re for ? ultrasound. Careful inspectio n was ? made as the scope was withdra wn. The ? procedure, indications, benef its, ? risks and alternatives were e xplained ? to the patient. Specifically ? discussed were potential ? complications including, but not ? limited to, bleeding, perfora tion, ? infection, missing a cancer, and ? adverse medication reactions. The ? patient tolerated the procedu re well. ? The quality of the bowel prep aration ? was fair. ? Findings: ? The perianal and digital rectal examinations were ? normal. ? There is a focal area of luminal narrowing with ? associated mucosal changes including relatively pale ? mucosa with a 2 cm area of superficial ulceration in ? mid rectum at 10-12 cm (see images). Biopsies were ? taken with a cold forceps for histology. ? Normal retroflexion in distal rectum. ? EUS exam: ? At the area of focal luminal narrowing and mucosal ? changes there is relative circumferential thickening ? of the muscularis propria but no evidence for focal ? mass or extrinsic process. ? The exam was otherwise unremarkable. ? Endoscopic Finding : ? Multiple diverticula were found in the sigmoid colon. ? Moderate Sedation: ? I was present during the intraservice time as ? documented by the sedation RN. Impression: ?- Diverticulosis in the sigmoid co paulina. ? - Focal circumferential lumin al ? narrowing and mucosal changes in mid ? rectum associated with mild r elative ? thickening of the muscularis propria ? by EUS but without evidence f or ? intrinsic or extrinsic mass. The ? findings may represent mucosa l ? prolapse change. Biopsies bettina en. Recommendation: ?- Await path results. ? - If benign, would favor muco kortney ? prolapse and can defer additi onal ? imaging as EUS was otherwise ? unremarkable and she is asymp tomatic. ? Attending Participation: ? I personally performed the entire procedure. ? Jesse Al MD 10/19/2019 9:15:40 AM This report has been signed electronically. Number of Addenda: 0 Note Initiated On: 10/19/2019 7:30 AM Specimen (Source) Anatomical Collection Method Collection Time Re ceived Time Location / / Volume Laterality 10/19/2019 7:30 AM EST Reji Lopez MD GENERAL SURGICAL ORDERABLES Performing Organization Address City/State/ZIP Code Phon e Number [employer] documented in this encounter Visit Diagnoses Not on filedocumented in this encounter Administered Medications Inactive Administered Medications - up to 3 most recent administrations Medication Order MAR Action Action Date Dose Rate Site fentaNYL 50 mcg/mL multi-dose Given 10/19/2019 8:24 AM EST 50 mc g injection ONCE PRN, Starting on Sat10/19/19 at 0816, Until Sat10/19/19 at 1200, Intra-Operative (Intra-Procedure), Routine Given 10/19/2019 8:19 AM EST 50 mcg Given 10/19/2019 8:16 AM EST 50 mcg lactated ringers infusion New Bag 10/19/2019 7:45 AM EST 100 mL/hr 100 mL/hr 100 mL/hr, Intravenous, CONTINUOUS, Starting on Sat10/19/19 at 0745, Until Sat10/19/19 at 0933, Endoscopy (Day of Procedure) midazolam (PF) (VERSED) multi-dose injec tion Given 10/19/2019 8:46 AM EST 1 mg ONCE PRN, Starting on Sat10/19/19 at 0816, Until Sat10/19/19 at 1200, Intra-Operative (Intra-Procedure), Routine Given 10/19/2019 8:22 AM EST 1 mg Given 10/19/2019 8:19 AM EST 1 mg documented in this encounter Active and Recently Administered Medications Times are shown in EST. Continuous Medication Order 10/17/2019 10/18/2019 10/19/2019 lactated ringers infusion (CANCELED) 0745 (New Bag - Provider: Frances Sandhu RN) 100 mL/hr, at 100 mL/hr, Intravenous, CO NTINUOUS, Starting Sat10/19/19 at 0745, Until Sat10/19/19 at 0933, Endo (Day of Procedure) PRN Medication Order 10/17/2019 10/18/2019 10/19/2019 fentaNYL 50 mcg/mL multi-dose injection (CANCELED) 0816 (Given - Provider: Ning Paul RN)0819 (Given - Provider: Ning Paul RN)0824 (Given - Provider: Ning Paul RN) ONCE PRN, Starting Sat10/19/19 at 0816, Until Sat10/19/19 at 1200, Intra- Operative (Intra-Procedure), Routine midazolam (PF) (VERSED) multi-dose injection (CANCELED) 0816 (Given - Provider: Ning Paul RN)0819 (Given - Provider: Ning Paul RN)0822 (Given - Provider: Ning Paul RN)0846 (Given - Provider: Ning Paul RN) ONCE PRN, Starting Sat10/19/19 at 0816, Until Sat10/19/19 at 1200, Intra- Operative (Intra-Procedure), Routine documented in this encounter Care Teams Smog Technician Relationship Specialty Start Date End Date Reji Lopez MD PCP - General Internal Medicine 08/05/19 [address] [place] [address] documented as of this encounter
--- OUTSIDE RECORDS SUMMARY | 2022-04-23 11:46 | XMS_ITS | Encounter Summary ---
:1950 Author Organization [facility] [place] [address] Care Team Providers Name Role Phone Taty River MD Primary Care Provider Reason for Referral Physical Therapy (Routine) - Closed Specialty Diagnoses / Procedures Referred By Contact Refer red To Contact Physical Therapy Diagnoses Lumbar spondylosis Kiley Landers, [facility] Spine Pt [employer] [place] [address] [place] [address] Phone: Referral ID Status Reason Start Date Expiration Date Visits V isits Requested Authorized [id number] Closed Evaluate and 06/20/2017 06/20/2018 1 1 Treat Reason for Visit Reason Comments Pain Management Back Pain Consultation (Routine) - Closed Specialty Diagnoses / Procedures Referred By Contact Refer red To Contact Pain Management Diagnoses spinal stenosis lumbar Taty River MD [facility] [address] [place] [address] [place] [address] Phone: Fax: Referral ID Status Reason Start Date Expiration Date Visits V isits Requested Authorized [id number] Closed Consult, 05/22/2017 05/22/2018 1 1 Test & Treat Connection [facility] Encounter Details Date Type Department Care Team Description 06/20/2017 Office Visit Pain Management at Kiley Landers, [place] bar spondylosis [place] [facility] [address] [address] [place] [address] [phone] (Wo rk) Social History Tobacco Use Types [...] Sign Reading Time Taken Comments Blood Pressure 114/73 06/20/2017 9:10 AM EDT Pulse 61 06/20/2017 9:10 AM EDT Temperature - - Respiratory Rate - - Oxygen Saturation 99% 06/20/2017 9:10 AM EDT Inhaled Oxygen Concentration - - Weight 69.9 kg (154 lb) 06/20/2017 9:10 AM EDT Height 165.1 cm (5' 5) 06/20/2017 9:10 AM EDT Body Mass Index 25.63 06/20/2017 9:10 AM EDT documented in this encounter Patient Instructions Patient InstructionsKiley Landers APRN - 06/20/2017 9:30 AM EDT Consider trying turmeric (95% curcumin + black pepper) tablets- anti- inflammatory properties. documented in this encounter Progress Notes Kiley Landers APRN - 06/20/2017 9:30 AM EDT [facility] [place] [address] Phone: PAIN MANAGEMENT FOLLOW UP DATE OF VISIT 06/20/2017 Patient Vick Jama 1950 REFERRING PROVIDER Taty River MD [address] [place] [address] PRIMARY CARE PROVIDER Taty River MD CHIEF COMPLAINT: Vick Jama is a 67 y.o. female with low back pain, who is seen in consultation at the request of Dr. River for evaluation, recommendations, and management. The history is obtained from the patient, and I have reviewed medical records, provided by the referring physician and located in the [facility] medical record, to fill in gaps in the patient's recollection of events, treatments, and outcomes. HPI Ms. Jama has low back pain. She has a history of left lower extremity pain/radiculopathy, for which she has had multiple left L3-4 TFESI in our clinic in the past (last was in 2014). However,her left lower extremity pain has improved since starting gabapentin 3 weeks ago. She presents todayto discuss her back pain, which is persistent and worsening. It limits her activities, although she is committed to continue walking 2 miles/day. She has been struggling with depression, and will be seeing a counselor- the depression was present prior to her starting gabapentin. Pain Assessment: - Constant aching in the bilateral low back, no radiation - No numbness, tingling, no weakness - No saddle anesthesia - Aggravated by: sitting, prolonged walking and standing - Alleviated by: elevating her legs, inversion table - Average pain in past week: 3-8/10 depending on activities FUNCTIONAL /SOCIAL Lives with: Work: retired Interference with activities/ADL: able to care for self Exercise/activities: walks 2 miles/day CURRENT THERAPIES: - Ibuprofen 600mg bid- relief - Gabapentin 300mg tid-- relieved left leg pain - Inversion table PAST THERAPIES: - Left L3-4 TFESI, 11/09/14, 01/08/14, 04/14/13 MEDICATIONS The [place] Prescription Monitoring Program was checked and no concerns were identified. Medications 06/20/17 0914 Medication Sig Taking? gabapentin (NEURONTIN) 300 mg Capsule TAKE 1 TABLET BY MOUTH NIGHTLY FOR 1 WEEK THEN 1 TABLET TWICE GUZMAN... (REFER TO PRESCRIPTION NOTES). Yes levothyroxine (SYNTHROID) 50 mcg Tablet Take 50 mcg by mouth daily. Yes traZODone (DESYREL) 50 mg tablet Take 50 mg by mouth nightly. 2 nightly Yes ibuprofen (ADVIL;MOTRIN) 200 mg tablet Take 400-600 mg by mouth every 6 hours as needed. Yes ADVERSE DRUG REACTIONS Allergies as of 06/20/2017 ??? (No Known Allergies) REVIEW OF SYSTEMS Constitutional: denies fever, chills, + weight gain, + fatigue HEENT: denies headaches, blurry vision/vision changes, difficulty hearing Cardiac: + chest pain (had total work up years ago, has an arrhythmia), denies palpitations, denies lower extremity edema Lungs: denies shortness of breath, wheezing, cough GI: + constipation (bowel movements about once/week, takes laxatives), denies nausea or vomiting, black or bloody stool, loss of control of bowel : denies frequency, urgency, hesitation, or incontinence Neuro: denies changes in attention or orientation; + dizziness when standing too quickly, denies tremors Muscloskeletal: denies joint swelling, use of ambulatory aide, falls Skin: denies open sores or rashes, pruritis Psychological/Mood: very, very depressed- going to be seeing a therapist soon; occasional suicidalideations, but I am not going to do it Sleep: very well, takes trazadone RISK ASSESSMENT Smoking: no Alcohol (present/past): no, denies history Illegal/prescription drug misuse (present/past): no, denies history 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 Anxiety ??? Arthritis ??? Dysrhythmia, cardiac ??? Tennis elbow SURGICAL HISTORY Past Surgical History: Procedure Laterality Date ??? ABDOMEN SURGERY indigo-rectal abscess ??? HYSTERECTOMY FAMILY HISTORY Family History Problem Relation Age of Onset ??? Diabetes Mother ??? Diabetes Father PHYSICAL EXAMINATION Body mass index is 25.63 kg/(m^2). BP 114/73 Pulse 61 Ht 165.1 cm (5' 5) Wt 69.9 kg (154 lb) SpO2 99% BMI 25.63 kg/m2 Appearance/ Behavior Well groomed, good eye contact, relaxed, cooperative, normal speech, no acute distress. Appropriate, pleasant mood. seen alone. Eyes Pupils round and equal, extraoccular movements intact. No conjunctival injection or excessive tearing. Sclera non-icteric. ENT Hearing grossly intact Lungs Clear to auscultation bilaterally, non-labored. Cardiovascular Rate and rhythm regular without murmur. Skin No rash, asymmetric hair loss, bruises, scars, swelling, or masses noted. Vascular warm to touch, + 2 pulses in bilateral upper and lower extremities, no edema Focused Musckuloskeletal/Neurological Inspection: Gait: Steady, nonantalgic Assistive device: No Heel, toe, tandem walk: Able to stand on heel and toes, mild difficulty with tandem walk Stands with level hips and normal alignment, no excessive curvature/scoliosis No skin breakdown, no scar Palpation: Tender to palpation in axial low lumbar spine and bilateral paraspinous muscles Range of Motion/Facet Loading: Mildly limited range of motion with lumbar spine flexion and extension Kemps/facet loading: Positive bilaterally Straight leg raise: Tip bilaterally Motor Strength: Segment?? Muscle?? Action?? Left?? Right?? L2?? Iliopsoas?? Hip flexion ?? 5?? 5?? L3?? Quadriceps?? Knee extension?? 5?? 5?? L4?? Tibialis anterior?? Dorsiflexion?? 5?? 5?? L5?? Extensor hallucis?? Great toe extension?? 5?? 5?? S1?? Gastrocnemius?? Plantar flexion?? 5?? 5? Reflexes: Reflex?? Left?? Right?? Patellar?? Unable to elicit 2+ Achilles 2+?? 2+?? Babinski downgoing?? downgoing?? Clonus negative negative Vicente negative negative ?? Sensory: No sensory deficits noted in bilateral lower extremity dermatomes RADIOGRAPHIC STUDIES Lumbar MRI 01/01/12 There are degenerative changes of the facets. At L4-5, there is loss of signal of the disc. There patricio diffuse disc bulge. There is degenerative changes of the facets and hypertrophy of the ligamentum flavum causing moderate central spinal canal stenosis. There is moderately severe left and mild rightneural foraminal stenosis. At L3-4, there is degenerative endplate signal changes. There is a diffuse disc bulge eccentric to the left. There are degenerative changes of the facets and hypertrophy of the ligamentum flavum causing mild to moderate central spinal canal stenosis. There is mild right and moderately severe left neuroforaminal stenosis. There does appear to be a left lateral disc herniation present at this level. At L2-3, there is a loss of signal of the disc and a diffuse disc bulge eccentric to the left. There are degenerative changes of the facets. No central spinal canal stenosis is present. No focal disc herniation is seen. There is mild left neural foraminal stenosis. At L1-2, there is a diffuse disc bulge. No central canal stenosis or focal disc herniation is seen. No neural foraminal stenosis is present. Impression: Multilevel degenerative changes in the lumbar spine. Degenerative changes resulting in central spinal canal stenosis at L3-4 and L4-5 and multilevel neural foraminal stenosis. Findings appear most marked on the left at L2-3 and L3-4. ASSESSMENT Ms. Jama has chronic low back pain consistent with lumbar spondylosis, and improved left lower extremity radicular pain disease since starting gabapentin). Fortunately, she is concerning findings on physical exam for myelopathy, radiculopathy, or cauda equina. She does have positive Kemps/facet loading on physical exam, consistent with facet mediated joint pain. Her MRI in 2012 confirms this. Her pain is interfering with her activity level and mood. She does report occasional suicidal ideations, but states, I would never do it. I could never do that to my kids. She denies active suicidality at this time. PLAN/RECOMMENDATIONS 1. Lumbar x-ray ordered, as her last imaging was in 2011- to assess progress of facet arthropathy. 2. I recommend diagnostic lumbar facet blocks using the medial branch block technique at the bilaterally L4-L5 and L5-S1 facet joint levels (L3, 4, 5). Ms. Jama exhibits mechanical low back pain and no obvious radicular signs or symptoms and she has no history of spinal fusion at these facet levels. She exhibits pathology on MRI consistent with the facet joints as being the major low back pain generator. If these diagnostic blocks are successful at temporarily blocking at least 80% of her pain,I will recommend that we proceed on with radiofrequency ablation at the same medial branches. If insignificant relief is achieved with this block, we will investigate other causes of her current pain. Ms. Jama and I discussed all of this at length using anatomical models. All significant risks, benefits, indications, and alternatives were discussed with the patient. She does consent to proceed fo rward with this this treatment plan. 3. Referral placed for [facility] physical therapy. We discussed that this would help her learn stretches and postural changes that may improve her pain. 4. Discussed consideration of trying duloxetine, but she would like to hold off on adding additionalmedications at this time. Follow up as needed. Vick Jama had the opportunity to ask questions and indicated that all questions were answeredto her satisfaction. I spent 30 minutes of this 45 minute visit in coordination of care and counseling the patient regarding spinal stenosis/facet arthropathy, treatment options, conservative treatments. Thank you for this referral, Taty River MD [address] [place] [address]. Kiley Landers, MSN, EXCAVATOR OPERATOR-BC, [employer]ET[employer] MA[employer]GER Nurse Practitioner [facility] documented in this encounter Plan of Treatment Scheduled Referrals Name Type Priority Associated Diagnoses Order S chedule Referral to Outpatient Referral Routine Lumbar spondylosis Or dered: Physical Therapy 06/20/2017 documented as of this encounter Results XR Lumbar Spine 2 [...] for fracture or acute injury Kiley Landers [employer]GER IMG DX ORDERABLES documented in this encounter Visit Diagnoses Diagnosis Lumbar spondylosis Lumbosacral spondylosis without myelopat hy Lumbar spondylosis Lumbosacral spondylosis without myelopat hy documented in this encounter Care Teams Gas Tender Relationship Specialty Start Date End Date Taty River MD PCP - General 11/17/13 11/12/18 [address] [place] [address] documented as of this encounter
--- OUTSIDE RECORDS SUMMARY | 2022-04-23 11:46 | XMS_ITS | Encounter Summary ---
:1950 Author Organization [place] [address] Care Team Providers Name Role Phone Reji [...] Expiration Date Visits Requ ested Visits Authorized [id number] 1 1 Encounter Details Date Type Department Care Team Description 10/19/2019 Hospital Encounter Gastroenterology at [facility] Jesse Al, [facility] [place] [address] [facility] [phone] CENTER GASTROENTEROLOGY DEPT. [place], [place] [address] Social History Tobacco Use Types [...] Sign Reading Time Taken Comments Blood Pressure 100/82 10/19/2019 9:20 AM EST Pulse 65 10/19/2019 8:45 AM EST Temperature 36.4 ??C (97.5 ??F) 10/19/2019 7:20 AM EST Respiratory Rate 16 10/19/2019 8:56 AM EST Oxygen Saturation 100% 10/19/2019 9:30 AM EST Inhaled Oxygen Concentration - - [...] to be checked. Saturday-Saturday Same Day Endo [phone] [id number] Otherwise contact [phone] and ask to speak to the fryline attendant internal controls specialist Follow up care is a hess part [...] Indication: Rectal lesion on colonoscopy 09/07/19 @ [facility] Patient Active Problem List Diagnosis Code ??? [...] DAGOBERTO Murillo-C Section of Gastroenterology [place] [address] documented in this encounter Miscellaneous Notes Op Note - Jesse Al MD - 10/19/2019 9:02 AM EST [facility] Operative Note Patient Name: Vick Jama : [id number] MR#: [id number] Case Date: 10/19/2019 Surgeon: Surgeon(s) and Role: [...] is documented under the Procedure section of [facility]. documented in this encounter Plan of Treatment [...] AM 9 8:49 EST AM EST Narrative [facility] - 10/19/2019 8:49 AM EST Specimen requisition ordered. ??Separate Pathology report to follow Jesse Al MD PATHOLOGY/CYTOLOGY ORDERABLE S Performing Organization Address City/State/[place] [address] Surgical Pathology Report (10/19/2019 8:31 AM EST) Component Value Ref Test Analysis Performed At [facility] gist Range Method Time Signature Surgical [id number] ? Location: 4T; EA11; A [facility] Report The signing pathologist has (i) examined the relevant preparation(s) for the [facility]IAL specimen(s) and (ii) rendered or confirmed the diagnosis(es) . HOSPITAL LABORATORY . ?Surgic al Pathology DIAGNOSIS Mid rectum, biopsy: Fragments of rectal mucosa w ith ulceration, fibrinopurulent exudate and fibrosis. No malignancy and dysplasia are seen. Electronically signed by: ??Kali JACOBS, Cindy Verified: ??10/20/2019 ?Pathologist Performed at: ??-[facility] Dept. of Pathology, [place], [place] CLINICAL INFORMATION Specimen Submitted: A - [...] Organization Address City/State/[place] [address] LOWER EUS-ENDOSCOPIC ULTRASOUND (10/19/2019 7:30 AM EST) [facility] gist Method Time Signature LOWER EUS [facility] Endoscopy Procedure Date: 10/19/2019 7:30 AM ? Patient Name: Vick Jaam ? Date of : 1950 ? Age: 69 ? Order #: [id number] ? Instrument Name: [id number] ? Procedure: ? Lower EUS Indications: ? [...] MAR Action Action Date Dose Rate Site lactated ringers infusion New Bag 10/19/2019 7:45 AM EST 100 mL/hr 100 mL/hr 100 mL/hr, Intravenous, CONTINUOUS, Starting on Sat10/19/19 at 0745, Until Sat10/19/19 at 0933, Endoscopy (Day of Procedure) documented in this encounter Active and Recently [...] Ning Paul RN)0824 (Given - Provider: Ning Paul, RN) ONCE PRN, Starting Sat10/19/19 at 0816, Until Sat10/19/19 at 1200, Intra- Operative (Intra-Procedure), Routine midazolam (PF) (VERSED) multi-dose injection (CANCELED) 0816 (Given - Provider: Ning Paul RN)0819 (Given - Provider: Ning Paul, RN)0822 (Given - Provider: Ning Paul, RN)0846 (Given - Provider: Ning Paul, RN) ONCE PRN, Starting 10/19/19 at 0816, Until 10/19/19 at 1200, Intra- Operative (Intra-Procedure), Routine documented in this encounter Care Teams Magnetic Prospecting Supervisor Relationship Specialty Start Date End Date Reji Lopez MD PCP - General Internal Medicine 10/9/19 [address] [place] [address] documented as of this encounter
--- OUTSIDE RECORDS SUMMARY | 2022-04-23 11:46 | XMS_ITS | Encounter Summary ---
:1950 [place] [address] Care Team Providers Name Role Phone Reji Lopez MD Primary Care Provider Reason for Visit Auth/Cert Specialty Diagnoses / Procedures Referred By Contact Refer red To Contact Diagnoses Failed Stress Test Procedures EMERGENCY IPI Referral ID Status Reason Start Date Expiration Date Visits Requ ested Visits Authorized [id number] 1 1 Encounter Details Date Type Department Care Team Description 06/07/2020 - Hospital Encounter Intermediate Cardiac Henkin, Johnathan ther chest pain; 06/08/2020 Care Unit Anni Lambert MD Unstable angina [facility] [place] [id number] [phone] Social History Tobacco Use Types Packs/Day Years [...] Vick Jama Patient Age: 70 y.o. Language: Solomon Islander Race: White Ethnicity: Not nor Admit date: [...] please contact your inpatient physician through the [facility] Operating Room Tech . Issues after hours and on weekends [...] had another similar episode so presented to [facility]. There she was found to have negative [...] no WMAs. 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 Last 3 TFT Recent Labs 06/07/20 1702 TSH 1.87 Last 3 Lipids Recent Labs 06/08/20 040 CHLPL 171 HDL 67 LDLDIRECT 106 TRIG 58 Last 3 HgbA1C Recent Labs 06/08/20 040 HA1C 5.0 Last CRP, SEDRATENo results for [...] Center 06/15/2020 10:00 AM Roger Cyr MD [facility] CARD 4A [facility] Your Inpatient Medical Team at [facility] Name(s) of your inpatient provider(s): Railroad Signal Technician: Fausto Cuenca MD Community Center Worker: Esteban Juárez MD Internal Medicine Residents: Leonila De Paz MD & Michelle Alcaraz MD Your Primary Care Provider: Reji Lopez MD [phone] For questions regarding this document or issues relating to this hospitalization on the Medical Service, please contact your inpatient physician through the [facility] Operating Room Tech . Issues after hours and on weekends will be handled by the Hospitalist staff on-call. General Instructions None Discharge References/Attachments Coronary Angiogram: Post-op (Solomon Islander) documented in this encounter Discharge Instructions Patient [...] Center 06/15/2020 10:00 AM Roger Cyr MD [facility] CARD 4A [facility] Your Inpatient Medical Team at [facility] Name(s) of your inpatient provider(s): Railroad Signal Technician: Fausto Cuenca MD Community Center Worker: Esteban Juárez MD Internal Medicine Residents: Leonila De Paz MD & Michelle Alcaraz MD Your Primary Care Provider: Reji Lopez MD [phone] For questions regarding this document or issues relating to this hospitalization on the Medical Service, please contact your inpatient physician through the [facility] Operating Room Tech . Issues after hours and on weekends will be handled by the Hospitalist staff on-call. AttachmentsThe following attachments cannot be sent through Care Everywhere. Coronary Angiogram: Post-op (Solomon Islander)documented in this encounter Medications at Time of [...] 1 day ) Service: S1 ID: Vick aJma is a 70 y.o. female with a history of spinal stenosis, hypothyroidism presents in transfer from [facility] to [facility] with chest pain 2/2 unstable angina. Active [...] function grossly intact. Labs Recent Labs 06/08/20 0407 06/07/20 1702 WBC 6.2 5.9 HGB 13.2 13.8 HCT 39.0 41.4 PLATELET 194 204 Recent Labs 06/08/20 04006/07/20 1702 NA 141 141 K 4.2 3.7 CL 103 104 CO2 26 27 BUN 13 11 CREATININE 0.68* 0.67* Recent Labs 06/07/20 170 AST 12 ALT 10 ALKPHOS 45 BILITOT 0.6 BILIDIR 0.1 Recent Labs 06/08/20 0407 06/07/20 1702 CALCIUM 9.6 9.9 MAGNESIUM 0.78 0.77 [...] spinal stenosis, hypothyroidism presents in transfer from [facility] to [facility] with chest pain after positive stress test [...] MD, PGY-1 06/08/2020 Cardiology S2 Team Pager [phone] CARDIOLOGY ATTENDING NOTE Please see my H&P [...] spinal stenosis, hypothyroidism presents in transfer from [facility] to [facility] with chest pain. History of Present Illness: Saturday evening, patient was in her car when she had the sudden onset of chest pressure, jaw pain, shortness of breath. She endorses palpitations but no diaphoresis or nausea. The following evening she had another similar episode so presented to [facility]. There she was found to have negative [...] SIGMOIDOSCOPY performed by Jesse Al MD at [facility] ENDOSCOPY ??? PRO UNLISTED PX RECTUM N/A 10/19/2019 LOWER EUS- ENDOSCOPIC ULTRASOUND performed by Jesse Al MD at [facility] ENDOSCOPY Prior To Admission Medications: Medications Prior [...] file Gets together: Not on file Attends scientologist service: Not on file Active member of [...] spinal stenosis, hypothyroidism presents in transfer from [facility] to [facility] with chest pain. Given positive stress test, [...] De Paz. Fausto Cuenca MD, MPH, RPVI, [facility] Pager [phone] Cardiovascular Hoisting Pile Driving EngineerSenior Research Engineermid level [place] [address] documented in this encounter Miscellaneous Notes Initial [...] Health/Prescription Coverage: Primary Insurance: MEDICARE Secondary Insurance: [employer] [facility] [place] Prescription Coverage: yes Preferred Pharmacy: [facility] Primary Care Provider: Reji Lopez MD [phone] Patient/Caregiver Goals of Treatment: to return home [...] of care planning. Alessandro Kellogg RN Pager: [phone] Plan of Care - Eb Anders RN [...] Review Outcome: Ongoing (Interventions Implemented as Appropriate) 06/07/20 1730 Coping/Psychosocial Plan Of Care Reviewed With patient;spouse Plan of Care Review Progress progress towards functional goals is fair OUTCOME EVALUATION NOTE: OUTCOME SUMMARY: Vick arrived to this afternoon. Heparin gtt stopped [...] (Interventions Implemented as Appropriate) 06/07/20 1603 06/07/20 1730 Coping Strategies Supportive Measures -- active listening [...] 06/07/20 1730 Interdisciplinary Rounds/Family Conf Participants case finisher;family;nursing;patient;physician documented in this encounter Plan of Treatment [...] SYSTEM - 06/09/2020 7:59 AM ED T ?[facility] ? Cardiac Cathete rization/Intervention Report ? Patient Name: Vick Jama. ? Procedure Date: 06/08/2020 ? A #: [id number] ? Primary Physician: Roger José ? Case #: [id number] ? File Name: [id number] ? Catheterization Order Number: [id number] ? [facility] ? Final Report [place], [place] ? Patient Name: ? Vick S. Leia vimal ?ID#: ?[id number] ? : ?1950 ? Procedure Date: ? June 08, 2020 ?Case #: ? [id number] ? Room: ? 5 ? Case Physician: ? Roger montoya, M.D. ? Start: ?10:10 ?Fellow: ? Erickson Engel on, M.D. ?Admission: ??06/07/2020 ?Eleuterio Bennie , M.D. ? Referring ? Rafaela T Danielle [...] procedure was Urgent. The indication for ?the fish farm laborer visit is worsening angina and suspected [...] note might be different from the original. [facility] Cardiac Catheterization/Intervention Re port Patient Name: Vick Jama Procedure Date: 06/08/2020 A #: [id number] Primary Physician: Roger José Case #: [id number] File Name: [id number] Catheterization Order Number: [id number] [facility] Final Report [place], [place] Patient Name: Vick Jama ID#: [id number] : 1950 Procedure Date: June 08, 2020 Case #: [id number] Room: 5 Case Physician: Roger José M.D. [...] devora gnated as ASA Class II. The [facility] clinical frailty scale is 2: Well. Diagnostic [...] e was Urgent. The indication for the fish farm laborer visit is worsening angina and suspected CAD. Chest pain symptom assessment was: Typical Angina. Technique: A 6 SLFr sheath was inserted in the rig ht radial artery utilizing the Seldinger technique. The [...] present for the entire procedure. Dr. Roger José M.D. was present during the moderate sedation intraservice time as documented by the sedation nurse. Case time = 00:12. Dr. Roger José M.D. performed th e coronary angiography and left heart catheterization. Roger oJsé M.D. Electronically Signed by: Roger soriano M.D. Report Finalized: 06/09/2020 07:52 Roger José MD CARDIAC CATH ORDERABLES Performing Organization Address City/State/ZIP Code Phon e Number CARDIOMAC SYSTEM ECHOCARDIOGRAM COMPLETE (06/08/2020 8:40 AM EDT) Specimen (Source) Anatomical Location Collection Method / Collectio n Time Received Time / Laterality Volume 06/08/2020 Narrative HEARTLAB SYSTEM - 06/08/2020 8:58 AM EDT Procedure: ?Transthoracic Echocardiogram Patient: ?SINAI BOWEN S ?(Age): 1950(70y) Med Rec#: ? [id number] ?Sex: ?F ? Site Loc: ? [facility] ?Ht / Wt: ??165(cm)/75(kg) Pt. Loc: ?Adult Floor ? BSA: ?1.82 Study Date: ?? 06/08/2020 ?Pt. Type: Inpatient Tape: ? Referring: RAFAELA BETANCUR T Reading: Han Vega ([id number]) Poultry Trimmer: Josh Pinto [facility] Interpreting Fellow: Ziyad Roy ([id number]) Diagnosis: *Other chest pain (R07.89) BP: ? [...] Vmax ?0.63 ? m/sec ? MV deceleration [id number] ?msec ? MV A-wave Vmax ?0.67 ? [...] ? Mid-Inferior ?Normal ? Mid-Inferoseptal ?Normal ? [place]-Septal ? Normal ? [place]-Anterior ? Normal ? [place]-Lateral ?Normal ? [place]-Inferior ? Normal ? [place]-Tip ?Normal ? This report has been electronically sign ed by: _ Han Vega MD ? 06/08/2020 08: 57:31 Images reviewed and interpretation verif ied [facility] Cardiac Ultrasound Laboratory Procedure Note Han Vega MD - 06/08/2020Formatti ng of this note might be different from the original. Procedure: Transthoracic Echocardiogram Patient: SINAI Raymundo (Age): 03/1950(70y) Med Rec#: [id number] Sex: F Site Loc: [facility] Ht / Wt: 165(cm)/75(kg) Pt. Loc: Adult Floor BSA: 1.82 Study Date: 06/08/2020 Pt. Type: Inpatie nt Tape: Referring: RAFAELA BETANCUR T Reading: Han Vega ([id number]) Poultry Trimmer: Josh Pinto [facility] Interpreting Fellow: Ziyad Roy ([id number]) Diagnosis: *Other chest pain (R07.89) BP: 101/60 [...] MV E-wave Vmax 0.63 m/sec MV deceleration [id number] msec MV A-wave Vmax 0.67 m/sec MV [...] Normal Mid-Posterolateral Normal Mid-Inferior Normal Mid-Inferoseptal Normal [place]-Septal Normal [place]-Anterior Normal [place]-Lateral Normal [place]-Inferior Normal [place]-Tip Normal This report has been electronically sign ed by: _ Han Vega MD 06/08/2020 08:57:31 Images reviewed and interpretation verif ied [facility] Cardiac Ultrasound Laboratory Fausto Cuenca MD ECHO ORDERABLES Performing Organization Address City/State/ZIP Code Phon e Number HEARTLAB SYSTEM (ABNORMAL) BMP w/fasting Glucose (06/08/2020 4:07 AM EDT) athologist Signature Glucose 94 65 - 99 [facility] Fasting mg/dL [facility] Comment: ?Fasting* Glucose Interpretive C [...] of Diabetes Mellitus, Position Statement from the [place] Diabetes Association. ??Diabete s Care, Volume 33, Supplement 1, Oct 2009 BUN 13 8 - 18 mg/dL [facility] Creatinine 0.68 (L) 0.70 - 1.20 mg/dL [facility] Sodium 141 135 - 145 mmol/L [facility] Potassium 4.2 3.5 - 5.0 mmol/L [facility] Comment: Please note: ??Patients with WBC >100,00 0 may have falsely elevated Potassium levels. ??For accurate Potassium quantif ication in these patients send serum separator tube (gold top) for subsequent determinations. ??Contact the Clinical Chemistry Laboratory if there are any qu estions. Chloride 103 98 - 107 mmol/L [facility] CO2 26 22 - 31 mmol/L [facility] Anion Gap 12 5 - 15 mmol/L [facility] Calcium 9.6 8.5 - 10.5 mg/dL [facility] Estimated GFR 88 >=60 mL/min/1.73 m?? [facility] Comment: The eGFR was calculated using the CKD-EP I equation. As with all creatinine based estimates of kidney function, eGFR values calculated with the CKD-EPI equation are not accurate in patients wi th acute kidney failure, extremes of body mass or the acutely ill. http://Corhythm/[facility]UGOnk eGFR 102 >=60 mL/min/1.73 m?? [facility] Comment: The eGFR was calculated using the CKD-EP I equation. As with all creatinine based estimates of kidney function, eGFR values calculated with the CKD-EPI equation are not accurate in patients wi th acute kidney failure, extremes of body mass or the acutely ill. http://Corhythm/[facility]UGOnkf Specimen Anatomical Collection Method Collection Time Receive d Time (Source) Location / / Volume Laterality Blood specimen 06/08/2020 4:07 AM 020 4:13 (specimen) EDT AM EDT Resulting Agency Comment Spec In Lab Michelle Alcaraz MD CHEMISTRY ORDERABLES Performing Organization Address City/State/Z[place] [address] Differential, Automated (06/08/2020 4:07 AM EDT) P athologist Signature Neutrophils % 47.0 % [facility] Neutr Abs (ANC) 2.92 1.70 - [facility] 6.10 [facility] x10(3)/[facility] LABORATORY Lymphocytes % 37.7 % [facility] Lymphocytes Abs 2.3 0.9 - 3.2 [facility] x10(3)/[facility] LABORATORY Monocytes % 9.0 % [facility] Monocyte Abs 0.6 0.3 - 0.9 [facility] x10(3)/[facility] LABORATORY Eosinophils % 4.5 % [facility] Eosinophils Abs 0.3 0.0 - 0.4 [facility] x10(3)/[facility] LABORATORY Basophils % 1.6 % [facility] Basophils Abs 0.1 0.0 - 0.1 [facility] x10(3)/[facility] LABORATORY Immature Gran % 0.20 % [facility] Comment: Immature granulocytes(IG's)percentage an d absolute count will include metamyelocytes, myelocytes, and promyelo cytes. Blood smears from CBCs yielding IG's will be scanned manually for concor dance. If this scan disagrees with the automated IG or if promyelocytes are not ed, a manual differential will be performed. Yamila Gran Abs 0.01 0.00 - 0.04 x10(3)/[facility] LABORATORY Specimen Anatomical Collection Method Collection Time Receive d Time (Source) Location / / Volume Laterality Blood specimen 06/08/2020 4:07 AM 020 4:13 (specimen) EDT AM EDT Resulting Agency Comment Spec In Lab Michelle Alcaraz MD HEMATOLOGY ORDERABLES Performing Organization Address City/State/ZIP [place] [address] Hemogram (06/08/2020 4:07 AM EDT) P athologist Signature WBC 6.2 4.0 - 9.5 [facility] x10(3)/[facility] LABORATORY RBC 4.45 4.00 - [facility] 5.21 [facility] x10(6)/[facility] LABORATORY Hemoglobin 13.2 11.7 - [facility] 15.[facility] gm/dL [facility] Hematocrit 39.0 35.7 - [facility] 45.8 % [facility] MCV 87.6 82.6 - [facility] 94.4 [facility] LABORATORY MCH 29.7 27.1 - [place] [facility] 32.0 pg [facility] MCHC 33.8 31.7 - [facility] 35.0 gm/dL [facility] Platelets 194 145 - 357 [facility] x10(3)/[facility] LABORATORY RDWSD 39.8 37.0 - [facility] 46.0 [facility] RDWCV 12.5 11.5 - [facility] 14.1 % [facility] MPV 9.9 7.6 - 12.9 [facility] LABORATORY nRBC % Auto 0.0 % [facility] nRBC Abs Auto 0.000 0.000 - [facility] 0.000 [facility] x10(3)/[facility] LABORATORY Specimen Anatomical Collection Method Collection Time Receive d Time (Source) Location / / Volume Laterality Blood specimen 06/08/2020 4:07 AM 020 4:13 (specimen) EDT AM EDT Resulting Agency Comment Spec In Lab Michelle Alcaraz MD HEMATOLOGY ORDERABLES Performing Organization Address City/State/ZIP Code Phon e Number [address] Phosphorus (06/08/2020 4:07 AM EDT) P athologist Signature Phosphorus 3.8 2.5 - 4.5 [facility] mg[facility]dL [facility] Specimen Anatomical Collection Method Collection Time Receive d Time (Source) Location / / Volume Laterality Blood specimen 06/08/2020 4:07 AM 020 4:13 (specimen) EDT AM EDT Resulting Agency Comment Spec In Lab Fausto Cuenca MD CHEMISTRY ORDERABLES Performing Organization Address City/[facility]/ZIP Code Phon e Number [address] Magnesium (06/08/2020 4:07 AM EDT) P athologist Signature Magnesium 0.78 0.69 - 1.07 [facility] mmol/L [facility] Specimen Anatomical Collection Method Collection Time Receive d Time (Source) Location / / Volume Laterality Blood specimen 06/08/2020 4:07 AM 020 4:13 (specimen) EDT AM EDT Resulting Agency Comment Spec In Lab Fausto Cuenca MD CHEMISTRY ORDERABLES Performing Organization Address City/[facility]/ZIP Code Phon e Number [address] Triglyceride (06/08/2020 4:07 AM EDT) P athologist Signature Triglycerides 58 mg/dL [facility] Comment: Average Risk/Lower Risk: <150 mg/dL Borderline High Risk: 150-199 mg/dL High Risk: 200-499 mg/dL Very High Risk: >gb=547 mg/dL Specimen Anatomical Collection Method Collection Time Receive d Time (Source) Location / / Volume Laterality Blood specimen 06/08/2020 4:07 AM 020 4:13 (specimen) EDT AM EDT Resulting Agency Comment Spec In Lab Fausto Cuenca MD CHEMISTRY ORDERABLES Performing Organization Address City/State/ZIP [place] [address] HDL/Cholesterol Profile (06/08/2020 4:07 AM EDT) athologist Signature Chol, Total 171 mg/dL [facility] Comment: Lower Risk: <200 mg/dL Average Risk: 200-239 mg/dL Higher Risk: >nz=137 mg/dL HDL 67 mg/dL [facility] Comment: Males: ?? Higher Risk: <40 mg/dL Females: ?? HIgher Risk: <50 mg/dL Chol/HDL Ratio 2.6 ratio [facility] Chol/HDL Interpretation See Note [facility] Comment: Lipid management should be guided by a p atient? s ASCVD risk, goals and preferences. ACC/AHA Guidelines recommend high intens ity statin if clinical ASCVD or LDL greater than or equal to 190 mg/dL. http://[employer].com/RDI-MZL-Epadcndvc Measure LDL if Total Cholesterol minus H DL Cholesterol is greater than 220 mg/dL. Adults aged 40-75 with LDL 70-189 mg/dL should have their 10 year ASCVD risk estimated with the ACC/AHA ASCVD risk es timator http://tools.acc.org/GJVMC-Wnyr-Kcwqycpi r/ Statin should be discussed if risk [...] Cuenca MD CHEMISTRY ORDERABLES Performing Organization Address City/[facility]/ZIP Code Phon e Number [address] LDL Cholesterol, Direct (06/08/2020 4:07 AM EDT) athologist Signature LDL Chol 106 mg/dL [facility] LABORATORY Comment: Lowest Risk: <100 mg/dL Lower Risk: 100-129 mg/dL Borderline High Risk: 130-159 mg/dL High Risk: 160-189 mg/dL Very High Risk: >ob=891 mg/dL Specimen Anatomical Collection Method Collection Time Receive d Time (Source) Location / / Volume Laterality Blood specimen 06/08/2020 4:07 AM 020 4:13 (specimen) EDT AM EDT Resulting Agency Comment Spec In Lab Fausto Cuenca MD CHEMISTRY ORDERABLES Performing Organization Address City/[facility]/ZIP Code Phon e Number [address] Hemoglobin A1c (06/08/2020 4:07 AM EDT) athologist Signature Hemoglobin A1C 5.0 4.3 - 5.6 [facility] Comment: Reference Range: 4.3 - 5.6% [...] Mellitus, Diabetes Care 2013; 36: Suppl. 1, Z12-62 Est Avg Gluc See note mg/dL [facility] Comment: Estimated Average Glucose not appropriat [...] with hemoglobinopathies. Additional resources are available on [facility] ADA website. Kayden PEREZ, Elena J, Aristeo R, et al. ??Tr anslating the A1C assay into estimated average glucose values. ??Diabetes Care 2008:31(8):7308-2310. Specimen Anatomical Collection Method Collection Time Receive d Time (Source) Location / / Volume Laterality Blood specimen 06/08/2020 4:07 AM 020 4:13 (specimen) EDT AM EDT Resulting Agency Comment Spec In Lab Fausto Cuenca MD CHEMISTRY ORDERABLES Performing Organization Address City/State/ZIP [place] [address] COVID-19 PCR (06/07/2020 7:24 PM EDT) [facility] Method Time Signature SARS-CoV-2 Not Detected Not Detected ANNI RNA PCR [facility] Comment: This result should be interpreted [...] of CO VID-19 is performed using the Simplexa COVID-19 Direct Assay by CEDAR RIDGE RESEARCHvincent cisneros as authorized by the FDA issued Emergency Use Authorization (EUA). This assay is intended for In-vitro Diagnostic (IVD) use with nasopharyngeal swabs collected from individuals meeting the CDC criteria for testing. assay is performed based on the instructions for use and additional guid janiya provided by the FDA. Testing is performed in the Microbiology Laboratory within the Department of Pathology and Laboratory Medicine at [facility], certified under the Clinical Laboratory Improvement Amendmen [...] clinical management guidance information are available at e CDC Coronavirus Disease 2019 (COVID-19) webpage under Information fo r Healthcare Professionals (https://www.cdc.gov/coronavirus/2019-nc ov/hcp/index.html). SARS-CoV-2 Source EQUIPMENT PLANNER Swab [facility] Specimen (Source) Anatomical Collection Method Collection Time Re ceived Time Location / / Volume Laterality Nasopharyngeal swab 06/07/2020 7:24 06/07 (specimen) PM EDT 9:33 PM EDT Comment: Symptoms->Surveillance Resulting Agency Comment Spec In Lab Fausto Cuenca MD MICROBIOLOGY - GENERAL ORDER CHRISTINA Performing Organization Address City/State/ZIP [place] [address] EKG 12 Lead (06/07/2020 6:17 PM EDT) Component Value Ref Range Test Analysis Performed Pathologis t Method Time At Signature Ventricular rate 65 BPM MUSE SYSTEM Atrial Rate 65 BPM MUSE SYSTEM P-R Interval 180 ms MUSE SYSTEM QRS Duration 80 ms MUSE SYSTEM Q-T Interval 400 ms MUSE SYSTEM QTC Calculated 416 ms MUSE SYSTEM (Bezet) Calculated P Magnolia 15 degrees MUSE SYSTEM Calculated R [place] 33 degrees MUSE SYSTEM Calculated T Magn[place] 37 degrees MUSE SYSTEM INTERPRETATION Normal sinus [...] P athologist Signature Neutrophils % 55.1 % [facility] Neutr Abs (ANC) 3.23 1.70 - [facility] 6.10 [facility] x10(3)/[facility] LABORATORY Lymphocytes % 32.6 % [facility] Lymphocytes Abs 1.9 0.9 - 3.2 [facility] x10(3)/[facility] LABORATORY Monocytes % 7.0 % [facility] HOSPITAL LABORATORY Monocyte Abs 0.4 0.3 - 0.9 [facility] x10(3)/[facility] LABORATORY Eosinophils % 3.6 % [facility] LABORATORY Eosinophils Abs 0.2 0.0 - 0.4 [facility] x10(3)/[facility] LABORATORY Basophils % 1.5 % [facility] LABORATORY Basophils Abs 0.1 0.0 - 0.1 [facility] x10(3)/[facility] LABORATORY Immature Gran % 0.20 % [facility] LABORATORY Comment: Immature granulocytes(IG's)percentage an d absolute count will include metamyelocytes, myelocytes, and promyelo cytes. Blood smears from CBCs yielding IG's will be scanned manually for bereket sandoval. If this scan disagrees with the automated IG or if promyelocytes are not ed, a manual differential will be performed. Yamila Gran Abs 0.01 0.00 - 0.04 x10(3)/[facility] LABORATORY Specimen Anatomical Collection Method Collection Time Receive d Time (Source) Location / / Volume Laterality Blood specimen 06/07/2020 5:02 PM 020 5:11 (specimen) EDT PM EDT Resulting Agency Comment Spec In Lab Michelle Alcaraz MD HEMATOLOGY ORDERABLES Performing Organization Address City/State/ZIP [place] [address] Hemogram (06/07/2020 5:02 PM EDT) P athologist Signature WBC 5.9 4.0 - 9.5 [facility] x10(3)/[facility] LABORATORY RBC 4.62 4.00 [facility] 5.21 [facility] x10(6)/[facility] LABORATORY Hemoglobin 13.8 11.7 - [facility] 15.5 gm/dL [facility] LABORATORY Hematocrit 41.4 35.7 - [facility] 45.8 % [facility] LABORATORY MCV 89.6 82.6 - [facility] 94.4 [facility] LABORATORY MCH 29.9 27.1 - [facility] 32.0 pg [facility] LABORATORY MCHC 33.3 31.7 - [facility] 35.0 gm/dL [facility] LABORATORY Platelets 204 145 - 357 [facility] x10(3)/[facility] LABORATORY RDWSD 41.2 37.0 - [facility] 46.0 [facility] LABORATORY RDWCV 12.6 11.5 - [facility] 14.1 % [facility] LABORATORY MPV 10.0 7.6 - 12.9 [facility] LABORATORY nRBC % Auto 0.0 % [facility] LABORATORY nRBC Abs Auto 0.000 0.000 - [facility] [employer] 0.000 [facility] x10(3)/[facility] LABORATORY Specimen Anatomical Collection Method Collection Time Receive d Time (Source) Location / / Volume Laterality Blood specimen 06/07/2020 5:02 PM 020 5:11 (specimen) EDT PM EDT Resulting Agency Comment Spec In Lab Michelle Alcaraz MD HEMATOLOGY ORDERABLES Performing Organization Address City/[facility]/ZIP Code Phon e Number [address] (ABNORMAL) APTT (06/07/2020 5:02 PM EDT) P athologist Signature PTT 92 (H) 25 - 37 sec [facility] LABORATORY Comment: The PTT is NOT [...] Cuenca MD HEMATOLOGY ORDERABLES Performing Organization Address City/[facility]/ZIP [place] [address] Prothrombin Time (06/07/2020 5:02 PM EDT) P athologist Signature PT 12.0 9.4 - 12.5 [facility] LABORATORY INR 1.0 [facility] LABORATORY Comment: An INR <2.0 indicates [...] Organization Address City/State/[place] [address] Hepatic Function Panel (06/07/2020 5:02 PM EDT) athologist Signature Total Protein 6.6 6.1 - 8.0 [facility] [place] gm/dL [facility] LABORATORY Albumin 4.1 3.2 - 5.2 [facility] [place] gm/dL [facility] LABORATORY AST 12 0 - 30 [facility] unit/L [facility] LAB[facility] ALT 10 0 - 30 [facility] unit/L [facility] LABORATORY Alk Phos 45 35 - 105 [facility] unit/L [facility] LABORATORY Total 0.6 0.2 - 1.3 [facility] Bilirubin mg/dL [facility] LABORATORY Bili, Direct 0.1 0.0 - 0.3 [facility] mg/dL [facility] LABORATORY Specimen Anatomical Collection Method Collection Time Receive d Time (Source) Location / / Volume Laterality Blood specimen 06/07/2020 5:02 PM 020 5:11 (specimen) EDT PM EDT Resulting Agency Comment Spec In Lab Fausto Cuenca MD CHEMISTRY ORDERABLES Performing Organization Address City/[facility]/[place]IP [place] [address] TSH (06/07/2020 5:02 PM EDT) athologist Signature TSH 1.87 0.27 - 4.20 [place] mcIU/mL [facility] LABORATORY Specimen Anatomical Collection Method Collection Time Receive d Time (Source) Location / / Volume Laterality Blood specimen 06/07/2020 5:02 PM 020 5:11 (specimen) EDT PM EDT Resulting Agency Comment Spec In Lab Fausto Cuenca MD CHEMISTRY ORDERABLES Performing Organization Address City/[facility]/ZIP Code Phon e Number [address] Phosphorus (06/07/2020 5:02 PM EDT) athologist Signature Phosphorus 3.1 2.5 - 4.5 [facility] [place] mg/dL [facility] LABORATORY Specimen Anatomical Collection Method Collection Time Receive d Time (Source) Location / / Volume Laterality Blood specimen 06/07/2020 5:02 PM 020 5:11 (specimen) EDT PM EDT Resulting Agency Comment Spec In Lab Fausto Cuenca MD CHEMISTRY ORDERABLES Performing Organization Address City/[facility]/ZIP Code Phon e Number [address] Magnesium (06/07/2020 5:02 PM EDT) P athologist Signature Magnesium 0.77 0.69 - 1.07 [facility] mmol/L [facility] LABORATORY Specimen Anatomical Collection Method Collection Time Receive d Time (Source) Location / / Volume Laterality Blood specimen 06/07/2020 5:02 PM 020 5:11 (specimen) EDT PM EDT Resulting Agency Comment Spec In Lab Fausto Cuenca MD CHEMISTRY ORDERABLES Performing Organization Address City/[facility]/ZIP [place] [address] (ABNORMAL) Basic Metabolic Panel (non-fasting) (06/07/2020 5:02 PM EDT) athologist Signature Glucose Lvl 99 65 - 199 [facility] mg/dL [facility] LABORATORY Comment: Diabetes: >=200 mg/dL plus symp toms BUN 11 8 - 18 mg/dL [facility] LABORATORY Creatinine 0.67 (L) 0.70 - 1.20 mg/dL [facility] LABORATORY Sodium 141 135 - 145 mmol/L [facility] LABORATORY Potassium 3.7 3.5 - 5.0 mmol/L [facility] LABORATORY Comment: Please note: ??Patients with WBC >100,00 0 may have falsely elevated Potassium levels. ??For accurate Potassium quantif ication in these patients send serum separator tube (gold top) for subsequent determinations. ??Contact the Clinical Chemistry Laboratory if there are any qu estions. Chloride 104 98 - 107 mmol/L [facility] LABORATORY CO2 27 22 - 31 mmol/L [facility] LABORATORY Anion Gap 10 5 - 15 mmol/L [facility] LABORATORY Calcium 9.9 8.5 - 10.5 mg/dL [facility] LABORATORY Estimated GFR 88 >=60 mL/min/1.73 m?? [facility] LABORAT[facility] Comment: The eGFR was calculated using the CKD-EP I equation. As with all creatinine based estimates of kidney function, eGFR values calculated with the CKD-EPI equation are not accurate in patients wi th acute kidney failure, extremes of body mass or the acutely ill. http://Corhythm/[facility] eGFR 102 >=60 mL/min/1.73 m?? [facility] LABORATORY Comment: The eGFR was calculated using the CKD-EP I equation. As with all creatinine based estimates of kidney function, eGFR values calculated with the CKD-EPI equation are not accurate in patients wi th acute kidney failure, extremes of body mass or the acutely ill. http://Corhythm/[facility] Specimen Anatomical Collection Method Collection Time Receive d Time (Source) Location / / Volume Laterality Blood specimen 06/07/2020 5:02 PM 020 5:11 (specimen) EDT PM EDT Resulting Agency Comment Spec In Lab Fausto Cuenca MD CHEMISTRY ORDERABLES Performing Organization Address City/State/ZIP [place] [address] documented in this encounter Visit Diagnoses Diagnosis Other chest pain Unstable angina Intermediate coronary syndrome documented in this encounter Admitting Diagnoses Diagnosis Unstable [...] Discontinued, Routine levothyroxine (Synthroid) tablet 75 mcg Given [...] 60 Hold for SBP < 90, Routine nitroGLYcerin (Nitrostat) disintegrating tablet 0.4 mg [...] to 72 hours., Recovery (Recovery-Hospital Unit), Routine sodium chloride 0.9 % (flush) flush [...] 1649, Until Sat06/08/20 at 1805, Sleep, Routine documented in this encounter Active and Recently Administered Medications Times are shown in EDT. Scheduled Medication Order 06/06/2020 06/07/2020 06/08/2020 aspirin EC tablet 81 mg 1820 (Given - Provider: Rachel Hurley, DOT) 0844 (Given - Provider: Ivone Piper RN)0953 ([facility] Hold - Provider: Admin Adt - Reason: Transfer to a Procedural area)1201 ([facility] Unhold - Provider: Admin Adt) 81 mg, Oral, DAILY, First dose on 09/16 at 1900, Until Discontinued, Routine atorvastatin (Lipitor) tablet 20 mg 20 mg, Oral, EVERY EVENING, First dose ( after last modification) on Sat06/08/20 at 1700, Until Discontinued, Routine atorvastatin (Lipitor) tablet 80 mg (CANCELED) 1715 (Given - Provider: Rachel Hurley RN) 0953 ([facility] Hold - Provider: Admin Adt - R matti: Transfer to a Procedural area)1201 ([facility] Unhold - Provider: Admin Adt) 80 mg, Oral, EVERY EVENING, First dose o n Sat06/07/20 at 1745, Until Discontinued, Routine enoxaparin (LOVENOX) injection 40 mg 202 3 (Given - Provider: Eb Anders RN) 0953 ([facility] Hold - Provider: Admin Adt - R matti: Transfer to a Procedural area)1201 ([facility] Unhold - Provider: Admin Adt) 40 mg, Subcutaneous, NIGHTLY, First dose on Sat06/07/20 at 2100, Until Discontinued, Routine levothyroxine (Synthroid) tablet 75 mcg 0537 (Given - Provider: Eb Anders RN)0953 ([facility] Hold - Provider: Admin Adt - Reason: Transfer to a Procedural area)1201 ([facility] Unhold - Provider: Admin Adt) 75 mcg, Oral, EVERY MORNING, First dose on Sat06/08/20 at 0600, Until Discontinued, Routine magnesium sulfate 2 g in sterile water 50 mL (COMPLETED) 0844 (New Bag - Provider: Ivone Piper RN)1044 (Stopped - Provider: Ivone Piper RN) 2 g, Intravenous, ONCE, 1 dose, 06/08 [...] Anders RN) 0844 (Given - Provider: Ivone Piper RN)0953 ([facility] Hold - Provider: Admin Adt - [...] area)1201 ([facility] Unhold - Provider: Admin Adt) 150 mg, Oral, NIGHTLY PRN, Starting Sat06/07/20 at 1649, Until Sat06/08/20 at 1805, Sleep, Routine verapamiL (ISOPTIN) injection (CANCELED) 1011 (Given - Provider: Roger José MD) ONCE PRN, Starting Sat06/08/20 at 1011, Until Sat06/08/20 at 1028, Administer over 2 Minutes, Cath (Intra-Procedure) documented in this encounter Care Teams Fire Control Officer Relationship Specialty Start Date End Date Reji Lopez MD PCP - General Internal Medicine 08/05/19 [address] [place] [address] documented as of this encounter
--- OUTSIDE RECORDS SUMMARY | 2022-04-23 11:46 | XMS_ITS | Encounter Summary ---
:1950 [place] [address] Care Team Providers Name Role Phone Rere Alcocer RN TRANSPORT Primary Care Provider [phone] Encounter Details Date Type Department Care Team Description 12/31/2018 Office Visit Cardiology [place] [facility] [place] Cyr MD Other chest pain [facility] [place] [address] [place] [address] (Wo rk) Social History Tobacco Use Types [...] Sign Reading Time Taken Comments Blood Pressure 96/66 12/31/2018 3:51 PM EST Pulse 75 12/31/2018 3:51 PM EST Temperature - - Respiratory Rate - - Oxygen Saturation 99% 12/31/2018 3:51 PM EST Inhaled Oxygen Concentration - - Weight 67.6 kg (149 lb) 12/31/2018 3:51 PM EST Height 165.1 cm (5' 5) 12/31/2018 3:51 PM EST Body Mass Index 24.79 12/31/2018 3:51 PM EST documented in this encounter Progress Notes Roger Cyr MD - 12/31/2018 4:00 PM EST HPI: Vick Jama is a 68 y.o. year old coming for evaluation of palpitations and chest pain. He alsohas chronic back pain and is seen in the pain clinic for this. No recent testing. Has a history of pvc's. She wants to have her arrhythmia evaluated. She notes occasional chest pain and indigestion. She does not exercise much, because it is too cold. She normally walks 2-3 miles a day. Her son from suicide about 6 months ago, and she is estranged from her daughter in law and grandchildren. She notes depression and anxiety. 48 hour holter monitors have been negative for arrhythmia. Shenotes one episode (not on monitor), reminiscent of SVT. She has no typical chest pain. We discussed the importance of daily exercise and mediterranean dietary pattern while dealing with the loss of her son. This message echoed what her family had been telling her. She continues to notes some twinges of pain lasting seconds. There is no chest pain when she exercises. She does feels better. She notes rare seconds of abnormal heart beats. PMHX Patient Active Problem List Diagnosis Code ??? Lower back pain M54.5 ??? 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 Left lumbar radiculitis M54.16 ??? Chest pain R07.9 ??? Palpitations R00.2 MEDS: Current Outpatient Medications on File Prior to Visit Medication Sig Dispense Refill ??? linaclotide (LINZESS) 145 mcg Capsule Take 290 mcg by mouth daily. ??? levothyroxine (SYNTHROID) 75 mcg Tablet Take 75 mcg by mouth daily. 0 ??? traZODone (DESYREL) 100 mg Tablet Take 100 mg by mouth nightly. 0 ??? ibuprofen (ADVIL;MOTRIN) 200 mg tablet Take 400-600 mg by mouth every 6 hours as needed. No current facility-administered medications on file prior to visit. reviewed SOCHX Social History Socioeconomic History ??? Marital status: Spouse name: None ??? Number of children: None ??? Years of education: None ??? Highest education level: None Social Needs ??? Financial resource strain: None ??? Food insecurity - worry: None ??? Food insecurity - inability: None ??? Transportation needs - medical: None ??? Transportation needs - non-medical: None Occupational History ??? None Tobacco Use ??? Smoking status: Never Smoker ??? Smokeless tobacco: Never Used Substance and Sexual Activity ??? Alcohol use: None ??? Drug use: None ??? Sexual activity: None Other Topics Concern ??? None Social History Narrative ??? None FAMHX Family History Problem Relation Age of Onset ??? Diabetes Mother ??? Diabetes Father ROS Negative for blood in stool or urine. No fevers or chills. No recent syncope. Otherwise all other systems were reviewed and found to be negative. Physical Examination Most Recent Vitals: 12/31/18 1551 BP: 96/66 Pulse: 75 SpO2: 99% General: no acute distress Behavioral: Alert and oriented to person place and time Heent: Cranial nerves 2-12 grossly intact, JVP not elevated, no carotid bruits CV: RRR normal s1 and s2 without murmurs present Lungs: CTA bilaterally Abd: soft, nt, bs positive, no pulsatile masses Extrem: no lower extremity edema Pulses: radial Pulses = bilaterally Skin: warm, dry without rashes Neuro: muscle strength grossly = bilaterally LABS: Labs reviewed by myself No results found for this or any previous visit (from the past 24 hour(s)). Assessement and Plan: 68 year old female with chest pain and palpitations. 1. She is doing a bit better with her exercise and dietary changes. Doing well with this. Family situation still awful. She will call if there are further problems. 2. Follow up as needed. documented in this encounter Plan of Treatment Not on filedocumented as of this encounter Visit Diagnoses Diagnosis Other chest pain documented in this encounter Care Teams Commodity Management Specialist Relationship Specialty Start Date End Date Rere Alcocer APRN PCP - General Family Medicine 11/13/18 07/08/19 [address] [place] [address] documented as of this encounter
--- OUTSIDE RECORDS SUMMARY | 2022-04-23 11:46 | XMS_ITS | Encounter Summary ---
:1950 Author Organization [facility] [place] [address] Care Team Providers Name Role Phone Reji Lopez MD Primary Care Provider Reason for Visit Auth/Cert Specialty Diagnoses / Procedures Referred By Contact Refer red To Contact Diagnoses Left lower extremity radicular pain Procedures PRO INJ, FORAMEN, L/S, 1 LEVEL PRO INJ, FORAMEN, L/S, ADDL LEVELS INJECTION, ANESTHETIC AGENT AND/OR STEROID, TRANSFORAMINAL EPIDURAL, LUMBAR OR SACRAL, SINGLE LEVEL (WRVU 1.9) INJECTION, ANESTHETIC AGENT AND/OR STEROID, TRANSFORAMINAL EPIDURAL, LUMBAR OR SACRAL, EACH ADDITIONAL LEVEL (WRVU 1) Referral ID Status Reason Start Date Expiration Date Visits Requ ested Visits Authorized [id number] 1 1 Encounter Details Date Type Department Care Team Description 09/01/2019 Ancillary Procedure Pain Management Ken Hallman, Pain formerly [facility] [place] [address] [place] [address] [phone] (Wo rk) Social History Tobacco Use Types [...] Associated Diagnosis Comme nts FILM LIBRARY Routine 09/11/2019 5:15 PM Pain Results f or this STORAGE ONLY PAIN EST procedure are in CLINIC [facility] the results section. documented in this encounter Results Film Library- Storage Only pain Clinic [facility] (09/11/2019 5:15 PM EST) Specimen (Source) Anatomical Location Collection Method / Collectio n Time Received Time / Laterality Volume Narrative LALO - 09/11/2019 5:15 PM EST See PACS for result report. Alexus Smith MD IMG FILM LIBRARY ORDERABLES Performing Organization Address City/State/ZIP Code Phon e Number [place], [place] documented in this encounter Visit Diagnoses Diagnosis Pain Generalized pain documented in this encounter Care Teams Staff Nuclear Weapons Officer Relationship Specialty Start Date End Date Reji Lopez MD PCP - General Internal Medicine 08/05/19 [address] [place] [address] documented as of this encounter
--- OUTSIDE RECORDS SUMMARY | 2022-04-23 11:46 | XMS_ITS | Encounter Summary ---
:1950 Author Organization [facility] [place] [address] Care Team Providers Name Role Phone Rere Alcocer APRN Primary Care Provider [phone] Reason for Visit Consultation (Routine) - Closed Specialty Diagnoses / Procedures Referred By Contact Refer red To Contact Cardiology Diagnoses INTERMITTENT CHEST PAIN, INTERMITTENT PALPITATIONS Rere Alcocer Dhm c Cardiology [address] [address] [place] [address] Referral ID Status Reason Start Date Expiration Date Visits V isits Requested Authorized [id number] Closed Consult, 11/13/2018 11/13/2019 1 1 [facility] Encounter Details Date Type Department Care Team Description 12/02/2018 Office Visit Cardiology at [facility] Roger Cyr, Chest pain, [facility] [place] [address] CARDIOLOGY DEPT [phone] [place] [address] Social History Tobacco Use Types Packs/Day Years [...] Sign Reading Time Taken Comments Blood Pressure 101/71 12/02/2018 3:36 PM EST Pulse 69 12/02/2018 3:36 PM EST Temperature - - Respiratory Rate - - Oxygen Saturation 100% 12/02/2018 3:36 PM EST Inhaled Oxygen Concentration - - Weight 69.9 kg (154 lb) 12/02/2018 3:36 PM EST Height 165.1 cm (5' 5) 12/02/2018 3:36 PM EST Body Mass Index 25.63 12/02/2018 3:36 PM EST documented in this encounter Progress Notes Roger Cyr MD - 12/02/2018 4:00 PM EST HPI: Vick Jama is [...] what her family had been telling her. PMHX Patient Active Problem List Diagnosis Code ??? Lower back pain M54.5 ??? 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 Left lumbar radiculitis M54.16 ??? Chest pain R07.9 ??? Palpitations R00.2 MEDS: Current Outpatient Medications on File Prior to Visit Medication Sig Dispense Refill ??? traZODone (DESYREL) 100 mg Tablet Take 100 mg by mouth nightly. 0 ??? levothyroxine (SYNTHROID) 50 mcg Tablet Take 50 mcg by mouth daily. ??? ibuprofen (ADVIL;MOTRIN) 200 mg tablet Take 400-600 mg by mouth every 6 hours as needed. No current facility-administered medications on file prior to visit. reviewed SOCHX Social History Socioeconomic History ??? Marital status: Spouse name: Not on file ??? Number of children: Not on file ??? Years of education: Not on file ??? Highest education level: Not on file Social Needs ??? Financial resource strain: Not on file ??? Food insecurity - worry: Not on file ??? Food insecurity - inability: Not on file ??? Transportation needs - medical: Not on file ??? Transportation needs - non-medical: Not on file Occupational History ??? Not on file Tobacco Use ??? Smoking status: Never Smoker ??? Smokeless tobacco: Never Used Substance and Sexual Activity ??? Alcohol use: Not on file ??? Drug use: Not on file ??? Sexual activity: Not on file Other Topics Concern ??? Not on file Social History Narrative ??? Not on file FAMHX Family History Problem Relation Age of Onset ??? Diabetes Mother ??? Diabetes Father ROS Negative for blood in stool or urine. No fevers or chills. No recent syncope. Otherwise all other systems were reviewed and found to be negative. Physical Examination Most Recent Vitals: 12/02/18 1536 BP: 101/71 Pulse: 69 SpO2: 100% General: no acute distress Behavioral: Alert and [...] rashes Neuro: muscle strength grossly = bilaterally EKG: Performed. Ekg reviewed by myself LABS: Labs reviewed by myself No results found for this or any previous visit (from the past 24 hour(s)). Assessement and Plan: 68 year old female with chest pain and palpitations. 1. Patient has had normal holter monitoring and atyipcal chest pain. I offerred further monitoring with zio and an exercise stress echo, but we both decided it might be best to start introducing light exercise in the am and see how she responds. She is also to monitor for palpitations. She agrees to try this, if symptoms progress with exercise then we can proceed with further testing. I will see the patient back in one month to see how she is progressing with exercise and symptomatology. documented in this encounter Plan of Treatment Not on filedocumented as of this encounter Procedures Procedure Name Priority Date/Time Associated Diagnosis Comme nts EKG 12-LEAD Routine 12/02/2018 3:58 PM Chest pain, Results f or this EST unspecified type procedure a re in the results section. documented in this encounter Results EKG 12 Lead (12/02/2018 3:58 PM EST) [facility] Method Time Signature Ventricular rate 66 BPM MUSE SYSTEM Atrial Rate 66 BPM MUSE SYSTEM P-R Interval 162 ms MUSE SYSTEM QRS Duration 80 ms MUSE SYSTEM Q-T Interval 398 ms MUSE SYSTEM QTC Calculated 417 ms MUSE SYSTEM (Bezet) Calculated P [place] 37 degrees MUSE SYSTEM Calculated R [place] 46 degrees MUSE SYSTEM Calculated T [place] 61 degrees MUSE SYSTEM INTERPRETATION Normal sinus rhythm MUSE SYSTEM Normal ECG No previous ECGs available Confirmed by MD Jaleel, Wander Gramajo ([id number]) on 12/04/2018 8: 30:48 AM Specimen Anatomical Collection Method Collection Time Receive d Time (Source) Location / / Volume Laterality 12/02/2018 3:58 PM 8:30 EST AM EST Roger Cyr MD ECG ORDERABLES Performing Organization Address City/State/ZIP Code Phon e Number MUSE SYSTEM documented in this encounter Visit Diagnoses Diagnosis Chest pain, unspecified type documented in this encounter Care Teams Agriculture Internship Relationship Specialty Start Date End Date Rere Alcocer APRN PCP - General Family Medicine 11/13/18 07/08/19 [address] [place] [address] documented as of this encounter
--- OUTSIDE RECORDS SUMMARY | 2022-04-23 11:46 | XMS_ITS | Encounter Summary ---
:1950 [place] [address] Care Team Providers Name Role Phone Taty River MD Primary Care Provider Reason for Visit Reason Comments Back Pain LEFT LEG PAIN Encounter Details Date Type Department Care Team Description 11/09/2014 Procedure visit Pain Management at Nela Monroy DO Left lumbar [facility] radiculitis [facility] [place] [id number] [phone] [phone] Social History Tobacco Use Types Packs/Day Years [...] Sign Reading Time Taken Comments Blood Pressure 129/55 11/09/2014 10:31 AM EST Pulse 72 11/09/2014 10:31 AM EST Temperature - - Respiratory Rate 16 11/09/2014 10:31 AM EST Oxygen Saturation 100% 11/09/2014 10:31 AM EST Inhaled Oxygen Concentration - - Weight 61.7 kg (136 lb) 11/09/2014 10:13 AM EST Height 165.1 cm (5' 5) 11/09/2014 10:13 AM EST Body Mass Index 22.63 11/09/2014 10:13 AM EST documented in this encounter Patient Instructions Patient InstructionsSilvia Ribeiro RN - 11/09/2014 10:26 AM EST [facility] Discharge Instructions: You were seen by Dr. Nela Monroy DO and Edouard Casas who performed left transforaminal injection. It is normal that the injection site [...] your procedure. You received the following medications: Lidocaine, Omnipaque (contrast dye) and Dexamethasone SodiumPhosphate 10 mg. During regular business hours, please phone the [...] or proceed to your local emergency department. Silvia Ribeiro RN Special instructions documented in this encounter Progress Notes Silvia Ribeiro RN - 11/09/2014 10:14 AM EST Pre-Procedure Screening Questions: 1. Status: No 2. Patient states they have a truck driver instructor to transport after procedure? Yes 3. Patient taking antibiotics at present? No 4. NPO per Pain Management Center protocol? No 5. Patient diabetic: No 6. Patient routinely taking anticoagulants ? No Anticoagulant: Date Stopped: Current INR: Patient Vital Signs documented in Doc Flowsheets associated with this encounter. Patient Discharge Instructions were reviewed with patient and copy provided to patient. documented in this encounter Procedure Notes Edouard Casas P - 11/09/2014 10:37 AM ESTAssociated Order(s): TRANSFORAMINAL INJECTION Procedure(s): TRANSFORAMINAL INJECTION Pre-Procedure Diagnose(s): Left lumbar radiculitis PROCEDURE NOTE Transforaminal Epidural Steroid Injection with Fluoroscopic Guidance at left L3-L4 Chief Complaint: left leg pain. Vick Jama has been referred to the [facility] for Lumbar Transforaminal Epidural Steroid Injection left L3-L4 COMMENTS: Referring provider: Dr. Rvier Allergies: No Known Allergies Follow up plan: As needed Vick Jama was greeted by the nurse who verified patients name and . Patient was then takento the fluoroscopy suite. Ms. Jama was interviewed and the medical record reviewed. There were no medical, pharmacologic,radiographic or other structural contraindications to attempting fluoroscopically guided transforaminal lumbar epidural steroid injection. The risks, benefits, and potential side effects were reviewed with the patient. Risk include, but not limited to, post dural puncture, headache, infection, nerve injury, allergic reaction, possible increase in symptoms over the ensuing 24 to 48 hours, and paralysis. The patient appeared to understand, questions were answered and the patient agreed to proceed. Once I obtained informed verbal consent, the printed consent form was signed by the patient and myself. Standard time-out procedure was performed. TECHNIQUE: After informed written consent was obtained the patient was placed in the prone position. The lumbar spine spine was prepped with chloraprep and draped. Sterile technique was observed during the entire procedure ( cap, gloves, and mask were worn). Vitals signs were monitored throughout the procedure. The left side was marked with a radioopaque marker. The skin and subcutaneous structures were anesthetized with lidocaine 1% to a total volume of 3 ML at each level. Under fluoroscopic guidance, in ipsilateral oblique view, co-axial approach, 18 gauge Touhy needle(s) were advanced to the base of the L-3. pedicle(s). The needle(s) were advanced to the superio-posterior aspect of the neural foramen under lateral view. Oblique and AP views were rechecked. Under AP view Omnipaque 240 1 cc's was injected while visualized with fluoroscopy. There was no evidence of intravascular uptake, the epidural space was delineated. 10 mg Dexamethasone was injected after negative aspiration, at each level, followed by lidocaine 1% 1.0-ML at each level. Outcome: The patient tolerated the procedure well and had stable vital signs. The patient noted after getting up after the procedure that their left leg pain was at a 0 out of 10 level. Follow up plans and appointments were discussed with Ms. Jama. The patient was observed in the pain clinic and then discharged after having met discharge criteria to the care of a truck driver instructor. The patient received written instructions as documented in nursing records. Disposition: Ms. Jama was discharged from the procedure suite without new neurological complaints. Follow-up: Follow up with Dr. River as scheduled or PRN. Dr. Monroy personally performed the entire procedure. I was the attending physician supervising the resident in the above care and I was present with the resident for the entire procedure. NELA MONROY DO, MPH [facility]-subspecialty board certification in Pain Medicine Attending Physician-Pain Management CC: Taty River MD [address] [place] [address] documented in this encounter Plan of Treatment Not on filedocumented as of this encounter Procedures Procedure Name Priority Date/Time Associated Comments Diagnosis TRANSFORAMINAL Routine 11/09/2014 2:34 Left lumbar Results fo r this INJECTION PM EST radiculitis procedure are i n the results section. FILM LIBRARY STORAGE Routine 11/09/2014 11:11 Res ults for this ONLY PAIN CLINIC C ARM AM EST proce dure are in the results section. documented in this encounter Results TRANSFORAMINAL INJECTION (11/09/2014 2:34 PM EST) Narrative Nela Monroy DO - 11/09/2014 2:[address] Nela Monroy V, DO ? 11/09/2014 ??2:34 PM PROCEDURE NOTE Transforaminal Epidural Steroid Injectio n with Fluoroscopic Guidance at left L3-L4 Chief Complaint: left leg pain. ?? [facility] for Lumbar Transforaminal Epidural Stero id Injection ??left L3-L4 COMMENTS: Referring provider: Dr. River Allergies: No Known Allergies Follow up plan: As needed Vick Jama was greeted by the [facility] e who verified patients name and . ??Patient was then taken t o the fluoroscopy suite. Ms. Jama was interviewed and the nm dical record reviewed. ?? There were no medical, pharmacologic, ra diographic or other structural contraindications to attempti ng fluoroscopically guided transforaminal lumbar epidural st eroid injection. ??The risks, benefits, and potential side effe cts were reviewed with the patient. ??Risk include, but not siddiqui ited to, post dural puncture, headache, infection, nerve inj ury, allergic reaction, possible increase in symptoms over the e nsuing 24 to 48 hours, and paralysis. ??The patient appeared to understand, ??questions were answered and the patient agreed to proceed. ??Once I obtained informed verbal consent, the printed con sent form was signed by the patient and myself. Standard time-ou t procedure was performed. TECHNIQUE: ??After informed written con sent was obtained the patient was placed in the prone position . ??The lumbar spine spine was prepped with chloraprep and draped. ??Sterile technique was observed during the entire procedure ( c ap, gloves, and mask were worn). Vitals signs were monitored throu ghout the procedure. ??The left side was marked with a radioopaque marker. ??The skin and subcutaneous structures were anesthetize d with lidocaine 1% to a total volume of 3 ??ML at each level. Under fluoroscopic guidance, in ipsilate ral oblique view, co-axial approach, ??18 gauge Touhy need le(s) were advanced to the base of the ?? L-3. ?? pedicle(s). ??The needle(s) were advanced to the superio-posterior aspect of the neur al foramen under lateral view. ??Oblique and AP views were rechec ked. ?? Under AP view Omnipaque 240 ??1 cc's was injected whil e visualized with fluoroscopy. ?? There was no evidence of intravascular uptake, the epidural space was delineated. ??10 mg D examethasone was injected after negative aspiration, at each level , followed by lidocaine 1% 1.0-ML at each level. Outcome: The patient tolerated the proce dure well and had stable vital signs. The patient noted after get ting up after the procedure that their left leg pain was a t a ??0 out of 10 level. ? Follow up plans and appointments were di scussed with Ms. Jama. The patient was observed in [facility] and then discharged after having met discharge cr iteria ??to the care of a truck driver instructor. ??The patient received written i nstructions as documented in nursing records. ?? Disposition: ??Ms. Jama was dischar ged from the procedure suite without new neurological complaint s. Follow-up: Follow up with Dr. River as sc heduled or PRN. Dr. Monroy personally performed the entire procedure. I was the attending physician supervisin g the resident in the above care and I was present with the re sident for the entire procedure. NELA MONROY DO, MPH [facility]-subspecialty board certification i n Pain Medicine Attending Physician-Pain Management CC: Taty River MD [address] [place] [id number] Nela Navas DO PROCEDURE/MINOR SURGICAL ORD ERABLES Film Library-storage only pain clinic C-arm (11/09/2014 11:11 AM EST) Anatomical Region Laterality Modality Other Specimen (Source) Anatomical Collection Method Collection Time Re ceived Time Location / / Volume Laterality 11/09/2014 11:11 AM EST Narrative 11/09/2014 11:12 AM EST This is a Non-reportable exam Procedure Note CORBY, UNSIGNED REPORT - 11/09/2014Formatt ing of this note might be different from the original. This is a Non-reportable exam Nela Navas DO IMG FILM LIBRARY ORDERABLES documented in this encounter Visit Diagnoses Diagnosis Left lumbar radiculitis Thoracic or lumbosacral neuritis or radi culitis, unspecified documented in this encounter Administered Medications Inactive Administered Medications - up to 3 most recent administrations Medication Order MAR Action Action Date Dose Rate Site dexamethasone (DECADRON) injection Given 11/09/2014 10:45 AM EST 10 mg 10 mg 10 mg, Intra-articular, ONCE, 1 dose, On Sat11/09/14 at 1045 iohexol (OMNIPAQUE) injection 2 mL Given 11/09/2014 10:45 AM EST 2 mLs 2 mL, Epidural, ONCE, 1 dose, On Sat11/09/14 at 1045, Wasted 48 ml, Routine lidocaine (PF) (XYLOCAINE) 10 mg/mL (1 %) Given 11/09/2014 10:45 AM EST 100 mg injection 100 mg 100 mg, Subdermal, ONCE, 1 dose, On Sat11/09/14 at 1045, 20 cc wasted, Routine documented in this encounter Care Teams Improvement Auditor Relationship Specialty Start Date End Date Taty River MD PCP - General 11/17/13 11/12/18 [address] [place] [address] documented as of this encounter
--- OUTSIDE RECORDS SUMMARY | 2022-04-23 11:46 | XMS_ITS | Encounter Summary ---
:1950 Author Organization [facility] [place] [address] Care Team Providers Name Role Phone Reji Lopez MD Primary Care Provider Encounter Details Date Type Department Care Team Description 09/25/2019 Telephone [facility] [place] [facility] Ramakrishna Thrasher, [place] [phone] Social History Tobacco Use Types Packs/Day Years [...] this encounter Miscellaneous Notes Telephone Encounter - Ramakrishna Thrasher RN - 09/25/2019 8:56 AM EST Vick Jama :1950 Contact made with patient: I spoke to Ms. Jama at 8:56 AM regarding her upcoming Bilateral lumbar radiofrequency scheduledon 09/28/2019 (date) scheduled at 1300 (time) with Dr. Alexus Smith MD. Medication and Allergy reconciliation: 1. Changes were made in the telephone encounter per patient; marked as reviewed, and closed. 2. Patient confirmed no IVP dye allergy. 3. Have you had any steroid injections anywhere in your body within the last two weeks? no Arrival time: The patient was instructed to arrive at 1230 (30 minutes prior to procedure start time - 60 minutes prior for RF patients with a pacemaker) on 09/28/2019 (date of procedure). Cleat Layer: The patient was reminded that they need to have a funeral driver accompany them to her procedure who [...] bleeding disorders: No Anticoagulants: No NPO instructions given to patient: 1. Last solid food intake until 0700 (6 hours prior to procedure). 2. Clear liquids (radha darryn, tea, black coffee, water, grape juice, apple juice, or cranberry juice) only intake until 1100 (2 hours prior to procedure). NSAIDs: Does the patient take Aspirin/ASA? Yes The patient confirmed that she discontinued taking Aspirin on 09/16/2019 (date). Does the patient take an NSAID? Yes The patient confirmed that she discontinued taking ibuprofen (Motrin) on 09/18/2019 (date). Diabetic instructions: Patient was advised to inform their PCP regarding safe fasting and the NPO requirements for their upcoming procedure and given the [facility] Management Center Nurse Triage Line . Implant: Patient has pacemaker/defibrillator: No Prior to checking in at [employer] Supervisor, please be sure to empty your bladder. Patient confirmed understanding that if they do not follow the above their instructions, their procedure is likely to be cancelled. Ramakrishna RN documented in this encounter Plan of Treatment Not on filedocumented as of this encounter Visit Diagnoses Not on filedocumented in this encounter Care Teams Back Facer Relationship Specialty Start Date End Date Reji Lopez MD PCP - General Internal Medicine 08/05/19 [address] [place] [address] documented as of this encounter
--- OUTSIDE RECORDS SUMMARY | 2022-04-23 11:46 | XMS_ITS | Encounter Summary ---
:1950 Author Organization [facility] [place] [address] Care Team Providers Name Role Phone Reji Lopez MD Primary Care Provider Reason for Visit Reason Comments Pain Management Encounter Details Date Type Department Care Team Description 08/12/2019 Office Visit [facility] Kati Crouch Le [place] [facility] [place] SUPPORT ASSISTANT radiculitis [facility] [address], [place], [place] [id number] [phone] Social History Tobacco Use Types Packs/Day Years [...] Sign Reading Time Taken Comments Blood Pressure 116/68 08/12/2019 8:57 AM EDT Pulse 70 08/12/2019 8:57 AM EDT Temperature - - Respiratory Rate 19 08/12/2019 8:57 AM EDT Oxygen Saturation 100% 08/12/2019 8:57 AM EDT Inhaled Oxygen Concentration - - Weight 67.6 kg (149 lb) 08/12/2019 8:57 AM EDT Height - - Body Mass Index 24.79 12/31/2018 3:51 PM EST documented in this encounter Patient Instructions Patient InstructionsCrjustin Kati Carter APRN - 08/12/2019 9:00 AM EDT 1) Order lumbar epidural steroid injection for left lower extremity radicular pain 2) Call office to update on wound condition prior to procedure 3) Consider repeat block pending lumbar epidural steroid injection documented in this encounter Progress Notes Kati Crouch APRN - 08/12/2019 9:00 AM EDT PAIN CLINIC OFFICE VISIT Date of Visit: August 12, 2019 Chief Complaint: Chief Complaint Patient presents [...] Landers APRN, in this clinic in the past and was last seen by this provider 08/05/2019. She had lumbar MRI and is here today to review lumbar MRI and treatment options. Pain History Ms. Jama has low back pain. She has a history of left lower extremity pain/radiculopathy, for which she has had multiple left L3-4 TFESI in our clinic in the past (last was in 2014). She has had a return of the pain that wraps around her left thigh and shoots down her left leg stopping at the left knee. She was having [...] back pain more on the left side Left lower extremity thigh to inner aspect of left knee Duration: > 10 years Characteristics: aching and sharp in the low back Shooting burning pain in the left leg that is the worst of her pain Timing: all day some aching pain in the low back Left leg pain all day but worse with activities and positioning Severity: Left leg 4/10, 5/10 in the low back Average pain in past week: 4-5/10 Best pain in the past week: 2/10 Worst pain in the past week: 6/10 Aggravating factors: prolonged sitting, prolonged standing, walking Relieving factors: IBU - mild benefit no using often Associated symptoms: states numbness in left upper leg, denies bowel or bladder incontinence, deniessaddle numbness myD-H Pain 08/04/2019 VR12 - Physical [...] improvement in low back pain Interm History Had a wound under her left breast, then had an allergic reaction to bactrim. She has completed antibiotics for this issue and states it has been healing. She is having a breast scan and [...] file Gets together: Not on file Attends [employer] service: Not on file Active member of [...] Bactrim [sulfamethoxazole-trimethoprim] and Sulfa (sulfonamide antibiotics) MEDICATIONS: Medications 08/12/19 0901 Medication Sig Taking? ACIDOPHILUS Capsule Take 30 mg by mouth daily. After meal Yes linaclotide (LINZESS) 145 mcg Capsule Take 145 mcg by mouth daily. Yes levothyroxine (SYNTHROID) 75 mcg Tablet Take 75 mcg by mouth daily. Yes traZODone (DESYREL) 100 mg Tablet Take 150 mg by mouth nightly. Yes clindamycin (CLEOCIN) 300 mg Capsule Take 300 mg by mouth every 6 hours. magnesium oxide (MAG-OX) 400 mg (241.3 mg magnesium) Tablet Take 400 mg by mouth daily. ibuprofen (ADVIL;MOTRIN) 200 mg tablet Take 400-600 mg by mouth every 6 hours as needed. ROS: Review of Systems Constitutional: No fevers of chills since 08/02/19 HENT: Negative for ear pain. Eyes: Negative for pain. Respiratory: Negative for cough and shortness of breath. Cardiovascular: Negative for chest pain. Gastrointestinal: Negative for abdominal pain. Endocrine: Negative. Genitourinary: Negative for difficulty urinating. Musculoskeletal: As per HPI Skin: Open area under left breast Allergic/Immunologic: Negative. Neurological: As per HPI. States chronic lightheadedness for all her life Hematological: Negative. Psychiatric/Behavioral: Negative for sleep disturbance. The patient is not nervous/anxious. PHYSICAL EXAM: BP 116/68 (BP Location (NBP): Left arm, Patient Position: Sitting, BP Cuff Sizes: Adult (25-34 cm)) Pulse 70 Resp 19 Wt 67.6 kg (149 lb) SpO2 100% BMI 24.79 kg/m?? Appearance/ Behavior Well groomed, good eye contact, relaxed, cooperative, normal speech, no acute distress, no involuntary movements; no acute distress Eyes Sclera anicteric, conjunctiva clear. ENT Hearing grossly intact Lungs Respirations unlabored Cardiovascular Pedal pulses strong and equal Skin Left breast open area size of pencil easer, scant serous drainage on band-aide Musckuloskeletal Inspection/Palpation/ Range of Motion/Facet Loading maneuvers Gait: Nonantalgic Assistive device: None Heel, toe, heel to toe: tip toe walk difficult left leg, able to heel walk without difficulty. ?? Inspection: slight curvature noted in standing positioning though shoulder levels appear grossly symmetrical. ?? Palpation: Midline low back tenderness to palpation. No tenderness over the ischial bursa, positive pain with Kemps maneuver on the left and on the right. Negative weakness with abduction. ?? Positive straight leg raise left. ? Neuro Motor Strength Segment Muscle Action [...] left knee ? RADIOLOGIC DATA: Lumbar MRI 08/12/19 EXAMINATION: MRI LUMBAR SPINE WO CONTRAST (GENERIC) ?? CLINICAL HISTORY: Low back pain for more than 6 months with left lower extremity radicular symptoms ? TECHNIQUE: MRI of the lumbar spine performed without intravenous contrast administration. ?? COMPARISON: Plain films 06/20/2017, MR 01/01/2012 ?? FINDINGS: Levoconvex rotatory curvature is centered at L2-L3. Irregular osseous lesion in the S2 segment on the left is unchanged and probably represents abnormality. There is no focal, aggressive appearing marrow lesion. The normal appearing conus terminates at L2. Visualized retroperitoneal structures are unremarkable. ?? Findings at specific levels: L1-L2: There is mild disc bulging and facet arthropathy with mild bilateral foraminal narrowing. Mild overall central canal narrowing. Findings are similar to the previous study. ?? L2-L3: There is loss of disc height with endplate irregularity, worse on the left than on the right. Disc bulge, endplate osteophyte, and facet arthropathy contribute to moderate left and mild right foraminal narrowing. There is narrowing of the subarticular recess, worse on the left on the right with disc degenerative contacting the traversing left L3 root. Mild to moderate overall central canal narrowing. Compared to the previous study, the degenerative changes at this level of progress. ?? L3-L4: There is loss of disc height, worse on the left than on the right with endplate irregularity. Disc bulge with superimposed left protrusion, endplate S to I, and facet arthropathy produce severe left and mild to moderate right foraminal narrowing. There is moderate central canal stenosis with narrowing of the bilateral subarticular recess. Compared to the previous study, findings have progressed. ?? L4-L5: Disc bulge, redundancy of ligamentum flavum, and facet arthropathy produce mild to moderate central canal narrowing. There is moderate to severe right and mild left foraminal narrowing. Findings are similar to the prior study. ?? L5-S1: Is bilateral facet arthropathy with facet effusions. Facet arthropathy contribute to moderate right foraminal narrowing. Mild overall central canal narrowing. ?? IMPRESSION Multilevel lumbar spine degenerative changes. Foraminal narrowing is most pronounced at L3-L4 as above. Compared to the previous study of 2012, the degenerative changes have progressed. ?? XR Lumbar 06/20/17 EXAMINATION: XR LUMBAR SPINE [...] fracture or acute injury ASSESSMENT: Assessment Encounter Diagnosis Name Primary? Left lumbar radiculitis 69 yo female with chronic low back pain and intermittent left lower extremity radicular symptoms. Last lumbar MRI from 2011 that showed a asymmetric disc bulge to the left at L3-L4 for which she had transforaminal injection in 2014 with benefit. She has subsequently also had a bilateral radiofrequencyablation of the facet joints L4-L5, and L5-S1 bilaterally which gave her greater than 12 months benefit of 100% of her low back pain. Patient is reporting return of low back pain along with left lower extremity radicular symptoms for which she had repeat lumbar MRI. Reviewed lumbar MRI with patient, degenerative disc disease with scoliosis, causing foraminal narrowing left L2-L3 and L3-L4. Left lower extremity pain following the L3 dermatome distribution recommend transformational left L2-L3 and L3-L4 versus intralaminar MIKE left L2-L3 with desired spread to the L3-L4 level. Reviewed risks and benefits of this procedure with patient at length and she would like to proceed. She has been treated for a wound under her left breast with ABX with improvement. Patient still has a small open area under the left breast, will schedule procedure and this may take some time to book.Patient to call office a week prior to procedure to notify if wound is closed. Advised she cannot have elective procedure if she has an open wound due to risk of infection. In addition to left lower extremity radicular symptoms she has axial low back pain that responded well to bilateral radiofrequency ablation of the facet joints L4-L5, and L5-S1. Following LESI she willcall office to update on axial pain and if she continues to have persisting pain following LESI recommend repeat medial branch blocks to target the bilateral L4-L5, and L5-S1 facet joints. If these diagnostic blocks are successful at temporarily blocking a significant portion of her back pain, I will recommend that we proceed on with radiofrequency ablation at the same medial branches. Continue Tylenol and IBU as needed. PLAN: 1) Recommend Left L2-L3, L3-4 TFESI versus L2-L3 intralaminar epidural steroid injection 2) Encouraged walking 3) Consider repeat bilateral medial branch blocks to target the bilateral L4-L5, and L5-S1 facet joints. If these diagnostic blocks are successful at temporarily blocking a significant portion of her back pain, I will recommend that we proceed on with radiofrequency ablation at the same medial branches. 4) Continue Tylenol and IBU as needed Vick Jama had the opportunity to ask questions and indicated that all questions were answered to her satisfaction. Thank you for the opportunity to participate in Vick Jama's care. Kati Crouch, MSN, RESAW FEEDER- C, OFFICE SUPPORT ASSISTANT Nurse Practitioner [facility] [address] [phone] / [facility] documented in this encounter Plan of Treatment Not on filedocumented as of this encounter Visit Diagnoses Diagnosis Left lumbar radiculitis Thoracic or lumbosacral neuritis or radi culitis, unspecified documented in this encounter Care Teams Travel Occupational Therapist Relationship Specialty Start Date End Date Reji Lopez MD PCP - General Internal Medicine 08/05/19 [address] [place] [address] documented as of this encounter
--- OUTSIDE RECORDS SUMMARY | 2022-04-23 11:46 | XMS_ITS | Encounter Summary ---
:1950 Author Organization [place] [address] Care Team Providers Name Role Phone Reji Lopez MD Primary Care Provider Encounter Details Date Type Department Care Team Description 06/04/2020 Telephone Cardiology at [facility] Irwin Steiner MD [facility] [place] [address] CARDIOLOGY DEPT [phone] [place] [id number] (Wo rk) Social History Tobacco Use Types [...] this encounter Miscellaneous Notes Telephone Encounter - Irwin Steiner MD - 06/04/2020 1:11 PM EDT Telephone Triage Note Initial Contact Date: 06/04/2020 Initial contact time: 1310 Referring Provider: Ron Patient Location: [facility] Presenting Symptoms per OSH: 70 y/o no significant medical history presenting with chest pressure at rest while eating dinner. Denies pain with exertion. Workup at OSH has been negative for ACS. Past Medical History: Pertinent Diagnostic Findings: Vitals: BP 98/57 HR 67 SaO2 97% EKG : NSR Troponin : negative CXR: OSH Interventions: Assessment/Plan: 70 y/o presenting with chest pain at rest but no typical symptoms. His workup has been negative for ACS. There was concerns for ST changes on his ECG but upon my review there is at most STD of only 0.5mm. He does not immediate testing at this time and he can be followed up as an ouptpatient - Above recommendations are based on information received over the phone; I have not personally interviewed or examined this patient. Irwin Steiner MD [employer] PGY 6 P: [id number] documented in this encounter Plan of Treatment Not on filedocumented as of this encounter Visit Diagnoses Not on filedocumented in this encounter Care Teams Clinical Sciences Professor Relationship Specialty Start Date End Date Reji Lopez MD PCP - General Internal Medicine 08/05/19 [address] [place] [address] documented as of this encounter
--- OUTSIDE RECORDS SUMMARY | 2022-04-23 11:46 | XMS_ITS | Encounter Summary ---
:1950 Author Organization [facility] [place] [address] Care Team Providers Name Role Phone Reji [...] Expiration Date Visits Requ ested Visits Authorized [id number] 1 1 Encounter Details Date Type Department Care Team Description 09/01/2019 Hospital Encounter Pain Management Alexus Hallman MD [facility] [place] [address] [place] [address] [phone] Social History Tobacco Use Types Packs/Day Years [...] documented as of this encounter H&P Notes Jhony, Nikos Raymundo - 09/01/2019 2:02 PM EST Patient Name: Vick Jama Patient Age: 69 y.o. Birthdate: 1950 Admit date: 09/01/2019 Attending Physician: Lucinda kerr. providers found PREPROCEDURE HISTORY AND PHYSICAL Date of Visit: September 01, 2019 Chief Complaint: Lumbar back pain with radiation into left leg HPI: Subjective Vick Jama is a 69 y.o. female who presents today for Lumbar TFESI vs LESI who is complaining mainly of lumbar back pain with radiation into the left thigh. She had TFESI last in 2014 with minimal relief for 3 months. She then had Lumbar MBB and resultant RFA in 2017 with complete relief of her lumbar back pain and left leg pain for 18months. Although she was scheduled for TFESI, given her previous presentation and benefit of her back and leg pain with RFA in we felt in discussion with the patient that repeating Lumbar MBB would be the best course of action The history is obtained from the patient, and I have reviewed medical records provided by the referring physician and located in the electronic medical record to fill in gaps in the patient's recollection of events, treatments and outcomes. LOCATION: Lumbar back PAIN LEVEL AT REST 6/10 5/10 on left, 6/10 on right with Bonilla testing PAST MEDICAL HISTORY: Past Medical History: Diagnosis Date ??? Anxiety ??? Arthritis ??? Dysrhythmia, cardiac ??? Tennis elbow PAST SURGICAL HISTORY: Past Surgical History: Procedure Laterality Date ??? ABDOMEN SURGERY indigo-rectal abscess ??? HYSTERECTOMY ALLERGIES: Bactrim [sulfamethoxazole-trimethoprim] and Sulfa (sulfonamide antibiotics) MEDICATIONS: Current Facility-Administered Medications on File Prior to Encounter Medication Dose Route Frequency Provider Last Rate Last Dose ??? iohexol (OMNIPAQUE) 240 mg/mL solution Once PRN Alexus Smith MD 1 mL at 09/01/19 1348 ??? BUpivacaine (PF) (MARCAINE) 0.5 % (5 mg/mL) injection Once PRN Alexus Smith MD 3 mL at 09/01/19 1355 Current Outpatient Medications on File Prior to [...] file Gets together: Not on file Attends mormonism service: Not on file Active member of [...] History Narrative ??? Not on file ROS: Review of Systems: N = No Y = Yes GENERAL HEENT CV PULM x All negative x All negative x All negative x All negative Weight loss Headache Angina Non-productive cough Weight gain Vision change Palpitations Productive cough Fevers Sinus congestion Presyncope Wheezing Chills Rhinorrhea Syncope Hemoptysis Diaphoresis Epistaxis LE edema Pleuritic pain Poor sleep Post-nasal drip Claudication Orthopnea Fatigue Throat clearing Paroxysmal dyspnea Dry eyes/mouth Platypnea Otalgia Hoarseness MSK RENAL ENDO GI/NUTRITION All negative x All negative x All negative x All negative x Arthralgias Polyuria Heat intolerance GERD Myalgias Oliguria Cold intolerance Dysphagia Deformity Hematuria Polydipsia Odynophagia Stiffness Flank pain Polyphagia Abdominal discomfort Wasting Dysuria Cushingoid Constipation Nocturia Hyperglycemia Diarrhea Hypoglycemia Nausea Steatorrhea LYMPH SKIN NEURO PSYCH x All negative x All negative x All negative All negative Swollen nodes Rash Seizures Depressed affect Tender nodes Ulcers Tremors Occupational stress Diffuse nodes Purpura Spasticity Troubled relationship(s) Local nodes Pigmented lesion Focal weakness Insomnia Telangiectasias Diplopia x Anxiety Angiomata Paresthesias Absenteeism Tanned skin PHYSICAL EXAM: There were no vitals taken for this visit. Physical Exam Constitutional: Oriented to person, place, and time. Appears well-developed and well-nourished. HENT: Head: Normocephalic and atraumatic. Pulmonary/Chest: Effort normal. No respiratory distress. No stridor. Neurological: Alert and oriented to person, place, and time. No cranial nerve deficit. Skin: Skin is warm. No rash noted. No erythema. RADIOLOGIC DATA: Lumbar MRI and previous XR reviewed reviewed LABS/DX RESULTS: Last 3 wbc, hgb, hct plt No results for input(s): WBC, HGB, HCT, PLATELET in the last 7068 hours. ASSESSMENT: Assessment Vick Jama is a 69 y.o. female with: Lumbar spondylosis without myelopathy Here for Lumbar medial Branch blocks bilaterally. PLAN: No contraindications to proceed, will perform Lumbar medial branch block procedure. Informed consent obtained and allergies reviewed. Lumbar spondylosis without myelopathy Nikos Booker M.D. Pain Management Fellow [address] [phone] / [facility] documented in this encounter Plan of Treatment Not on filedocumented as of this encounter Visit Diagnoses Not on filedocumented in this encounter Care Teams Wind Turbine Service Technician Relationship Specialty Start Date End Date Reji Lopez MD PCP - General Internal Medicine 08/05/19 [address] [place] [address] documented as of this encounter
--- OUTSIDE RECORDS SUMMARY | 2022-04-23 11:46 | XMS_ITS | Encounter Summary ---
:1950 Author Organization [facility] [place] [address] Care Team Providers Name Role Phone Reji [...] Expiration Date Visits Requ ested Visits Authorized [id number] 1 1 Encounter Details Date Type Department Care Team Description 09/01/2019 Surgery Pain Management Jean Hallman MD INJECTION, FACET JOINT, [facility] W\F LUORO, LUMBAR, [facility] DR GAN (WRVU 1.52) [facility] [place] [address] [place] [address] [phone] Social History Tobacco Use Types Packs/Day Years [...] Sign Reading Time Taken Comments Blood Pressure 114/77 09/01/2019 1:50 PM EST Pulse - - Temperature - - Respiratory Rate 20 09/01/2019 1:50 PM EST Oxygen Saturation 97% 09/01/2019 1:50 PM EST Inhaled Oxygen Concentration - - Weight 67.6 kg (149 lb) 09/01/2019 1:10 PM EST Height - - Body Mass Index 24.79 12/31/2018 3:51 PM EST documented in this encounter Discharge Instructions Discharge InstructionsSierra Miranda RN - 09/01/2019 2:00 PM EST Pain Management Center Discharge Instructions: You were seen today by Surgeon(s): Neymar Smith MD The following was performed: Procedure(s) (LRB): INJECTION, FACET JOINT, W\FLUORO, LUMBAR, SINGLE (WRVU 1.52) (Bilateral) INJECTION, FACET JOINT, W\FLUORO, LUMBAR, 2ND LEVEL (WRVU 1) (Bilateral) It is normal that the injection site will be sore for up to 48 hours. [x] You may also experience mild stiffness in the joint near the injection site. You may resume your normal activities: today. [...] empty your bladder 4-6 hours after your procedurer. You received the following medications: Medications Given During Procedure Date/Time Order Dose Route Action 09/01/2019 1355 BUpivacaine (PF) (MARCAINE) 0.5 % (5 mg/mL) injection 3 mL Other Given 09/01/2019 1348 iohexol (OMNIPAQUE) 240 mg/mL solution 1 mL Intra-articular Given During regular business hours, please phone [...] or proceed to your local emergency department. Sierra Miranda RN Special instructions Pain Management Center Post -Procedure Pain Log Patient: Vick Jama [id number] It is important for you to keep track of your pain after your procedure that took place 08/31/19 Thisinformation will help your Provider to determine how to help reduce your pain. Today you had a procedure for pain in your back Your pain level before the procedure in this area was 5/10. Your pain level immediately after your procedure was 0/10. Time Pain Score # Comments: % pain relief 1 hour 3:00 2 hours 4:00 3 hours 5:00 4 hours 6:00 Please call the nurse in the Pain Management Center a day or two after your procedureand report the information above. She will assess your response to the procedure, and will recommendappropriate follow-up. documented in this encounter Medications at Time [...] as needed. documented as of this encounter Miscellaneous Notes Op Note - Neymar Smith MD - 09/01/2019 1:41 PM EST Pain Management Operative Note Patient Name: Vick Jama : [id number] MR#: [id number] Case Date: 09/01/2019 Surgeon: Surgeon(s) and Role: * Neymar Smith MD - Primary Present on Admission: ??? Lumbosacral spondylosis without myelopathy Postoperative diagnosis: same Procedure(s) (LRB): INJECTION, FACET JOINT, W\FLUORO, LUMBAR, SINGLE (WRVU 1.52) (Bilateral) INJECTION, FACET JOINT, W\FLUORO, LUMBAR, 2ND LEVEL (WRVU 1) (Bilateral) Diagnostic Lumbar Medial Branch Nerve Blocks bilateralL4-L5 and L5-S1 Procedure date: 09/01/2019 Chief Complaint: back pain Diagnosis: 2. Lumbosacral spondylosis without myelopathy Preoperative Note History and Exam Patient demonstrates today moderate to severe non- radicular back pain without neurologic deficit aggravated by hyperextension yes Back pain greater than leg pain yes Patient today has tenderness over the suspected joint(s) yes History of post-traumatic injury no Back pain associated with suspected motion segment instability or Hypermobility or pseudoarthrosis no Pre-testing pain score: 6/10 right, 5/10 left with taylor's testing The patient was originally scheduled for MIKE. She has chronic left LE pain and bilateral back pain. She had RF in the past and had 100% relief for almost 2 years of back and LE pain. She has had MIKE inthe past with less sustained relief. We discussed repeating MBB to confirm facetogenic pain as her no ciceptive generator. If this does not help symptoms, then would reconsider MIKE. She does also have symptoms of neurogenic claudication and has lumbar stenosis at several levels. Vick Jama has been referred to the Pain Management Center for Diagnostic Medial Branch Nerve Blocks bilateral L-3, L-4 and L-5. (Facet joint levels L4-L5 and L5-S1 ) Ms. Jama was interviewed and the medical record reviewed. There were no medical, pharmacologic,radiographic or other structural contraindications to attempting fluoroscopically guided injection. Risks and expected side effects as well as potential benefit of the procedure were reviewed with Ms. Jama, and her voiced concerns were addressed. The printed consent form was signed and witnessed.(The procedure, risks, and benefits of Lumbar Medial Branch Nerve Blocks were reviewed with the patient, including but not limited to: nerve injury, allergic reaction, infection, transient numbness from spread of local anesthesia to nerve roots. The patient appeared to understand, questions were answered and the patient agreed to proceed.) Standard time-out procedure was performed. Vick Jama was greeted by the nurse who verified patients name and . Patient was then takento the fluoroscopy suite. TECHNIQUE: After informed written consent was obtained, the patient was placed in the prone position. The lumbar spine was prepped with chloraprep and draped. Sterile technique was used, vital signs were monitored, time out was done . Cap, glove, mask were worn. bilateral Medial Branch Nerves L-3 and L-4 Under fluoroscopic guidance, in the AP view, coaxial approach, 25-gauge spinal needles were advancedto the junction of the L-4 and L-5 transverse processes and superior articulating processes. AP and lateral views were obtained. The needle tip was outside of the neural foramen. Omnipaque 240 was injected under live fluoroscopy; therewas no evidence of intravascular uptake, the target for the MBN was delineated. BUPIVICAINE 0.5% 0.5ml was administered at each level after negative aspiration. bilateral L5 Dorsal ramus:: Under fluoroscopic guidance, in AP view, coaxial approach, 25G spinal needles were advanced to the junction of the sacral ala and superior articulating processes. AP and lateral views were obtained. Omnipaque 240 was injected under live fluoroscopy; there was no evidence of intravascular uptake, the target for the MBN was delineated. BUPIVICAINE 0.5% 0.5 ml was administered after negative aspiration. Outcome: The patient tolerated the procedure well and had stable vital signs. The patient noted after getting up after the procedure that their pain was at a 0 out of 10 level. Preprocedure pain level was a 6/10 right, 5/10 left out of 10. Her LE pain resolved as well. Follow up plans and appointments were discussed with Vick Jama. Ms. Jama was instructed to keep careful note of how the usual pain was modified by these injections. Specifically, she was asked to keep a pain diary for the next 24 hours using a numeric pain scale of 0-10 and report these results by phone the following business day. The patient was observed in the pain clinic and then discharged after having met discharge criteria to the care of a wheelchair driver. The patient received written instructions as documented in nursing records. Based on the medial branches blocked today, if they patient has adequate relief and we are able to proceed to radiofrequency ablation, the treatment should result in the denervation of the bilateral L4-L5 and L5-S1. We would expect to denervate a total of 4 facets during the radiofrequency ablation. COMMENTS: If criteria met, Ms. Jama will proceed to lumbar medial branch nerve radiofrequency. The patient will otherwise follow-up with Kati Booker MD Pain Fellow I was the attending physician supervising the fellow or resident in the above care and I was presentwith the resident for the entire procedure. Neymar Smith MD Warp Spooler of Anesthesiology Pain Management Center [place] [phone] / [facility] CC: Reji Lopez MD @PCPADD@ Op Note - Neymar Smith MD - 09/01/2019 1:40 PM EST Pain Management Operative Note Patient Name: Vick Jama : [id number] MR#: [id number] Case Date: 09/01/2019 Surgeon: Surgeon(s) and Role: * Neymar Smith MD - Primary Present on Admission: ??? Lumbosacral spondylosis without myelopathy Procedure(s) (LRB): INJECTION, ANESTHETIC AGENT AND/OR STEROID, TRANSFORAMINAL EPIDURAL, LUMBAR OR SACRAL, SINGLE LEVEL (WRVU 1.9) (N/A) INJECTION, ANESTHETIC AGENT AND/OR STEROID, TRANSFORAMINAL EPIDURAL, LUMBAR OR SACRAL, EACH ADDITIONAL LEVEL (WRVU 1) (N/A) Procedure changed. Please see other encounter. NEYMAR SMITH MD documented in this encounter Plan of Treatment Not on filedocumented as of this encounter Visit Diagnoses Diagnosis Left lumbar radiculitis Thoracic or lumbosacral neuritis or radi culitis, unspecified Lumbosacral spondylosis without myelopat hy Left lumbar radiculitis Thoracic or lumbosacral neuritis or radi culitis, unspecified documented in this encounter Administered Medications Inactive Administered Medications - up to 3 most recent administrations Medication Order MAR Action Action Date Dose Rate Site BUpivacaine (PF) (MARCAINE) 0.5 % Given 09/01/2019 1:55 PM EST 3 mLs (5 mg/mL) injection ONCE PRN, Starting on Sat09/01/19 at 1355, Until Sat09/01/19 at 1541, Intra-Operative (Intra-Procedure), Routine iohexol (OMNIPAQUE) 240 mg/mL solution Given 09/01/2019 1:48 PM EST 1 mL ONCE PRN, Starting on Sat09/01/19 at 1348, Until Sat09/01/19 at 1541, Intra-Operative (Intra-Procedure), Routine documented in this encounter Active and Recently Administered Medications Due to Daylight Saving Time, this section may contain times in both EDT and EST. PRN Medication Order 08/30/2019 08/31/2019 09/01/2019 BUpivacaine (PF) (MARCAINE) 0.5 % (5 mg/mL) injection (CANCELED) 1355 (Given - Provider: Neymar Smith MD - Comment: Lumbar bilateral MBB) ONCE PRN, Starting Sat09/01/19 at 1355, Until Sat09/01/19 at 1541, Intra- Operative (Intra-Procedure), Routine iohexol (OMNIPAQUE) 240 mg/mL solution (CANCELED) 1348 (Given - Provider: Neymar Smith MD - Comment: Bilateral LMBB) ONCE PRN, Starting Sat09/01/19 at 1348, Until Sat09/01/19 at 1541, Intra- Operative (Intra-Procedure), Routine documented in this encounter Care Teams Informatica Mdm Architect Relationship Specialty Start Date End Date Reji Lopez MD PCP - General Internal Medicine 08/05/19 [address] [place] [address] documented as of this encounter
--- OUTSIDE RECORDS SUMMARY | 2022-04-23 11:46 | XMS_ITS | Encounter Summary ---
:1950 [place] [address] Care Team Providers Name Role Phone Taty River MD Primary Care Provider Reason for Visit Reason Onset Date Comments Pre Procedure Call 07/24/2017 Encounter Details Date Type Department Care Team Description 07/24/2017 Telephone Pain Management at Natacha Rodriguze [place] [address] Social History Tobacco Use Types Packs/Day [...] this encounter Miscellaneous Notes Telephone Encounter - Natacha Rodriguez LNA - 07/24/2017 8:39 AM EDT iVck Jama :1950 Contact made with patient: I spoke to Ms. Jama at 8:40 AM regarding her upcoming Bilateral lumbar medial branch block scheduled on 07/25/17 (date) scheduled at 845 (time) with Dr. Jesús Matthews MD. Medication and Allergy reconciliation: 1. Changes were made in the telephone encounter per patient; marked as reviewed, and closed. 2. Patient confirmed no IVP dye allergy. 3. Have you had any steroid injections anywhere in your body within the last two weeks? no Arrival time: The patient was instructed to arrive at 815 (30 minutes prior to procedure start time - 60 minutes prior for RF patients with a pacemaker) on 07/25/17 (date of procedure). Steno Typist: The patient was reminded that they need to have a peg driver accompany them to her procedure who [...] that she discontinued taking ibuprofen (Motrin) on 07/24/17 (date). Implant: Patient has pacemaker/defibrillator: No Prior to checking in at [employer] Ice Cream Machine Operator, please be sure to empty your bladder. Patient confirmed understanding that if they do not follow the above their instructions, their procedure is likely to be cancelled. MIKO Harris documented in this encounter Plan of Treatment Not on filedocumented as of this encounter Visit Diagnoses Not on filedocumented in this encounter Care Teams Streetcar Motorman Relationship Specialty Start Date End Date Taty River MD PCP - General 11/17/13 11/12/18 [address] [place] [address] documented as of this encounter
--- OUTSIDE RECORDS SUMMARY | 2022-04-23 11:46 | XMS_ITS | Encounter Summary ---
:1950 Author Organization [facility] [place] [address] Care Team Providers Name Role Phone Taty River MD Primary Care Provider Encounter Details Date Type Department Care Team Description 07/26/2017 Telephone Pain Management [place] [address] Social History Tobacco Use Types Packs/Day [...] Telephone Encounter - Marcelle Quinteros RN - 07/26/2017 8:17 AM EDT Pain Management Center Post-Procedure Phone Note Patient: Vick Jama [id number] Post-procedure phone call from patient to report her response to the lumbar medial branch block procedure performed on 07/25/17 in the Pain Management Center by Jesús Matthews MD. This is patient's : first medial branch block Patient reports that after the procedure she experienced:Patent states she had no pain for the first4 hours. _x_ Patient reported post-block numeric pain scale: 0 /10 (average pain since procedure) _x_ Post-procedure pain has been reduced by 90%. (> 80% Medicare/MVP/Medicaid) _x_ Pain relief: complete If pain is reduced, it lasted: Yes 4 hours or greater Based on the information provided above and after discussion with the patient, the following actionswill be taken: _x_ Patient meets criteria to proceed to second Bilateral at L3, L4 and L5-DR lumbar medial branch block Patient on anticoagulant medication: No Patient has pacemaker/defibrillator: No Patient has the appropriate phone number and understands that she may contact the Pain Management Center at any time with questions or concerns. Marcelle Quinteros RN documented in this encounter Plan of Treatment Not on filedocumented as of this encounter Visit Diagnoses Not on filedocumented in this encounter Care Teams Cookie Breaker Relationship Specialty Start Date End Date Taty River MD PCP - General 11/17/13 11/12/[address] [place] [id number] documented as of this encounter
--- OUTSIDE RECORDS SUMMARY | 2022-04-23 11:46 | XMS_ITS | Encounter Summary ---
:1950 Author Organization [facility] [place] [address] Care Team Providers Name Role Phone Reji Lopez MD Primary Care Provider Encounter Details Date Type Department Care Team Description 09/02/2019 Telephone Pain and Spine [facility] [place] [address] Social History Tobacco Use Types Packs/Day Years [...] this encounter Miscellaneous Notes Telephone Encounter - Caroline Harrington RN - 09/02/2019 8:49 AM EST Pain Management Center Post-Procedure Phone Note Patient: Vick Jama [id number] Post-procedure phone call from patient to report her response to the Bilateral lumbar medial branch block procedure performed on 09/01/19 in the Pain Management Center by Alexus Smith MD. This is patient's : Confirmatory medial branch block. Patient reports that after the procedure she experienced: _X_ Patient reported post-block numeric pain scale: 2 /10 (average pain since procedure) _X_ Post-procedure pain has been reduced by 90%. (> 80% Medicare/MVP/Medicaid) _X_ Pain relief: complete If pain is reduced, it lasted: Yes 4 hours or greater Based on the information provided above and after discussion with the patient, the following actionswill be taken: _X_ Patient meets criteria for radiofrequency treatment and would like to proceed with a bilateral lumbar spine at L4, L5-DR and S1 Radiofrequency procedure with Alexus Smith MD. _X_ Patient will be contacted by electronics manufacturer in Pain Management Center as described above. _X_ Patient was given general information about the procedure and all their questions were answered to their satisfaction. Patient on anticoagulant medication: No Patient has pacemaker/defibrillator: No Patient has the appropriate phone number and understands that she may contact the Pain Management Center at any time with questions or concerns. CAROLINE HARRINGTON RN documented in this encounter Plan of Treatment Not on filedocumented as of this encounter Visit Diagnoses Not on filedocumented in this encounter Care Teams Software Quality Engineer Relationship Specialty Start Date End Date Reji Lopez MD PCP - General Internal Medicine 08/05/19 [address] [place] [address] documented as of this encounter
--- OUTSIDE RECORDS SUMMARY | 2022-04-23 11:46 | XMS_ITS | Encounter Summary ---
:1950 Author Organization [facility] [address] Care Team Providers Name Role Phone Reji Lopez MD Primary Care Provider Reason for Referral Physical Therapy (Routine) - Complete - Patient Will Schedule External Appt Specialty Diagnoses / Procedures Referred By Contact Refer red To Contact Physical Therapy Diagnoses DDD (degenerative disc disease) Coby Manuel MD [facility] [place] [phone] Referral ID Status Reason Start Expiration Visits Visits Date Date Requested Authorized [id number] Complete - Evaluate and 02/07/2012 08/05/2012 1 1 Patient Will Treat Schedule External Appt Reason for Visit Reason Comments Backache Encounter Details Date Type Department Care Team Description 02/07/2012 Office Visit Pain Management at Coby Manuel, DDD ( degenerative disc Cary JACOBS disease) (Primary Dx) [place], [place] [facility] [address] [place] [address] [phone] Social History Tobacco Use Types Packs/Day Years [...] Sign Reading Time Taken Comments Blood Pressure 128/70 02/07/2012 9:29 AM EDT Pulse 44 02/07/2012 9:33 AM EDT Temperature - - Respiratory Rate - - Oxygen Saturation 99% 02/07/2012 9:29 AM EDT Inhaled Oxygen Concentration - - Weight 83 kg (183 lb) 02/07/2012 9:29 AM EDT Height 165.1 cm (5' 5) 02/07/2012 9:29 AM EDT Body Mass Index 30.45 02/07/2012 9:29 AM EDT documented in this encounter Progress Notes Jarret Steiner - 02/07/2012 9:34 AM EDT Subjective: Patient ID: Vick Jama is a 61 y.o. female. HPI Mrs Jama was referred to me by Dr Lopez for back pain. Mrs Cutler is a fairly otherwise healthy and active woman with waxing and waning low back pain forthe 2 years. Over the past year, her back pain has been progressively getting worse. She described her back pain as a burning pain on the Left side and radiates down her left leg to herknee. She has also noted weakness in her left knee when she is walking. She walked the past weekend which exacerbated her pain with her pain intensity increasing to 7/10 this week. Her pain is alleviated by resting and currently is 2/10. She has been taking Ibuprofen for her pain. She has not done physical therapy for this pain. 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 She is concerned that her back pain will limit the amount of walking she can do for the tour and wanted to get the pain under control before her trip in April. She has a sister with severe neck pain who has had multiple interventions including a TENS unit. Sheinquired about injections and a TENS unit for her back pain. Review of Systems Constitutional: Negative for fever, activity change and unexpected weight change. Respiratory: Negative. Cardiovascular: Negative. Gastrointestinal: Negative. Genitourinary: Negative. Musculoskeletal: Positive for myalgias, back pain and arthralgias. Skin: Negative. Neurological: Positive for weakness. Weakness in left knee when walking Psychiatric/Behavioral: Negative. Objective: Physical Exam Vitals reviewed. Constitutional: She is oriented to person, place, and time. She appears well- developed and well-nourished. No distress. HENT: Head: Normocephalic and atraumatic. Eyes: EOM are normal. Pupils are equal, round, and reactive to light. No scleral icterus. Cardiovascular: No murmur heard. Frequent additional beats and pauses Pulmonary/Chest: Effort normal and breath sounds normal. Abdominal: Soft. She exhibits no distension. Musculoskeletal: Normal range of motion. Tenderness on palpation on lower back over L3-4 area worse on the left than right Neurological: She is alert and oriented to person, place, and time. She has normal reflexes. Strength 5/5 and sensation are equal and intact bilaterally in lower extremities Skin: Skin is warm and dry. Psychiatric: She has a normal mood and affect. Her behavior is normal. Assessment and Plan: I have examined Mrs Jama and reviewed her recent MRI. My impression is that she has central stenosis at multiple levels and foraminal stenosis at L2-3 andL3-4, worse at L3-4 on the left. Her symptoms correspond with the MRI findings. There is also some facet arthropathy. She does not seem like a surgical candidate at this point as she is neurologically intact. My recommendations 1) Procedure - Would proceed with left L3 transforaminal epidural steroid injection which could be repeated PRN if she gets relief from it - Consider lumbar medial branch blocks on the left side from L2-L5 for her axis pain, depending on how she does with the epidural 2) Medications - Consider trying tramadol and/or neurontin for symptom management, especially since she is planninga trip and may need some pain relief while there. She should try these medications before she leavesfor her trip. 3) Physical Medicine - We will send her to physical therapy to be evaluated for a home TENS machine I have seen the patient and reviewed the resident's above history and I agree with the details as written. The assessment and plan were formulated in discussion with me and I agree with them as documented. COBY MANUEL MD documented in this encounter Plan of Treatment Scheduled Referrals Name Type Priority Associated Diagnoses Order S chedule REFERRAL TO Outpatient Referral Routine DDD (degenerative Ord ered: PHYSICAL THERAPY disc disease) 02/07/2012 documented as of this encounter Visit Diagnoses Diagnosis DDD (degenerative disc disease) - Primar y Degeneration of intervertebral disc, sit e unspecified documented in this encounter Care Teams Nut Tapper Relationship Specialty Start Date End Date Reji Lopez MD PCP - General 01/14/12 11/16/13 [address] [place] [address] documented as of this encounter
--- OUTSIDE RECORDS SUMMARY | 2022-04-23 11:46 | XMS_ITS | Encounter Summary ---
:1950 Author Organization [facility] [place] [address] Care Team Providers Name Role Phone Taty River MD Primary Care Provider Reason for Visit Reason Comments Back Pain L side Encounter Details Date Type Department Care Team Description 01/08/2014 Procedure visit Pain Management at Coby Manuel Le ft lumbar [facility] radiculitis ([facility] ) [facility] [address] [place] [facility] [id number] [place] [address] [phone] Social History Tobacco Use Types Packs/Day Years [...] Sign Reading Time Taken Comments Blood Pressure 108/71 01/08/2014 1:46 PM EDT Pulse 72 01/08/2014 1:46 PM EDT Temperature - - Respiratory Rate 18 01/08/2014 1:46 PM EDT Oxygen Saturation 98% 01/08/2014 1:46 PM EDT Inhaled Oxygen Concentration - - Weight 65.8 kg (145 lb) 01/08/2014 1:31 PM EDT Height 165.1 cm (5' 5) 01/08/2014 1:31 PM EDT Body Mass Index 24.13 01/08/2014 1:31 PM EDT documented in this encounter Patient Instructions Patient InstructionsAdry Garsia LPN - 01/08/2014 1:33 PM EDT Pain Management Center Discharge Instructions: [...] procedure. You received the following medications: Depo-Medrol 80 mg, Lidocaine and Omnipaque (contrast dye). During [...] or proceed to your local emergency department. NANDO Rider documented in this encounter Progress Notes Adry Garsia LPN - 01/08/2014 1:32 PM EDT Pre-Procedure Screening Questions: 1. Status: No 2. 3. Patient states they have a jeep driver to transport after procedure? Yes 4. [...] encounter Procedure Notes Coby Manuel MD - 01/08/2014 2:19 PM EDTAssociated Order(s): TRANSFORAMINAL INJECTION Procedure(s): TRANSFORAMINAL INJECTION Pre-Procedure Diagnose(s): Left lumbar radiculitis LUMBAR / SACRAL TRANSFORAMINAL INJECTION Date of Service: 01/08/2014 Patient: Vick Jama Provider: COBY MANUEL MD Vick Jama has been referred to the Pain Management Center for a transforaminal nerve root block and steroid injection. 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 She had several TFESI with good relief. Ms. Jama was interviewed and the medical [...] the left neural foramen between L3 and 4 . A skin scar was made for the needle insertion site. A Chlorhexadine prep was carried out, and sterile drapes were applied. Local anesthesia was achieved in the skin and subcutaneous tissues. A 22 gauge curved tip spinal needle was then inserted, advanced with fluoroscopic guidance into the neural foramen, confirmed on the lateral view. After negative aspiration, 1 mlof Omnipaque 240 was injected confirming position in A/P and lateral views. This showed a good spread of dye transforaminally into the epidural space. There was no vascular update with contrast injection under continuous fluoroscopy. 60 mg of Depo-Medrol was injected, followed by 0.5 ml of 1% Xylocaine flush for the nerve root block, as well. There was no unusual discomfort expressed by Ms. Jama. The needle was withdrawn. The patient tolerated [...] discharged in the care of an identified jeep driver. COMMENTS: She will f/u prn CC: TATY RIVER MD @PCPADD@ documented in this encounter Plan of Treatment Pending Results Name Type Priority Associated Diagnoses Date/Ti me XR Fluoro OR c-arm Imaging Routine 4 2:41 PM EDT storage only Scheduled Orders Name Type Priority Associated Diagnoses Order S chedule XR Fluoro OR c-arm Imaging Routine Once PRN (for Radiant storage only use) for 1 Occu rrences starting 2013 until 01/08/2014 documented as of this encounter Procedures Procedure Name Priority Date/Time Associated Comments Diagnosis TRANSFORAMINAL Routine 01/08/2014 2:21 Left lumbar Results fo r this INJECTION PM EDT radiculitis procedure are i n the results section. documented in this encounter Results TRANSFORAMINAL INJECTION (01/08/2014 2:21 PM EDT) Narrative Coby Manuel MD - 01/08/2014 2:21 PM EDT Coby Manuel MD ? 01/08/2014 ??2:21 PM LUMBAR / SACRAL TRANSFORAMINAL INJECTION Date of Service: ??01/08/2014 Patient: ??Vick Jama ?? MRN: ??[id number] Provider: ??COBY MANUEL MD Vick Raymundo Evita ??has been referred to the Pain Management Center for a transforaminal nerve root block an d steroid injection. ?? COMMENTS: The pt has stenosis of the L3- 4 foramen with pain to the L thigh. She had several TFESI with good relief. Ms. Jama was interviewed and the ct dical record reviewed. ?? There were no medical, pharmacologic, ra diographic or other structural contraindications to attempti ng fluoroscopically guided transforaminal nerve root block a nd epidural steroid injection. ??Risks and expected side eff ects as well as potential benefit of the procedure were reviewed w ithMs. Jama , and her voiced concerns addressed. ??The [facility] consent form was signed and witnessed. ??Standard time-ou t procedure was performed. Ms. Jama was placed in the prone po sition on the fluoroscopy table and automated blood pressure cuff and pulse oximeter applied. ??Fluoroscopy was utilized to i dentify the left neural foramen between L3 and 4 . ??A sk in csar was made for the needle insertion site. [...] no unusual discomfort expresse d by Ms. Jmaa . ??The needle was withdrawn. The patient [...] i n the care of an identified jeep driver. COMMENTS: She will f/u prn CC: TATY RIVER MD @PCPADD@ Procedure Note Coby Manuel MD - 01/08/2014 2:19 PM EDT LUMBAR / SACRAL TRANSFORAMINAL INJECTION Date of Service: 01/08/2014 Patient: Vick Jama 9 Provider: COBY MANUEL MD Vick Jama has been referred to [facility] for a transforaminal nerve root block and steroid injection. COMMENTS: The pt has stenosis of the L3- 4 foramen with pain to the L thigh. She had several TFESI with good relief. Ms. Jama was interviewed and the ct dical record reviewed. There were no medical, pharmacologic, radiographic or other structural contraindications to attempting fluoroscopically guided transforaminal nerve root block and epidural steroid in [facility]. Risks and expected side effects as well [...] the left neural foramen between L3 and 4 . A skin scar was made for [...] plans and appointments were di scussed with Mundo Evita. Post procedure instruction was given as documented in nursing records and she was discharged in the care of an identified jeep driver. COMMENTS: She will f/u prn CC: TATY RIVER MD @PCPADD@ Coby Manuel MD PROCEDURE/MINOR SURGICAL ORD ERABLES documented in this encounter Visit Diagnoses Diagnosis Left lumbar radiculitis - Primary Thoracic or lumbosacral neuritis or radi culitis, unspecified documented in this encounter Administered Medications Inactive Administered Medications - up to 3 most recent administrations Medication Order MAR Action Action Date Dose Rate Site iohexol (OMNIPAQUE) injection 2 mL Given 01/08/2014 2:45 PM EDT 2 mLs 2 mL, Epidural, ONCE, 1 dose, On Sat01/08/14 at 1445, Wasted 48 ml, Routine methylPREDNISolone acetate (depo-MEDROL) Given 01/08/2014 2:45 P M EDT 60 mg injection 60 mg 60 mg, Epidural, ONCE, 1 dose, On Sat01/08/14 at 1445, No waste to document, Routine documented in this encounter Care Teams Air Support Operations Operator Relationship Specialty Start Date End Date Taty River MD PCP - General 11/17/13 11/12/18 [address] [place] [address] documented as of this encounter
--- OUTSIDE RECORDS SUMMARY | 2022-04-23 11:46 | XMS_ITS | Encounter Summary ---
:1950 Author Organization [place] [address] Care Team Providers Name Role Phone Reji Lopez MD Primary Care Provider Encounter Details Date Type Department Care Team Description 04/14/2013 Orders Only Pain Management at Gregory Bernstein MD [facility] [place] [address] PAIN CLINIC [phone] [place] [phone] (Wo rk) Social History Tobacco Use Types [...] Associated Diagnosis Comme nts FILM LIBRARY Routine 04/14/2013 1:35 PM Results f or this STORAGE ONLY PAIN EDT procedure are in CLINIC C ARM the results section. documented in this encounter Results Film Library-storage only pain clinic C-arm (04/14/2013 1:35 PM EDT) Specimen (Source) Anatomical Collection Method Collection Time Re ceived Time Location / / Volume Laterality 04/14/2013 1:35 PM EDT Narrative [facility] - 04/23/2014 1:29 AM EDT This is a non-reportable exam. Procedure Note Kyle Jaramillo - 04/23/2014Formatting of t his note might be different from the original. This is a non-reportable exam. Gregory Manuel MD IM FILM LIBRARY ORDERABLES Performing Organization Address City/State/ZIP Code Phon e Number [facility] [address] [facility] [place] [address] documented in this encounter Visit Diagnoses Not on filedocumented in this encounter Care Teams Inventory Administrator Relationship Specialty Start Date End Date Reji Lopez MD PCP - General 01/14/12 11/16/13 [address] [place] [address] documented as of this encounter
--- OUTSIDE RECORDS SUMMARY | 2022-04-23 11:46 | XMS_ITS | Encounter Summary ---
:1950 Author Organization [facility] [place] [address] Care Team Providers Name Role Phone Reji Lopez MD Primary Care Provider Encounter Details Date Type Department Care Team Description 08/05/2019 Telephone Pain and Spine Daisy mitchell at [facility] [place] [place] [address] Social History Tobacco Use Types Packs/Day [...] on filedocumented in this encounter Care Teams Rn Telemetry Relationship Specialty Start Date End Date Reji Lopez MD PCP - General Internal Medicine 08/05/19 [address] [place] [address] documented as of this encounter
--- OUTSIDE RECORDS SUMMARY | 2022-04-23 11:46 | XMS_ITS | Encounter Summary ---
:1950 [place] [address] Care Team Providers Name Role Phone Reji Lopez MD Primary Care Provider Encounter Details Date Type Department Care Team Description 08/28/2019 Telephone Pain and Spine Center at Cruzito Stewart DO [address] [place] [address] [place] [address] [phone] (Wo rk) Social History Tobacco Use Types [...] Telephone Encounter - Ramakrishna Thrasher RN - 08/28/2019 9:19 AM EDT Vick Jama :1950 Contact made with patient: I spoke to Ms. Jama at 9:20 AM regarding her upcoming Left transforaminal injection scheduled on 09/01/2019 (date) scheduled at 1245 (time) with Dr. Alexus Smith MD. Medication and Allergy reconciliation: 1. Changes were made in the telephone encounter per patient; marked as reviewed, and closed. 2. Patient confirmed no IVP dye allergy. 3. Have you had any steroid injections anywhere in your body within the last two weeks? no Arrival time: The patient was instructed to arrive at 1215 (30 minutes prior to procedure start time - 60 minutes prior for RF patients with a pacemaker) on 09/01/2019 (date of procedure). Seniour Insight Manager: The patient was reminded that they need to have a rolloff driver accompany them to her procedure who [...] that she discontinued taking ibuprofen (Motrin) on 08/25/2019 (date). Implant: Patient has pacemaker/defibrillator: No Prior to checking in at [employer], please be sure to empty your bladder. Patient confirmed understanding that if they do not follow the above their instructions, their procedure is likely to be cancelled. [employer] [place] documented in this encounter Plan of Treatment Not on filedocumented as of this encounter Visit Diagnoses Not on filedocumented in this encounter Care Teams Sas Bi Developer Relationship Specialty Start Date End Date Reji Lopez MD PCP - General Internal Medicine 08/05/19 [address] [place] [address] documented as of this encounter
--- OUTSIDE RECORDS SUMMARY | 2022-04-23 11:46 | XMS_ITS | Encounter Summary ---
:1950 Author Organization [facility] [place] [address] Care Team Providers Name Role Phone Reji [...] Expiration Date Visits Requ ested Visits Authorized [id number] 1 1 Encounter Details Date Type Department Care Team Description 09/28/2019 Hospital Encounter Pain Management Alexus Smith osacral Anni Locke MD spondylosis without [facility] MEDICAL myelopathy [facility] [place] [phone] Social History Tobacco Use Types Packs/Day Years [...] file Gets together: Not on file Attends advent service: Not on file Active member of [...] RFA Te Oropeza M.D. Pain Management Fellow [address] [address] / [facility] documented in this encounter Miscellaneous Notes Op Note - Alexus Smith MD - 09/28/2019 2:08 PM EST Pain Management Operative Note Patient Name: Vick Jama : [id number] MR#: [id number] Case Date: 09/28/2019 Surgeon: Surgeon(s) and Role: [...] performed. The patient had no motor response. (Pembe Panjur, RF generator) Lidocaine 1% mixed 50:50 with [...] discharge criteria to the care of a van driver helper. The patient received written instructions as documented in nursing records. This radiofrequency treatment should result in the denervation of thebilateral L4-L5 and L5-S1 facetjoint levels?? A total of 4 facets were expected to be denervated from today's treatment. Preprocedure pain level: 02/04 COMMENTS: Repeat prn if symptoms similar in quality, no new neurologic symptoms and it has been greater than 6months since previous radiofrequency procedure. The patient received midazolam 1 mg IV. Te Oropeza MD Pain Fellow I was the attending physician supervising the fellow or resident in the above care and I was presentwith the resident for the entire procedure. 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
--- OUTSIDE RECORDS SUMMARY | 2022-04-23 11:46 | XMS_ITS | Encounter Summary ---
:1950 Author Organization [facility] [place] [address] Care Team Providers Name Role Phone Taty River MD Primary Care Provider Encounter Details Date Type Department Care Team Description 11/08/2014 Telephone Pain Management [place] [address] Social History Tobacco Use Types Packs/Day Years [...] this encounter Miscellaneous Notes Telephone Encounter - Adry Garsia LPN - 11/08/2014 1:46 PM EST Fluoroscopy Procedure Request Procedure Requested: transforaminal injection Date(s) of Last Procedure: 01/08/14 Did requested procedure relieve pain? _x__ Yes - For how long 3 months? 100 % of relief received from previous injection. Have you had any steroid injections anywhere in your body within the last two weeks? no Patient taking anticoagulants? _x__ No Patient has pacemaker/defibrillator: No Changes in usual pain pattern or pertinent recent trauma or surgery? _x__ No, patient transferred or will be contacted by program scheduler to make appointment for requested procedure. Patient's questions regarding requested procedure were answered and patient verbalized understanding. Patient knows how to contact the Pain Management Center and understands that they may do so at any time should they have further questions or concerns. Adry Garsia LPN documented in this encounter Plan of Treatment Not on filedocumented as of this encounter Visit Diagnoses Not on filedocumented in this encounter Care Teams Golf Superintendent Relationship Specialty Start Date End Date Taty River MD PCP - General 11/17/13 11/12/18 [address] [place] [address] documented as of this encounter
--- OUTSIDE RECORDS SUMMARY | 2022-04-23 11:46 | XMS_ITS | Encounter Summary ---
:1950 Author Organization [facility] [place] [address] Care Team Providers Name Role Phone Reji Lopez MD Primary Care Provider Encounter Details Date Type Department Care Team Description 06/04/2020 External Results Transfer Center Alonso Mayberry MD [facility] [place] [address] CARDIOLOGY DEPT [phone] [place] [phone] (Wo rk) Social History Tobacco Use Types [...] Name Priority Date/Time Associated Diagnosis Comme nts ECG SCAN Routine 06/04/2020 Results for thi s procedure are in the resu lts section. ECG SCAN Routine 06/04/2020 Results for thi s procedure are in the resu lts section. documented in this encounter Results Scan Doc: ECG (06/04/2020) Narrative This result has an attachment that is no t available. Irwin Steiner MD MEDIA MGR SCAN EXT ORDR/RSLT Scan Doc: ECG (06/04/2020) Narrative This result has an attachment that is no t available. Alonso Mayberry MD MEDIA MGR SCAN EXT ORDR/RSLT documented in this encounter Visit Diagnoses Not on filedocumented in this encounter Care Teams Graphics Software Engineer Relationship Specialty Start Date End Date Reji Lopez MD PCP - General Internal Medicine 08/05/19 [address] [place] [address] documented as of this encounter
--- OUTSIDE RECORDS SUMMARY | 2022-04-23 11:47 | XMS_ITS | Encounter Summary ---
:1950 [place] [address] Care Team Providers Name Role Phone Reji Lopez MD Primary Care Provider Encounter Details Date Type Department Care Team Description 01/01/2012 Orders Only Pain Management at [facility] Gregory Manuel MD [facility] [place] [address] PAIN CLINIC [phone] [place] [address] (Wo rk) Social History Tobacco Use Types Packs/Day Years Used Date Never Assessed Alcohol Habits Answer Date Recorded How often [...] Associated Diagnosis Comme nts FILM LIBRARY Routine 01/01/2012 2:32 PM Results for this STORAGE ONLY MR EST procedure ar e in SPINE the results section. documented in this encounter Results FILM LIBRARY- STORAGE ONLY MR SPINE (01/01/2012 2:32 PM EST) Specimen (Source) Anatomical Collection Method Collection Time Re ceived Time Location / / Volume Laterality 01/01/2012 2:32 PM EST Narrative [facility] - 04/07/2014 2:56 PM EDT This is a non-reportable exam. Procedure Note Kyle Jaramillo - 04/07/2014Formatting of t his note might be different from the original. This is a non-reportable exam. Gregory Manuel MD IM FILM LIBRARY ORDERABLES Performing Organization Address City/State/ZIP Code Phon e Number DH RAD [facility] [address] [facility] [place] [address] documented in this encounter Visit Diagnoses Not on filedocumented in this encounter Care Teams Apigee Developer Relationship Specialty Start Date End Date Reji Lopez MD PCP - General 01/14/12 11/16/13 [address] [place] [address] documented as of this encounter
--- OUTSIDE RECORDS SUMMARY | 2022-04-23 11:50 | XMS_ITS | Encounter Summary ---
:1950 Author Organization [facility] Address [address] [place] [address] Care Team Providers Name Role Phone Taty River MD Primary Care Provider Encounter Details Date Type Department Care Team Description 06/03/2020 Lab Requisition [facility] Outr Resulting Lab, Pathology & Laboratory Provider [facility] [address], [place] [id number] Social History Tobacco Use Types Packs/Day Years Used Date Never Assessed Sex Assigned at Date Recorded Not on file documented as of this encounter Plan of Treatment Not on filedocumented as of this encounter Procedures Procedure Name Priority Date/Time Associated Diagnosis Comme nts COVID-19 TEST [facility] Today 06/03/2020 21:27 LAB PCR EDT COVID-19 TESTING Routine 06/03/2020 21:27 Results for this EDT procedure are i n the results section. documented in this encounter Results COVID-19 TEST [facility] LAB PCR (06/03/2020 21:27 EDT) Specimen Swab - Entire nasopharynx (body structur e) Performing Organization Address City/State/ZIP Code Phon e Number [facility] [address] [place] [address] SERVICES COVID-19 TESTING (06/03/2020 21:27 EDT) COVID-19 rt-PCR Negative Negative [facility] MEDICAL Result Comment: CENTER LABORATORY This test has not been FDA c leared or approved. This test has been authorized by FDA under an EUA for use by authorized laboratories. This test has been authorized only for detection of nucleic acid fro SERVICES m 2019-nCoV, not for any oth er viruses or pathogens. This test is only authorized for the duration of the declaration that circumstances exist justifying the authorization of emergency use of in vitro d iagnostic tests for detectio n and/or diagnosis of 2019-nCoV under section 564(b)(1) of Act, 21 U.S.C ?? 360bbb-3(b) (1), unless the authorization is terminated or revoked sooner. Negative results do not prec lude 2019-nCoV infection and should not be used as the sole basis for treatment or other patient management decisions. Negative results must be combined with clinical observa tions, patient history, and epidemiological informatio n. Performed on the Adjudicaher Fusion instrument Performing Lab [place] [facility] Lab [facility] SERVICES Specimen Swab Performing Organization Address City/State/ZIP Code Phon e Number [facility] [address] [place] [address] SERVICES documented in this encounter Visit Diagnoses Not on filedocumented in this encounter Care Teams Bench Mover Relationship Specialty Start Date End Date Taty River MD PCP - General 07/09/13 [address] [place] [address] documented as of this encounter
--- OUTSIDE RECORDS SUMMARY | 2022-04-23 11:50 | XMS_ITS | Encounter Summary ---
:1950 Author Organization [facility] Address [address] [place] [address] Care Team Providers Name Role Phone Taty River MD Primary Care Provider Encounter Details Date Type Department Care Team Description 09/07/2019 Lab Requisition [facility] Reuben Singh for other Pathology & MD Marge general examination Laboratory Medicine [address] [place], [place] 111 [facility] [address] [place], [place] [id number] Social History Tobacco Use Types Packs/Day Years Used Date Never Assessed Sex Assigned at Date Recorded Not on file documented as of this encounter Plan of Treatment Not on filedocumented as of this encounter Procedures Procedure Name Priority Date/Time Associated Diagnosis Comme nts SURGICAL PATHOLOGY Today 09/07/2019 7:50 EST Encounter for o ther Results for this general examination procedur e are in the results section. documented in this encounter Results SURGICAL PATHOLOGY (09/07/2019 7:50 EST) Final Diagnosis A. COLON, TRANSVERSE, POLYP, BIOPSY: U MEDICAL Electronically - Fragments of hyperplastic/ inflammatory polyp. CENTER signed by CHRISTOPHER Vides MD on B. RECTAL LESION, BIOPSY: SERVICES at 0651 - Columnar mucosa with repar ative change and features of mucosal prolapse. See comment. - Granulation tissue, strip of squamoid epithelium and few detached degenerative cells. - Deeper sections examined. Diagnosis Comment Part B: Similar [facility] MED[facility] findings can be seen CENTER in context of LABORATORY solitary rectal SERVICES ulcer; yet reactive/ ulcerated tissue adjacent to another lesion cannot be excluded. Correlation is essential to ensure that this biopsy is guest experience representative of the lesion. There are a few degenerative cells with mild atypia and unknown significance. Deeper sections of this case have been examined. Clinical History SCREENING. [facility] LABORATORY SERVICES Attestation By the signature [facility] MEDICAL [facility] lly below, the attending CENTER signed by [place] physician certifies LABORATORY Shelbi Pond MD on that they have SERVICES 09/14/2019 at 0651 personally conducted a gross and/or microscopic examination of the described specimens and rendered or confirmed the above diagnosis. Gross Description A. Received in formalin labe lled with proper patient identification (initials P, D) and transverse polyp are 3 gomez-white tissues (0.2 x 0.1 x 0.1 cm to 0.3 x 0.1 x 0.1 cm). Entirely submitted in A1. [facility] B. Received in formalin labe lled with proper patient identification (initials P, D) and rectal Bx are 6 gomez-white tissues (0.1 x 0.1 x 0.1 cm to 0.4 x 0.1 x 0.1 cm). Entirely submitted in B 1 and B 2. LABORATORY SERVICES SOURAV BRUCE 09/08/2019 08:24 Scanned Images [facility] LABORATORY SERVICES Specimen Tissue - Specimen from rectum (specimen) Tissue specimen (specimen) - Specimen fr om rectum (specimen) Performing Organization Address City/State/ZIP Code Phon e Number [facility] [address] [place] [address] SERVICES documented in this encounter Visit Diagnoses Diagnosis Encounter for other general examination documented in this encounter Care Teams Masonry Installer Relationship Specialty Start Date End Date Taty River MD PCP - General 07/09/13 [address] [place] [id number] documented as of this encounter
--- OUTSIDE RECORDS SUMMARY | 2022-04-23 11:50 | XMS_ITS | Encounter Summary ---
:1950 Author Organization [facility] Address [address] [place] [address] Care Team Providers Name Role Phone Unavailable Primary Care Provider Unavailable Encounter Details Date Type Department Care Team Description 06/09/2003 Results Only [facility] - Gurinder Rodriguez MD [employer] [address] [place] [address] [place] [address] Social History Tobacco Use Types Packs/Day Years Used Date Never Assessed Sex Assigned at Date Recorded Not on file documented as of this encounter Plan of Treatment Not on filedocumented as of this encounter Procedures Procedure Name Priority Date/Time Associated Diagnosis Comme [facility] SURGICAL PATHOLOGY Routine 06/09/2003 0:00 EDT Re sults for this procedure are i n the results section. documented in this encounter Results SURGICAL PATHOLOGY (06/09/2003 0:00 EDT) Pathology Report: SURGICAL PATHOLOGY REPORT KENNETH REEVES Reports generated via electronic interface contain tej ginal data; LAB however they are lacking the format of the original re port. Caution should be taken when reading/interpreting unfo rmatted reports. Name: ? ANDRÉS JAMA ? Accession #: ? [id number] ? : ? 1950 (Age: 53) ??F ? Collect Date: ? 06/09/2003 ? Location: ? [facility] ? Receive Date: ? 003 ? Provider: DEBRA RODRIGUEZ MD Copy to: PROMISE DE LEON MD ? Final Pathologic Diagnosis: ? Vagina, biopsy: 1. 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 ??See comment. 2. ?PAS stain is negative for fungi. 3. ?No dysplasia is identified. Comment: ? This case was reviewe d in consultation by Dr. Herminia Sotomayor, who comments that the changes seen in the biopsy are non-specific. ??Sections show squamous mucosa with parakeratosis and mild acute and chronic i nflammation. The subepithelial collagen show several areas of homogeniz ation, but the overall appearance and distribution is not characteristic of l ichen sclerosis. ??In addition, other features of lichen sclerosis, such as vacuolar interface change are not seen. ??Correlation with the clinical impressi on is necessary. ??(Jayson Davila)/katelin Document reviewed and electronically signed by: SEUN CABEZAS MD Report ??Date: 06/14/2003 18:17 By the signature above, the attending physician certif ies that he/she has personally conducted a gross and/or microscopic examin ation of the described specimens and rendered or confirmed the above diagnosi s. Specimen(s) Received: ? Vaginal lesions Clinical History: ? Vaginal lesions Gross Description: ? Received in formalin labeled Evita and vaginal lesions are three gomez-pink, irregular portions of mucosa a nd underlying soft tissue ranging from 0.5 x 0.4 x 0.3 cm to 1.0 x 0.5 x 0.4 cm. ??The specimen is entirely submitted in one cassette. ??(Elaine Gallardo/katelin End of Report Specimen Performing Organization Address City/State/ZIP Code Phon e Number [facility] [address] [place] [address] SERVICES [facility] [address] [place] [address] documented in this encounter Visit Diagnoses Not on filedocumented in this encounter
--- OUTSIDE RECORDS SUMMARY | 2022-04-23 11:50 | XMS_ITS | Encounter Summary ---
:[address] [facility] Address [address] [place] [address] Care Team Providers Name Role Phone Unavailable Primary Care Provider Unavailable Encounter Details Date Type Department Care Team Description 05/31/2009 Orders Only [facility] Andrés Daley, EYELET MAKER Laboratory Services - [address] [facility] [address] [address] [place] [address] [phone] Social History Tobacco Use Types Packs/Day Years Used Date Never Assessed Sex Assigned at Date Recorded Not on file documented as of this encounter Plan of Treatment Not on filedocumented as of this encounter Procedures Procedure Name Priority Date/Time Associated Diagnosis Comme nts CYTOPATHOLOGY Routine 05/31/2009 0:00 EDT Results for this procedure are i n the results section . documented in this encounter Results CYTOPATHOLOGY (05/31/2009 0:00 EDT) Pathology Report: CYTOPATHOLOGY REPORT ? COOPER ALL EN ? LAB Reports generated via Xspand interface contain original data; ? however they are lacking the format of the original report. ? Caution should be taken when reading/interpreting unformatted reports. ? Name: ? ANDRÉS JAMA S ? Accession #: ? [id number] ? : ? 1950 (Age: 59) ??F ?Collect Date: ? 05/31/2009 ? Location: ? [facility] ? Receive Date: ? 05/31/2009 ? Provider: ?ALL HSU OOD EYELET MAKER ? Copy to: ? Specimen/Source: ? Pap Test, Vagina, ThinPrep Imaging System with manual ?? evaluation ? Last Menstrual Period: ? Treatment History: ? Hysterectomy: 04/92 ? Other: ? Additional clinical informat ion: Last pap 08/16/94 ? HPVA - HPV testing requested if ASC-US on the current ThinPrep Pap test. ? SPECIMEN ADEQUACY ? Unsatisfactory for Ev aluation ? - obscuring contamination, p ossibly lubricant, which precludes interpretation of 75% or more of the epithelia l cells ? GENERAL CATEGORIZATION ? Specimen processed an d examined, but unsatisfactory for evaluation of ? epithelial abnormality. ? Recommend repeat Pap test or further follow up, as clinically indicated. ? Document reviewed and electr onically signed by: ? Juan N. Bijan, CT (ASCP) ? Report Date: ??08/11/ 2009 08:17 ? End of Report ? Specimen Performing Organization Address City/State/ZIP Code Phon e Number [facility] [address] [place] [address] SERVICES [facility] [address] [place] [address] documented in this encounter Visit Diagnoses Not on filedocumented in this encounter
--- OUTSIDE RECORDS SUMMARY | 2022-04-23 11:50 | XMS_ITS | Encounter Summary ---
:1950 Author Organization [facility] Address [address] [place] [address] Care Team Providers Name Role Phone Unavailable Primary Care Provider Unavailable Encounter Details Date Type Department Care Team Description 07/07/2013 Results Only [facility] Jewel Ordoñez , Laboratory Services - [address] TREMAINE FULTON [address] [place] [address] [place], [place] [address] [phone] Social History Tobacco Use Types Packs/Day Years Used Date Never Assessed Sex Assigned at Date Recorded Not on file documented as of this encounter Plan of Treatment Not on filedocumented as of this encounter Procedures Procedure Name Priority Date/Time Associated Diagnosis Comme [facility] SURGICAL PATHOLOGY Routine 07/07/2013 20:43 Resul ts for this EDT procedure are i n the results section. documented in this encounter Results SURGICAL PATHOLOGY (07/07/2013 20:43 EDT) Pathology Report: SURGICAL PATHOLOGY REPORT COOPER A FABIANRU Reports generated via electronic interface contain tej ginal data; LAB however they are lacking the format of the original re port. Caution should be taken when reading/interpreting unfo rmatted reports. Name: ? ANDRÉS JAMA ? Accession #: ? [id number] ? : ? 1950 (Age: 63) ??F ? Collect Date: ? 07/07/2013 ? Location: ? [facility] ? Receive Date: ? 013 ? Provider: JEWEL ORDOÑEZ DO Copy to: KRISTA DE LEON MD ? Final Pathologic Diagnosis: ANAL CANAL, LESION, BIOPSY, 12:00 POSITION: - ??Melanocytic macule. Comment: Deeper sections of the specimen have been examined. Dr. Covarrubias 07/09/2013 04:00 PM Document reviewed and electronically signed by: Rusty Hawkins MD Report ??Date: 07/10/2013 15:10 By the signature above, the attending physician certif ies that he/she has personally conducted a gross and/or microscopic examin ation of the described specimens and rendered or confirmed the above diagnosi s. Specimen(s) Received: Anal canal pigmented lesion Clinical History: Perianal fistula; dark pigmented lesion in the 1 2 o'clock position anal canal Gross Description: ? Received in formalin labelled with proper patient identification (initials P, D) and anal canal pigmented lesion is a single ta n-brown skin covered polypoid tissue (0.9 x 0.8 x 0.5 cm). The margin is inked black. ??The specimen is trisected and entirely submitted in block 1. Sally Villa 07/08/2013 09:21 AM End of Report Specimen Performing Organization Address City/State/ZIP Code Phon e Number [facility] [address] [place] [address] SERVICES [facility] [address] [place] [address] documented in this encounter Visit Diagnoses Not on filedocumented in this encounter
--- OUTSIDE RECORDS SUMMARY | 2022-04-23 11:50 | XMS_ITS | Clinical Summary ---
:1950 Author Organization [facility] Address [address] [place] [address] Care Team Providers Name Role Phone Taty River MD Primary Care Provider Social History Tobacco Use Types Packs/Day Years Used Date Never Assessed Sex Assigned at Date Recorded Not on file Plan of Treatment Health Maintenance Due Date Last Done Comments Fall Risk Screening 2014 Insurance Payer Benefit Plan / Subscriber ID Effective Dates Phone Addre ss Type Group MEDICARE MEDICARE A/B [id number] 2014-Presen [id number] [place] [address] [facility] [id number] 2018-Presen [address] [facility] [place] [address] Care Teams Varnish Supervisor Relationship Specialty Start Date End Date Taty River MD PCP - General 07/09/13 [address] [place] [address]
== END 2022-04-23 11:44 | disposition home or self-care (01) ==
LOC: DIORS 11:44
PROVIDERS: PCP Internal Medicine; Referring Provider Internal Medicine; Visit Provider Student in an Organized Health Care Education/Training Program
DX: S92.353A Displaced fracture of fifth metatarsal bone, unspecified foot, initial encounter for closed fracture (principal); X58.XXXA Exposure to other specified factors, initial encounter
CPT/HCPCS: 99212; 73630

== ENCOUNTER 2022-12-31 15:30 | Outpatient (CLI) | payer MEDICARE, SELFPAY ==
--- NOTE | 2022-12-31 | DI.RAD_ITS ---
Exam(s) XR CHEST 2V PA LATERAL EXAM: XR CHEST 2V PA LATERAL CLINICAL HISTORY: CHRONIC COUGH R05.3 TECHNIQUE: 2D digital imaging was performed. COMPARISON: CR,XR XR CHEST 2V PA LATERAL from 06/03/2020 FINDINGS: HEART: Normal size. Aorta: Not dilated. PULMONARY VASCULATURE: Normal. LUNGS: Clear. PLEURAL SPACE: No pleural effusion or pneumothorax. BONE:Unremarkable for age. IMPRESSION: No acute abnormality. DATA REPOSITORY: RADIATION DOSE DELIVERED:
== END 2022-12-31 15:50 ==
LOC: DI 15:30
PROVIDERS: PCP Internal Medicine; Visit Provider Family Medicine
DX: R05.3 Chronic cough (principal)
CPT/HCPCS: 71046

== ENCOUNTER 2022-12-31 19:16 | Outpatient (REF) | payer MEDICARE, SELFPAY ==
[2022-12-31 21:11] LABS: Abs Immature Grans 0.02 10^3/uL (0.0-0.06); Absolute Basophil Count 0.16 10^3/uL (0.0-0.2); Absolute Eosinophil Count 0.19 10^3/uL (0.0-0.7); Absolute Lymphocyte Count 2.55 10^3/uL (1.2-3.4); Absolute Monocyte Count 0.49 10^3/uL (0.1-0.8); Absolute Neutrophil Count 3.89 10^3/uL (1.2-6.7); Basophils % 2.2; Eosinophils % 2.6; HCT 42.4 % (36.0-46.0); HGB 14.1 g/dL (11.2-15.7); Immature Grans % 0.3; Lymphocytes % 34.9; MCH 29.3 pg (27.0-33.0); MCHC 33.3 % (32.0-36.0); MCV 88 fL (80-95); MPV 10.4 fL (8.0-11.0); Monocytes % 6.7; Neutrophils % 53.3; Platelet Count 311 10^3/uL (130-400); RBC 4.82 10^6/uL (3.93-5.22); RDW 12.5 % (11.7-14.6); RDW-SD 40.4 fL
[2022-12-31 21:22] LABS: ALT 17 U/L (14-59); AST 17 U/L (15-37); Albumin 3.8 g/dL (3.4-5.0); Alkaline Phosphatase 86 U/L (46-116); Anion Gap 9.7 mmol/L (3-11); BUN 9 mg/dL (7-18); Bilirubin, Total 0.4 mg/dL (0.2-1.0); CO2 26.3 mmol/L (21.0-32.0); CREATININE 0.9 mg/dL (0.55-1.02); Calcium 9.9 mg/dL (8.5-10.1); Chloride 105 mmol/L (98-107); Glucose 94 mg/dL (74-106); Potassium 4.2 mmol/L (3.5-5.1); Sodium 141 mmol/L (136-145); Total Protein 6.7 g/dL (6.4-8.2)
[2023-01-03 22:35] LABS: Coccidioides Ab Scr w/Reflex Negative (Negative)
== END 2022-12-31 19:17 | disposition home or self-care (01) ==
LOC: NCHCN 19:16
PROVIDERS: PCP Internal Medicine; Visit Provider Family Medicine
DX: R05.3 Chronic cough (principal)
CPT/HCPCS: 80053; 86635; 85025

== ENCOUNTER 2023-01-01 11:07 | Outpatient (REF) | payer MEDICARE, SELFPAY | END 2023-01-01 11:08 | disposition home or self-care (01) | LOC: NCHCN 11:07 | PROVIDERS: PCP Internal Medicine; Visit Provider Family Medicine | DX: R05.3 Chronic cough (principal) | CPT/HCPCS: 87116; 87206 ==

== ENCOUNTER 2023-01-07 12:02 | Outpatient (REF) | payer MEDICARE, SELFPAY ==
[2023-01-07 16:21] LABS: TSH (W/Ref FT4) 2.35 uIU/mL (0.36-3.74)
== END 2023-01-07 12:03 | disposition home or self-care (01) ==
LOC: NCHCN 12:02
PROVIDERS: PCP Internal Medicine; Visit Provider Family Medicine
DX: E03.9 Hypothyroidism, unspecified (principal)
CPT/HCPCS: 84443

== ENCOUNTER 2023-01-22 01:36 | Outpatient (CLI) | payer MEDICARE, SELFPAY ==
--- NOTE | 2023-01-22 | DI.MAMMO_ITS ---
Exam(s) MAMMO SCREENING EXAM: MAMMO SCREENING CLINICAL HISTORY: SCREENING, Z12.31 TECHNIQUE: Bilateral full field digital CC and MLO mammographic images were obtained with 3D tomosyn thesis and utilizing computer aided detection (CAD). COMPARISON: Available for comparison. FINDINGS: Masses/Architectural Distortion: None seen. Microcalcifications: No suspicious pleomorphic-type are seen. Skin Thickening/Nipple Retraction: None. IMPRESSION: 1. No significant interval change with no specific features of malignancy noted. 2. Unless there is more urgent need, screening mammography is recommended, as per [place] guidelines. BI-RADS Category 1 - Negative Breast Density - Category C - Heterogeneously dense Breast density category C or D implies that the patient has dense breast tissue. Dense breast tissue is very common and is not abnormal but dense breast tissue can make it harder to find cancer on a ma mmogram. Also, dense breast tissue may increase their breast cancer risk. This information about the result of the mammogram report was provided to the patient to raise their awareness. Use this report when you speak with the patient about their risks for breast cancer, which includes their family hist ory. At that time, you may recommend for more screening tests (Ultrasound or MRI) as they might be us eful based on their risk. A negative radiographic report should not delay biopsy if a dominant or clinically suspicious mass is present. Up to ten percent of cancers are not identified on mammography. A negative report may reinforce clinical impression. Adenosis and dense breasts may obscure an underlying neoplasm. False positive reports average 6 to 10%. Patient will receive a letter notifying them of these results.
== END 2023-01-22 01:56 ==
LOC: DI 01:36
PROVIDERS: PCP Internal Medicine; Visit Provider Family Medicine
DX: Z12.31 Encounter for screening mammogram for malignant neoplasm of breast (principal)
CPT/HCPCS: 77063; 77067

== ENCOUNTER 2023-03-13 11:22 | Emergency (ER) | payer MEDICARE, SELFPAY ==
[2023-03-13] VITALS (7 sets, daily range): BP systolic 90–112; BP diastolic 48–78; PULSE 50–63; RESP 12–20; TEMP 36.7; O2SAT 95–98
--- NOTE | 2023-03-13 11:15 | RT.EKG_ITS ---
APPROVED REPORT Exam: Resting ECG Reason for Exam: chest pain Patient Location: E HR:57 bpm ECG Measurements Heart Rate 57 AXIS VA 193 P 39 QRSd 81 QRS 10 QT 419 T 13 QTc 409 Conclusion Sinus bradycardia...rate< 60 Low voltage, precordial leads...precordial leads <1.0mV sinus bradycardia, normal axis, nomral intervals, non ischemic
--- NOTE | 2023-03-13 11:30 | DI.RAD_ITS ---
Exam(s) XR CHEST 2V PA LATERAL EXAM: XR CHEST 2V PA LATERAL CLINICAL HISTORY: chest pain TECHNIQUE: 2D digital imaging was performed. COMPARISON: No exams were available for comparison FINDINGS: HEART: Normal size. Aorta: Not dilated. PULMONARY VASCULATURE: Normal. LUNGS: Clear. PLEURAL SPACE: No pleural effusion or pneumothorax. BONE:Unremarkable for age. IMPRESSION: No acute abnormality. DATA REPOSITORY: RADIATION DOSE DELIVERED:
--- NOTE | 2023-03-13 11:38 | ED.GENADUL_ITS ---
Discharge Plan Disposition Patient Disposition: Home Condition: Improving Discharge Details Chief Complaint: Chest Pain Clinical Impression: Chest pain Primary Care Provider: Reji Lopez ED Provider: Kristopher Clayton Home Meds and New Rx's Prescriptions: No Action trazodone 50 MG tablet 150 mg PO HS Linzess 145 mcg capsule 145 mcg PO DAILY meclizine 25 mg tablet 25 mg PO TID PRN pantoprazole 40 mg tablet,delayed release (DR/EC) 40 mg PO DAILY alendronate 35 mg tablet 35 mg PO QWEEK atorvastatin 20 mg tablet 20 mg PO QHS levothyroxine 125 MCG tablet 75 mcg PO QAM Linzess 145 mcg Capsule 290 mcg PO QAM Patient Comments: duplicate Discharge Instructions Instructions: Chest Pain (ED) Additional Instructions: Please follow-up with your primary care physician. Please return to the emergency department for any worsening symptoms Medical Decision Making #72-year-old female history of acoustic neuroma presents with anterior chest pain nonexertional over the past several days. Nonradiating, nonexertional, EKG sinus bradycardia normal axis nonischemic. No respiratory distress hemodynamically stable. No history of coronary disease or thromboembolic disease patient is low risk heart score. However given age and symptomatology must consider ACS versus musculoskeletal versus pleurisy versus less likely pneumonia versus unlikely PE or aortic pathology. Screening labs chest x-ray EKG close reassessment disposition pending result 13: 10 patient resting comfortably chest pain resolving. Patient does have sensation in her neck and throat consider component of GERD/gastritis. Will follow primary care physician. Home care instructions return precautions given HPI General Date/Time Provider Initiated Documentation: 03/13/23 11:31 . HPI Narrative: 72-year-old female history of acoustic neuroma presents with intermittent chest pain over the last several days anterior nature nonradiating nonexertional. Denies history of coronary disease or thromboembolic disease. Received aspirin before arrival Related Data Home Medications Medication Instructions Recorded Confirmed trazodone 50 mg tablet 150 mg PO HS 03/24/13 03/13/23 levothyroxine 125 mcg tablet 75 mcg PO QAM 02/23/17 03/13/23 linaclotide 145 mcg capsule 290 mcg PO QAM 07/30/19 03/12/22 (Linzess) alendronate 35 mg tablet 35 mg PO QWEEK 02/14/22 03/13/23 atorvastatin 20 mg tablet 20 mg PO QHS 02/14/22 03/13/23 linaclotide 145 mcg capsule 145 mcg PO DAILY 02/14/22 03/13/23 (Linzess) meclizine 25 mg tablet 25 mg PO TID PRN 02/14/22 03/13/23 pantoprazole 40 mg tablet,delayed 40 mg PO DAILY 02/14/22 03/13/23 release Allergies Allergy/AdvReac Type Severity Reaction Status Date / Time sulfamethoxazole AdvReac Intermediate delayed Verified 03/13/23 11:28 [From Bactrim] rash trimethoprim [From Bactrim] AdvReac Intermediate delayed Verified 03/13/23 11:28 rash General Stated Complaint: Chest Pain MIKE: 3 Review of Systems Narrative: Review of Systems Constitutional: negative Eyes: negative ENT: negative Cardiovascular: Chest pain Respiratory: negative Gastrointestinal: negative : negative Musculoskeletal: negative Skin: negative Neurologic: negative Psych: negative PFSH All Active Problems (Updated 03/13/23 @ 13:11 by Kristopher Clayton MD) Chest pain (Acute) Fracture of 5th metatarsal (Acute 01/28/22) Asymmetrical hearing loss (Acute) Acoustic neuroma (Acute) Discharge planning issues (Acute) DVT prophylaxis (Acute) Acute electrocardiogram changes (Acute) Chest pain (Acute) Rectal mass (Acute) Colorectal polyps (Acute) History of colonoscopy (Chronic ~09/07/19) 2008-normal Left breast abscess (Acute) Dehydration (Acute) Hypomagnesemia (Acute) Wound of left breast (Acute) Hypotension (Chronic) Irritable bowel (Chronic) Hypothyroidism (acquired) (Chronic) Medical History (Updated 03/13/23 @ 13:11 by Kristopher Clayton MD) Anal fistula Drug allergy, antibiotic DVT prophylaxis Surgical History History of total abdominal hysterectomy Social History Smoking/Tobacco Use Status: Never Smoking risk assessment performed?: Yes Alcohol Intake: former Drug use: Never Substance use type: does not use Do you feel safe at home: Yes Do you feel safe in your relationship?: Yes History History 2 Para 1 Hx # Term Pregnancies 1 Multiple births Hx # Pregnancies Ectopic pregnancies AB induced Hx Number of Living Children 1 AB spontaneous 1 Exam Narrative Exam Narrative: Physical Examination General: alert, awake, cooperative, resting comfortably, no acute distress HEENT: normocephalic, atraumatic; PERRL, EOM intact, conjunctiva normal; no nasal discharge; moist mucous membranes, oral and pharyngeal mucosa normal, tolerating secretions Neck: supple, trachea midline; full ROM Chest: normal to inspection Respiratory: normal respiratory effort, speaking in full sentences, clear to auscultation, no wheezing, rales or rhonchi Cardiac: regular rate, regular rhythm, S1S2 intact, no murmurs rubs or gallops GI: abdomen soft, non-tender, non-distended; no palpable mass or hepatosplenomegaly Skin: no lesions, rashes or trauma appreciated Neuro: AAOx3, normal speech, moving all extremities Extremities: No peripheral edema Psych: Appropriate mood and affect Course Vital Signs Vital signs: Vital Signs Pulse 63 03/13/23 11:24 Respiratory Rate 18 03/13/23 11:24 Pulse Oximetry 95 03/13/23 11:24 Temperature 36.7 C 03/13/23 11:30 Temperature Source Oral 03/13/23 11:30 Pulse 63 03/13/23 11:24 Respiratory Rate 18 03/13/23 11:24 Respiratory Effort Normal, Non-Labored 03/13/23 11:28 Blood Pressure 90/48 L 03/13/23 11:30 Pulse Oximetry 95 03/13/23 11:24 Oxygen Delivery Method Room Air 03/13/23 11:24 Oxygen Flow Rate 0 03/13/23 11:24
[2023-03-13 11:50] LABS: Abs Immature Grans 0.01 10^3/uL (0.0-0.06); Absolute Lymphocyte Count 1.81 10^3/uL (1.2-3.4); Absolute Monocyte Count 0.37 10^3/uL (0.1-0.8); Absolute Neutrophil Count 2.69 10^3/uL (1.2-6.7); HCT 40.4 % (36.0-46.0); HGB 13.6 g/dL (11.2-15.7); Immature Grans % 0.2; Lymphocytes % 35.6; MCH 29.5 pg (27.0-33.0); MCHC 33.7 % (32.0-36.0); MCV 88 fL (80-95); Monocytes % 7.3; Neutrophils % 52.9; Platelet Count 235 10^3/uL (130-400); RBC 4.61 10^6/uL (3.93-5.22); RDW 12.6 % (11.7-14.6); RDW-SD 40.2 fL; WBC 5.08 10^3/uL (4.4-10.8)
[2023-03-13 12:07] LABS: ALT 20 U/L (14-59); AST 16 U/L (15-37); Albumin 3.4 g/dL (3.4-5.0); Alkaline Phosphatase 64 U/L (46-116); Anion Gap 7.4 mmol/L (3-11); BUN 9 mg/dL (7-18); Bilirubin, Total 0.4 mg/dL (0.2-1.0); CO2 27.6 mmol/L (21.0-32.0); CREATININE 0.9 mg/dL (0.55-1.02); Calcium 9.3 mg/dL (8.5-10.1); Chloride 106 mmol/L (98-107); Glucose 96 mg/dL (74-106); Potassium 3.9 mmol/L (3.5-5.1); Sodium 141 mmol/L (136-145); Total Protein 6.6 g/dL (6.4-8.2); Troponin I < 50 ng/L (<or=60)
[2023-03-13] MEDS: Mylanta Suspension 30 ML CUP PO (13:21)
[2023-03-13] MEDS: Lidocaine 2% Viscous 15 ML CUP PO (13:21)
== END 2023-03-13 14:02 | disposition home or self-care (01) ==
LOC: ER 14:41
PROVIDERS: Emergency Provider Emergency Medicine; PCP Internal Medicine
DX: R07.9 Chest pain, unspecified (principal); N03.9 Chronic nephritic syndrome with unspecified morphologic changes; I10 Essential (primary) hypertension
CPT/HCPCS: 36415; 80053; 93005; 99283; 71046; 84484; 85025; 93010; 99284

== ENCOUNTER 2023-03-14 17:44 | Outpatient (REF) | payer MEDICARE, SELFPAY ==
[2023-03-14 21:05] LABS: ESR 7 mm/hr (0-30)
== END 2023-03-14 17:45 | disposition home or self-care (01) ==
LOC: NCHCN 17:44
PROVIDERS: PCP Internal Medicine; Visit Provider Family Medicine
DX: M79.18 Myalgia, other site (principal)
CPT/HCPCS: 85652

== ENCOUNTER 2023-03-26 02:13 | Outpatient (CLI) | payer MEDICARE, SELFPAY ==
--- NOTE | 2023-03-26 | DI.NM_ITS ---
APPROVED REPORT Exam: Exercise Treadmill Patient Location: Out-Patient Room/Bed: Stress Nurse: Fay Guardado RN Ordering Provider:DARINEL AMADOR, Contact Number: BMI: 30.78 Baseline Rhythm: Sinus Rhythm Comment: Occasional PAC's Indications: SOB, Chest pressure Medical History Medical History: Hypotension, hypothyroidism, acoustic neuroma Cardiac Medications: Atorvastatin, levothyroxine, linzess, pantoprazole, trazadone, alendronate Allergies: Sulfamethoxazole, trimethoprim Cardiac Risk Factors: HLD, obesity Previous Cardiac Procedures: Cardiac catheterization (3 years ago per patient report) Pretest Chest Pain Characteristics: 4/5 chest pressure/tightness Exercise History: Sedentary Physical Disabilities: Knees Lung Sounds: Clear to auscultation Heart Sounds: Regular Stress Test Details Test: Exercise stress testing was performed using a Jesús protocol. Nuclear Acquisition: Rest Tc-99m/Stress Tc-99m 1 day Rest Isotope: Tc-99m Sestamibi. Dose: 10.4 Date: 03/26/2023 Injection Time: 0840 Stress Isotope: Tc-99m Sestamibi. Dose: 31.5 Date: 03/26/2023 Injection Time: 1010 HR Resting HR Supine: 62 bpm Max Heart Rate (APMHR): 147.857049 bpm Resting HR Standin bpm Target HR (85% APMHR): 124.326404 bpm Max HR Achieved: 138 bpm % of APMHR: 93.88 Recovery HR: 74 bpm HR response to stress: Normal HR response to stress BP Resting BP Supine: 110/78 mmHg Resting BP Standin/68 mmHg Max BP: 122/70 mmHg Recovery BP: 98/72 mmHg BP response to stress: Normal blood pressure response to stress. ECG Resting ECG: Sinus Rhythm Ectopy: Occasional PAC Stress ECG: Sinus Tachycardia ST Change: No significant ST segment changes noted Recovery ECG: Sinus Rhythm Recovery ST Change: No significant ST segment changes noted Recovery Arrhythmia: Occasional PAC Clinical Reason for Termination: Target HR Achieved, Fatigue Stress Symptoms: General Fatigue, Chest tightness 6/10 Exercise duration: 4 min02 sec Highest Stage Reached: Stage 2: 2.5 mph at 12% grade. Exercise capacity: 5.85 METs Angina Score: Non-Limiting [place] Treadmill Score: -0.2 Rate Pressure Product: [id number] Stress ECG Conclusion 1. Resting electrocardiogram was within normal limits 2. Patient exercised on the Jesús protocol and completed a workload of 5.85 METS 3. Normal heart rate and blood pressure response to exercise. Patient achieved 94% of predicted hear t rate for age 4. There was no electrocardiographic evidence of myocardial ischemia 5. There were no significant dysrhythmias 6. See MPI report [place] Treadmill Score is -0.2 which is Moderate risk. Stress Test Summary STAGE Time (mins) Speed (mph) Grade (%) HR BP SpO2 SYMPTOMS METS Supine 62 110/78 97 4-5/10 chest tightness Standing 83 102/68 97 4-5/10 chest tightness 1 3 1.7 10 126 4.5 1 min recovery 115 120/68 97 Chest tighness back to baseline at 4-5/10 3 min recovery 75 122/70 Chest tighness back to baseline at 4-5/10 6 min recovery 74 98/72 97 Chest tighness back to baseline at 4-5/10 MPI Conclusion Myocardial perfusion is normal. There is no ischemia or evidence of prior infarction EF is 75%, normal wall motion Radiologist Interpretation Radiologist agrees with Account Advisor's Interpretation. Radiologist Interpretation by: Christiano Phan MD Interpretation Date/Time: 03/28/2023 13:37:35
== END 2023-03-26 02:33 ==
LOC: DI 02:14
PROVIDERS: PCP Internal Medicine; Visit Provider Family Medicine
DX: R07.89 Other chest pain (principal)
CPT/HCPCS: 78452; 93016; 93018; 93017

== ENCOUNTER → 2023-07-29 03:15 | Outpatient (CLI) | payer MEDICARE, SELFPAY ==
--- NOTE | 2023-07-29 15:35 | DI.US_ITS ---
APPROVED REPORT EXAM: Comprehensive 2D, Doppler, and color-flow Echocardiogram Patient Location: Out-Patient Certified Welder: Arnold Wheeler RDCS (AE) Indications: aortic root dilatation, 2 year follow up Conclusion Normal left ventricular wall thickness and chamber size. Ejection fraction is 60 to 65%. Wall motio n is normal Normal right ventricular size and systolic function Both atria are normal in size Trileaflet aortic valve without stenosis or regurgitation Normal mitral valve with mild regurgitation Dilated ascending aorta (3.9 cm) Dilated aortic root (3.95 cm) Right ventricular systolic pressure could not be estimated Wall motion Left Ventricle The left ventricle is normal size. The left ventricular systolic function is normal. The left ventric ular ejection fraction is within the normal range. There is normal left ventricular wall thickness. T here is normal LV segmental wall motion. There is no ventricular septal defect visualized. LVEF is 60 -65%. Right Ventricle The right ventricle is normal size. The right ventricular systolic function is normal. Unable to asse ss PA pressure. Atria The left atrium size is normal. The right atrium size is normal. The interatrial septum is intact wit h no evidence for an atrial septal defect. Aortic Valve The aortic valve is normal in structure. Aortic valve is trileaflet. There is no aortic valvular sten osis. No aortic regurgitation is present. Mitral Valve The mitral valve is normal in structure. No evidence of mitral valve stenosis. Mild mitral regurgitat ion. Tricuspid Valve The tricuspid valve is normal in structure. There is no tricuspid valve stenosis. Trace tricuspid reg urgitation. Pulmonic Valve The pulmonary valve is normal in structure. There is no pulmonic valvular stenosis. Mild pulmonic reg urgitation. Great Vessels Aortic root is moderately dilated. The ascending aorta is mildly dilated. Aortic arch is normal in ca liber. IVC is normal in size and collapses >50% with inspiration. Pericardium There is no pericardial effusion. 2D Dimensions IVSD d PLAX 0.78 cm F: 0.6-1.0 Ao Root d 3.95 cm F: 2.7 - 3.3 LVPW d PLAX 0.81 cm F: 0.6 - 1.0 Ao Asc Diam d 3.90 cm F: 2.3 - 3.1 LVID d PLAX 4.69 cm F: 3.8 - 5.2 LVDs 3.16 cm F: 2.2 - 3.5 LV EF Teichholz 60.9 % FS 32.58 % LV EDV (Teich) 101.9 mL LV ESV (Teich) 39.8 mL Stroke Vol Index (Teich) 32.17 Auto EF LV EDV A4C 77.6 mL LV EDV A2C 56.5 mL LV EDV BP 66.5 mL LV ESV A4C 29.6 mL LV ESV A2C 19.9 mL LV ESV BP 24.6 mL LVEF(%) A4C 61.8 % LVEF(%) A2C 64.7 % LVEF(%) BP 63.0 % LV SV A4C 48.0 ml LV SV A2C 36.6 ml LV SV BP 41.9 ml LV CO A4C 3.2 L/min LV CO A2C 2.3 L/min LV CO BP 2.8 L/min HR A4C 67.65 BPM HR A2C 62.05 BPM LV EDV Index (BP) LA Volume LA Length A4C 4.5 cm LA Length A2C LA Area A4C s 8.53 cm2 LA Area A2C s LA Vol A4C A-L 13.80 mL LA Vol A2C A-L LA Vol Biplane A-L LA Vol A4C MOD 13.7 mL LA Vol A2C MOD LA Vol BP MOD RA Volume RA Area A4C 4.4 cm2 RA ESV A4C (A-L) 3.9mL RA Vol/BSA A4C A-L RA Length A4C 4.1 cm RA ESV A4C (MOD) 3.7mL LV Diastology MV E' medial 0.062 (>0.07 m/s) MV E Vmax 0.57 (0.4-1.3 m/s) MV E/E' MED 9.28 (<14) MV A Vmax 0.75 (0.4-1.3 m/s) MV E' lateral 0.054 (>0.1 m/s) E/A Ratio 0.8 MV E/E' LAT 10.58 (<14) MV E' Average 0.058 m/s MV E/E'(average) 9.89 Aortic Valve AoV Vmax 0.82 m/s LVOT Vmax 0.76 m/s AoV Peak Grad 2.7 mmHg LVOT Peak Grad 2.3 mmHg AoV Area (Vmax) 3.84 cm2 LVOT VTI 0.164 m AoV VTI 0.192 m LVOT Mean Grad 1.2 mmHg AoV Mean Sundeep. 0.56 m/s LVOT SV 67.31 mL AoV Mean Grad 1.4 mmHg LVOT Diam s 2.25 cm AoV Area (VTI) 3.51 cm2 Velocity Ratio 0.93 Mitral Valve MV DT 212 (160-240 msec) MV Vmax TIPS 0.87 m/s MV Mean Grad 1.0 (<2mmHg) MV VTI 0.255 m Pulmonary Valve PV Vmax 0.72 (0.5-1.5 m/s) RVOT Vmax 0.40 m/s PV Peak Grad 2.1 mmHg RVOT Peak Gr. 0.7 mmHg PV Mean Sundeep 0.48 m/s RVOT VTI 0.073 m PV Mean Grad 1.0 mmHg RVOT Mean Gr. 0.4 mmHg
== END ==
PROVIDERS: PCP Internal Medicine; Visit Provider Family Medicine
DX: I77.810 Thoracic aortic ectasia (principal)
CPT/HCPCS: 93306

== ENCOUNTER 2023-08-05 13:08 | Outpatient (REF) | payer MEDICARE, SELFPAY ==
[2023-08-05 15:15] LABS: ALT 22 U/L (14-59); AST 19 U/L (15-37); Albumin 3.4 g/dL (3.4-5.0); Alkaline Phosphatase 72 U/L (46-116); Anion Gap 9.1 mmol/L (3-11); BUN 11 mg/dL (7-18); Bilirubin, Total 0.5 mg/dL (0.2-1.0); CO2 26.9 mmol/L (21.0-32.0); CREATININE 0.9 mg/dL (0.55-1.02); Calcium 9.5 mg/dL (8.5-10.1); Chloride 106 mmol/L (98-107); Estimated GFR 67.08 (mL/min/1.73m2); Glucose 85 mg/dL (74-106); Potassium 3.8 mmol/L (3.5-5.1); Sodium 142 mmol/L (136-145); TSH (W/Ref FT4) 4.76 uIU/mL (0.36-3.74); Total Protein 6.4 g/dL (6.4-8.2)
[2023-08-05 16:41] LABS: FREE T4 1.28 ng/dL (0.76-1.46)
== END 2023-08-05 13:09 | disposition home or self-care (01) ==
LOC: NCHCN 13:08
PROVIDERS: PCP Internal Medicine; Visit Provider Family Medicine
DX: E03.9 Hypothyroidism, unspecified (principal); F51.04 Psychophysiologic insomnia; R42 Dizziness and giddiness; Z00.00 Encounter for general adult medical examination without abnormal findings
CPT/HCPCS: 80053; 84439; 84443

== ENCOUNTER 2024-08-06 18:12 | Outpatient (REF) | payer MEDICARE, SELFPAY ==
[2024-08-06 18:12] LABS: ALT 21 U/L (14-59); AST 20 U/L (15-37); Albumin 3.6 g/dL (3.4-5.0); Alkaline Phosphatase 77 U/L (46-116); Anion Gap 8.2 mmol/L (3-11); BUN 9 mg/dL (7-18); Bilirubin, Total 0.46 mg/dL (0.2-1.0); CO2 28.8 mmol/L (21.0-32.0); CREATININE 0.9 mg/dL (0.55-1.02); Calcium 9.8 mg/dL (8.5-10.1); Chloride 107 mmol/L (98-107); Estimated GFR 66.67 (mL/min/1.73m2); Glucose 90 mg/dL (74-106); Potassium 4.3 mmol/L (3.5-5.1); Sodium 144 mmol/L (136-145); TSH (W/Ref FT4) 3.66 uIU/mL (0.36-3.74); Total Protein 6.8 g/dL (6.4-8.2)
== END 2024-08-06 18:13 | disposition home or self-care (01) ==
LOC: NCHCN 18:12
PROVIDERS: PCP Family Medicine; Visit Provider Family Medicine
DX: E03.9 Hypothyroidism, unspecified (principal)
CPT/HCPCS: 80053; 84443

== ENCOUNTER 2025-08-11 14:55 | Outpatient (REF) | payer MEDICARE, SELFPAY ==
[2025-08-11 21:32] LABS: HCT 40.4 % (36.0-46.0); HGB 13.0 g/dL (11.2-15.7); MCH 28.8 pg (27.0-33.0); MCHC 32.2 % (32.0-36.0); MCV 89 fL (80-95); MPV 11.3 fL (8.0-11.0); Platelet Count 232 10^3/uL (130-400); RBC 4.52 10^6/uL (3.93-5.22); RDW 13.2 % (11.7-14.6); RDW-SD 42.6 fL; WBC 6.49 10^3/uL (4.4-10.8)
[2025-08-11 22:09] LABS: ALT 23 U/L (14-59); AST 22 U/L (15-37); Albumin 3.8 g/dL (3.4-5.0); Alkaline Phosphatase 98 U/L (46-116); Anion Gap 10.5 mmol/L (3-11); BUN 7 mg/dL (7-18); Bilirubin, Total 0.5 mg/dL (0.2-1.0); CO2 27.5 mmol/L (21.0-32.0); Calcium 9.4 mg/dL (8.5-10.1); Chloride 104 mmol/L (98-107); Estimated GFR 76.31 (mL/min/1.73m2); Glucose 92 mg/dL (74-106); LDL CHOLESTEROL 93 mg/dL (<100); Potassium 4.0 mmol/L (3.5-5.1); Sodium 142 mmol/L (136-145); TSH (W/Ref FT4) 3.22 uIU/mL (0.36-3.74); Total Protein 6.7 g/dL (6.4-8.2)
== END 2025-08-11 14:56 | disposition home or self-care (01) ==
LOC: NCHCN 14:55
PROVIDERS: PCP Family Medicine; Visit Provider Family Medicine
DX: K21.9 Gastro-esophageal reflux disease without esophagitis (principal); E78.5 Hyperlipidemia, unspecified; E03.9 Hypothyroidism, unspecified
CPT/HCPCS: 80053; 83721; 85027; 84443

== ENCOUNTER → 2025-08-30 02:18 | Outpatient (CLI) | payer MEDICARE, SELFPAY ==
--- NOTE | 2025-08-30 14:30 | DI.US_ITS ---
APPROVED REPORT EXAM: Comprehensive 2D, Doppler, and color-flow Echocardiogram Patient Location: Out-Patient Ibm Bpm Developer: Arnold Wheeler RDCS (AE) Indications: Thoracic aortic ectasia Other Information Study Quality: Fair Conclusion Normal left ventricular wall thickness and chamber size. Ejection fraction is 60%. Wall motion is normal Normal right ventricular size and function Both atria are normal in size There is no structural or hemodynamically significant valvular disease Normal dimensions of aortic root and ascending aorta. On this study they both measure 3.4 cm Wall motion Left Ventricle The left ventricle is normal size. The left ventricular systolic function is normal. The left ventricular ejection fraction is within the normal range. There is normal left ventricular wall thickness. There is normal LV segmental wall motion. There is no ventricular septal defect visualized. LVEF is 60%. Right Ventricle Right ventricle is grossly normal in size. Right ventricular systolic function is grossly normal. Atria The left atrium size is normal. Right atrium is not well visualized. Aortic Valve The aortic valve is normal in structure. Aortic valve is trileaflet. There is no aortic valvular stenosis. No aortic regurgitation is present. Mitral Valve The mitral valve is normal in structure. No evidence of mitral valve stenosis. There is no mitral valve regurgitation noted. Tricuspid Valve The tricuspid valve is normal in structure. There is no tricuspid valve stenosis. Trace tricuspid regurgitation. Pulmonic Valve The pulmonary valve is normal in structure. There is no pulmonic valvular stenosis. Trace pulmonic regurgitation. Great Vessels Aortic root is mildly dilated. The ascending aorta is normal in size. Aortic arch is normal in caliber. IVC is normal in size and collapses >50% with inspiration. Pericardium There is no pericardial effusion. 2D Dimensions IVSD d PLAX 0.93 cm F: 0.6-1.0 Ao Root d 3.20 cm F: 2.7 - 3.3 LVPW d PLAX 0.89 cm F: 0.6 - 1.0 Ao Asc Diam d 3.41 cm F: 2.3 - 3.1 LVID d PLAX 4.56 cm F: 3.8 - 5.2 LVDs 3.21 cm F: 2.2 - 3.5 LV EF Teichholz 56.9 % FS 29.73 % LV EDV (Teich) 95.5 mL LV ESV (Teich) 41.2 mL Stroke Vol Index (Teich) 27.87 M-Mode TAPSE 1.42 cm (M/F) >1.7 Auto EF LV EDV A4C 64.9 mL LV EDV A2C 57.7 mL LV EDV BP LV ESV A4C 25.8 mL LV ESV A2C 23.2 mL LV ESV BP LVEF(%) A4C 60.3 % LVEF(%) A2C 59.9 % LVEF(%) BP LV SV A4C 39.2 ml LV SV A2C 34.5 ml LV SV BP LV CO A4C 2.5 L/min LV CO A2C 2.1 L/min LV CO BP HR A4C 63.58 BPM HR A2C 60.81 BPM LV EDV Index (BP) LA Volume LA Length A4C 4.1 cm LA Length A2C 3.8 cm LA Area A4C s 9.66 cm2 LA Area A2C s 7.03 cm2 LA Vol A4C A-L 19.11 mL LA Vol A2C A-L 11.17 mL LA Vol Biplane A-L 15.4 mL LA Vol/BSA A4C A-L LA Vol/BSA A2C A-L LA Vol/BSA BP A-L 7.9 mL/m2 LA Vol A4C MOD 18.2 mL LA Vol A2C MOD 10.2 mL LA Vol BP MOD 14.0 mL LV Diastology MV E' medial 0.071 (>0.07 m/s) MV E Vmax 0.59 (0.4-1.3 m/s) MV E/E' MED 8.32 (<14) MV A Vmax 0.80 (0.4-1.3 m/s) MV E' lateral 0.069 (>0.1 m/s) E/A Ratio 0.7 MV E/E' LAT 8.59 (<14) MV E' Average 0.070 m/s MV E/E'(average) 8.45 Aortic Valve AoV Vmax 1.00 m/s LVOT Vmax 0.65 m/s AoV Peak Grad 4.0 mmHg LVOT Peak Grad 1.7 mmHg AoV Area (Vmax) 2.50 cm2 LVOT VTI 0.158 m AoV VTI 0.203 m LVOT Mean Grad 0.8 mmHg AoV Mean Sundeep. 0.69 m/s LVOT SV 60.47 mL AoV Mean Grad 2.2 mmHg LVOT Diam s 2.20 cm AoV Area (VTI) 2.98 cm2 AV Regurg Peak Gr. 3.98 mmHg Velocity Ratio 0.65 Mitral Valve MV DT 304 (160-240 msec) Pulmonary Valve PV Vmax 0.81 (0.5-1.5 m/s) RVOT Vmax 0.46 m/s PV Peak Grad 2.6 mmHg RVOT Peak Gr. 0.8 mmHg PV Mean Sundeep 0.52 m/s RVOT VTI 0.097 m PV Mean Grad 1.2 mmHg RVOT Mean Gr. 0.4 mmHg
== END ==
PROVIDERS: PCP Family Medicine; Visit Provider Family Medicine
DX: I77.810 Thoracic aortic ectasia (principal)
CPT/HCPCS: 93306